=== PATIENT | male | born 1955 | race African-American/Black ===

== ENCOUNTER 2022-05-27 23:44 | Emergency (ER) | payer MEDICARE, SELFPAY ==
--- NOTE | ~2022-05-27 | XR_ITS ---
EXAMINATION: XR chest 1V portable DATE: 05/28/2022 06:50 INDICATION: Confusion. TECHNIQUE: A single frontal view of the chest was obtained. COMPARISON: None. FINDINGS: Calcified bilateral lung nodules and calcified hilar lymph nodes are consistent with old gr anulomatous disease. No pleural effusion or pneumothorax. The heart size is normal. There are changes of posterior fusion procedure in thoracic spine. IMPRESSION: 1. No acute cardiopulmonary disease. Reviewed, dictated and finalized at location A. [employer] EX[employer]SEK[employer]PER
--- NOTE | ~2022-05-27 | CT_ITS ---
EXAMINATION: CT brain wo con DATE: 05/28/2022 06:44 INDICATION: Confusion. TECHNIQUE: Computed tomography (CT) of the head was performed without intravenous contrast. The mA wa s adjusted according to patient size. Iterative reconstruction technique was employed. The dose-lengt h product was 605.33 mGy-cm. COMPARISON: None FINDINGS: There are old infarcts involving the left basal ganglia and niurka. There are scattered areas of low attenuation in the cerebral white matter. There is no intracranial hemorrhage, acute infarcti on, or abnormal intracranial mass lesion. The ventricles are normal in size. There are old blowout fr actures of medial wall and floor of left orbit. The mastoid air cells are normal. IMPRESSION: 1. 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 2. Extensive nonspecific cerebral white matter disease, which likely represents chronic small vessel ischemic disease. Reviewed, dictated and finalized at location A. ER DOCK
[2022-05-27 23:48] VITALS: BP 156/96; PULSE 75; RESP 16; TEMP 36.3; O2SAT 100
[2022-05-27 23:55] LABS: Glucose Point of Care 284 mg/dl (65-105)
--- NOTE | 2022-05-27 23:55 | ECG_ITS ---
Measurements Intervals [place] Rate: 73 P: 66 [place]: 153 QRS: 5 QRSD: 76 T: 50 QT: 395 QTc: 436 Interpretive Statements SINUS RHYTHM WITHIN NORMAL LIMITS] NO PREVIOUS ECG AVAILABLE FOR COMPARISON Electronically Signed On 05-28-2022 9:47:59 SENIOR COURTROOM CLERK by Amadou Lockhart M.D.
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
[2022-05-28] MEDS: INSULIN HUMAN REGULAR (*BKC) 100 UNITS/ML 10 UNITS SUB-Q (00:46)
[2022-05-28 03:27] LABS: Basophils Percent Auto 0.5 % (0.2-1.2); Eosinophils Absolute Auto 0.1 K/mm3 (0-0.3); Eosinophils Percent Auto 1.8 % (0-4.4); Immature Granulocyte Absolute 0.04 K/mm3 (0.00-0.031); Immature Granulocyte Percent A 0.7 % (0-0.5); Lymphocytes Absolute Auto 1.35 K/mm3 (0.9-3.2); Mean Corpuscular Hemoglobin 30.4 pg (26-34); Mean Corpuscular Volume 95.1 fl (80-100); Mean Platelet Volume 8.7 fl (7.4-10.4); Monocytes Absolute Auto 0.5 K/mm3 (0.1-0.6); Monocytes Percent Auto 8.7 % (2.6-8.5); Neutrophils Absolute Auto 3.6 K/mm3 (1.3-6.7); Neutrophils Percent Auto 64.3 % (45.5-73.1); Platelet Count Result 483 k/mm3 (150-375); Red Blood Count 2.63 M/mm3 (4.6-6.20); Red Cell Distribution Width 15.3 % (11.5-14.5); White Blood Count 5.6 K/mm3 (4.5-10.0)
[2022-05-28 03:36] LABS: Alanine Aminotransferase 44 U/L (6-50); Albumin Level 3.9 g/dL (3.5-5.1); Alkaline Phosphatase 83 U/L (38-126); Anion Gap 7 mmol/L (8-16); Aspartate Amino Transferase 32 U/L (17-59); Bilirubin,Total 0.2 mg/dL (0.2-1.3); Blood Urea Nitrogen 35 mg/dL (9-20); Calcium 8.8 mg/dL (8.4-10.2); Carbon Dioxide 28 mmol/L (22-30); Chloride 99 mmol/L (98-107); Estimated CRCL calculation 42 ml/min; Estimated Glomerular Filt Rate 53; Glucose 206 mg/dL (65-110); Sodium 134 mmol/L (137-145)
[2022-05-28 03:37] LABS: Ethanol < 10 mg/dL (<10)
[2022-05-28 03:47] LABS: SARS-CoV-2 RNA PCR Negative
[2022-05-28] MEDS: SODIUM CHLORIDE 0.9% IV 1,000 ML 999 ML IV CONT (06:18)
[2022-05-28 06:44] LABS: Add Urine Microscopic? YES; Appearance Urine Clear (Clear); Bilirubin Urine Negative (Negative); Blood Urine 1+ (Negative); Color Urine Yellow (Yellow); Glucose Urine UA 3+ mg/dL (Negative); Ketones Urine Negative (Negative); Leukocyte Esterase Ur Negative LEU/UL (Negative); Nitrate Urine Negative (Negative); Protein Urine 1+ mg/dL (Negative); Urobilinogen Urine 0.2 mg/dL (<2.0); pH Urine 5.5 (5.0-9.0)
[2022-05-28 06:51] LABS: Bacteria Urine Trace /hpf; Mucus Urine Rare /lpf; WBC Urine 0-3 /hpf
[2022-05-28 06:53] LABS: Amphetamine Screen Urine Negative (Negative); Barbiturate Screen Urine Negative (Negative); Benzodiazepines Screen Urine Negative (Negative); Cannabinoid Screen Urine Negative (Negative); Cocaine Screen Urine Negative (Negative); Methadone Screen Urine Negative (Negative); Opiate Screen Urine Negative (Negative); Phencyclidine Screen Urine Negative (Negative)
[2022-05-28 07:33] VITALS: BP 162/86; PULSE 66; RESP 12; O2SAT 100
[2022-05-28 07:34] VITALS: PULSE 67
--- NOTE | 2022-05-28 09:12 | PC.NURSE ---
attempted to call [phone], Danielle, - phone number given to us from [facility]. - Left message
--- NOTE | 2022-05-28 09:32 | PC.NURSE ---
Food tray ordered.
[2022-05-28 09:33] VITALS: BP 175/98; PULSE 70; RESP 18; O2SAT 100
== END 2022-05-28 10:49 | disposition home or self-care (01) ==
PROVIDERS: Emergency Provider General Practice
DX: E10.649 Type 1 diabetes mellitus with hypoglycemia without coma (principal); Z20.822 Contact with and (suspected) exposure to COVID-19; I10 Essential (primary) hypertension; R90.82 White matter disease, unspecified
CPT/HCPCS: 36415; 70450; 71045; 80053; 80307; 81001; 82948; 85025; 93005; 96360; 99284; J1815; J7030; U0003; U0005

== ENCOUNTER 2023-08-24 13:42 | Emergency (ER) | payer MEDICARE, SELFPAY ==
[2023-08-24] VITALS (7 sets, daily range): BP systolic 135–176; BP diastolic 63–102; PULSE 75–88; RESP 10–22; TEMP 36.2; O2SAT 100
--- NOTE | ~2023-08-24 | XR_ITS ---
EXAMINATION: XR chest 1V Exam Date/Time: 08/24/2023 16:10 CDT HISTORY: ams Comparison: 05/28/2022. RESULT: Lines, tubes, and devices: Lower thoracic fusion hardware. Lungs and pleura: Clear. Calcified granuloma. Cardiomediastinal silhouette: Stable. Calcified hilar lymph node. Other: No acute osseous or upper abdominal finding. Old right 11th rib fracture. IMPRESSION: No acute cardiopulmonary process. Reviewed, dictated and finalized at location K.
--- NOTE | ~2023-08-24 | CT_ITS ---
EXAMINATION: CT brain wo con DATE: 08/24/2023 16:10 INDICATION: Altered mental status. TECHNIQUE: Computed tomography (CT) of the head was performed without intravenous contrast. The mA wa s adjusted according to patient size. Iterative reconstruction technique was employed. The dose-lengt h product was 681.00 mGy-cm. COMPARISON: Head CT 05/28/2022 FINDINGS: There are old infarcts in the bilateral basal ganglia and niurka. There are scattered areas o f low attenuation in the cerebral white matter. There is no intracranial hemorrhage, acute infarction , or abnormal intracranial mass lesion. The ventricles are normal in size. There is mild mucosal thic kening in the ethmoid sinuses. The orbits are normal. The mastoid air cells are normal. IMPRESSION: 1. Old infarcts in the bilateral basal ganglia and niurka. 2. Stable extensive nonspecific cerebral white matter disease, which likely represents chronic small vessel ischemic disease. Reviewed, dictated and finalized at location A. IMPRESSION: 1. Old infarcts in the bilateral basal ganglia and niurka. 2. Stable extensive nonspecific cerebral white matter disease, which likely rep resents chronic small vessel ischemic disease.
[2023-08-24 13:53] LABS: Glucose Point of Care 328 mg/dl (65-105)
--- NOTE | 2023-08-24 15:56 | ECG_ITS ---
Measurements Intervals [place] Rate: 82 P: 77 [place]: 157 QRS: -8 QRSD: 82 T: 71 QT: 351 QTc: 412 Interpretive Statements SINUS RHYTHM INCOMPLETE RIGHT BUNDLE BRANCH BLOCK BASELINE ARTIFACT- I, II, III, AVR, AVL, AVF, V1-V6 BORDERLINE ECG COMPARED TO ECG 05/27/2022 23:56:43 NO SIGNIFICANT CHANGES Electronically Signed On 08-24-2023 16:39:01 CDT by Pilo Bernal D.O.
--- NOTE | 2023-08-24 16:30 | ED.AMS ---
HPI - Altered Mental Status General Chief Complaint: Recheck/Abnormal Lab/Rx Stated Complaint: ams Time Seen by Provider: 08/24/23 15:48 Source: EMS and other ( [facility] documentation reviewed) Mode of arrival: EMS Limitations: altered mental status and clinical condition History of Present Illness HPI narrative: Patient presents from [facility] with concern for altered mental status and elevated blood glucose. patient presents with custodial documentation which states that he had 14 units of lispro insulin at 11:30 a.m. and 10 units at 10am for total of 24 units. Patient is unable to provide any history. Prescriptions per nursing documentation as follows: Amlodipine, aspirin, atorvastatin, carvedilol, vitamin B12, multivitamin, dextrose gel, famotidine, ferrous sulfate, fluticasone, folic acid, Humalog, hydralazine, insulin glargine, ipratropium albuterol, Lucrecia Baldemar all, ProStat renal Care, quetiapine, Santyl, quetiapine Related Data Allergies Allergy/AdvReac Type Severity Reaction Status Date / Time No Known Allergies Allergy Verified 05/28/22 07:23 [facility] Past Medical History Medical History Anemia, unspecified Chronic kidney disease, unspecified Epilepsy, unspecified, not intractable, without status epilepticus 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 HEAD: Normocephalic, atraumatic. EYES: Non injected, non icteric ENT: Nares clear, no rhinorrhea or epistaxis. NECK: Supple. CHEST: Airway protected/patent. Non labored. No respiratory distress. HEART: Regular rate and rhythm. . ABDOMEN: Soft, nondistended. No tenderness to palpation. EXTREMITIES: No edema. SKIN: Warm, dry. Multiple areas of thickened skin, prior fowler. . NEURO: No focal deficits but not moving extremities. Bilateral upper extremities with contractures. . Course Vital Signs Vital signs: Vital Signs Temperature 97.1 F L 08/24/23 13:46 Pulse Rate 75 08/24/23 13:46 Respiratory Rate 14 08/24/23 13:46 Blood Pressure 135/77 08/24/23 13:46 Pulse Oximetry 100 08/24/23 13:46 Oxygen Delivery Room Air 08/24/23 13:46 Temperature 97.1 F L 08/24/23 13:46 Pulse Rate 86 08/24/23 21:24 Respiratory Rate 22 H 08/24/23 21:24 Blood Pressure 176/102 H 08/24/23 21:24 Pulse Oximetry 100 08/24/23 21:24 Oxygen Delivery Room Air 08/24/23 13:46 Procedures Other Procedure Procedure 1: Other Procedure: Procedure Note: Ultrasound-guided peripheral venous catheter insertion An ultrasound-guided peripheral venous catheter is required in order to obtain vascular access in this patient. Alcohol prep pad is used to sterilize the area and a 20 gauge catheter was successfully inserted into the left proximal arm under ultrasound visualization. The catheter flushes and draws back without difficulty or signs of extravasation. Catheter secured in plac
[2023-08-24 17:13] LABS: Appearance Urine Clear (Clear); Bacteria Urine None Seen /hpf; Bilirubin Urine Negative (Negative); Blood Urine Negative (Negative); Color Urine Yellow (Yellow); Glucose Urine UA 3+ mg/dL (Negative); Ketones Urine Negative (Negative); Leukocyte Esterase Ur Negative LEU/UL (Negative); Need Manual Microscopic Reviewed; Nitrate Urine Negative (Negative); Protein Urine 3+ mg/dL (Negative); Squamous Epithelial Cell Urine None Seen /hpf (Few); Urobilinogen Urine 0.2 mg/dL (<2.0); WBC Urine 0-5 /hpf (0-3); pH Urine 5.5 (5.0-9.0)
[2023-08-24 17:14] LABS: Add Urine Microscopic? YES
[2023-08-24 17:21] LABS: Amphetamine Screen Urine Negative (Negative); Barbiturate Screen Urine Negative (Negative); Benzodiazepines Screen Urine Negative (Negative); Cannabinoid Screen Urine Negative (Negative); Cocaine Screen Urine Negative (Negative); Methadone Screen Urine Negative (Negative); Opiate Screen Urine Negative (Negative); Phencyclidine Screen Urine Negative (Negative)
[2023-08-24 17:40] LABS: Basophils Percent Auto 0.3 % (0.2-1.2); Eosinophils Absolute Auto 0.1 K/mm3 (0-0.3); Eosinophils Percent Auto 2.3 % (0-4.4); Hematocrit 25.5 % (42.0-52.0); Hemoglobin 8.5 g/dL (14.0-18.0); Immature Granulocyte Absolute 0.16 K/mm3 (0.00-0.031); Immature Granulocyte Percent A 2.8 % (0-0.5); Lymphocytes Absolute Auto 1.46 K/mm3 (0.9-3.2); Lymphocytes Percent Auto 25.3 % (18.3-44.2); Mean Corpuscular HGB Conc 33.3 g/dl (32-36); Mean Corpuscular Hemoglobin 30.1 pg (26-34); Mean Corpuscular Volume 90.4 fl (80-100); Mean Platelet Volume 9.7 fl (7.4-10.4); Monocytes Absolute Auto 0.6 K/mm3 (0.1-0.6); Monocytes Percent Auto 10.1 % (2.6-8.5); Neutrophils Absolute Auto 3.4 K/mm3 (1.3-6.7); Neutrophils Percent Auto 59.2 % (45.5-73.1); Platelet Count Result 272 k/mm3 (150-375); Red Blood Count 2.82 M/mm3 (4.6-6.20); Red Cell Distribution Width 14.8 % (11.5-14.5); White Blood Count 5.8 K/mm3 (4.5-10.0)
[2023-08-24 17:53] LABS: Prothrombin Time 13.4 Seconds (11.1-14.7)
[2023-08-24 17:54] LABS: Partial Thromboplastin Time 29.6 Seconds (22.3-36.8)
[2023-08-24 17:57] LABS: Alanine Aminotransferase 56 U/L (6-50); Alkaline Phosphatase 88 U/L (38-126); Anion Gap 5 mmol/L (4-12); Aspartate Amino Transferase 32 U/L (17-59); Bilirubin,Total 0.4 mg/dL (0.2-1.3); Blood Urea Nitrogen 61 mg/dL (9-20); Carbon Dioxide 28 mmol/L (22-30); Chloride 108 mmol/L (98-107); Estimated CRCL calculation 31 ml/min; Estimated Glomerular Filt Rate 43; Glucose 232 mg/dL (65-110); Potassium 4.4 mmol/L (3.4-5.0); Sodium 141 mmol/L (137-145)
[2023-08-24 18:08] LABS: Troponin I < 0.012 ng/mL (0.000-0.034)
[2023-08-24 18:10] LABS: Creatine Kinase 83 U/L (55-170)
--- NOTE | 2023-08-24 18:56 | PC.NURSE ---
1600: RN attempted IV with ultrasound multiple times and had no luck. Pt has skin grafts up and down his arms. Wasn't able to get access at this time.
[2023-08-24] MEDS: SODIUM CHLORIDE 0.9% IV 1,000 ML 999 ML IV CONT (19:50)
[2023-08-24 20:43] LABS: Glucose Point of Care 293 mg/dl (65-105)
== END 2023-08-24 22:24 ==
PROVIDERS: Emergency Provider Student in an Organized Health Care Education/Training Program
DX: N17.9 Acute kidney failure, unspecified (principal); N18.9 Chronic kidney disease, unspecified; E10.22 Type 1 diabetes mellitus with diabetic chronic kidney disease; E10.65 Type 1 diabetes mellitus with hyperglycemia; D64.9 Anemia, unspecified; I25.2 Old myocardial infarction; Z79.82 Long term (current) use of aspirin; Z79.4 Long term (current) use of insulin; R90.82 White matter disease, unspecified; I45.10 Unspecified right bundle-branch block
CPT/HCPCS: 36415; 70450; 71045; 80053; 80307; 81001; 82550; 82948; 84443; 84484; 85025; 85610; 85730; 93005; 96360; 99284; J7030

== ENCOUNTER 2023-10-12 12:43 | Emergency (ER) | payer MEDICARE, SELFPAY ==
--- NOTE | ~2023-10-12 | XR_ITS ---
EXAMINATION: XR chest 1V portable DATE: 10/12/2023 12:56 INDICATION: Altered mental status TECHNIQUE: frontal view of the chest was obtained. COMPARISON: Chest radiograph dated 08/24/2023 FINDINGS: Unchanged mild elevation the left hemidiaphragm. Again seen are a few small calcified nodules in the bilateral lower lung zones consistent with old granulomatous disease. No other airspace opacities, pu lmonary edema, pleural effusion or pneumothorax. The cardiomediastinal silhouette is normal. T9-T12 i nstrumented posterior spinal fusion with bilateral vertical gris and pedicle screw fixation. [place] d posterior right 10th and 11th rib fractures. IMPRESSION: 1. Chronic mild elevation the left hemidiaphragm. No acute cardiopulmonary disease. Reviewed, dictated and finalized at location A. IMPRESSION: 1. Chronic mild elevation the left hemidiaphragm. No acute cardiopulmonary dise ase.
--- NOTE | ~2023-10-12 | CT_ITS ---
CT head without contrast Indication: Altered mental status COMPARISON: 08/24/2023 Technique: Serial scans were obtained through the brain without the administration of contrast. Dose reduction technique was used on this scan by utilizing automated exposure control and iterative recon struction technique. The dose-length product (DLP) was 681.00 mGy-cm. Findings: There is no evidence of intracranial hemorrhage, mass lesion, or acute infarct. The ventri cles and subarachnoid spaces are dilated, consistent with moderate to severe atrophy. Low attenuatio n regions are seen within the periventricular white matter bilaterally, likely representing changes f rom chronic microvascular ischemic disease. There is no evidence of edema, mass effect or midline sh ift. There is extensive opacification of the left maxillary sinus, left frontal sinus, and left ethmo id air cells. The remaining visualized paranasal sinuses and mastoid air cells are clear. Impression: No intracranial hemorrhage, mass, or acute infarct. Atrophy and chronic white matter changes, as above. Sinus disease, as above. Reviewed, dictated and finalized at location M. Impression: No intracranial hemorrhage, mass, or acute infarct. Atrophy and chronic white matter changes, as above. Sinus disease, as above.
[2023-10-12 12:44] VITALS: BP 164/82; PULSE 50; RESP 9; O2SAT 100
--- NOTE | 2023-10-12 12:47 | ECG_ITS ---
SEE SCANNED COPY FOR CONFIRMED REPORT
--- NOTE | 2023-10-12 12:57 | ED.AMS ---
HPI - Altered Mental Status General Chief Complaint: Altered Mental Status Stated Complaint: AMS Time Seen by Provider: 10/12/23 12:44 History of Present Illness HPI narrative: 67-year-old male presenting to the emergency department for evaluation for altered mental status. Patient does have prior history of CVA and resides in a local retirement. residential states that they were having difficulty waking up the patient. When EMS arrived they transfer the patient over to the urinary and patient was alert and oriented at his baseline. Upon arrival to the emergency department patient denies any pain or complaints. Patient states there is nothing wrong with some and does not want to be here at [facility]. Patient does have a prior history of CVA but does not appear postictal. 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 HEAD: normocephalic, atraumatic. EYES: PERRLA/EOMI, conjunctivae clear. NOSE: Normal no drainage EARS:TMS clear with good light reflex. THROAT: Pharynx clear, no exudate. NECK: Supple. No adenopathy, no masses. RESPIRATORY: Airway patent, respirations nonlabored. Clear to auscultation bilaterally, no rales, rhonchi, wheezing. CARDIOVASCULAR: Regular rate and rhythm without murmurs rubs or gallops. ABDOMINAL: Soft, nontender, nondistended, normal bowel sounds MUSCULOSKELETAL: Moves all extremities. Strength/ROM intact, No edema, No calf tenderness. NEURO: Alert. at patient's described neuro baseline. SKIN: Warm, dry. Normal Color Course Vital Signs Vital signs: Vital Signs Pulse Rate 50 L 10/12/23 12:44 Respiratory Rate 9 L 10/12/23 12:44 Blood Pressure 164/82 H 10/12/23 12:44 Pulse Oximetry 100 10/12/23 12:44 Temperature 97.4 F L 10/12/23 13:47 Pulse Rate 63 10/12/23 16:30 Respiratory Rate 14 10/12/23 16:30 Blood Pressure 153/72 H 10/12/23 16:30 Pulse Oximetry 98 10/12/23 16:30 Oxygen Delivery Room Air 10/12/23 12:59 MDM - Altered Mental Status MDM Narrative Medical decision making narrative: this 67-year-old male presents emergency department for evaluation for altered mental status. Patient was alert and not lethargic the entire time he was in the emergency department. Patient does not have an elevated white blood count and hemoglobin is stable. Urine does show evidence of urinary tract infection. Patient was negative for influenza RSV and for COVID. Head CT was negative for acute intracranial abnormality chest x-ray shows no acute cardiopulmonary disease. Patient was treated with IV Rocephin for a urinary tract infection. Patient was discharged back to his care facility with Keflex. Differential Diagnosis Differential diagnosis: Likely altered mental status, hyponatremia and sepsis Lab Data Attestation: I reviewed the patient's lab results. 10/12/23 15:23 10/12/23 15:23 Labs: Lab Results 10/12/23 10/12/23 10/12/23 Range/Units 13:13 13:43 15:23 WBC 4.3 L (4.5-10.0) K/mm3 RBC 3.16 L (4.6-6.20) M/mm3 Hgb 9.4 L (14.0-18.0) g/dL Hct 31.1 L (42.0-52.0) % MCV 98.4 (80-100) fl MCH 29.7 (26-34) pg MCHC 30.2 L (32-36) g/dl RDW 15.2 H (11.5-14.5) % Plt Count 232 (150-375) k/mm3 MPV 9.6 (7.4-10.4) fl Immature Gran % (Auto) 1.2 H (0-0.5) % Neut % (Auto) 47.6 (45.5-73.1) % Lymph % (Auto) 39.3 (18.3-44.2) % [place] % (Auto) 7.9 (2.6-8.5) % Eos % (Auto) 3.3 (0-4.4) % Baso % (Auto) 0.7 (0.2-1.2) % Lymph # (Auto) 1.69 (0.9-3.2) K/mm3 [place] # (Auto) 0.3 (0.1-0.6) K/mm3 Eos # (Auto) 0.1 (0-0.3) K/mm3 Baso # (Auto) 0.0 (0.0-0.1) K/mm3 Abs Immat Gran (auto) 0.05 H (0.00-0.031) K/mm3 Absolute Neuts (auto) 2.1 (1.3-6.7) K/mm3 Absolute Nucleated RBC 0.000 (0.0-0.012) K/mm3 Nucleated RBC % 0.0 (0.0-0.2) % Platelet Estimate Adequate (Adequate) % Immature Plt Fraction 1.6 (0.9-11.2) % Poikilocytosis 2+ Anisocytosis 1+ Ovalocytes 1+ Helmet Cells 1+ Crenated Cell 3+ Acanthocytes (Spur) 2+ Schistocytes 1+ Sodium Cancelled Potassium Cancelled Chloride Cancelled Carbon Dioxide Cancelled Anion Gap Cancelled BUN Cancelled Creatinine Cancelled Estim Creat Clear Calc Cancelled Estimated GFR Cancelled Glucose Cancelled Calcium Cancelled Total Bilirubin Cancelled AST Cancelled ALT Cancelled Alkaline Phosphatase Cancelled Total Protein Cancelled Albumin Cancelled Urine Color Yellow (Yellow) Urine Appearance Cloudy H (Clear) Urine pH 5.5 (5.0-9.0) Ur Specific [place] 1.017 (1.001-1.035) Urine Protein 3+ H (Negative) mg/dL Urine Glucose (UA) Negative (Negative) mg/dL Urine Ketones Negative (Negative) mg/dL Ur Blood (Man) 1+ H (Negative) Urine Nitrate Negative (Negative) Urine Bilirubin Negative (Negative) Urine Urobilinogen 0.2 (<2.0) mg/dL Leukocyte Esterase Rfl 3+ H (Negative) DANIS/UL Urine RBC 0-2 (0-2) /hpf Urine WBC >100 H (0-3) /hpf Ur Squamous Epith Cells None seen (Few) /hpf Urine Bacteria Rare /hpf Urine Casts 0-2 Influenza A (RT-PCR) Negative (Negative) Influenza B (RT-PCR) Negative (Negative) RSV (RT-PCR) Negative (Negative) SARS-CoV-2 RNA (RT-PCR) Negative (Negative) Imaging Data Radiologist's impression: Impressions Chest X-Ray 10/12/23 13:10 IMPRESSION: 1. Chronic mild elevation the left hemidiaphragm. No acute cardiopulmonary disease. Head CT 10/12/23 13:49 Impression: No intracranial hemorrhage, mass, or acute infarct. Atrophy and chronic white matter changes, as above. Sinus disease, as above. Discharge Plan Discharge Clinical Impression: Acute UTI Patient Disposition: NH Retirement/Asst Living Condition: Stable Instructions: Antibiotic Form, Urinary Tract Infection in Men (ED) Additional Instructions: Antibiotic as directed until completed. Have close follow-up with your primary care physician. Prescriptions: New cephalexin 500 mg capsule 500 mg PO Q8H 7 Days Qty: 21 0RF Follow-up/Referrals: UNKNOWN,DOCTOR [Primary Care Provider] -
--- NOTE | 2023-10-12 13:17 | PCRCNOTE ---
ABG CANCELLED FOR NOW PER DR. DENT. R.N. NOTIFIED.
[2023-10-12 13:47] VITALS: TEMP 36.3
[2023-10-12 13:52] LABS: Influenza A QL RT-PCR Negative (Negative); Influenza B QL RT-PCR Negative (Negative); RSV RNA, RT-PCR Negative (Negative); SARS-CoV-2 RNA PCR Negative (Negative)
[2023-10-12 13:52] LABS: Appearance Urine Cloudy (Clear); Bacteria Urine Rare /hpf; Bilirubin Urine Negative (Negative); Blood Urine 1+ (Negative); Color Urine Yellow (Yellow); Glucose Urine UA Negative (Negative); Ketones Urine Negative (Negative); Leukocyte Esterase Ur 3+ LEU/UL (Negative); Nitrate Urine Negative (Negative); Non Pathogenic Casts 0-2; Protein Urine 3+ mg/dL (Negative); RBC Urine 0-2 /hpf (0-2); Specific Grav Ur 1.017 (1.001-1.035); Squamous Epithelial Cell Urine None Seen /hpf (Few); Urobilinogen Urine 0.2 mg/dL (<2.0); WBC Urine >100 /hpf (0-3); pH Urine 5.5 (5.0-9.0)
[2023-10-12 14:02] LABS: Add Urine Microscopic? YES
--- NOTE | 2023-10-12 14:25 | PC.NURSE ---
Iv/lab attempt x3 with US, no success. Vascular access and phlebotomy consulted. Dr. Kevin Joaquin notified
[2023-10-12 14:30] VITALS: BP 160/79; PULSE 51; RESP 18; O2SAT 99
[2023-10-12 15:30] VITALS: BP 159/92; PULSE 58; RESP 21; O2SAT 98
[2023-10-12 15:35] LABS: Basophils Percent Auto 0.7 % (0.2-1.2); Eosinophils Absolute Auto 0.1 K/mm3 (0-0.3); Eosinophils Percent Auto 3.3 % (0-4.4); Hematocrit 31.1 % (42.0-52.0); Hemoglobin 9.4 g/dL (14.0-18.0); Immature Granulocyte Absolute 0.05 K/mm3 (0.00-0.031); Immature Granulocyte Percent A 1.2 % (0-0.5); Immature Platelet Fraction Pct 1.6 % (0.9-11.2); Lymphocytes Absolute Auto 1.69 K/mm3 (0.9-3.2); Lymphocytes Percent Auto 39.3 % (18.3-44.2); Mean Corpuscular HGB Conc 30.2 g/dl (32-36); Mean Corpuscular Hemoglobin 29.7 pg (26-34); Mean Corpuscular Volume 98.4 fl (80-100); Mean Platelet Volume 9.6 fl (7.4-10.4); Monocytes Absolute Auto 0.3 K/mm3 (0.1-0.6); Monocytes Percent Auto 7.9 % (2.6-8.5); Neutrophils Absolute Auto 2.1 K/mm3 (1.3-6.7); Neutrophils Percent Auto 47.6 % (45.5-73.1); Platelet Count Result 232 k/mm3 (150-375); Red Blood Count 3.16 M/mm3 (4.6-6.20); Red Cell Distribution Width 15.2 % (11.5-14.5); White Blood Count 4.3 K/mm3 (4.5-10.0)
[2023-10-12 16:02] LABS: Platelet Estimate Adequate (Adequate)
[2023-10-12 16:03] LABS: Anisocytosis 1+; Poikilocytosis 2+
[2023-10-12 16:04] LABS: Helmet Cells 1+; Ovalocytes 1+
[2023-10-12 16:06] LABS: Acanthocytes 2+; Crenated RBC 3+; Schistocytes 1+
[2023-10-12 16:30] VITALS: BP 153/72; PULSE 63; RESP 14; O2SAT 98
[2023-10-12] MEDS: CEPHALEXIN 500 MG CAPSULE PO (17:03)
== END 2023-10-12 17:14 ==
PROVIDERS: Emergency Provider Emergency Medicine
DX: N39.0 Urinary tract infection, site not specified (principal); E10.22 Type 1 diabetes mellitus with diabetic chronic kidney disease; G40.909 Epilepsy, unspecified, not intractable, without status epilepticus; I25.2 Old myocardial infarction; F06.71 Mild neurocognitive disorder due to known physiological condition with behavioral disturbance; Z86.2 Personal history of diseases of the blood and blood-forming organs and certain disorders involving the immune mechanism; R94.31 Abnormal electrocardiogram [ECG] [EKG]; R00.1 Bradycardia, unspecified; Z20.822 Contact with and (suspected) exposure to COVID-19
CPT/HCPCS: 36415; 70450; 71045; 81001; 85025; 85055; 87077; 87086; 87088; 87181; 87637; 93005; 99284; A9270

== ENCOUNTER 2023-10-15 11:07 | Emergency (ER) | payer MEDICARE, MEDICAID, SELFPAY ==
[2023-10-15] VITALS (9 sets, daily range): BP systolic 126–144; BP diastolic 65–84; PULSE 52–86; RESP 16–22; TEMP 36.6; O2SAT 84–100
[2023-10-15 11:24] LABS: Glucose Point of Care 178 mg/dl (65-105)
--- NOTE | 2023-10-15 13:11 | PC.NURSE ---
This RN called phlebotomy for pt labs
[2023-10-15 14:39] LABS: Basophils Percent Auto 0.5 % (0.2-1.2); Eosinophils Absolute Auto 0.1 K/mm3 (0-0.3); Hematocrit 26.4 % (42.0-52.0); Hemoglobin 8.5 g/dL (14.0-18.0); Immature Granulocyte Absolute 0.02 K/mm3 (0.00-0.031); Lymphocytes Absolute Auto 0.71 K/mm3 (0.9-3.2); Lymphocytes Percent Auto 35.1 % (18.3-44.2); Mean Corpuscular HGB Conc 32.2 g/dl (32-36); Mean Corpuscular Hemoglobin 29.4 pg (26-34); Mean Corpuscular Volume 91.3 fl (80-100); Mean Platelet Volume 9.5 fl (7.4-10.4); Monocytes Absolute Auto 0.1 K/mm3 (0.1-0.6); Neutrophils Absolute Auto 1.1 K/mm3 (1.3-6.7); Neutrophils Percent Auto 55.4 % (45.5-73.1); Platelet Count Result 183 k/mm3 (150-375); Red Blood Count 2.89 M/mm3 (4.6-6.20); Red Cell Distribution Width 14.9 % (11.5-14.5)
[2023-10-15 14:45] LABS: Alanine Aminotransferase 115 U/L (6-50); Alkaline Phosphatase 114 U/L (38-126); Anion Gap 8 mmol/L (4-12); Aspartate Amino Transferase 57 U/L (17-59); Bilirubin,Total 0.4 mg/dL (0.2-1.3); Blood Urea Nitrogen 50 mg/dL (9-20); Calcium 9.7 mg/dL (8.4-10.2); Carbon Dioxide 23 mmol/L (22-30); Chloride 114 mmol/L (98-107); Estimated CRCL calculation 44 ml/min; Estimated Glomerular Filt Rate 53; Glucose 105 mg/dL (65-110); Sodium 145 mmol/L (137-145)
[2023-10-15 14:58] LABS: Platelet Estimate Adequate (Adequate)
[2023-10-15 14:59] LABS: Ovalocytes 1+; Schistocytes None Seen
--- NOTE | 2023-10-15 15:48 | ED.GENADULT ---
HPI - General Adult General Chief complaint: Recheck/Abnormal Lab/Rx Stated complaint: low blood sugar Time Seen by Provider: 10/15/23 11:43 Source: EMS Mode of arrival: EMS Limitations: clinical condition History of Present Illness HPI narrative: 67-year-old with a history of type 1 diabetes, cognitive disorder [facility] with the complaints of low blood sugar. As per the EMS his sugars were extremely low and use usually A&O x1 and patient was not responding to normal still a sugar upon their arrival was 34 he was started on D10 drip and was later transferred to the ER. 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 HEAD: Normocephalic, atraumatic. EYES: PERRLA and EOMI. ENT: Nares clear, no rhinorrhea or epistaxis. Mucous membranes moist. NECK: Supple. CHEST: Clear to auscultation. No respiratory distress. HEART: Regular rate and rhythm. No murmur heard. Normal peripheral pulses. ABDOMEN: Soft, nontender, nondistended, normal active bowel sounds. EXTREMITIES: Normal range of motion. No edema. SKIN: Warm, dry, no rash. NEURO: No focal deficits. Alert and oriented x1 PSYCH: Normal mood and affect. Course Course Emergency Course: Patient became quite alert he is able to answer questions. He declined to eat. Advised to take his medication. Vital Signs Vital signs: Vital Signs Pulse Rate 86 10/15/23 11:08 Respiratory Rate 18 10/15/23 11:08 Blood Pressure 142/70 H 10/15/23 11:08 Pulse Oximetry 84 L 10/15/23 11:08 Oxygen Delivery Room Air 10/15/23 11:08 Temperature 36.6 C 10/15/23 16:24 Pulse Rate 61 10/15/23 16:24 Respiratory Rate 16 10/15/23 16:24 Blood Pressure 141/76 H 10/15/23 16:24 Pulse Oximetry 100 10/15/23 16:24 Oxygen Delivery Room Air 10/15/23 12:51 Oxygen Flow Rate 2 10/15/23 12:29 Medical Decision Making Medical Records Medical records reviewed: Yes I reviewed the external patient's medical records. Vital Signs Vital Signs: Vital Signs Pulse Rate 86 10/15/23 11:08 Respiratory Rate 18 10/15/23 11:08 Blood Pressure 142/70 H 10/15/23 11:08 Pulse Oximetry 84 L 10/15/23 11:08 Oxygen Delivery Room Air 10/15/23 11:08 Temperature 36.6 C 10/15/23 16:24 Pulse Rate 61 10/15/23 16:24 Respiratory Rate 16 10/15/23 16:24 Blood Pressure 141/76 H 10/15/23 16:24 Pulse Oximetry 100 10/15/23 16:24 Oxygen Delivery Room Air 10/15/23 12:51 Oxygen Flow Rate
== END 2023-10-15 18:00 ==
PROVIDERS: Emergency Provider Family Medicine; PCP Internal Medicine
DX: E10.649 Type 1 diabetes mellitus with hypoglycemia without coma (principal); D64.9 Anemia, unspecified; G40.909 Epilepsy, unspecified, not intractable, without status epilepticus
CPT/HCPCS: 36415; 80053; 82948; 85025; 99283

== ENCOUNTER 2024-04-13 21:26 | Emergency (ER) | payer MEDICARE, MEDICAID, SELFPAY ==
[2024-04-13 21:28] VITALS: BP 180/78; PULSE 63; RESP 14; TEMP 36.6; O2SAT 100
[2024-04-13 21:34] LABS: Glucose Point of Care 129 mg/dl (65-105)
--- NOTE | 2024-04-13 22:43 | ED.RECABL ---
HPI - Recheck/Abnormal Lab/Rx General Chief Complaint: Recheck/Abnormal Lab/Rx Stated Complaint: hypoglycemia Time Seen by Provider: 04/13/24 22:21 Source: patient Mode of arrival: EMS Limitations: altered mental status and dementia History of Present Illness HPI narrative: This is a 68-year-old male who presents to the ED via EMS from [facility] for chief complaint of low blood sugar. Staff called EMS reporting patient was unresponsive with a blood sugar of 28. Patient was then given glucagon x2 prior to EMS arrival. When EMS arrived the patient and blood sugar 108 and was arousable to voice/light pain. Staff for unsure when patient was given insulin but they knew that patient skipped dinner. Patient is alert oriented x1 at baseline on arrival to the ED. Other history from patient limited due to baseline mental status. Patient denies any complaints or any pain to myself. 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 Resting comfortably and asleep on my arrival. HEAD: Normocephalic, atraumatic. EYES: PERRLA and EOMI. ENT: Nares clear, no rhinorrhea or epistaxis. Mucous membranes moist. Oropharynx without tonsillar hypertrophy exudate or other lesions. NECK: Supple. No adenopathy or masses. CHEST: No respiratory distress. Clear to auscultation. No wheezes rales or rhonchi HEART: Regular rate and rhythm. No murmur heard. Normal peripheral pulses. ABDOMEN: Soft, nontender, nondistended, normal active bowel sounds. MSK: Normal range of motion. No edema. SKIN: Warm, dry, no rash. NEURO: Alert and oriented x1, baseline. No focal deficits. PSYCH: Normal mood and affect. Course Vital Signs Vital signs: Vital Signs Temperature 97.8 F 04/13/24 21:28 Pulse Rate 63 04/13/24 21:28 Respiratory Rate 14 04/13/24 21:28 Blood Pressure 180/78 H 04/13/24 21:28 Pulse Oximetry 100 04/13/24 21:28 Oxygen Delivery Room Air 04/13/24 21:28 Temperature 97.8 F 04/13/24 21:28 Pulse Rate 60 04/13/24 23:34 Respiratory Rate 14 04/13/24 23:34 Blood Pressure 171/76 H 04/13/24 23:34 Pulse Oximetry 96 04/13/24 23:34 Oxygen Delivery Room Air 04/13/24 21:28 MDM - Recheck/Abnormal Lab/Rx MDM Narrative Medical decision making narrative: This is a 68 yo male who presents to the ED for chief complaint of low blood sugar the retirement. Vitals show elevated blood pressure but otherwise normal. Exam shows patient is alert oriented x1 and had his baseline. He was given glucagon x2 prior to arrival. On arrival his blood sugar is 108. At 2 hours his blood sugar is 173. Lab work unremarkable overall. This shows chronic findings with CKD. Serial glucoses are normal. Suspect that patient was given normal fast acting insulin dose despite not having any dinner tonight. Patient will be discharged in stable condition back to retirement. Lab Data 04/14/24 00:20 04/14/24 00:20 Labs: Lab Results 04/13/24 04/13/24 04/13/24 Range/Units 21:32 22:45 23:32 WBC (4.5-10.0) K/mm3 RBC (4.6-6.20) M/mm3 Hgb (14.0-18.0) g/dL Hct (42.0-52.0) % MCV (80-100) fl MCH (26-34) pg MCHC (32-36) g/dl RDW (11.5-14.5) % Plt Count (150-375) k/mm3 MPV (7.4-10.4) fl Immature Gran % (Auto) (0-0.5) % Neut % (Auto) (45.5-73.1) % Lymph % (Auto) (18.3-44.2) % [place] % (Auto) (2.6-8.5) % Eos % (Auto) (0-4.4) % Baso % (Auto) (0.2-1.2) % Lymph # (Auto) (0.9-3.2) K/mm3 [place] # (Auto) (0.1-0.6) K/mm3 Eos # (Auto) (0-0.3) K/mm3 Baso # (Auto) (0.0-0.1) K/mm3 Abs Immat Gran (auto) (0.00-0.031) K/mm3 Absolute Neuts (auto) (1.3-6.7) K/mm3 Absolute Nucleated RBC (0.0-0.012) K/mm3 Nucleated RBC % (0.0-0.2) % Sodium (137-145) mmol/L Potassium (3.4-5.0) mmol/L Chloride (98-107) mmol/L Carbon Dioxide (22-30) mmol/L Anion Gap (4-12) mmol/L BUN (9-20) mg/dL Creatinine (0.7-1.3) mg/dL Estim Creat Clear Calc ml/min Estimated GFR (59 - ) Glucose (65-110) mg/dL POC Capillary Glucose 129 H 173 H (65-105) mg/dl Calcium (8.4-10.2) mg/dL Total Bilirubin (0.2-1.3) mg/dL AST (17-59) U/L ALT (6-50) U/L Alkaline Phosphatase (38-126) U/L Total Protein (6.3-8.2) g/dL Albumin (3.5-5.1) g/dL Urine Color Yellow (Yellow) Urine Appearance Clear (Clear) Urine pH 6.0 (5.0-9.0) Ur Specific [place] 1.015 (1.001-1.035) Urine Protein 3+ H (Negative) mg/dL Urine Glucose (UA) Negative (Negative) mg/dL Urine Ketones Negative (Negative) mg/dL Ur Blood (Man) Trace (Negative) Urine Nitrate Negative (Negative) Urine Bilirubin Negative (Negative) Urine Urobilinogen 0.2 (<2.0) mg/dL Add Ur Microanalysis Reviewed Leukocyte Esterase Rfl Negative (Negative) DANIS/UL Urine RBC 6-10 H (0-2) /hpf Urine WBC 0-5 (0-3) /hpf Ur Squamous Epith Cells None seen (Few) /hpf Urine Bacteria None seen /hpf Urine Casts 3-5 04/14/24 Range/Units 00:20 WBC 6.6 (4.5-10.0) K/mm3 RBC 2.63 L (4.6-6.20) M/mm3 Hgb 7.5 L (14.0-18.0) g/dL Hct 24.0 L (42.0-52.0) % MCV 91.3 (80-100) fl MCH 28.5 (26-34) pg MCHC 31.3 L (32-36) g/dl RDW 16.7 H (11.5-14.5) % Plt Count 227 (150-375) k/mm3 MPV 9.4 (7.4-10.4) fl Immature Gran % (Auto) 0.3 (0-0.5) % Neut % (Auto) 76.4 H (45.5-73.1) % Lymph % (Auto) 14.8 L (18.3-44.2) % [place] % (Auto) 6.4 (2.6-8.5) % Eos % (Auto) 1.8 (0-4.4) % Baso % (Auto) 0.3 (0.2-1.2) % Lymph # (Auto) 0.98 (0.9-3.2) K/mm3 [place] # (Auto) 0.4 (0.1-0.6) K/mm3 Eos # (Auto) 0.1 (0-0.3) K/mm3 Baso # (Auto) 0.0 (0.0-0.1) K/mm3 Abs Immat Gran (auto) 0.02 (0.00-0.031) K/mm3 Absolute Neuts (auto) 5.0 (1.3-6.7) K/mm3 Absolute Nucleated RBC 0.000 (0.0-0.012) K/mm3 Nucleated RBC % 0.0 (0.0-0.2) % Sodium 140 (137-145) mmol/L Potassium 3.9 (3.4-5.0) mmol/L Chloride 108 H (98-107) mmol/L Carbon Dioxide 26 (22-30) mmol/L Anion Gap 6 (4-12) mmol/L BUN 38 H D (9-20) mg/dL Creatinine 1.70 H (0.7-1.3) mg/dL Estim Creat Clear Calc 37 ml/min Estimated GFR 49 L (59 - ) Glucose 146 H (65-110) mg/dL POC Capillary Glucose (65-105) mg/dl Calcium 9.0 (8.4-10.2) mg/dL Total Bilirubin 0.2 (0.2-1.3) mg/dL AST 88 H (17-59) U/L ALT 137 H (6-50) U/L Alkaline Phosphatase 114 (38-126) U/L Total Protein 7.0 (6.3-8.2) g/dL Albumin 3.4 L (3.5-5.1) g/dL Urine Color (Yellow) Urine Appearance (Clear) Urine pH (5.0-9.0) Ur Specific [place] (1.001-1.035) Urine Protein (Negative) mg/dL Urine Glucose (UA) (Negative) mg/dL Urine Ketones (Negative) mg/dL Ur Blood (Man) (Negative) Urine Nitrate (Negative) Urine Bilirubin (Negative) Urine Urobilinogen (<2.0) mg/dL Add Ur Microanalysis Leukocyte Esterase Rfl (Negative) DANIS/UL Urine RBC (0-2) /hpf Urine WBC (0-3) /hpf Ur Squamous Epith Cells (Few) /hpf Urine Bacteria /hpf Urine Casts Discharge Plan Discharge Clinical Impression: Hypoglycemic episode in patient with diabetes mellitus Patient Disposition: NH [facility]pc/Asst Living Condition: Stable Instructions: Antibiotic Form, Hypoglycemia in a Person with Diabetes (DC) Prescriptions: No Action cephalexin 500 mg capsule 500 mg PO Q8H 7 Days Qty: 21 0RF Follow-up/Referrals: Duncan,MD Zane [Primary Care Provider] - Stand Alone Forms: [facility] Discharge Time of Disposition: 01:41
[2024-04-13 23:24] LABS: Add Urine Microscopic? YES; Appearance Urine Clear (Clear); Bacteria Urine None Seen /hpf; Bilirubin Urine Negative (Negative); Blood Urine Trace (Negative); Color Urine Yellow (Yellow); Glucose Urine UA Negative (Negative); Ketones Urine Negative (Negative); Leukocyte Esterase Ur Negative LEU/UL (Negative); Need Manual Microscopic Reviewed; Nitrate Urine Negative (Negative); Protein Urine 3+ mg/dL (Negative); Specific Grav Ur 1.015 (1.001-1.035); Squamous Epithelial Cell Urine None Seen /hpf (Few); Urobilinogen Urine 0.2 mg/dL (<2.0); WBC Urine 0-5 /hpf (0-3)
--- NOTE | 2024-04-13 23:25 | PC.NURSE ---
Phlebotomy contacted for pt blood draw.
[2024-04-13 23:34] VITALS: BP 171/76; PULSE 60; RESP 14; O2SAT 96
[2024-04-13 23:35] LABS: Glucose Point of Care 173 mg/dl (65-105)
[2024-04-14 00:24] LABS: Basophils Percent Auto 0.3 % (0.2-1.2); Eosinophils Absolute Auto 0.1 K/mm3 (0-0.3); Eosinophils Percent Auto 1.8 % (0-4.4); Hemoglobin 7.5 g/dL (14.0-18.0); Immature Granulocyte Absolute 0.02 K/mm3 (0.00-0.031); Immature Granulocyte Percent A 0.3 % (0-0.5); Lymphocytes Absolute Auto 0.98 K/mm3 (0.9-3.2); Lymphocytes Percent Auto 14.8 % (18.3-44.2); Mean Corpuscular HGB Conc 31.3 g/dl (32-36); Mean Corpuscular Hemoglobin 28.5 pg (26-34); Mean Corpuscular Volume 91.3 fl (80-100); Mean Platelet Volume 9.4 fl (7.4-10.4); Monocytes Absolute Auto 0.4 K/mm3 (0.1-0.6); Monocytes Percent Auto 6.4 % (2.6-8.5); Neutrophils Percent Auto 76.4 % (45.5-73.1); Platelet Count Result 227 k/mm3 (150-375); Red Blood Count 2.63 M/mm3 (4.6-6.20); Red Cell Distribution Width 16.7 % (11.5-14.5); White Blood Count 6.6 K/mm3 (4.5-10.0)
[2024-04-14 00:36] LABS: Alanine Aminotransferase 137 U/L (6-50); Albumin Level 3.4 g/dL (3.5-5.1); Alkaline Phosphatase 114 U/L (38-126); Anion Gap 6 mmol/L (4-12); Aspartate Amino Transferase 88 U/L (17-59); Bilirubin,Total 0.2 mg/dL (0.2-1.3); Blood Urea Nitrogen 38 mg/dL (9-20); Carbon Dioxide 26 mmol/L (22-30); Chloride 108 mmol/L (98-107); Estimated CRCL calculation 37 ml/min; Estimated Glomerular Filt Rate 49; Glucose 146 mg/dL (65-110); Potassium 3.9 mmol/L (3.4-5.0); Sodium 140 mmol/L (137-145)
[2024-04-14 01:47] LABS: Glucose Point of Care 143 mg/dl (65-105)
[2024-04-14 01:55] VITALS: BP 162/67; PULSE 64; RESP 14; O2SAT 96
[2024-04-14 04:37] VITALS: BP 126/67; PULSE 62; RESP 14; O2SAT 96
--- NOTE | 2024-04-14 05:02 | PC.NURSE ---
Attempted to call report with discharge instructions to [facility], no answer and no option to leave message. Pts sister called and given update. Transport scheduled for 6am.
[2024-04-14 06:26] LABS: Glucose Point of Care 124 mg/dl (65-105)
== END 2024-04-14 07:39 ==
PROVIDERS: Emergency Medicine; Emergency Provider Physician Assistant; PCP Internal Medicine
DX: E10.649 Type 1 diabetes mellitus with hypoglycemia without coma (principal); E10.22 Type 1 diabetes mellitus with diabetic chronic kidney disease; N18.9 Chronic kidney disease, unspecified; G40.909 Epilepsy, unspecified, not intractable, without status epilepticus; R41.9 Unspecified symptoms and signs involving cognitive functions and awareness
CPT/HCPCS: 36415; 80053; 81001; 82948; 85025; 99283

== ENCOUNTER 2024-04-24 22:11 | Inpatient (IN) | payer MEDICARE, MEDICAID, SELFPAY ==
--- NOTE | ~2024-04-24 | US_ITS ---
EXAMINATION: US thoracentesis DATE: 04/26/2024 11:41 INDICATION: pleural effusion TECHNIQUE: The procedure and its risks and benefits were discussed with the patient's guardian. Duke pittman risks discussed included bleeding, infection, and pneumothorax. The guardian understood the risk s and agreed to proceed. The skin was prepped and draped in sterile fashion. 1% lidocaine was used fo r local anesthesia. Under ultrasound guidance, a 5 Fr catheter with trochar was advanced into the lef t pleural effusion. Only a minimal amount of fluid was able to be aspirated. The catheter was removed , and a dressing was applied. There were no immediate complications. FINDINGS: Ultrasound images demonstrate a very small bilateral pleural effusions. Subsequent images demonstrate the catheter within the small amount of left pleural effusion IMPRESSION: 1. Successful ultrasound-guided thoracentesis yielding 3.5 mL of clear straw-colored fluid. 2. Very small bilateral pleural effusions which appear decreased in size since the prior CT from 03/30 Reviewed, dictated and finalized at location A. ENTER ASSISTANT IMPRESSION: 1. Successful ultrasound-guided thoracentesis yielding 3.5 mL of clear straw-c olored fluid. 2. Very small bilateral pleural effusions which appear decreased in size since the prior CT from 04/25/2024
--- NOTE | ~2024-04-24 | XR_ITS ---
XR barium swallow modified DATE: 04/27/2024 09:55 INDICATION: Dysphagia TECHNIQUE: Fluoroscopy was performed for modified swallow procedure performed by the speech pathologi . COMPARISON: None FINDINGS: Oral stage: Within functional limits Pharyngeal stage: Reduced laryngeal elevation and abduction, reduced tongue base retraction There is prominent initial pooling of the bolus within the valleculae, which spills over into the pir iform sinuses before finally being passed. There is laryngeal penetration with thin liquids and drinking with straw. No aspiration. Cervical/esophageal stage: Within functional limits IMPRESSION: Laryngeal penetration with thin liquids and drinking with straw Reviewed, dictated and finalized at Location [facility]. Reviewed, dictated and finalized at location A. ION SUPPORT SPECIALIST
--- NOTE | ~2024-04-24 | XR_ITS ---
EXAMINATION: XR chest 1V portable DATE: 05/01/2024 13:42 INDICATION: Preprocedure evaluation prior to bronchoscopy TECHNIQUE: frontal view of the chest was obtained. COMPARISON: Chest CT dated 04/25/2024 and radiographs dated 04/24/2024 and 10/12/2023 FINDINGS: Chronic mild elevation the left hemidiaphragm. Small calcified nodules in the right lower lung zone c onsistent with old granulomatous disease. Persistent left perihilar opacity. Interval improvement in retrocardiac opacity left lower lung zone. Likely residual small left and possible very small right p osterior layering pleural effusions. No pneumothorax. Heart size is normal. Cardiomegaly. T9-T12 inst rumented posterior spinal fusion. IMPRESSION: 1. Opacities in the left mid and bilateral lower lung zones consistent with small left and likely robbie y small right pleural effusions with associated atelectasis and/or pneumonia. Reviewed, dictated and finalized at location A. ALT SURFACE HEATER OPERATOR IMPRESSION: 1. Opacities in the left mid and bilateral lower lung zones consistent with sma ll left and likely very small right pleural effusions with associated atelectas is and/or pneumonia.
--- NOTE | ~2024-04-24 | XR_ITS ---
EXAMINATION: [id number] DATE: 04/26/2024 10:53 INDICATION: Status post thoracentesis TECHNIQUE: frontal and lateral views of the chest were obtained. COMPARISON: Chest radiograph dated 04/24/2024 FINDINGS: Unchanged mild opacities at the posterior right lung base. Decrease in the airspace opacities in the left mid to lower lung zone most prominent at the posterior and lateral left lower lung zone and at t he posterior medial mid lung zone consistent with residual consolidation in the lingula, posterior ba silar left lower lobe and superior segment of the left lower lobe. No pneumothorax. Blunting at the p osterior sulci suggesting likely small residual bilateral pleural effusions. Mild cardiomegaly. T9-T1 0 posterior spinal fusion with bilateral vertical gris and pedicle screw fixation. IMPRESSION: 1. No pneumothorax. 2. Unchanged mild opacities at the right lower lung zone and decrease opacity left mid and lower lung zone with residual focal region of consolidation in the lingula and left lower lobe, all suspicious for pneumonia. 3. Likely small residual bilateral pleural effusions. Reviewed, dictated and finalized at location A. R SHOP SUPERVISOR IMPRESSION: 1. No pneumothorax. 2. Unchanged mild opacities at the right lower lung zone and decrease opacity l eft mid and lower lung zone with residual focal region of consolidation in the lingula and left lower lobe, all suspicious for pneumonia. 3. Likely small residual bilateral pleural effusions.
--- NOTE | ~2024-04-24 | CT_ITS ---
EXAMINATION: CT diagnostic chest wo con DATE: 04/25/2024 01:40 INDICATION: pleural effusion TECHNIQUE: Computed tomography (CT) of the chest was performed without intravenous contrast. Addition al 3D reconstructions utilizing coronal maximum intensity projection (MIP) were performed. Automated exposure control and iterative reconstruction technique were employed. The dose-length product was 29 9.55 mGy-cm. COMPARISON: None FINDINGS: Moderate-sized left and small right pleural effusions with significant associated dependent compressi ve atelectasis in both lungs. The left pleural effusion appears partially loculated. Small amount of smooth septal line thickening in the right lower lobe consistent with minimal pulmonary edema. Couple small bilateral calcified pulmonary nodules along with calcified mediastinal and bilateral hilar lym ph nodes consistent with old granulomatous disease. Cardiomegaly with scattered atherosclerotic coron mike artery calcifications. Small to moderate-sized pericardial effusion. Thoracic aorta is normal in caliber. No pathologically enlarged thoracic lymphadenopathy. There are a few old bilateral rib fract ures. T9-T12 and instrumented posterior spinal fusion with bilateral vertical gris and pedicle screw f ixation. Chronic appearing mild anterior wedging at T7 and T8. IMPRESSION: 1. Small right and moderate-sized partially loculated left pleural effusions with associated compress zaida atelectasis in both lungs. 2. Minimal pulmonary edema the lung bases. 2. Cardiomegaly with small to moderate-sized pericardial effusion. Reviewed, dictated and finalized at location A. NIGHT CAREGIVER IMPRESSION: 1. Small right and moderate-sized partially loculated left pleural effusions wi th associated compressive atelectasis in both lungs. 2. Minimal pulmonary edema the lung bases. 2. Cardiomegaly with small to moderate-sized pericardial effusion.
--- NOTE | ~2024-04-24 | US_ITS ---
Limited ABDOMINAL ULTRASOUND (Doppler ultrasound interrogation techniques used as needed for this nellie m.) Ordering provider: Cordelia Meng NP History: . Elevated LFT's . Comparison: None. FINDINGS: PANCREAS: Normal echotexture and size. Echogenic vessel is seen in the pancreatic tail most likely du e to atherosclerotic changes. PORTAL VEIN: Hepatopedal flow demonstrated. LIVER: Normal size and echotexture. Measures 16.9 cm. No focal hepatic lesions or perihepatic fluid c ollections are identified. BILIARY DUCTS: No intra or extrahepatic biliary dilation. Common bile duct measures 2.1 mm in diamete r which is normal for patient's age. GALLBLADDER: Normal. No stones, sludge, gallbladder wall thickening or pericholecystic fluid. Wall th ickness is 1.4 mm. Negative sonographic Spears's sign. Right kidney: Echogenic. FREE FLUID: None visualized within the upper abdomen. IMPRESSION: Echogenic right kidney suggestive of medical renal disease. Further evaluation advised. Otherwise, no rmal Limited abdominal ultrasound. Reviewed, dictated and finalized at location A. OIDERY MACHINE OPERATOR IMPRESSION: Echogenic right kidney suggestive of medical renal disease. Further evaluation advised. Otherwise, normal Limited abdominal ultrasound.
--- NOTE | ~2024-04-24 | XR_ITS ---
EXAMINATION: XR chest 1V portable DATE: 04/24/2024 22:47 INDICATION: Abnormal chest radiograph TECHNIQUE: AP view of the chest was obtained. COMPARISON: Chest radiograph dated 10/12/2023 FINDINGS: Lung volumes are mildly decreased. Gradient of basilar predominant hazy airspace opacity at the left lung suggesting a small to moderate-sized posterior layering pleural effusion. Patchy airspace opacit ies at the left lower lung zone which could represent atelectasis or pneumonia. Mild opacities at the right lower lung zone which could be due to additional atelectasis, pneumonia or mild pulmonary devon a. No pneumothorax or right-sided pleural effusion. The cardiomediastinal silhouette is within normal limits for AP technique. Lower thoracic posterior spinal fusion with bilateral vertical gris and pedi jada screw fixation. IMPRESSION: 1. Opacities in the left mid and bilateral lower lung zones which could represent atelectasis, pneumo bradly, mild pulmonary edema or some combination thereof. 2. Likely small to moderate-sized posterior layering left pleural effusion. Reviewed, dictated and finalized at location A. EMS ENGINEER IMPRESSION: 1. Opacities in the left mid and bilateral lower lung zones which could represe nt atelectasis, pneumonia, mild pulmonary edema or some combination thereof. 2. Likely small to moderate-sized posterior layering left pleural effusion.
--- NOTE | ~2024-04-24 | US_ITS ---
EXAMINATION: US renal BI DATE: 04/30/2024 14:36 INDICATION: Acute on chronic kidney disease. TECHNIQUE: Multiple ultrasound grayscale images of the kidneys were obtained. COMPARISON: Chest CT 04/25/2024 FINDINGS: The right kidney measures 9.2 x 3.3 x 4.5 cm. The left kidney measures 10.8 x 5.4 x 3.7 cm. The kidne ys demonstrate increased parenchymal echogenicity. There is a 2.1 cm cyst in right kidney. There is n o hydronephrosis. The bladder is distended. IMPRESSION: 1. Increased renal parenchymal echogenicity, consistent with nonspecific nephropathy. Reviewed, dictated and finalized at location A. ISSARY SUPERINTENDENT IMPRESSION: 1. Increased renal parenchymal echogenicity, consistent with nonspecific nephr opathy.
[2024-04-24 22:11] VITALS: BP 164/83; PULSE 73; RESP 18; TEMP 36.5; O2SAT 94
--- NOTE | 2024-04-24 22:18 | ECG_ITS ---
Test Date: 2024-04-24 22:29:24 Measurements Intervals [place] Rate: 71 P: 96 MD: 187 QRS: -18 QRSD: 86 T: 71 QT: 382 QTc: 416 Interpretive Statements SINUS RHYTHM POSSIBLE RIGHT VENTRICULAR CONDUCTION DELAY BORDERLINE R WAVE PROGRESSION, ANTERIOR LEADS BORDERLINE ST-T WAVE ABNORMALITY- HIGH LATERAL LEADS BASELINE ARTIFACT- I, II, III, AVR, AVL, AVF, V1-V6 BORDERLINE ECG No previous ECG available for comparison Electronically Signed On 04-25-2024 07:24:16 ROASTER HELPER by Pilo Bernal D.O.
--- NOTE | 2024-04-24 23:06 | PC.NURSE ---
Attempted to call [facility] twice to figure out where patient recieves primary care. No one answered phone both times.
[2024-04-25 00:35] LABS: Basophils Percent Auto 0.3 % (0.2-1.2); Eosinophils Absolute Auto 0.1 K/mm3 (0-0.3); Eosinophils Percent Auto 3.3 % (0-4.4); Hematocrit 23.8 % (42.0-52.0); Hemoglobin 7.5 g/dL (14.0-18.0); Immature Granulocyte Absolute 0.05 K/mm3 (0.00-0.031); Immature Granulocyte Percent A 1.3 % (0-0.5); Lymphocytes Absolute Auto 1.24 K/mm3 (0.9-3.2); Lymphocytes Percent Auto 31.3 % (18.3-44.2); Mean Corpuscular HGB Conc 31.5 g/dl (32-36); Mean Corpuscular Hemoglobin 28.3 pg (26-34); Mean Corpuscular Volume 89.8 fl (80-100); Mean Platelet Volume 9.4 fl (7.4-10.4); Monocytes Absolute Auto 0.3 K/mm3 (0.1-0.6); Monocytes Percent Auto 8.1 % (2.6-8.5); Neutrophils Absolute Auto 2.2 K/mm3 (1.3-6.7); Neutrophils Percent Auto 55.7 % (45.5-73.1); Platelet Count Result 261 k/mm3 (150-375); Red Blood Count 2.65 M/mm3 (4.6-6.20); Red Cell Distribution Width 16.8 % (11.5-14.5)
[2024-04-25 00:47] LABS: Alanine Aminotransferase 134 U/L (6-50); Albumin Level 3.5 g/dL (3.5-5.1); Alkaline Phosphatase 149 U/L (38-126); Anion Gap 4 mmol/L (4-12); Aspartate Amino Transferase 96 U/L (17-59); Bilirubin,Total 0.3 mg/dL (0.2-1.3); Blood Urea Nitrogen 28 mg/dL (9-20); Calcium 8.7 mg/dL (8.4-10.2); Carbon Dioxide 29 mmol/L (22-30); Chloride 106 mmol/L (98-107); Estimated CRCL calculation 28 ml/min; Estimated Glomerular Filt Rate 36; Glucose 108 mg/dL (65-110); Magnesium 1.7 mg/dL (1.6-2.3); Potassium 4.2 mmol/L (3.4-5.0); Sodium 139 mmol/L (137-145)
[2024-04-25 00:59] LABS: NT Pro B Type Natriuretic Pept 1310 pg/mL (19.9-100); Troponin I < 0.012 ng/mL (0.000-0.034)
[2024-04-25 01:03] LABS: Procalcitonin 0.3 ng/mL
[2024-04-25 01:08] LABS: Lactic Acid Reflex 0.7 mmol/L (0.7-2.0)
[2024-04-25 01:10] LABS: Influenza A QL RT-PCR Negative (Negative); Influenza B QL RT-PCR Negative (Negative); RSV RNA, RT-PCR Negative (Negative); SARS-CoV-2 RNA PCR Negative (Negative)
--- NOTE | 2024-04-25 01:33 | ED_ITS ---
HPI - General Adult General Chief complaint: Recheck/Abnormal Lab/Rx Stated complaint: ABNORMAL CXR AT FACILITY Time Seen by Provider: 04/25/24 00:10 History of Present Illness HPI narrative: patient is 68-year-old gentleman who presents emergency department with chief complaint of abnormal chest x-ray. The patient apparently had had a cough at that facility where he is resident of the patient had no fever and the x-ray showed that he had a possible pleural effusion the patient currently has no complaints but is baseline alert oriented times 1-2 Related Data Home Medications Medication Instructions Recorded Confirmed acetaminophen 650 mg tablet 650 mg PO Q6H PRN Pain, Mild 04/25/24 04/25/24 amlodipine 10 mg tablet 10 mg PO DAILY 04/25/24 04/25/24 artificial tears solution eye drops 1 drp ophthalmic (eye) BID PRN Dry 04/25/24 04/25/24 Eyes aspirin 81 mg capsule 81 mg PO DAILY 04/25/24 04/25/24 atorvastatin 40 mg tablet 40 mg PO HS 04/25/24 04/25/24 carvedilol 25 mg tablet 25 mg PO BID 04/25/24 04/25/24 cetirizine 10 mg tablet (Zyrtec) 10 mg PO DAILY 04/25/24 04/25/24 cyanocobalamin (vitamin B-12) 100 100 mcg PO DAILY 04/25/24 04/25/24 mcg tablet famotidine 20 mg tablet 20 mg PO BID 04/25/24 04/25/24 ferrous sulfate 324 mg (65 mg 324 mg PO DAILY 04/25/24 04/25/24 iron) tablet,delayed release fluticasone propionate 50 1 spray intranasal DAILY 04/25/24 04/25/24 mcg/actuation nasal spray,suspension folic acid 1 mg tablet 1 mg PO DAILY 04/25/24 04/25/24 hydralazine 10 mg tablet 10 mg PO DAILY 04/25/24 04/25/24 insulin glargine 100 unit/mL 20 unit subcut HS 04/25/24 04/25/24 subcutaneous solution (Lantus U-100 Insulin) insulin lispro 100 unit/mL 1 sliding scale dose subcut 04/25/24 04/25/24 subcutaneous pen USEASDIRECTD ipratropium 0.5 mg-albuterol 3 mg 3 ml inhalation Q6H PRN SOB 04/25/24 04/25/24 (2.5 mg base)/3 mL nebulization soln mirtazapine 15 mg tablet 7.5 mg PO HS 04/25/24 04/25/24 multivitamin 1 tablet PO DAILY 04/25/24 04/25/24 quetiapine 25 mg tablet 25 mg PO HS 04/25/24 04/25/24 sennosides 8.6 mg tablet (senna) 8.6 mg PO BID 04/25/24 04/25/24 Allergies Allergy/AdvReac Type Severity Reaction Status Date / Time No Known Allergies Allergy Verified 10/15/23 11:22 Review of Systems Review of Systems: A 10 system review of systems was completed on the patient and is negative e xcept for what is stated in the HPI. Nursing and ancillary documentation was reviewed. 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 HEAD: Normocephalic, atraumatic. EYES: PERRLA and EOMI. ENT: Nares clear, no rhinorrhea or epistaxis. Mucous membranes moist. NECK: Supple. CHEST: Clear to auscultation. No respiratory distress. HEART: Regular rate and rhythm. No murmur heard. Normal peripheral pulses. ABDOMEN: Soft, nontender, nondistended, normal active bowel sounds. EXTREMITIES: Normal range of motion. No edema. SKIN: Warm, dry, no rash. NEURO: No focal deficits. Alert and oriented x1. PSYCH: Normal mood and affect. Course Vital Signs Vital signs: Vital Signs Temperature 36.5 C 04/24/24 22:11 Pulse Rate 73 04/24/24 22:11 Respiratory Rate 18 04/24/24 22:11 Blood Pressure 164/83 H 04/24/24 22:11 Pulse Oximetry 94 04/24/24 22:11 Oxygen Delivery Room Air 04/24/24 22:11 Temperature 36.6 C 04/25/24 22:18 Pulse Rate 83 04/25/24 22:18 Respiratory Rate 20 04/25/24 22:18 Blood Pressure 178/75 H 04/25/24 22:18 Pulse Oximetry 99 04/25/24 22:18 Oxygen Delivery Room Air 04/25/24 20:00 Medical Decision Making MDM Narrative Medical decision making narrative: Differential diagnosis includes pneumonia, pleural effusion, fluid overload, laboratory studies were obtained on the patient showed a creatinine of 2.2 BNP was 1310 procalcitonin 0.3 COVID flu RSV are negative chest x-ray showed 1. Opacities in the left mid and bilateral lower lung zones which could represen t atelectasis, pneumonia, mild pulmonary edema or some combination thereof. 2. Likely small to moderate-sized posterior layering left pleural effusion. a CT of the chest has been ordered Vital Signs Vital Signs: Vital Signs Temperature 36.5 C 04/24/24 22:11 Pulse Rate 73 04/24/24 22:11 Respiratory Rate 18 04/24/24 22:11 Blood Pressure 164/83 H 04/24/24 22:11 Pulse Oximetry 94 04/24/24 22:11 Oxygen Delivery Room Air 04/24/24 22:11 Temperature 36.6 C 04/25/24 22:18 Pulse Rate 83 04/25/24 22:18 Respiratory Rate 20 04/25/24 22:18 Blood Pressure 178/75 H 04/25/24 22:18 Pulse Oximetry 99 04/25/24 22:18 Oxygen Delivery Room Air 04/25/24 20:00 Lab Data 04/25/24 15:07 04/25/24 15:07 Labs: Lab Results 04/25/24 04/25/24 Range/Units 00:29 00:49 WBC 4.0 L (4.5-10.0) K/mm3 RBC 2.65 L (4.6-6.20) M/mm3 Hgb 7.5 L (14.0-18.0) g/dL Hct 23.8 L (42.0-52.0) % MCV 89.8 (80-100) fl MCH 28.3 (26-34) pg MCHC 31.5 L (32-36) g/dl RDW 16.8 H (11.5-14.5) % Plt Count 261 (150-375) k/mm3 MPV 9.4 (7.4-10.4) fl Immature Gran % (Auto) 1.3 H (0-0.5) % Neut % (Auto) 55.7 (45.5-73.1) % Lymph % (Auto) 31.3 (18.3-44.2) % [place] % (Auto) 8.1 (2.6-8.5) % Eos % (Auto) 3.3 (0-4.4) % Baso % (Auto) 0.3 (0.2-1.2) % Lymph # (Auto) 1.24 (0.9-3.2) K/mm3 [place] # (Auto) 0.3 (0.1-0.6) K/mm3 Eos # (Auto) 0.1 (0-0.3) K/mm3 Baso # (Auto) 0.0 (0.0-0.1) K/mm3 Abs Immat Gran (auto) 0.05 H (0.00-0.031) K/mm3 Absolute Neuts (auto) 2.2 (1.3-6.7) K/mm3 Absolute Nucleated RBC 0.000 (0.0-0.012) K/mm3 Nucleated RBC % 0.0 (0.0-0.2) % Sodium 139 (137-145) mmol/L Potassium 4.2 (3.4-5.0) mmol/L Chloride 106 (98-107) mmol/L Carbon Dioxide 29 (22-30) mmol/L Anion Gap 4 (4-12) mmol/L BUN 28 H D (9-20) mg/dL Creatinine 2.20 H (0.7-1.3) mg/dL Estim Creat Clear Calc 28 ml/min Estimated GFR 36 L (59 - ) Glucose 108 (65-110) mg/dL Lactic Acid 0.7 (0.7-2.0) mmol/L Calcium 8.7 (8.4-10.2) mg/dL Magnesium 1.7 (1.6-2.3) mg/dL Total Bilirubin 0.3 (0.2-1.3) mg/dL AST 96 H (17-59) U/L ALT 134 H (6-50) U/L Alkaline Phosphatase 149 H (38-126) U/L Troponin I < 0.012 (0.000-0.034) ng/mL NT-Pro-B Natriuret Pep 1310 H (19.9-100) pg/mL Total Protein 6.0 L (6.3-8.2) g/dL Albumin 3.5 (3.5-5.1) g/dL Procalcitonin 0.3 ng/mL Influenza A (RT-PCR) Negative (Negative) Influenza B (RT-PCR) Negative (Negative) RSV (RT-PCR) Negative (Negative) SARS-CoV-2 RNA (RT-PCR) Negative (Negative) Discharge Plan Discharge Clinical Impression: Pleural effusion, CHF (congestive heart failure) Patient Disposition: Still a Patient Condition: Stable
[2024-04-25 02:35] VITALS: BP 159/62; PULSE 75; RESP 14; RESP 16; O2SAT 96
--- NOTE | 2024-04-25 05:02 | PC.NURSE ---
Report to Radha on Med.
[2024-04-25 05:04] VITALS: BP 194/79; PULSE 62; RESP 12; O2SAT 94
[2024-04-25 06:30] VITALS: BMI 23.5
[2024-04-25 10:30] VITALS: O2SAT 95
[2024-04-25] MEDS: FUROSEMIDE INJ 40 MG/4 ML VIAL IV PUSH ×2 (10:45→21:00)
[2024-04-25 14:00] VITALS: BP 170/76; PULSE 78; RESP 14; TEMP 36.3; O2SAT 95
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
--- NOTE | 2024-04-25 14:40 | PM.IMHP ---
H&P: HPI History of Present Illness Date/Time: 04/25/24 14:40 Chief Complaint: Shortness of Breath Narrative: Patient was transferred to this facility after a CXR at the facility that he resides showed possible pleural effusion. Patient is confused and unable to provide any significant information regarding his admission, only oriented to self. Information was mainly obtained from medical records. 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 Additional gender identity comments: Never Spiritual care concerns: No Meds Home Medications and Allergies Home Medications Medication Instructions Recorded Confirmed Type acetaminophen 650 mg tablet 650 mg PO Q6H PRN Pain, Mild 04/25/24 04/25/24 History amlodipine 10 mg tablet 10 mg PO DAILY 04/25/24 04/25/24 History artificial tears solution eye drops 1 drp ophthalmic (eye) BID PRN Dry 04/25/24 04/25/24 History Eyes aspirin 81 mg capsule 81 mg PO DAILY 04/25/24 04/25/24 History atorvastatin 40 mg tablet 40 mg PO HS 04/25/24 04/25/24 History carvedilol 25 mg tablet 25 mg PO BID 04/25/24 04/25/24 History cetirizine 10 mg tablet (Zyrtec) 10 mg PO DAILY 04/25/24 04/25/24 History cyanocobalamin (vitamin B-12) 100 100 mcg PO DAILY 04/25/24 04/25/24 History mcg tablet famotidine 20 mg tablet 20 mg PO BID 04/25/24 04/25/24 History ferrous sulfate 324 mg (65 mg 324 mg PO DAILY 04/25/24 04/25/24 History iron) tablet,delayed release fluticasone propionate 50 1 spray intranasal DAILY 04/25/24 04/25/24 History mcg/actuation nasal spray,suspension folic acid 1 mg tablet 1 mg PO DAILY 04/25/24 04/25/24 History hydralazine 10 mg tablet 10 mg PO DAILY 04/25/24 04/25/24 History insulin glargine 100 unit/mL 20 unit subcut HS 04/25/24 04/25/24 History subcutaneous solution (Lantus U-100 Insulin) insulin lispro 100 unit/mL 1 sliding scale dose subcut 04/25/24 04/25/24 History subcutaneous pen USEASDIRECTD ipratropium 0.5 mg-albuterol 3 mg 3 ml inhalation Q6H PRN SOB 04/25/24 04/25/24 History (2.5 mg base)/3 mL nebulization soln mirtazapine 15 mg tablet 7.5 mg PO HS 04/25/24 04/25/24 History multivitamin 1 tablet PO DAILY 04/25/24 04/25/24 History quetiapine 25 mg tablet 25 mg PO HS 04/25/24 04/25/24 History sennosides 8.6 mg tablet (senna) 8.6 mg PO BID 04/25/24 04/25/24 History Allergies Allergy/AdvReac Type Severity Reaction Status Date / Time No Known Allergies Allergy Verified 10/15/23 11:22 Vital Signs Vital Signs - 24 hr 04/24/24 22:11 04/25/24 02:35 04/25/24 02:35 Temperature 97.7 F Pulse Rate 73 75 Respiratory Rate 18 14 16 Blood Pressure 164/83 H 159/62 H Pulse Oximetry 94 96 96 Oxygen Delivery Room Air 04/25/24 05:04 04/25/24 14:00 Temperature 97.3 F L Pulse Rate 62 78 Respiratory Rate 12 14 Blood Pressure 194/79 H 170/76 H Pulse Oximetry 94 95 Oxygen Delivery Exam Narrative: General: Chronically ill appearing and bed-ridden with diego. UE and LE contractures. HEENT: Atraumatic, PERRL, EOM, dry mucus membranes. NECK: Supple. Lungs: Clear bilaterally. Heart: RRR, no murmurs. Abdomen: Soft, non-tender, non-distended, +ve bowel sounds X4 quadrants. Extremities: Contractures diego. UE and LE, 2+ edema diego. feet. Skin: Warm and dry. Neuro: Pleasantly confused, alert to self only. Psych: Confused but co-operative. H&P: Results Labs Labs: Short CBC 04/25/24 Range/Units 00:29 WBC 4.0 L (4.5-10.0) K/mm3 Hgb 7.5 L (14.0-18.0) g/dL Hct 23.8 L (42.0-52.0) % Plt Count 261 (150-375) k/mm3 BMP 04/25/24 00:29 Sodium 139 Potassium 4.2 Chloride 106 Carbon Dioxide 29 BUN 28 H D Creatinine 2.20 H Glucose 108 Calcium 8.7 Cardiac Enzymes 04/25/24 Range/Units 00:29 Troponin I < 0.012 (0.000-0.034) ng/mL Liver Function 04/25/24 Range/Units 00:29 Total Bilirubin 0.3 (0.2-1.3) mg/dL AST 96 H (17-59) U/L ALT 134 H (6-50) U/L Alkaline Phosphatase 149 H (38-126) U/L Albumin 3.5 (3.5-5.1) g/dL Assessment and Plan Assessment and plan (1) Loculated pleural effusion: Code(s): J90 - Pleural effusion, not elsewhere classified Status: Acute Assessment and Plan: CT Chest; IMPRESSION: 1. Small right and moderate-sized partially loculated left pleural effusions with associated compressive atelectasis in both lungs. 2. Minimal pulmonary edema the lung bases. 2. Cardiomegaly with small to moderate-sized pericardial effusion. - Vending Route Driver consulted. - Urine strep pneumo and legionella Ag ordered. - Started on Cefepime and Azithromycin. - Started on duoneb and Mucomyst nebs treatments. - Currently good O2 sats > 90 % on RA. - Follow cultures. - ST consulted for swallow eval with possible aspiration PNA. (2) SOB (shortness of breath): Code(s): R06.02 - Shortness of breath Status: Acute Assessment and Plan: - Mgt as # 1. - Currently good O2 sats > 90 % on RA. - Supplemental O2 PRN to maintain sats > 90 %. (3) HTN (hypertension): Code(s): I10 - Essential (primary) hypertension Status: Acute Assessment and Plan: - Started on home meds; Amlodipine, Coreg and Hydralazine. - Adjust meds as needed for optimal control. (4) DM type 2 (diabetes mellitus, type 2): Code(s): E11.9 - Type 2 diabetes mellitus without complications Status: Acute Assessment and Plan: - Started on long-acting insulin. - Blood glucose check AC & HS. - Adjust insulin as needed. (5) Dyslipidemia: Code(s): E78.5 - Hyperlipidemia, unspecified Status: Acute Assessment and Plan: - Continue statin. 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 - Assist with care. (7) Anemia, unspecified: Code(s): D64.9 - Anemia, unspecified Status: Acute Assessment and Plan: - Monitor Hgb closely. - Transfuse PRN for Hgb < 7. Quality VTE Prophylaxis VTE prophylaxis: mechanical ordered and pharmacologic ordered Hospitalist MIPS Advance Care Plan I have confirmed that the patient's Advanced Care Plan is present, code status is documented, or surrogate decision maker is listed in patient medical record.: Yes Medication Reconciliation I have utilized all available resources to obtain, update and review the patients current medications (includes all prescriptions, OTC, herbals, cannabis, and nutritional supplements).: Yes
[2024-04-25 15:12] LABS: Basophils Percent Auto 0.2 % (0.2-1.2); Eosinophils Absolute Auto 0.2 K/mm3 (0-0.3); Eosinophils Percent Auto 3.7 % (0-4.4); Hematocrit 23.3 % (42.0-52.0); Hemoglobin 7.2 g/dL (14.0-18.0); Immature Granulocyte Absolute 0.03 K/mm3 (0.00-0.031); Immature Granulocyte Percent A 0.7 % (0-0.5); Lymphocytes Absolute Auto 1.28 K/mm3 (0.9-3.2); Lymphocytes Percent Auto 31.3 % (18.3-44.2); Mean Corpuscular HGB Conc 30.9 g/dl (32-36); Mean Corpuscular Hemoglobin 27.8 pg (26-34); Mean Platelet Volume 9.1 fl (7.4-10.4); Monocytes Absolute Auto 0.3 K/mm3 (0.1-0.6); Monocytes Percent Auto 6.6 % (2.6-8.5); Neutrophils Absolute Auto 2.4 K/mm3 (1.3-6.7); Neutrophils Percent Auto 57.5 % (45.5-73.1); Platelet Count Result 241 k/mm3 (150-375); Red Blood Count 2.59 M/mm3 (4.6-6.20); Red Cell Distribution Width 16.7 % (11.5-14.5); White Blood Count 4.1 K/mm3 (4.5-10.0)
[2024-04-25 15:22] LABS: Alanine Aminotransferase 98 U/L (6-50); Albumin Level 3.4 g/dL (3.5-5.1); Alkaline Phosphatase 146 U/L (38-126); Anion Gap 6 mmol/L (4-12); Aspartate Amino Transferase 58 U/L (17-59); Bilirubin,Total 0.4 mg/dL (0.2-1.3); Blood Urea Nitrogen 28 mg/dL (9-20); Calcium 8.8 mg/dL (8.4-10.2); Carbon Dioxide 27 mmol/L (22-30); Chloride 107 mmol/L (98-107); Estimated CRCL calculation 31 ml/min; Estimated Glomerular Filt Rate 41; Glucose 183 mg/dL (65-110); Potassium 3.9 mmol/L (3.4-5.0); Sodium 140 mmol/L (137-145)
[2024-04-25] MEDS: CEFEPIME 1 GM/NS 50 ML 1 GM/50 ML BAG IVPB (15:56)
--- NOTE | 2024-04-25 16:04 | PC.NURSE ---
Spoke with hospitalist on 04/25/24 at 1605. Hospitalist stated that there is no current need for patient to be on telemetry.
[2024-04-25] MEDS: AZITHROMYCIN 500 MG/NS 250 ML 500 MG/250 ML BAG 250 MG IVPB (17:00)
[2024-04-25] MEDS: SENNOSIDES 8.6 MG TABLET PO (17:01)
[2024-04-25] MEDS: FAMOTIDINE 20 MG TABLET PO (17:01)
[2024-04-25 17:12] LABS: Glucose Point of Care 179 mg/dl (65-105)
[2024-04-25] MEDS: carvediloL 25 MG TABLET PO (21:00)
[2024-04-25] MEDS: ATORVASTATIN 40 MG TABLET PO (21:00)
[2024-04-25] MEDS: INSULIN GLARGINE (*BKC) 100 UNITS/ML 15 UNITS SUB-Q (21:01)
[2024-04-25] MEDS: MIRTAZAPINE 7.5 MG TABLET PO (21:15)
[2024-04-25] MEDS: ACETYLCYSTEINE 20% INHAL SOLN 800 MG/4 ML VIAL 200 MG INHALATION (21:18)
[2024-04-25] MEDS: IPRATROPIUM 0.5 MG/ALBUTEROL SULFATE 2.5 MG AMPUL.NEB 3 ML INHALATION (21:18)
[2024-04-25 21:23] VITALS: PULSE 86; RESP 18
[2024-04-25 22:18] VITALS: BP 178/75; PULSE 83; RESP 20; TEMP 36.6; O2SAT 99
[2024-04-25 23:03] LABS: Prothrombin Time 13.6 Seconds (11.1-14.7)
[2024-04-25 23:11] LABS: Lactate Dehydrogenase 430 U/L (120-246)
[2024-04-26] VITALS (10 sets, daily range): BP systolic 142–182; BP diastolic 67–79; PULSE 57–89; RESP 18–20; TEMP 36.1–36.5; O2SAT 96–100
--- NOTE | 2024-04-26 02:17 | PCRCNOTE ---
Pt pretending to be sleep and moves his head when I try to put neb mask on.
[2024-04-26] MEDS: CEFEPIME 1 GM/NS 50 ML 1 GM/50 ML BAG IVPB ×2 (02:44→15:05)
--- NOTE | 2024-04-26 06:00 | ECHO_ITS ---
Patient Info Name: Logan Rey Ernesto Age: 68 years : 1955 Gender: Male Ht: 67 in Wt: 150 lbs BSA: 1.80 m2 HR: 83 bpm BP: 178 / 75 mmHg Heart Rhythm: Sinus Rhythm Technical Quality: Fair Exam Date: 04/26/2024 9:03 AM Exam Location: Echo Lab Patient Status: Inpatient Admit Date: 04/26/2024 Staff Ordering Physician: Jeremy Guillory MD Supply Chain Technician: Dominic Rainey RDCS Attending Provider: Eleanor Daley DO Referring Physician: Pastora CASIANO; Exam Type: CA echo doppler color flow Study Info Indications - pleural effusion Complete two-dimensional, color flow and Doppler transthoracic echocardiogram is performed. Summary 1. Complete two-dimensional, color flow and Doppler transthoracic echocardiogram is performed. 2. LVH with normal systolic function and grade 1 diastolic non compliance. 3. Mild MR. 4. Small pericardial effusion. Left Ventricle Left ventricular chamber dimension is normal. Left ventricular systolic function is normal, estimated at 55-60%. There is mild concentric increased left ventricular wall thickness. The left ventricular diastolic function is grade I diastolic dysfunction. Right Ventricle Right ventricular chamber dimension is normal. Left Atria Left atrial chamber dimension is mildly enlarged. Right Atria Right atrial chamber dimension is normal. Aortic Valve The aortic valve is normal. Pulmonic Valve The pulmonic valve is not well visualized. Mitral Valve The mitral valve has normal leaflets. There is mild mitral valve regurgitation. Tricuspid Valve The tricuspid valve leaflets are normal. Pericardium/Pleural There is small circumferential pericardial effusion. Aorta The aortic root size at the sinus of Valsalva is normal. Left Ventricular Outflow Tract Name Value Normal LVOT 2D LVOT Diameter 2.2 cm LVOT Doppler LVOT Peak Gradient 2 mmHg LVOT Mean Gradient 1 mmHg LVOT VTI 17 cm LVOT VTI/AV VTI Ratio 0.7 LVOT Stroke Volume 69 ml LVOT CO 3.3 l/min LVOT CI 1.8 l/min/m2 Pulmonic Valve Name Value Normal PV Doppler PV Peak Gradient 2 mmHg Mitral Valve Name Value Normal MV Doppler MV Decel [place] 312 cm/s2 MV PHT 46 ms MV Area (PHT) 4.8 cm2 4.0-5.0 MV Diastolic Function MV E Peak Velocity 49 cm/s MV A Peak Velocity 81 cm/s MV E/A 0.6 MV Decel Time 158 ms MV Annular TDI MV E/e' (Septal) 12.3 <=8.0 MV E/e' (Lateral) 6.5 <=8.0 MV E/e' (Average) 9.4 Tricuspid Valve Name Value Normal TV Regurgitation Doppler TR Peak Velocity 197 cm/s TR Peak Gradient 10 mmHg Estimated PAP/RSVP RA Pressure 10 mmHg <=5 PA Systolic Pressure 26 mmHg <36 RV Systolic Pressure 26 mmHg <36 Aortic Valve Name Value Normal AV Doppler AV Peak Velocity 101 cm/s AV Peak Gradient 4 mmHg AV Mean Gradient 2 mmHg AV VTI 24 cm AV Area (Cont Eq VTI) 2.9 cm2 >=3.0 AV Area (Cont Eq Aman) 2.4 cm2 AV Regurgitation 2D LVOT Area 3.9 cm2 Ventricles Name Value Normal LV Dimensions 2D/MM IVS Diastolic Thickness (2D) 1.3 cm 0.6-1.0 LVID Diastole (2D) 4.5 cm 4.2-5.8 LVIW Diastolic Thickness (2D) 1.3 cm 0.6-1.0 LVID Systole (2D) 3.2 cm 2.5-4.0 LVOT Diameter 2.2 cm LV Mass (2D Cubed) 237.03 g 88.00-224.00 LV Mass Index (2D Cubed) 132 g/m2 49-115 Relative Wall Thickness (2D) 0.59 LV Fractional Shortening/Ejection Fraction 2D/MM LV Fractional Shortening (2D) 29 % 25-43 LV EF (2D Teicholz) 56 % 52-72 LV Diastolic Volume (4C MOD) 72 ml LV EF (4C MOD) 52 % LV Diastolic Volume (2C MOD) 63 ml LV EF (2C MOD) 57 % LV Diastolic Volume (BP MOD) 68 ml 62-150 LV Diastolic Volume Index (BP MOD) 38 ml/m2 34-74 LV Systolic Volume (BP MOD) 31 ml 21-61 LV Systolic Volume Index (BP MOD) 17 ml/m2 11-31 LV EF (BP MOD) 55 % 52-72 LV Diastolic Length (4C) 7.3 cm LV Systolic Length (4C) 5.7 cm LV Stroke Volume (4C MOD) 37 ml Atria Name Value Normal LA Dimensions LA Volume (4C A-L) 45 ml LA Volume (BP A-L) 42 ml RA Dimensions RA Area (4C) 10.7 cm2 <=18.0 Report Signatures
[2024-04-26 06:27] LABS: Glucose Point of Care 318 mg/dl (65-105)
[2024-04-26] MEDS: IPRATROPIUM 0.5 MG/ALBUTEROL SULFATE 2.5 MG AMPUL.NEB 3 ML INHALATION ×3 (08:42→21:38)
[2024-04-26] MEDS: ACETYLCYSTEINE 20% INHAL SOLN 800 MG/4 ML VIAL 200 MG INHALATION ×3 (08:42→21:37)
[2024-04-26 08:55] LABS: Glucose Point of Care 209 mg/dl (65-105)
--- NOTE | 2024-04-26 10:07 | PC.NURSE ---
Pt to ultrasound per stretcher for thoracentesis. Family notified.
[2024-04-26 11:08] LABS: pH Pleural Fluid > 7.500 (7.210-7.500)
--- NOTE | 2024-04-26 11:31 | PM.IMPN ---
Progress Note: A&P Assessment and Plan (1) Loculated pleural effusion: Code(s): J90 - Pleural effusion, not elsewhere classified Status: Acute Assessment and Plan: CT Chest; IMPRESSION: 1. Small right and moderate-sized partially loculated left pleural effusions with associated compressive atelectasis in both lungs. 2. Minimal pulmonary edema the lung bases. 2. Cardiomegaly with small to moderate-sized pericardial effusion. - Metal Fabricating Supervisor consulted. - Urine strep pneumo and legionella Ag ordered. - Continue Cefepime and Azithromycin for now. - Continue duoneb and Mucomyst nebs treatments. - Currently good O2 sats > 90 % on RA. - Follow cultures. - ST consulted for swallow eval with possible aspiration PNA. (2) SOB (shortness of breath): Code(s): R06.02 - Shortness of breath Status: Acute Assessment and Plan: - Mgt as # 1. - Currently good O2 sats > 90 % on RA. - Supplemental O2 PRN to maintain sats > 90 %. (3) HTN (hypertension): Code(s): I10 - Essential (primary) hypertension Status: Acute Assessment and Plan: - Started on home meds; Amlodipine, Coreg and Hydralazine. - Adjust meds as needed for optimal control. (4) DM type 2 (diabetes mellitus, type 2): Code(s): E11.9 - Type 2 diabetes mellitus without complications Status: Acute Assessment and Plan: - Started on long-acting insulin. - Blood glucose check AC & HS. - Adjust insulin as needed. (5) Dyslipidemia: Code(s): E78.5 - Hyperlipidemia, unspecified Status: Acute Assessment and Plan: - Continue statin. 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 - Assist with care. (7) Anemia, unspecified: Code(s): D64.9 - Anemia, unspecified Status: Acute Assessment and Plan: - Monitor Hgb closely. - Transfuse PRN for Hgb < 7. Time Spent With Patient Time with patient: 15 - 25 minutes Subjective Date/time seen: 04/26/24 11:31 Patient denies pain. Confused and only responds with yes and no. Interval history: Patient pleasantly confused. Only oriented to self and answers yes and no questions briefly. Review of Systems Review of Systems: ROS unobtainable: Yes unobtainable due to mental status Exam Narrative: General: Chronically ill appearing and bed-ridden with [place]. UE and LE contractures. HEENT: Atraumatic, PERRL, EOM, dry mucus membranes. NECK: Supple. Lungs: Clear bilaterally. Heart: RRR, no murmurs. Abdomen: Soft, non-tender, non-distended, +ve bowel sounds X4 quadrants. Extremities: Contractures diego. UE and LE, 1+ edema diego. feet. Skin: Warm and dry. Neuro: Pleasantly confused, alert to self only. Psych: Confused but co-operative. Objective Data Vital Signs Vital Signs: Vital Signs - 24 hr 04/25/24 14:00 04/25/24 21:23 04/25/24 22:18 Temperature 97.3 F L 97.8 F Pulse Rate 78 86 83 Respiratory Rate 14 18 20 Blood Pressure 170/76 H 178/75 H Pulse Oximetry 95 99 Oxygen Delivery 04/25/24 20:00 04/26/24 06:00 04/26/24 08:43 Temperature 97.6 F Pulse Rate 74 88 Respiratory Rate 20 18 Blood Pressure 182/79 H Pulse Oximetry 100 Oxygen Delivery Room Air Intake/Output Intake/Output: Intake & Output 04/23/24 04/24/24 04/25/24 04/26/24 23:59 23:59 23:59 23:59 Intake Total 170 Output Total 510 800 Balance -340 -800 Meds/Results Medications: Active Medications Generic Name Dose Route Start Last Admin Trade Name Freq PRN Reason Stop Dose Admin Acetaminophen 650 mg 04/25/24 14:27 Acetaminophen 325 Mg Tablet PO Q6H PRN Pain Rated 1-3 Acetylcysteine 200 mg 04/25/24 20:00 04/26/24 08:42 Acetylcysteine 20% Inhal Soln 800 Mg/4 Ml Vial INHALATION 200 mg Q6HRT ELIDIA Administration Albuterol/Ipratropium 3 ml 04/25/24 14:27 Ipratropium 0.5 Mg/Albuterol Sulfate 2.5 Mg Ampul.Neb 3 Ml INHALATION Q6H PRN Shortness Of Breath Albuterol/Ipratropium 3 ml 04/25/24 20:00 04/26/24 08:42 Ipratropium 0.5 Mg/Albuterol Sulfate 2.5 Mg Ampul.Neb 3 Ml INHALATION 3 ml Q6HRT ELIDIA Administration Amlodipine Besylate 10 mg 04/26/24 09:00 Amlodipine Besylate 10 Mg Tablet PO DAILY ELIDIA Artificial Tears 1 drop 04/25/24 14:27 Artificial Tears Ophth Soln 15 Ml Bottle EACH EYE BID PRN Dry Eyes Aspirin 81 mg 04/26/24 09:00 Aspirin 81 Mg Enteric Tablet PO QAM ELIDIA Atorvastatin Calcium 40 mg 04/25/24 21:00 04/25/24 21:00 Atorvastatin 40 Mg Tablet PO 40 mg HS ELIDIA Administration Carvedilol 25 mg 04/25/24 21:00 04/25/24 21:00 Carvedilol 25 Mg Tablet PO 25 mg Q12HR ELIDIA Administration Dextrose 12.5 gm 04/25/24 14:28 Dextrose 50% 25 Gm/50 Ml Syringe IV PUSH PRN PRN Hypoglycemia Protocol Enoxaparin Sodium 30 mg 04/26/24 09:00 Enoxaparin 30 Mg/0.3 Ml Syringe SUB-Q DAILY COUNTS INCLUDE 234 BEDS AT THE [facility] Famotidine 20 mg 04/25/24 17:00 04/25/24 17:01 Famotidine 20 Mg Tablet PO 20 mg BID ELIDIA Administration Ferrous Sulfate 325 mg 04/26/24 09:00 Ferrous Sulfate [address] BY MOUTH DAILY COUNTS INCLUDE 234 BEDS AT THE [facility] Fluticasone Propionate 1 spray 04/26/24 09:00 Fluticasone Propionate 0.05% Na Spr 16 Gm Btl (*Bkc) NASAL DAILY COUNTS INCLUDE 234 BEDS AT THE [facility] Folic Acid 1 mg 04/26/24 09:00 Folic Acid 1 Mg Tablet PO DAILY COUNTS INCLUDE 234 BEDS AT THE [facility] Furosemide 40 mg 04/25/24 09:00 04/25/24 21:00 Furosemide Inj 40 Mg/4 Ml Vial IV PUSH 40 mg Q12HR ELIDIA Administration Glucagon 1 mg 04/25/24 14:28 Glucagon For Inj 1 Mg Vial IM PRN PRN Hypoglycemia Protocol Glucose 15 gm 04/25/24 14:28 Glucose Oral Gel 15 Gm Of Glucse In 37.5 Gm Tube PO PRN PRN Hypoglycemia Protocol Hydralazine HCl 10 mg 04/26/24 09:00 Hydralazine 10 Mg Tablet PO DAILY COUNTS INCLUDE 234 BEDS AT THE [facility] Dextrose 1,000 mls @ 100 mls/hr 04/25/24 14:28 Dextrose 5% 1,000 Ml IVPB PRN PRN Hypoglycemia Protocol Cefepime HCl 1 gm in 50 mls @ 100 mls/hr 04/25/24 15:00 04/26/24 02:44 Maxipime 1 Gm/Ns 50 Ml IVPB 100 mls/hr Q12H ELIDIA Administration Azithromycin 500 mg in 250 mls @ 250 mls/hr 04/25/24 16:00 04/25/24 17:00 Zithromax IVPB 250 mls/hr Q24H ELIDIA Administration Insulin Glargine 15 units 04/25/24 21:00 04/25/24 21:01 Insulin Glargine (*Bkc) 100 Units/Ml SUB-Q 15 units HS ELIDIA Administration Loratadine 10 mg 04/26/24 09:00 Loratadine 10 Mg Tablet PO QAM ELIDIA Mirtazapine 7.5 mg 04/25/24 21:00 04/25/24 21:15 Mirtazapine 7.5 Mg Tablet PO 7.5 mg HS ELIDIA Administration Miscellaneous Information 1 each 04/25/24 00:01 Cyanocobalamin 100 Mcg Nonformulary. We Carry 500 Mcg And 1000 Mcg. Do You Want To Change XX 05/25/24 00:00 CLARIFY ELIDIA Multivitamins Therapeutic 1 tablet 04/26/24 09:00 Multivitamins Therapeutic Tab (*Bkc) PO DAILY COUNTS INCLUDE 234 BEDS AT THE [facility] Non-Formulary Medication 100 mcg 04/26/24 09:00 Cyanocobalamin (Vitamin B-12) PO 05/26/24 08:59 DAILY COUNTS INCLUDE 234 BEDS AT THE [facility] Perflutren Lipid Microsphere 0 ml 04/25/24 03:36 Perflutren Lipid Microspheres 1.5 Ml Vial Diluted To 10 Ml Total Volume IV PUSH 04/28/24 03:38 ONCE PRN adequate visualization Protocol Senna 8.6 mg 04/25/24 17:00 04/25/24 17:01 Sennosides 8.6 Mg Tablet PO 8.6 mg BID ELIDIA Administration Radiology Results: ITS Impressions Chest CT 04/25/24 07:23 IMPRESSION: 1. Small right and moderate-sized partially loculated left pleural effusions with associated compressive atelectasis in both lungs. 2. Minimal pulmonary edema the lung bases. 2. Cardiomegaly with small to moderate-sized pericardial effusion. Chest X-Ray 04/26/24 10:57 IMPRESSION: 1. No pneumothorax. 2. Unchanged mild opacities at the right lower lung zone and decrease opacity left mid and lower lung zone with residual focal region of consolidation in the lingula and left lower lobe, all suspicious for pneumonia. 3. Likely small residual bilateral pleural effusions. Labs Labs: Laboratory Results - last 24 hr 04/25/24 04/25/24 04/25/24 15:07 17:03 20:49 WBC 4.1 L RBC 2.59 L Hgb 7.2 L Hct 23.3 L MCV 90.0 MCH 27.8 MCHC 30.9 L RDW 16.7 H Plt Count 241 MPV 9.1 Immature Gran % (Auto) 0.7 H Neut % (Auto) 57.5 Lymph % (Auto) 31.3 [place] % (Auto) 6.6 Eos % (Auto) 3.7 Baso % (Auto) 0.2 Lymph # (Auto) 1.28 [place] # (Auto) 0.3 Eos # (Auto) 0.2 Baso # (Auto) 0.0 Abs Immat Gran (auto) 0.03 Absolute Neuts (auto) 2.4 Absolute Nucleated RBC 0.000 Nucleated RBC % 0.0 PT INR Sodium 140 Potassium 3.9 Chloride 107 Carbon Dioxide 27 Anion Gap 6 BUN 28 H Creatinine 2.00 H Estim Creat Clear Calc 31 Estimated GFR 41 L Glucose 183 H POC Capillary Glucose 179 H 318 H Calcium 8.8 Total Bilirubin 0.4 AST 58 ALT 98 H Alkaline Phosphatase 146 H Lactate Dehydrogenase Total Protein 6.0 L Albumin 3.4 L Pleural Fluid Source Pleural Color Pleural Appearance Pleural pH Pleural RBC Pleural Nuc Cells Pleural Neutrophils Pleural Lymphocytes Pleural Monocytes Pleural Macrophages Pleural Mesothelial Pleural Other Cells Pleural Total Protein Pleural LDH Pleural Glucose Pleural Triglycerides 04/25/24 04/26/24 04/26/24 22:46 08:50 10:30 WBC RBC Hgb Hct MCV MCH MCHC RDW Plt Count MPV Immature Gran % (Auto) Neut % (Auto) Lymph % (Auto) [place] % (Auto) Eos % (Auto) Baso % (Auto) Lymph # (Auto) [place] # (Auto) Eos # (Auto) Baso # (Auto) Abs Immat Gran (auto) Absolute Neuts (auto) Absolute Nucleated RBC Nucleated RBC % PT 13.6 INR 1.0 Sodium Potassium Chloride Carbon Dioxide Anion Gap BUN Creatinine Estim Creat Clear Calc Estimated GFR Glucose POC Capillary Glucose 209 H Calcium Total Bilirubin AST ALT Alkaline Phosphatase Lactate Dehydrogenase 430 H Total Protein 6.0 L Albumin Pleural Fluid Source Cancelled Pleural Color Cancelled Pleural Appearance Cancelled Pleural pH Pleural RBC Cancelled Pleural Nuc Cells Cancelled Pleural Neutrophils Cancelled Pleural Lymphocytes Cancelled Pleural Monocytes Cancelled Pleural Macrophages Cancelled Pleural Mesothelial Cancelled Pleural Other Cells Cancelled Pleural Total Protein Pleural LDH Pleural Glucose Pleural Triglycerides 04/26/24 10:31 WBC RBC Hgb Hct MCV MCH MCHC RDW Plt Count MPV Immature Gran % (Auto) Neut % (Auto) Lymph % (Auto) [place] % (Auto) Eos % (Auto) Baso % (Auto) Lymph # (Auto) [place] # (Auto) Eos # (Auto) Baso # (Auto) Abs Immat Gran (auto) Absolute Neuts (auto) Absolute Nucleated RBC Nucleated RBC % PT INR Sodium Potassium Chloride Carbon Dioxide Anion Gap BUN Creatinine Estim Creat Clear Calc Estimated GFR Glucose POC Capillary Glucose Calcium Total Bilirubin AST ALT Alkaline Phosphatase Lactate Dehydrogenase Total Protein Albumin Pleural Fluid Source Pleural Color Pleural Appearance Pleural pH > 7.500 H Pleural RBC Pleural Nuc Cells Pleural Neutrophils Pleural Lymphocytes Pleural Monocytes Pleural Macrophages Pleural Mesothelial Pleural Other Cells Pleural Total Protein Cancelled Pleural LDH Cancelled Pleural Glucose Cancelled Pleural Triglycerides Cancelled Quality VTE Prophylaxis VTE prophylaxis: mechanical ordered and pharmacologic ordered Hospitalist MIPS Advance Care Plan I have confirmed that the patient's Advanced Care Plan is present, code status is documented, or surrogate decision maker is listed in patient medical record.: Yes Medication Reconciliation I have utilized all available resources to obtain, update and review the patients current medications (includes all prescriptions, OTC, herbals, cannabis, and nutritional supplements).: Yes
[2024-04-26] MEDS: FLUTICASONE PROPIONATE 0.05% NA SPR 16 GM BTL (*BKC) 1 SPRAY NASAL (11:39)
[2024-04-26] MEDS: FUROSEMIDE INJ 40 MG/4 ML VIAL IV PUSH ×2 (11:41→21:17)
[2024-04-26 12:30] LABS: Glucose Point of Care 202 mg/dl (65-105)
[2024-04-26] MEDS: carvediloL 25 MG TABLET PO ×2 (12:58→21:17)
[2024-04-26] MEDS: amLODIPine BESYLATE 10 MG TABLET PO (12:59)
[2024-04-26] MEDS: hydrALAZINE 10 MG TABLET PO (12:59)
[2024-04-26] MEDS: FAMOTIDINE 20 MG TABLET PO ×2 (13:03→17:04)
[2024-04-26] MEDS: LORATADINE 10 MG TABLET PO (13:03)
[2024-04-26] MEDS: ASPIRIN 81 MG ENTERIC TABLET PO (13:03)
[2024-04-26] MEDS: FERROUS SULFATE 325 MG TABLET DR BY MOUTH (13:03)
[2024-04-26] MEDS: MULTIVITAMINS THERAPEUTIC TAB (*BKC) 1 TABLET PO (13:03)
[2024-04-26] MEDS: FOLIC ACID 1 MG TABLET PO (13:03)
[2024-04-26] MEDS: SENNOSIDES 8.6 MG TABLET PO ×2 (13:03→17:04)
[2024-04-26 14:54] LABS: Basophils Percent Auto 0.5 % (0.2-1.2); Eosinophils Absolute Auto 0.1 K/mm3 (0-0.3); Eosinophils Percent Auto 3.6 % (0-4.4); Hematocrit 24.4 % (42.0-52.0); Hemoglobin 7.6 g/dL (14.0-18.0); Immature Granulocyte Absolute 0.02 K/mm3 (0.00-0.031); Immature Granulocyte Percent A 0.5 % (0-0.5); Lymphocytes Absolute Auto 1.18 K/mm3 (0.9-3.2); Lymphocytes Percent Auto 29.9 % (18.3-44.2); Mean Corpuscular HGB Conc 31.1 g/dl (32-36); Mean Corpuscular Hemoglobin 28.1 pg (26-34); Mean Corpuscular Volume 90.4 fl (80-100); Mean Platelet Volume 9.1 fl (7.4-10.4); Monocytes Absolute Auto 0.3 K/mm3 (0.1-0.6); Monocytes Percent Auto 7.4 % (2.6-8.5); Neutrophils Absolute Auto 2.3 K/mm3 (1.3-6.7); Neutrophils Percent Auto 58.1 % (45.5-73.1); Platelet Count Result 219 k/mm3 (150-375); Red Cell Distribution Width 16.7 % (11.5-14.5); White Blood Count 3.9 K/mm3 (4.5-10.0)
[2024-04-26 15:05] LABS: Alanine Aminotransferase 100 U/L (6-50); Albumin Level 3.5 g/dL (3.5-5.1); Alkaline Phosphatase 148 U/L (38-126); Anion Gap 7 mmol/L (4-12); Aspartate Amino Transferase 58 U/L (17-59); Bilirubin,Total 0.4 mg/dL (0.2-1.3); Blood Urea Nitrogen 30 mg/dL (9-20); Calcium 8.8 mg/dL (8.4-10.2); Carbon Dioxide 29 mmol/L (22-30); Chloride 100 mmol/L (98-107); Estimated CRCL calculation 31 ml/min; Estimated Glomerular Filt Rate 41; Glucose 198 mg/dL (65-110); Potassium 4.1 mmol/L (3.4-5.0); Sodium 136 mmol/L (137-145)
[2024-04-26] MEDS: AZITHROMYCIN 500 MG/NS 250 ML 500 MG/250 ML BAG 250 MG IVPB (15:39)
--- NOTE | 2024-04-26 15:48 | PCSTNOTE ---
Please refer to the Bedside Swallow Evaluation in the EMR. Please note, silent aspiration cannot be ruled out at bedside.
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
[2024-04-26 17:44] LABS: Glucose Point of Care 258 mg/dl (65-105)
[2024-04-26] MEDS: MIRTAZAPINE 7.5 MG TABLET PO (21:17)
[2024-04-26] MEDS: ATORVASTATIN 40 MG TABLET PO (21:17)
[2024-04-26] MEDS: INSULIN GLARGINE (*BKC) 100 UNITS/ML 15 UNITS SUB-Q (21:25)
[2024-04-26 21:28] LABS: Glucose Point of Care 174 mg/dl (65-105)
[2024-04-27] VITALS (11 sets, daily range): BP systolic 132–152; BP diastolic 65–78; PULSE 50–118; RESP 12–20; TEMP 36.1–36.8; O2SAT 97–100
[2024-04-27] MEDS: CEFEPIME 1 GM/NS 50 ML 1 GM/50 ML BAG IVPB ×2 (03:00→16:01)
--- NOTE | 2024-04-27 05:08 | PCRCNOTE ---
Window of time for administration has passed. See next scheduled administration.
[2024-04-27] MEDS: ACETYLCYSTEINE 20% INHAL SOLN 800 MG/4 ML VIAL 200 MG INHALATION ×3 (07:24→20:21)
[2024-04-27] MEDS: IPRATROPIUM 0.5 MG/ALBUTEROL SULFATE 2.5 MG AMPUL.NEB 3 ML INHALATION ×3 (07:24→20:21)
[2024-04-27 08:36] LABS: Glucose Point of Care 66 mg/dl (65-105)
[2024-04-27] MEDS: SENNOSIDES 8.6 MG TABLET PO ×2 (08:43→17:48)
[2024-04-27] MEDS: amLODIPine BESYLATE 10 MG TABLET PO (08:43)
[2024-04-27] MEDS: FAMOTIDINE 20 MG TABLET PO ×2 (08:43→17:48)
[2024-04-27] MEDS: ASPIRIN 81 MG ENTERIC TABLET PO (08:43)
[2024-04-27] MEDS: FERROUS SULFATE 325 MG TABLET DR BY MOUTH (08:43)
[2024-04-27] MEDS: FOLIC ACID 1 MG TABLET PO (08:43)
[2024-04-27] MEDS: hydrALAZINE 10 MG TABLET PO (08:44)
[2024-04-27] MEDS: LORATADINE 10 MG TABLET PO (08:44)
[2024-04-27] MEDS: carvediloL 25 MG TABLET PO ×2 (08:44→21:39)
[2024-04-27] MEDS: MULTIVITAMINS THERAPEUTIC TAB (*BKC) 1 TABLET PO (08:44)
[2024-04-27] MEDS: FLUTICASONE PROPIONATE 0.05% NA SPR 16 GM BTL (*BKC) 1 SPRAY NASAL (08:50)
[2024-04-27] MEDS: FUROSEMIDE INJ 40 MG/4 ML VIAL IV PUSH ×2 (08:59→21:39)
[2024-04-27 09:31] LABS: Glucose Point of Care 73 mg/dl (65-105)
--- NOTE | 2024-04-27 10:27 | PCSTNOTE ---
Please refer to the Modified Barium Swallow Evaluation in the EMR.
--- NOTE | 2024-04-27 10:40 | P.PNIM_ITS ---
Progress Note: A&P Assessment and Plan (1) Loculated pleural effusion: Code(s): J90 - Pleural effusion, not elsewhere classified Status: Acute Assessment and Plan: CT Chest; IMPRESSION: 1. Small right and moderate-sized partially loculated left pleural effusions with associated compressive atelectasis in both lungs. 2. Minimal pulmonary edema the lung bases. 2. Cardiomegaly with small to moderate-sized pericardial effusion. - [employer] rabia. - s/p Thoracentesis; US Guided Thoracentesis; IMPRESSION: 1. Successful ultrasound-guided thoracentesis yielding 3.5 mL of clear straw- colored fluid. 2. Very small bilateral pleural effusions which appear decreased in size since the prior CT from 04/25/2024 - Urine strep pneumo and legionella Ag pending. - Continue Cefepime and Azithromycin for now. - Continue duoneb and Mucomyst nebs treatments. - Currently good O2 sats > 90 % on RA. - Follow cultures. - ST consulted for swallow eval with possible aspiration PNA. - Small bite sizes and sips with cup, no straws, recommended per ST. - Elevate HOB for oral intake. (2) SOB (shortness of breath): Code(s): R06.02 - Shortness of breath Status: Acute Assessment and Plan: - Mgt as # 1. - Currently good O2 sats > 90 % on RA. - Supplemental O2 PRN to maintain sats > 90 %. (3) HTN (hypertension): Code(s): I10 - Essential (primary) hypertension Status: Acute Assessment and Plan: - Continue home meds; Amlodipine, Coreg and Hydralazine. - Adjust meds as needed for optimal control. (4) DM type 2 (diabetes mellitus, type 2): Code(s): E11.9 - Type 2 diabetes mellitus without complications Status: Acute Assessment and Plan: - Started on long-acting insulin. - Blood glucose check AC & HS. - Adjust insulin as needed. (5) Dyslipidemia: Code(s): E78.5 - Hyperlipidemia, unspecified Status: Acute Assessment and Plan: - Continue statin. 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 - Assist with care. (7) Anemia, unspecified: Code(s): D64.9 - Anemia, unspecified Status: Acute Assessment and Plan: - Monitor Hgb closely. - Transfuse PRN for Hgb < 7. Time Spent With Patient Time with patient: 15 - 25 minutes Subjective Date/time seen: 04/27/24 10:40 Patient states he feels alright and has no pain or other distressful symptoms. Interval history: Patient calm on bedrest and looks to be in no acute distress. Review of Systems Review of Systems: ROS unobtainable: Yes unobtainable due to mental status Exam Narrative: General: Chronically ill appearing and bed-ridden with [place]. UE and LE contractures. HEENT: Atraumatic, PERRL, EOM, dry mucus membranes. NECK: Supple. Lungs: Clear bilaterally. Heart: RRR, no murmurs. Abdomen: Soft, non-tender, non-distended, +ve bowel sounds X4 quadrants. Extremities: Contractures diego. UE and LE, 1+ edema diego. feet. Skin: Warm and dry. Neuro: Pleasantly confused, alert to self only. Psych: Confused but co-operative. Objective Data Vital Signs Vital Signs: Vital Signs - 24 hr 04/26/24 14:59 04/26/24 15:34 04/26/24 15:04 Temperature 97.7 F Pulse Rate 87 57 L 88 Respiratory Rate 18 18 18 Blood Pressure 153/67 H Pulse Oximetry 100 Oxygen Delivery Fraction of Inspired Oxygen 04/26/24 21:38 04/26/24 21:43 04/26/24 21:49 Temperature Pulse Rate 63 63 69 Respiratory Rate 18 18 Blood Pressure Pulse Oximetry 96 Oxygen Delivery Room Air Fraction of Inspired Oxygen 04/26/24 20:00 04/26/24 23:26 04/27/24 07:25 Temperature 97.0 F L Pulse Rate 61 55 L Respiratory Rate 20 Blood Pressure 142/71 H Pulse Oximetry 100 97 Oxygen Delivery Room Air Room Air Fraction of Inspired Oxygen 21 04/27/24 07:25 04/27/24 07:35 04/27/24 06:01 Temperature 98.0 F Pulse Rate 55 L 58 L 62 Respiratory Rate 16 20 20 Blood Pressure 132/67 Pulse Oximetry 98 Oxygen Delivery Fraction of Inspired Oxygen 04/27/24 08:44 Temperature Pulse Rate 56 L Respiratory Rate Blood Pressure Pulse Oximetry Oxygen Delivery Fraction of Inspired Oxygen Intake/Output Intake/Output: Intake & Output 04/24/24 04/25/24 04/26/24 04/27/24 23:59 23:59 23:59 23:59 Intake Total 420 1500 200 Output Total 510 1404 1600 Balance -90 96 -1400 Meds/Results Medications: Active Medications Generic Name Dose Route Start Last Admin Trade Name Freq PRN Reason Stop Dose Admin Acetaminophen 650 mg 04/25/24 14:27 Acetaminophen 325 Mg Tablet PO Q6H PRN Pain Rated 1-3 Acetylcysteine 200 mg 04/25/24 20:00 04/27/24 07:24 Acetylcysteine 20% Inhal Soln 800 Mg/4 Ml Vial INHALATION 200 mg Q6HRT ELIDIA Administration Albuterol/Ipratropium 3 ml 04/25/24 14:27 Ipratropium 0.5 Mg/Albuterol Sulfate 2.5 Mg Ampul.Neb 3 Ml INHALATION Q6H PRN Shortness Of Breath Albuterol/Ipratropium 3 ml 04/25/24 20:00 04/27/24 07:24 Ipratropium 0.5 Mg/Albuterol Sulfate 2.5 Mg Ampul.Neb 3 Ml INHALATION 3 ml Q6HRT ELIDIA Administration Amlodipine Besylate 10 mg 04/26/24 09:00 04/27/24 08:43 Amlodipine Besylate 10 Mg Tablet PO 10 mg DAILY ELIDIA Administration Artificial Tears 1 drop 04/25/24 14:27 Artificial Tears Ophth Soln 15 Ml Bottle EACH EYE BID PRN Dry Eyes Aspirin 81 mg 04/26/24 09:00 04/27/24 08:43 Aspirin 81 Mg Enteric Tablet PO 81 mg QAM ELIDIA Administration Atorvastatin Calcium 40 mg 04/25/24 21:00 04/26/24 21:17 Atorvastatin 40 Mg Tablet PO 40 mg HS ELIDIA Administration Carvedilol 25 mg 04/25/24 21:00 04/27/24 08:44 Carvedilol 25 Mg Tablet PO 25 mg Q12HR ELIDIA Administration Dextrose 12.5 gm 04/25/24 14:28 Dextrose 50% 25 Gm/50 Ml Syringe IV PUSH PRN PRN Hypoglycemia Protocol Enoxaparin Sodium 30 mg 04/26/24 09:00 04/26/24 11:45 Enoxaparin 30 Mg/0.3 Ml Syringe SUB-Q Not Given DAILY ELIDIA Famotidine 20 mg 04/25/24 17:00 04/27/24 08:43 Famotidine 20 Mg Tablet PO 20 mg BID ELIDIA Administration Ferrous Sulfate 325 mg 04/26/24 09:00 04/27/24 08:43 Ferrous Sulfate [address] BY MOUTH 325 mg DAILY ELIDIA Administration Fluticasone Propionate 1 spray 04/26/24 09:00 04/27/24 08:50 Fluticasone Propionate 0.05% Na Spr 16 Gm Btl (*Bkc) NASAL 1 spray DAILY ELIDIA Administration Folic Acid 1 mg 04/26/24 09:00 04/27/24 08:43 Folic Acid 1 Mg Tablet PO 1 mg DAILY ELIDIA Administration Furosemide 40 mg 04/25/24 09:00 04/27/24 08:59 Furosemide Inj 40 Mg/4 Ml Vial IV PUSH 40 mg Q12HR ELIDIA Administration Glucagon 1 mg 04/25/24 14:28 Glucagon For Inj 1 Mg Vial IM PRN PRN Hypoglycemia Protocol Glucose 15 gm 04/25/24 14:28 Glucose Oral Gel 15 Gm Of Glucse In 37.5 Gm Tube PO PRN PRN Hypoglycemia Protocol Hydralazine HCl 10 mg 04/26/24 09:00 04/27/24 08:44 Hydralazine 10 Mg Tablet PO 10 mg DAILY ELIDIA Administration Dextrose 1,000 mls @ 100 mls/hr 04/25/24 14:28 Dextrose 5% 1,000 Ml IVPB PRN PRN Hypoglycemia Protocol Cefepime HCl 1 gm in 50 mls @ 100 mls/hr 04/25/24 15:00 04/27/24 03:00 Maxipime 1 Gm/Ns 50 Ml IVPB 100 mls/hr Q12H ELIDIA Administration Azithromycin 500 mg in 250 mls @ 250 mls/hr 04/25/24 16:00 04/26/24 15:39 Zithromax IVPB 250 mls/hr Q24H ELIDIA Administration Insulin Glargine 15 units 04/25/24 21:00 04/26/24 21:25 Insulin Glargine (*Bkc) 100 Units/Ml SUB-Q 15 units HS ELIDIA Administration Loratadine 10 mg 04/26/24 09:00 04/27/24 08:44 Loratadine 10 Mg Tablet PO 10 mg QAM ELIDIA Administration Mirtazapine 7.5 mg 04/25/24 21:00 04/26/24 21:17 Mirtazapine 7.5 Mg Tablet PO 7.5 mg HS ELIDIA Administration Miscellaneous Information 1 each 04/25/24 00:01 Cyanocobalamin 100 Mcg Nonformulary. We Carry 500 Mcg And 1000 Mcg. Do You Want To Change XX 05/25/24 00:00 CLARIFY ELIDIA Multivitamins Therapeutic 1 tablet 04/26/24 09:00 04/27/24 08:44 Multivitamins Therapeutic Tab (*Bkc) PO 1 tablet DAILY ELIDIA Administration Non-Formulary Medication 100 mcg 04/26/24 09:00 Cyanocobalamin (Vitamin B-12) PO 05/26/24 08:59 DAILY ELIDIA Perflutren Lipid Microsphere 0 ml 04/25/24 03:36 Perflutren Lipid Microspheres 1.5 Ml Vial Diluted To 10 Ml Total Volume IV PUSH 04/28/24 03:38 ONCE PRN adequate visualization Protocol Senna 8.6 mg 04/25/24 17:00 04/27/24 08:43 Sennosides 8.6 Mg Tablet PO 8.6 mg BID ELIDIA Administration Radiology Results: ITS Impressions Chest CT 04/25/24 07:23 IMPRESSION: 1. Small right and moderate-sized partially loculated left pleural effusions with associated compressive atelectasis in both lungs. 2. Minimal pulmonary edema the lung bases. 2. Cardiomegaly with small to moderate-sized pericardial effusion. Chest X-Ray 04/26/24 10:57 IMPRESSION: 1. No pneumothorax. 2. Unchanged mild opacities at the right lower lung zone and decrease opacity left mid and lower lung zone with residual focal region of consolidation in the lingula and left lower lobe, all suspicious for pneumonia. 3. Likely small residual bilateral pleural effusions. Thoracentesis Ultrasound 04/26/24 11:43 IMPRESSION: 1. Successful ultrasound-guided thoracentesis yielding 3.5 mL of clear straw- colored fluid. 2. Very small bilateral pleural effusions which appear decreased in size since the prior CT from 04/25/2024 Labs Labs: Laboratory Results - last 24 hr 04/26/24 04/26/24 04/26/24 10:30 10:31 12:28 WBC RBC Hgb Hct MCV MCH MCHC RDW Plt Count MPV Immature Gran % (Auto) Neut % (Auto) Lymph % (Auto) [place] % (Auto) Eos % (Auto) Baso % (Auto) Lymph # (Auto) [place] # (Auto) Eos # (Auto) Baso # (Auto) Abs Immat Gran (auto) Absolute Neuts (auto) Absolute Nucleated RBC Nucleated RBC % Sodium Potassium Chloride Carbon Dioxide Anion Gap BUN Creatinine Estim Creat Clear Calc Estimated GFR Glucose POC Capillary Glucose 202 H Calcium Total Bilirubin AST ALT Alkaline Phosphatase Total Protein Albumin Pleural Fluid Source Cancelled Pleural Color Cancelled Pleural Appearance Cancelled Pleural pH > 7.500 H Pleural RBC Cancelled Pleural Nuc Cells Cancelled Pleural Neutrophils Cancelled Pleural Lymphocytes Cancelled Pleural Monocytes Cancelled Pleural Macrophages Cancelled Pleural Mesothelial Cancelled Pleural Other Cells Cancelled Pleural Total Protein Cancelled Pleural LDH Cancelled Pleural Glucose Cancelled Pleural Triglycerides Cancelled 04/26/24 04/26/24 04/26/24 14:46 17:05 21:24 WBC 3.9 L RBC 2.70 L Hgb 7.6 L Hct 24.4 L MCV 90.4 MCH 28.1 MCHC 31.1 L RDW 16.7 H Plt Count 219 MPV 9.1 Immature Gran % (Auto) 0.5 Neut % (Auto) 58.1 Lymph % (Auto) 29.9 [place] % (Auto) 7.4 Eos % (Auto) 3.6 Baso % (Auto) 0.5 Lymph # (Auto) 1.18 [place] # (Auto) 0.3 Eos # (Auto) 0.1 Baso # (Auto) 0.0 Abs Immat Gran (auto) 0.02 Absolute Neuts (auto) 2.3 Absolute Nucleated RBC 0.000 Nucleated RBC % 0.0 Sodium 136 L Potassium 4.1 Chloride 100 Carbon Dioxide 29 Anion Gap 7 BUN 30 H Creatinine 2.00 H Estim Creat Clear Calc 31 Estimated GFR 41 L Glucose 198 H POC Capillary Glucose 258 H 174 H Calcium 8.8 Total Bilirubin 0.4 AST 58 ALT 100 H Alkaline Phosphatase 148 H Total Protein 7.0 Albumin 3.5 Pleural Fluid Source Pleural Color Pleural Appearance Pleural pH Pleural RBC Pleural Nuc Cells Pleural Neutrophils Pleural Lymphocytes Pleural Monocytes Pleural Macrophages Pleural Mesothelial Pleural Other Cells Pleural Total Protein Pleural LDH Pleural Glucose Pleural Triglycerides 04/27/24 04/27/24 08:27 08:58 WBC RBC Hgb Hct MCV MCH MCHC RDW Plt Count MPV Immature Gran % (Auto) Neut % (Auto) Lymph % (Auto) [place] % (Auto) Eos % (Auto) Baso % (Auto) Lymph # (Auto) [place] # (Auto) Eos # (Auto) Baso # (Auto) Abs Immat Gran (auto) Absolute Neuts (auto) Absolute Nucleated RBC Nucleated RBC % Sodium Potassium Chloride Carbon Dioxide Anion Gap BUN Creatinine Estim Creat Clear Calc Estimated GFR Glucose POC Capillary Glucose 66 73 Calcium Total Bilirubin AST ALT Alkaline Phosphatase Total Protein Albumin Pleural Fluid Source Pleural Color Pleural Appearance Pleural pH Pleural RBC Pleural Nuc Cells Pleural Neutrophils Pleural Lymphocytes Pleural Monocytes Pleural Macrophages Pleural Mesothelial Pleural Other Cells Pleural Total Protein Pleural LDH Pleural Glucose Pleural Triglycerides Quality VTE Prophylaxis VTE prophylaxis: mechanical ordered and pharmacologic ordered Hospitalist MIPS Advance Care Plan I have confirmed that the patient's Advanced Care Plan is present, code status is documented, or surrogate decision maker is listed in patient medical record.: Yes Medication Reconciliation I have utilized all available resources to obtain, update and review the patien ts current medications (includes all prescriptions, OTC, herbals, cannabis, and nutritional supplements).: Yes
[2024-04-27 12:08] LABS: Glucose Point of Care 138 mg/dl (65-105)
[2024-04-27 15:18] LABS: Basophils Percent Auto 0.5 % (0.2-1.2); Eosinophils Absolute Auto 0.1 K/mm3 (0-0.3); Eosinophils Percent Auto 3.6 % (0-4.4); Hematocrit 22.7 % (42.0-52.0); Hemoglobin 7.2 g/dL (14.0-18.0); Immature Granulocyte Absolute 0.02 K/mm3 (0.00-0.031); Immature Granulocyte Percent A 0.5 % (0-0.5); Lymphocytes Absolute Auto 1.14 K/mm3 (0.9-3.2); Lymphocytes Percent Auto 29.1 % (18.3-44.2); Mean Corpuscular HGB Conc 31.7 g/dl (32-36); Mean Corpuscular Hemoglobin 27.9 pg (26-34); Mean Platelet Volume 9.4 fl (7.4-10.4); Monocytes Absolute Auto 0.3 K/mm3 (0.1-0.6); Monocytes Percent Auto 7.1 % (2.6-8.5); Neutrophils Absolute Auto 2.3 K/mm3 (1.3-6.7); Neutrophils Percent Auto 59.2 % (45.5-73.1); Platelet Count Result 212 k/mm3 (150-375); Red Blood Count 2.58 M/mm3 (4.6-6.20); Red Cell Distribution Width 16.1 % (11.5-14.5); White Blood Count 3.9 K/mm3 (4.5-10.0)
[2024-04-27 15:29] LABS: Alanine Aminotransferase 87 U/L (6-50); Albumin Level 3.3 g/dL (3.5-5.1); Alkaline Phosphatase 140 U/L (38-126); Anion Gap 5 mmol/L (4-12); Aspartate Amino Transferase 50 U/L (17-59); Bilirubin,Total 0.4 mg/dL (0.2-1.3); Blood Urea Nitrogen 30 mg/dL (9-20); Calcium 8.9 mg/dL (8.4-10.2); Carbon Dioxide 28 mmol/L (22-30); Chloride 102 mmol/L (98-107); Estimated CRCL calculation 31 ml/min; Estimated Glomerular Filt Rate 41; Glucose 130 mg/dL (65-110); Potassium 3.7 mmol/L (3.4-5.0); Sodium 135 mmol/L (137-145)
[2024-04-27] MEDS: AZITHROMYCIN 500 MG/NS 250 ML 500 MG/250 ML BAG 250 MG IVPB (16:10)
[2024-04-27] MEDS: ENOXAPARIN 30 MG/0.3 ML SYRINGE SUB-Q (16:19)
--- NOTE | 2024-04-27 17:14 | PC.NURSE ---
I have reviewed Mary ACE's charting and agree with all assessments and charting
[2024-04-27 18:30] LABS: Glucose Point of Care 122 mg/dl (65-105)
[2024-04-27 21:08] LABS: Glucose Point of Care 157 mg/dl (65-105)
[2024-04-27] MEDS: INSULIN GLARGINE (*BKC) 100 UNITS/ML 15 UNITS SUB-Q (21:38)
[2024-04-27] MEDS: MIRTAZAPINE 7.5 MG TABLET PO (21:39)
[2024-04-27] MEDS: ATORVASTATIN 40 MG TABLET PO (21:39)
[2024-04-27 21:54] LABS: Legionella pneumophila Ag Ur NOT DETECTED
[2024-04-28] VITALS (12 sets, daily range): BP systolic 148–168; BP diastolic 63–91; PULSE 54–72; RESP 14–20; TEMP 36.2–36.4; O2SAT 96–100
[2024-04-28] MEDS: ACETYLCYSTEINE 20% INHAL SOLN 800 MG/4 ML VIAL 200 MG INHALATION ×4 (02:55→19:44)
[2024-04-28] MEDS: IPRATROPIUM 0.5 MG/ALBUTEROL SULFATE 2.5 MG AMPUL.NEB 3 ML INHALATION ×4 (02:55→19:44)
[2024-04-28] MEDS: CEFEPIME 1 GM/NS 50 ML 1 GM/50 ML BAG IVPB ×2 (03:24→15:51)
[2024-04-28 08:52] LABS: Glucose Point of Care 48 mg/dl (65-105)
[2024-04-28] MEDS: FOLIC ACID 1 MG TABLET PO (09:05)
[2024-04-28] MEDS: MULTIVITAMINS THERAPEUTIC TAB (*BKC) 1 TABLET PO (09:05)
[2024-04-28] MEDS: hydrALAZINE 10 MG TABLET PO (09:05)
[2024-04-28] MEDS: FAMOTIDINE 20 MG TABLET PO ×2 (09:05→16:03)
[2024-04-28] MEDS: LORATADINE 10 MG TABLET PO (09:05)
[2024-04-28] MEDS: FERROUS SULFATE 325 MG TABLET DR BY MOUTH (09:05)
[2024-04-28] MEDS: ASPIRIN 81 MG ENTERIC TABLET PO (09:05)
[2024-04-28] MEDS: amLODIPine BESYLATE 10 MG TABLET PO (09:05)
[2024-04-28] MEDS: FUROSEMIDE INJ 40 MG/4 ML VIAL IV PUSH ×2 (09:05→20:40)
[2024-04-28] MEDS: SENNOSIDES 8.6 MG TABLET PO ×2 (09:05→16:02)
[2024-04-28] MEDS: FLUTICASONE PROPIONATE 0.05% NA SPR 16 GM BTL (*BKC) 1 SPRAY NASAL (09:06)
[2024-04-28] MEDS: carvediloL 25 MG TABLET PO ×2 (09:07→20:40)
[2024-04-28] MEDS: ENOXAPARIN 40 MG/0.4 ML SYRINGE SUB-Q (09:18)
[2024-04-28 09:31] LABS: Glucose Point of Care 92 mg/dl (65-105)
--- NOTE | 2024-04-28 11:14 | PM.IMPN ---
Progress Note: A&P Assessment and Plan (1) Loculated pleural effusion: Code(s): J90 - Pleural effusion, not elsewhere classified Status: Acute Assessment and Plan: CT Chest; IMPRESSION: 1. Small right and moderate-sized partially loculated left pleural effusions with associated compressive atelectasis in both lungs. 2. Minimal pulmonary edema the lung bases. 2. Cardiomegaly with small to moderate-sized pericardial effusion. 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 - s/p Thoracentesis; US Guided Thoracentesis; IMPRESSION: 1. Successful ultrasound-guided thoracentesis yielding 3.5 mL of clear straw-colored fluid. 2. Very small bilateral pleural effusions which appear decreased in size since the prior CT from 04/25/2024 - Urine Legionella pneumophilia Ag negative. - Continue Cefepime and Azithromycin for now. - Continue duoneb and Mucomyst nebs treatments. - Currently good O2 sats > 90 % on RA. - Continue to follow cultures. - Seen by PT for possible aspiration PNA and small bite sizes and sips with cup, no straws, recommended. - Elevate HOB for oral intake. (2) SOB (shortness of breath): Code(s): R06.02 - Shortness of breath Status: Acute Assessment and Plan: - Mgt as # 1. - Currently good O2 sats > 90 % on RA. - Supplemental O2 PRN to maintain sats > 90 %. (3) HTN (hypertension): Code(s): I10 - Essential (primary) hypertension Status: Acute Assessment and Plan: - Continue home meds; Amlodipine, Coreg and Hydralazine. - Adjust meds as needed for optimal control. (4) DM type 2 (diabetes mellitus, type 2): Code(s): E11.9 - Type 2 diabetes mellitus without complications Status: Acute Assessment and Plan: - Started on long-acting insulin. - Blood glucose check AC & HS. - Appears well controlled. - Continue to adjust insulin as needed. (5) Dyslipidemia: Code(s): E78.5 - Hyperlipidemia, unspecified Status: Acute Assessment and Plan: - Continue statin. 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 - Assist with care. (7) Anemia, unspecified: Code(s): D64.9 - Anemia, unspecified Status: Acute Assessment and Plan: - Monitor Hgb closely. - Transfuse PRN for Hgb < 7. Time Spent With Patient Time with patient: 15 - 25 minutes Subjective Date/time seen: 04/28/24 11:14 Patient seated on bed and reports feels ok, with no distressful symptoms. Interval history: Patient calm on bedrest, looks more alert and in no acute distress. Review of Systems Review of Systems: ROS unobtainable: Yes unobtainable due to mental status Exam Narrative: General: Chronically ill appearing on bedrest with [place]. UE and LE contractures. HEENT: Atraumatic, PERRL, EOM, dry mucus membranes. NECK: Supple. Lungs: Clear bilaterally. Heart: RRR, no murmurs. Abdomen: Soft, non-tender, non-distended, +ve bowel sounds X4 quadrants. Extremities: Contractures diego. UE and LE, 1+ edema diego. feet. Skin: Warm and dry. Neuro: Pleasantly confused, alert to self only. Psych: Confused but co-operative. Objective Data Vital Signs Vital Signs: Vital Signs - 24 hr 04/27/24 15:24 04/27/24 15:24 04/27/24 15:38 Temperature Pulse Rate 50 L 51 L Respiratory Rate 12 12 Blood Pressure Pulse Oximetry 100 Oxygen Delivery Room Air Fraction of Inspired Oxygen 21 04/27/24 14:00 04/27/24 20:21 04/27/24 20:30 Temperature 97.0 F L Pulse Rate 60 57 L 58 L Respiratory Rate 20 16 16 Blood Pressure 147/65 H Pulse Oximetry 100 Oxygen Delivery Fraction of Inspired Oxygen 04/27/24 20:51 04/27/24 21:39 04/27/24 20:00 Temperature 98.2 F Pulse Rate 118 H 108 H Respiratory Rate 20 Blood Pressure 152/78 H Pulse Oximetry 100 Oxygen Delivery Room Air Fraction of Inspired Oxygen 04/28/24 02:55 04/28/24 03:07 04/28/24 05:49 Temperature 97.6 F Pulse Rate 61 54 L 60 Respiratory Rate 14 16 16 Blood Pressure 168/79 H Pulse Oximetry 100 Oxygen Delivery Fraction of Inspired Oxygen 04/28/24 07:18 04/28/24 07:18 04/28/24 07:28 Temperature Pulse Rate 59 L 59 L 60 Respiratory Rate 16 16 16 Blood Pressure Pulse Oximetry 99 Oxygen Delivery Room Air Fraction of Inspired Oxygen 04/28/24 09:07 04/28/24 08:00 Temperature Pulse Rate 71 Respiratory Rate Blood Pressure Pulse Oximetry Oxygen Delivery Room Air Fraction of Inspired Oxygen Intake/Output Intake/Output: Intake & Output 04/25/24 04/26/24 04/27/24 04/28/24 23:59 23:59 23:59 23:59 Intake Total 420 1750 1880 530 Output Total 510 1404 3050 1150 Balance -90 063 -9570 -620 Meds/Results Medications: Active Medications Generic Name Dose Route Start Last Admin Trade Name Freq PRN Reason Stop Dose Admin Acetaminophen 650 mg 04/25/24 14:27 Acetaminophen 325 Mg Tablet PO Q6H PRN Pain Rated 1-3 Acetylcysteine 200 mg 04/25/24 20:00 04/28/24 07:18 Acetylcysteine 20% Inhal Soln 800 Mg/4 Ml Vial INHALATION 200 mg Q6HRT ELIDIA Administration Albuterol/Ipratropium 3 ml 04/25/24 14:27 Ipratropium 0.5 Mg/Albuterol Sulfate 2.5 Mg Ampul.Neb 3 Ml INHALATION Q6H PRN Shortness Of Breath Albuterol/Ipratropium 3 ml 04/25/24 20:00 04/28/24 07:18 Ipratropium 0.5 Mg/Albuterol Sulfate 2.5 Mg Ampul.Neb 3 Ml INHALATION 3 ml Q6HRT ELIDIA Administration Amlodipine Besylate 10 mg 04/26/24 09:00 04/28/24 09:05 Amlodipine Besylate 10 Mg Tablet PO 10 mg DAILY ELIDIA Administration Artificial Tears 1 drop 04/25/24 14:27 Artificial Tears Ophth Soln 15 Ml Bottle EACH EYE BID PRN Dry Eyes Aspirin 81 mg 04/26/24 09:00 04/28/24 09:05 Aspirin 81 Mg Enteric Tablet PO 81 mg QAM ELIDIA Administration Atorvastatin Calcium 40 mg 04/25/24 21:00 04/27/24 21:39 Atorvastatin 40 Mg Tablet PO 40 mg HS ELIDIA Administration Carvedilol 25 mg 04/25/24 21:00 04/28/24 09:07 Carvedilol 25 Mg Tablet PO 25 mg Q12HR ELIDIA Administration Dextrose 12.5 gm 04/25/24 14:28 Dextrose 50% 25 Gm/50 Ml Syringe IV PUSH PRN PRN Hypoglycemia Protocol Enoxaparin Sodium 40 mg 04/28/24 09:15 04/28/24 09:18 Enoxaparin 40 Mg/0.4 Ml Syringe SUB-Q 40 mg DAILY ELIDIA Administration Famotidine 20 mg 04/25/24 17:00 04/28/24 09:05 Famotidine 20 Mg Tablet PO 20 mg BID ELIDIA Administration Ferrous Sulfate 325 mg 04/26/24 09:00 04/28/24 09:05 Ferrous Sulfate [address] BY MOUTH 325 mg DAILY ELIDIA Administration Fluticasone Propionate 1 spray 04/26/24 09:00 04/28/24 09:06 Fluticasone Propionate 0.05% Na Spr 16 Gm Btl (*Bk) NASAL 1 spray DAILY ELIDIA Administration Folic Acid 1 mg 04/26/24 09:00 04/28/24 09:05 Folic Acid 1 Mg Tablet PO 1 mg DAILY ELIDIA Administration Furosemide 40 mg 04/25/24 09:00 04/28/24 09:05 Furosemide Inj 40 Mg/4 Ml Vial IV PUSH 40 mg Q12HR ELIDIA Administration Glucagon 1 mg 04/25/24 14:28 Glucagon For Inj 1 Mg Vial IM PRN PRN Hypoglycemia Protocol Glucose 15 gm 04/25/24 14:28 Glucose Oral Gel 15 Gm Of Glucse In 37.5 Gm Tube PO PRN PRN Hypoglycemia Protocol Hydralazine HCl 10 mg 04/26/24 09:00 04/28/24 09:05 Hydralazine 10 Mg Tablet PO 10 mg DAILY ELIDIA Administration Dextrose 1,000 mls @ 100 mls/hr 04/25/24 14:28 Dextrose 5% 1,000 Ml IVPB PRN PRN Hypoglycemia Protocol Cefepime HCl 1 gm in 50 mls @ 100 mls/hr 04/25/24 15:00 04/28/24 04:23 Maxipime 1 Gm/Ns 50 Ml IVPB Infused Q12H ELIDIA Infusion Azithromycin 500 mg in 250 mls @ 250 mls/hr 04/25/24 16:00 04/27/24 16:10 Zithromax IVPB 250 mls/hr Q24H ELIDIA Administration Insulin Glargine 15 units 04/25/24 21:00 04/27/24 21:38 Insulin Glargine (*Bkc) 100 Units/Ml SUB-Q 15 units HS ELIDIA Administration Loratadine 10 mg 04/26/24 09:00 04/28/24 09:05 Loratadine 10 Mg Tablet PO 10 mg QAM ELIDIA Administration Mirtazapine 7.5 mg 04/25/24 21:00 04/27/24 21:39 Mirtazapine 7.5 Mg Tablet PO 7.5 mg HS ELIDIA Administration Miscellaneous Information 1 each 04/25/24 00:01 Cyanocobalamin 100 Mcg Nonformulary. We Carry 500 Mcg And 1000 Mcg. Do You Want To Change XX 05/25/24 00:00 CLARIFY ELIDIA Multivitamins Therapeutic 1 tablet 04/26/24 09:00 04/28/24 09:05 Multivitamins Therapeutic Tab (*Bkc) PO 1 tablet DAILY ELIDIA Administration Non-Formulary Medication 100 mcg 04/26/24 09:00 Cyanocobalamin (Vitamin B-12) PO 05/26/24 08:59 DAILY ELIDIA Senna 8.6 mg 04/25/24 17:00 04/28/24 09:05 Sennosides 8.6 Mg Tablet PO 8.6 mg BID ELIDIA Administration Radiology Results: ITS Impressions Chest CT 04/25/24 07:23 IMPRESSION: 1. Small right and moderate-sized partially loculated left pleural effusions with associated compressive atelectasis in both lungs. 2. Minimal pulmonary edema the lung bases. 2. Cardiomegaly with small to moderate-sized pericardial effusion. Chest X-Ray 04/26/24 10:57 IMPRESSION: 1. No pneumothorax. 2. Unchanged mild opacities at the right lower lung zone and decrease opacity left mid and lower lung zone with residual focal region of consolidation in the lingula and left lower lobe, all suspicious for pneumonia. 3. Likely small residual bilateral pleural effusions. Thoracentesis Ultrasound 04/26/24 11:43 IMPRESSION: 1. Successful ultrasound-guided thoracentesis yielding 3.5 mL of clear straw-colored fluid. 2. Very small bilateral pleural effusions which appear decreased in size since the prior CT from 04/25/2024 Modified Barium Swallow 04/27/24 13:14 IMPRESSION: Laryngeal penetration with thin liquids and drinking with straw Labs Labs: Laboratory Results - last 24 hr 04/25/24 04/27/24 04/27/24 18:36 12:00 15:11 WBC 3.9 L RBC 2.58 L Hgb 7.2 L Hct 22.7 L MCV 88.0 MCH 27.9 MCHC 31.7 L RDW 16.1 H Plt Count 212 MPV 9.4 Immature Gran % (Auto) 0.5 Neut % (Auto) 59.2 Lymph % (Auto) 29.1 [place] % (Auto) 7.1 Eos % (Auto) 3.6 Baso % (Auto) 0.5 Lymph # (Auto) 1.14 [place] # (Auto) 0.3 Eos # (Auto) 0.1 Baso # (Auto) 0.0 Abs Immat Gran (auto) 0.02 Absolute Neuts (auto) 2.3 Absolute Nucleated RBC 0.000 Nucleated RBC % 0.0 Sodium 135 L Potassium 3.7 Chloride 102 Carbon Dioxide 28 Anion Gap 5 BUN 30 H Creatinine 2.00 H Estim Creat Clear Calc 31 Estimated GFR 41 L Glucose 130 H POC Capillary Glucose 138 H Calcium 8.9 Total Bilirubin 0.4 AST 50 ALT 87 H Alkaline Phosphatase 140 H Total Protein 6.0 L Albumin 3.3 L Ur L.pneumophila Ag Not detected 04/27/24 04/27/24 04/28/24 17:16 20:54 08:50 WBC RBC Hgb Hct MCV MCH MCHC RDW Plt Count MPV Immature Gran % (Auto) Neut % (Auto) Lymph % (Auto) [place] % (Auto) Eos % (Auto) Baso % (Auto) Lymph # (Auto) [place] # (Auto) Eos # (Auto) Baso # (Auto) Abs Immat Gran (auto) Absolute Neuts (auto) Absolute Nucleated RBC Nucleated RBC % Sodium Potassium Chloride Carbon Dioxide Anion Gap BUN Creatinine Estim Creat Clear Calc Estimated GFR Glucose POC Capillary Glucose 122 H 157 H 48 L* Calcium Total Bilirubin AST ALT Alkaline Phosphatase Total Protein Albumin Ur L.pneumophila Ag 04/28/24 09:28 WBC RBC Hgb Hct MCV MCH MCHC RDW Plt Count MPV Immature Gran % (Auto) Neut % (Auto) Lymph % (Auto) [place] % (Auto) Eos % (Auto) Baso % (Auto) Lymph # (Auto) [place] # (Auto) Eos # (Auto) Baso # (Auto) Abs Immat Gran (auto) Absolute Neuts (auto) Absolute Nucleated RBC Nucleated RBC % Sodium Potassium Chloride Carbon Dioxide Anion Gap BUN Creatinine Estim Creat Clear Calc Estimated GFR Glucose POC Capillary Glucose 92 Calcium Total Bilirubin AST ALT Alkaline Phosphatase Total Protein Albumin Ur L.pneumophila Ag Quality VTE Prophylaxis VTE prophylaxis: mechanical ordered and pharmacologic ordered Hospitalist MIPS Advance Care Plan I have confirmed that the patient's Advanced Care Plan is present, code status is documented, or surrogate decision maker is listed in patient medical record.: Yes Medication Reconciliation I have utilized all available resources to obtain, update and review the patients current medications (includes all prescriptions, OTC, herbals, cannabis, and nutritional supplements).: Yes
[2024-04-28 12:28] LABS: Glucose Point of Care 77 mg/dl (65-105)
[2024-04-28 12:29] LABS: Basophils Percent Auto 0.4 % (0.2-1.2); Eosinophils Absolute Auto 0.1 K/mm3 (0-0.3); Hemoglobin 7.1 g/dL (14.0-18.0); Immature Granulocyte Absolute 0.01 K/mm3 (0.00-0.031); Immature Granulocyte Percent A 0.2 % (0-0.5); Lymphocytes Absolute Auto 0.98 K/mm3 (0.9-3.2); Lymphocytes Percent Auto 20.8 % (18.3-44.2); Mean Corpuscular HGB Conc 32.3 g/dl (32-36); Mean Corpuscular Hemoglobin 28.3 pg (26-34); Mean Corpuscular Volume 87.6 fl (80-100); Mean Platelet Volume 9.4 fl (7.4-10.4); Monocytes Absolute Auto 0.3 K/mm3 (0.1-0.6); Monocytes Percent Auto 6.2 % (2.6-8.5); Neutrophils Absolute Auto 3.3 K/mm3 (1.3-6.7); Neutrophils Percent Auto 69.4 % (45.5-73.1); Platelet Count Result 212 k/mm3 (150-375); Red Blood Count 2.51 M/mm3 (4.6-6.20); Red Cell Distribution Width 16.2 % (11.5-14.5); White Blood Count 4.7 K/mm3 (4.5-10.0)
[2024-04-28 12:38] LABS: Alanine Aminotransferase 75 U/L (6-50); Albumin Level 3.5 g/dL (3.5-5.1); Alkaline Phosphatase 135 U/L (38-126); Anion Gap 5 mmol/L (4-12); Aspartate Amino Transferase 43 U/L (17-59); Bilirubin,Total 0.3 mg/dL (0.2-1.3); Blood Urea Nitrogen 30 mg/dL (9-20); Calcium 8.9 mg/dL (8.4-10.2); Carbon Dioxide 28 mmol/L (22-30); Chloride 104 mmol/L (98-107); Estimated CRCL calculation 26 ml/min; Estimated Glomerular Filt Rate 33; Glucose 78 mg/dL (65-110); Potassium 3.8 mmol/L (3.4-5.0); Sodium 137 mmol/L (137-145)
[2024-04-28] MEDS: AZITHROMYCIN 500 MG/NS 250 ML 500 MG/250 ML BAG 250 MG IVPB (15:51)
[2024-04-28 18:18] LABS: Glucose Point of Care 90 mg/dl (65-105)
[2024-04-28] MEDS: INSULIN GLARGINE (*BKC) 100 UNITS/ML 15 UNITS SUB-Q (20:40)
[2024-04-28] MEDS: MIRTAZAPINE 7.5 MG TABLET PO (20:40)
[2024-04-28] MEDS: ATORVASTATIN 40 MG TABLET PO (20:40)
[2024-04-29] VITALS (12 sets, daily range): BP systolic 133–163; BP diastolic 53–76; PULSE 48–86; RESP 16–20; TEMP 35.8–36.3; O2SAT 94–100
[2024-04-29] MEDS: IPRATROPIUM 0.5 MG/ALBUTEROL SULFATE 2.5 MG AMPUL.NEB 3 ML INHALATION ×4 (01:58→20:50)
[2024-04-29] MEDS: ACETYLCYSTEINE 20% INHAL SOLN 800 MG/4 ML VIAL 200 MG INHALATION ×4 (01:58→20:50)
[2024-04-29] MEDS: CEFEPIME 1 GM/NS 50 ML 1 GM/50 ML BAG IVPB (03:37)
[2024-04-29 06:14] LABS: Hematocrit 23.3 % (42.0-52.0); Hemoglobin 7.2 g/dL (14.0-18.0); Mean Corpuscular HGB Conc 30.9 g/dl (32-36); Mean Corpuscular Hemoglobin 27.6 pg (26-34); Mean Corpuscular Volume 89.3 fl (80-100); Mean Platelet Volume 9.4 fl (7.4-10.4); Platelet Count Result 206 k/mm3 (150-375); Red Blood Count 2.61 M/mm3 (4.6-6.20); Red Cell Distribution Width 16.2 % (11.5-14.5); White Blood Count 3.4 K/mm3 (4.5-10.0)
[2024-04-29 06:27] LABS: Anion Gap 6 mmol/L (4-12); Blood Urea Nitrogen 32 mg/dL (9-20); Calcium 8.7 mg/dL (8.4-10.2); Carbon Dioxide 31 mmol/L (22-30); Chloride 103 mmol/L (98-107); Estimated CRCL calculation 22 ml/min; Estimated Glomerular Filt Rate 27; Glucose 42 mg/dL (65-110); Potassium 3.3 mmol/L (3.4-5.0); Sodium 140 mmol/L (137-145)
[2024-04-29] MEDS: DEXTROSE 50% 25 GM/50 ML SYRINGE IV PUSH (06:33)
[2024-04-29 07:06] LABS: Glucose Point of Care 119 mg/dl (65-105)
[2024-04-29 08:43] LABS: Iron 41 ug/dL (49-181)
[2024-04-29 08:53] LABS: Percent Iron Saturation 18 % (20-50)
[2024-04-29] MEDS: FUROSEMIDE INJ 40 MG/4 ML VIAL IV PUSH ×2 (09:08→20:50)
[2024-04-29] MEDS: FAMOTIDINE 20 MG TABLET PO ×2 (09:08→18:02)
[2024-04-29] MEDS: FOLIC ACID 1 MG TABLET PO (09:08)
[2024-04-29] MEDS: MULTIVITAMINS THERAPEUTIC TAB (*BKC) 1 TABLET PO (09:08)
[2024-04-29] MEDS: ENOXAPARIN 30 MG/0.3 ML SYRINGE SUB-Q (09:08)
[2024-04-29] MEDS: hydrALAZINE 10 MG TABLET PO (09:08)
[2024-04-29] MEDS: ASPIRIN 81 MG ENTERIC TABLET PO (09:08)
[2024-04-29] MEDS: LORATADINE 10 MG TABLET PO (09:09)
[2024-04-29] MEDS: SENNOSIDES 8.6 MG TABLET PO ×2 (09:09→18:02)
[2024-04-29] MEDS: FERROUS SULFATE 325 MG TABLET DR BY MOUTH (09:09)
[2024-04-29] MEDS: FLUTICASONE PROPIONATE 0.05% NA SPR 16 GM BTL (*BKC) 1 SPRAY NASAL (09:09)
[2024-04-29] MEDS: amLODIPine BESYLATE 10 MG TABLET PO (09:09)
[2024-04-29] MEDS: carvediloL 25 MG TABLET PO ×2 (09:09→20:50)
--- NOTE | 2024-04-29 09:46 | PC.NURSE ---
RN gave update to sister Riana via telephone on patient's status.
[2024-04-29 11:40] LABS: Glucose Point of Care 119 mg/dl (65-105)
[2024-04-29 11:44] LABS: Glucose Point of Care 93 mg/dl (65-105)
--- NOTE | 2024-04-29 12:52 | P.PNIM_ITS ---
Progress Note: A&P Assessment and Plan (1) Loculated pleural effusion: Code(s): J90 - Pleural effusion, not elsewhere classified Status: Acute Assessment and Plan: CT Chest; IMPRESSION: 1. Small right and moderate-sized partially loculated left pleural effusions with associated compressive atelectasis in both lungs. 2. Minimal pulmonary edema the lung bases. 2. Cardiomegaly with small to moderate-sized pericardial effusion. 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 - s/p Thoracentesis; US Guided Thoracentesis; IMPRESSION: 1. Successful ultrasound-guided thoracentesis yielding 3.5 mL of clear straw- colored fluid. 2. Very small bilateral pleural effusions which appear decreased in size since the prior CT from 04/25/2024 - Urine Legionella pneumophilia Ag negative. - Cefepime discontinued and started on Augmentin. - Continue Azithromycin. - Continue duoneb and Mucomyst nebs treatments. - Currently good O2 sats > 90 % on RA. - Continue to follow cultures. - Seen by PT for possible aspiration PNA and small bite sizes and sips with cup, no straws, recommended. - Elevate HOB for oral intake. (2) SOB (shortness of breath): Code(s): R06.02 - Shortness of breath Status: Acute Assessment and Plan: - Mgt as # 1. - Currently good O2 sats > 90 % on RA. - Supplemental O2 PRN to maintain sats > 90 %. (3) HTN (hypertension): Code(s): I10 - Essential (primary) hypertension Status: Acute Assessment and Plan: - Continue home meds; Amlodipine, Coreg and Hydralazine. - Adjust meds as needed for optimal control. (4) DM type 2 (diabetes mellitus, type 2): Code(s): E11.9 - Type 2 diabetes mellitus without complications Status: Acute Assessment and Plan: - Continue current long-acting insulin dose. - Continue blood glucose check AC & HS. - Currently blood-glucose well controlled. - Continue to adjust insulin as needed. (5) Dyslipidemia: Code(s): E78.5 - Hyperlipidemia, unspecified Status: Acute Assessment and Plan: - Continue statin. 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 - Assist with care. (7) Anemia, unspecified: Code(s): D64.9 - Anemia, unspecified Status: Acute Assessment and Plan: - Monitor Hgb closely. - Transfuse PRN for Hgb < 7. Time Spent With Patient Time with patient: 15 - 25 minutes Subjective Date/time seen: 04/29/24 12:52 Patient states he's feeling alright and denies pain or other distressful symptoms. Interval history: Patient calm on bedrest, alert and in no acute distress. Review of Systems Review of Systems: ROS unobtainable: Yes unobtainable due to mental status Exam Narrative: General: Chronically ill appearing on bedrest with roger. UE and LE contractures. HEENT: Atraumatic, PERRL, EOM, dry mucus membranes. NECK: Supple. Lungs: Clear bilaterally. Heart: RRR, no murmurs. Abdomen: Soft, non-tender, non-distended, +ve bowel sounds X4 quadrants. Extremities: Contractures roger. UE and LE, 1+ edema roger. feet. Skin: Warm and dry. Neuro: Alert to self. Roger. UE and LE contractures. Psych: Confused but co-operative. Objective Data Vital Signs Vital Signs: Vital Signs - 24 hr 04/28/24 13:12 04/28/24 13:22 04/28/24 15:46 Temperature 97.5 F L Pulse Rate 61 62 55 L Respiratory Rate 16 16 16 Blood Pressure 148/63 H Pulse Oximetry 100 Oxygen Delivery Fraction of Inspired Oxygen 04/28/24 19:45 04/28/24 19:45 04/28/24 19:57 Temperature Pulse Rate 70 70 72 Respiratory Rate 18 18 Blood Pressure Pulse Oximetry 96 Oxygen Delivery Room Air Fraction of Inspired Oxygen 04/28/24 20:00 04/28/24 22:00 04/29/24 01:58 Temperature 97.1 F L Pulse Rate 71 54 L Respiratory Rate 20 16 Blood Pressure 156/91 H Pulse Oximetry 100 Oxygen Delivery Room Air Fraction of Inspired Oxygen 04/29/24 02:08 04/29/24 07:45 04/29/24 07:45 Temperature Pulse Rate 52 L 66 Respiratory Rate 16 18 Blood Pressure Pulse Oximetry 99 Oxygen Delivery Room Air Fraction of Inspired Oxygen 21 04/29/24 06:00 04/29/24 07:58 04/29/24 09:09 Temperature 96.5 F L Pulse Rate 73 62 62 Respiratory Rate 18 18 Blood Pressure 163/76 H Pulse Oximetry 96 Oxygen Delivery Fraction of Inspired Oxygen 04/29/24 09:08 Temperature Pulse Rate Respiratory Rate Blood Pressure Pulse Oximetry Oxygen Delivery Room Air Fraction of Inspired Oxygen Intake/Output Intake/Output: Intake & Output 04/26/24 04/27/24 04/28/24 04/29/24 23:59 23:59 23:59 23:59 Intake Total 1750 2130 1430 850 Output Total 1404 3050 1850 600 Balance 346 920 -420 250 Meds/Results Medications: Active Medications Generic Name Dose Route Start Last Admin Trade Name Freq PRN Reason Stop Dose Admin Acetaminophen 650 mg 04/25/24 14:27 Acetaminophen 325 Mg Tablet PO Q6H PRN Pain Rated 1-3 Acetylcysteine 200 mg 04/25/24 20:00 04/29/24 07:45 Acetylcysteine 20% Inhal Soln 800 Mg/4 Ml Vial INHALATION 200 mg Q6HRT ELIDIA Administration Albuterol/Ipratropium 3 ml 04/25/24 14:27 Ipratropium 0.5 Mg/Albuterol Sulfate 2.5 Mg Ampul.Neb 3 Ml INHALATION Q6H PRN Shortness Of Breath Albuterol/Ipratropium 3 ml 04/25/24 20:00 04/29/24 07:45 Ipratropium 0.5 Mg/Albuterol Sulfate 2.5 Mg Ampul.Neb 3 Ml INHALATION 3 ml Q6HRT ELIDIA Administration Amlodipine Besylate 10 mg 04/26/24 09:00 04/29/24 09:09 Amlodipine Besylate 10 Mg Tablet PO 10 mg DAILY ELIDIA Administration Amoxicillin/Clavulanate Potassium 1 tablet 04/29/24 13:00 Amoxicillin/Clavulanate K 500-125 Mg Tab PO 05/01/24 21:01 Q12HR [facility] Artificial Tears 1 drop 04/25/24 14:27 Artificial Tears Ophth Soln 15 Ml Bottle EACH EYE BID PRN Dry Eyes Aspirin 81 mg 04/26/24 09:00 04/29/24 09:08 Aspirin 81 Mg Enteric Tablet PO 81 mg QAM ELIDIA Administration Atorvastatin Calcium 40 mg 04/25/24 21:00 04/28/24 20:40 Atorvastatin 40 Mg Tablet PO 40 mg HS ELIDIA Administration Azithromycin 500 mg 04/29/24 14:00 Azithromycin 250 Mg Tablet PO 04/29/24 14:01 ONCE ONE Carvedilol 25 mg 04/25/24 21:00 04/29/24 09:09 Carvedilol 25 Mg Tablet PO 25 mg Q12HR ELIDIA Administration Dextrose 12.5 gm 04/25/24 14:28 04/29/24 06:33 Dextrose 50% 25 Gm/50 Ml Syringe IV PUSH 12.5 gm PRN PRN Administration Hypoglycemia Protocol Enoxaparin Sodium 30 mg 04/29/24 09:00 04/29/24 09:08 Enoxaparin 30 Mg/0.3 Ml Syringe SUB-Q 30 mg DAILY ELIDIA Administration Famotidine 20 mg 04/25/24 17:00 04/29/24 09:08 Famotidine 20 Mg Tablet PO 20 mg BID ELIDIA Administration Ferrous Sulfate 325 mg 04/26/24 09:00 04/29/24 09:09 Ferrous Sulfate [address] BY MOUTH 325 mg DAILY ELIDIA Administration Fluticasone Propionate 1 spray 04/26/24 09:00 04/29/24 09:09 Fluticasone Propionate 0.05% Na Spr 16 Gm Btl (*Bkc) NASAL 1 spray DAILY ELIDIA Administration Folic Acid 1 mg 04/26/24 09:00 04/29/24 09:08 Folic Acid 1 Mg Tablet PO 1 mg DAILY ELIDIA Administration Furosemide 40 mg 04/25/24 09:00 04/29/24 09:08 Furosemide Inj 40 Mg/4 Ml Vial IV PUSH 40 mg Q12HR ELIDIA Administration Glucagon 1 mg 04/25/24 14:28 Glucagon For Inj 1 Mg Vial IM PRN PRN Hypoglycemia Protocol Glucose 15 gm 04/25/24 14:28 Glucose Oral Gel 15 Gm Of Glucse In 37.5 Gm Tube PO PRN PRN Hypoglycemia Protocol Hydralazine HCl 10 mg 04/26/24 09:00 04/29/24 09:08 Hydralazine 10 Mg Tablet PO 10 mg DAILY ELDIIA Administration Dextrose 1,000 mls @ 100 mls/hr 04/25/24 14:28 Dextrose 5% 1,000 Ml IVPB PRN PRN Hypoglycemia Protocol Insulin Glargine 15 units 04/25/24 21:00 04/28/24 20:40 Insulin Glargine (*Bkc) 100 Units/Ml SUB-Q 15 units HS ELIDIA Administration Loratadine 10 mg 04/26/24 09:00 04/29/24 09:09 Loratadine 10 Mg Tablet PO 10 mg QAM ELIDIA Administration Mirtazapine 7.5 mg 04/25/24 21:00 04/28/24 20:40 Mirtazapine 7.5 Mg Tablet PO 7.5 mg HS ELIDIA Administration Multivitamins Therapeutic 1 tablet 04/26/24 09:00 04/29/24 09:08 Multivitamins Therapeutic Tab (*Bkc) PO 1 tablet DAILY ELIDIA Administration Senna 8.6 mg 04/25/24 17:00 04/29/24 09:09 Sennosides 8.6 Mg Tablet PO 8.6 mg BID ELIDIA Administration Radiology Results: ITS Impressions Chest CT 04/25/24 07:23 IMPRESSION: 1. Small right and moderate-sized partially loculated left pleural effusions with associated compressive atelectasis in both lungs. 2. Minimal pulmonary edema the lung bases. 2. Cardiomegaly with small to moderate-sized pericardial effusion. Chest X-Ray 04/26/24 10:57 IMPRESSION: 1. No pneumothorax. 2. Unchanged mild opacities at the right lower lung zone and decrease opacity left mid and lower lung zone with residual focal region of consolidation in the lingula and left lower lobe, all suspicious for pneumonia. 3. Likely small residual bilateral pleural effusions. Thoracentesis Ultrasound 04/26/24 11:43 IMPRESSION: 1. Successful ultrasound-guided thoracentesis yielding 3.5 mL of clear straw- colored fluid. 2. Very small bilateral pleural effusions which appear decreased in size since the prior CT from 04/25/2024 Modified Barium Swallow 04/27/24 13:14 IMPRESSION: Laryngeal penetration with thin liquids and drinking with straw Labs Labs: Laboratory Results - last 24 hr 04/28/24 04/28/24 04/29/24 18:15 20:13 05:42 WBC RBC Hgb Hct MCV MCH MCHC RDW Plt Count MPV Sodium Potassium Chloride Carbon Dioxide Anion Gap BUN Creatinine Estim Creat Clear Calc Estimated GFR Glucose POC Capillary Glucose 90 119 H Calcium Iron 41 L TIBC 234 L % Saturation 18 L 04/29/24 04/29/24 04/29/24 05:56 07:03 11:39 WBC 3.4 L RBC 2.61 L Hgb 7.2 L Hct 23.3 L MCV 89.3 MCH 27.6 MCHC 30.9 L RDW 16.2 H Plt Count 206 MPV 9.4 Sodium 140 Potassium 3.3 L Chloride 103 Carbon Dioxide 31 H Anion Gap 6 BUN 32 H Creatinine 2.90 H Estim Creat Clear Calc 22 Estimated GFR 27 L Glucose 42 L* POC Capillary Glucose 119 H 93 Calcium 8.7 Iron TIBC % Saturation Quality VTE Prophylaxis VTE prophylaxis: mechanical ordered and pharmacologic ordered Hospitalist MIPS Advance Care Plan I have confirmed that the patient's Advanced Care Plan is present, code status is documented, or surrogate decision maker is listed in patient medical record.: Yes Medication Reconciliation I have utilized all available resources to obtain, update and review the patients current medications (includes all prescriptions, OTC, herbals, cannabis, and nutritional supplements).: Yes
[2024-04-29] MEDS: AMOXICILLIN/CLAVULANATE K 500-125 MG TAB 1 TABLET PO ×2 (13:13→20:50)
[2024-04-29] MEDS: AZITHROMYCIN 250 MG TABLET 500 MG PO (13:13)
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
[2024-04-29 17:14] LABS: Glucose Point of Care 130 mg/dl (65-105)
[2024-04-29] MEDS: ATORVASTATIN 40 MG TABLET PO (20:50)
[2024-04-29] MEDS: MIRTAZAPINE 7.5 MG TABLET PO (20:50)
[2024-04-29] MEDS: INSULIN GLARGINE (*BKC) 100 UNITS/ML 15 UNITS SUB-Q (20:50)
[2024-04-29 23:25] LABS: Glucose Point of Care 177 mg/dl (65-105)
[2024-04-30] VITALS (10 sets, daily range): BP systolic 144–163; BP diastolic 82–87; PULSE 50–69; RESP 12–20; TEMP 35.4–36.9; O2SAT 100
[2024-04-30] MEDS: IPRATROPIUM 0.5 MG/ALBUTEROL SULFATE 2.5 MG AMPUL.NEB 3 ML INHALATION ×4 (02:44→21:02)
[2024-04-30] MEDS: ACETYLCYSTEINE 20% INHAL SOLN 800 MG/4 ML VIAL 200 MG INHALATION ×4 (02:45→21:03)
[2024-04-30 06:25] LABS: Hematocrit 22.1 % (42.0-52.0); Mean Corpuscular HGB Conc 31.7 g/dl (32-36); Mean Corpuscular Hemoglobin 27.8 pg (26-34); Mean Corpuscular Volume 87.7 fl (80-100); Mean Platelet Volume 9.7 fl (7.4-10.4); Platelet Count Result 193 k/mm3 (150-375); Red Blood Count 2.52 M/mm3 (4.6-6.20); Red Cell Distribution Width 15.9 % (11.5-14.5); White Blood Count 2.9 K/mm3 (4.5-10.0)
[2024-04-30 06:44] LABS: Anion Gap 5 mmol/L (4-12); Blood Urea Nitrogen 30 mg/dL (9-20); Calcium 8.7 mg/dL (8.4-10.2); Carbon Dioxide 31 mmol/L (22-30); Chloride 101 mmol/L (98-107); Estimated CRCL calculation 22 ml/min; Estimated Glomerular Filt Rate 27; Glucose 38 mg/dL (65-110); Potassium 3.3 mmol/L (3.4-5.0); Sodium 137 mmol/L (137-145)
[2024-04-30] MEDS: DEXTROSE 50% 25 GM/50 ML SYRINGE IV PUSH (06:47)
[2024-04-30 07:10] LABS: Glucose Point of Care 164 mg/dl (65-105)
[2024-04-30] MEDS: IRON SUCROSE COMPLEX 100 MG in SODIUM CHLORIDE 0.9% IV 50 ML 220 MG IVPB (11:15)
[2024-04-30] MEDS: POTASSIUM CHLORIDE 20 MEQ PACKET (FOR LIQUID) 40 MEQ PO (11:22)
[2024-04-30 11:36] LABS: Glucose Point of Care 69 mg/dl (65-105)
--- NOTE | 2024-04-30 12:25 | PC.NURSE ---
RN and [employer]ARLY YE[employer] TEACHER attempted to wake patient up. Patient has been sleeping all morning and continuing to sleep. Medications have not been given due to patient not following commands to swallow.
--- NOTE | 2024-04-30 12:33 | P.CONNP_ITS ---
Assessment and Plan Assessment and plan (1) JOSHUA (acute kidney injury): Code(s): N17.9 - Acute kidney failure, unspecified Status: Acute Assessment and Plan: * relatively close to baseline on admission (2.0 - 2.2mg/dl) * however, slow worsening/decline note since 04/28 (2.0 -> 2.4 -> 2.9 -> 3.0mg/dl) * etiology not entirely clear but several possibilities: * prerenal factors (diminished oral intake) * anemia * infection (?) * IV diuretic therapy * element of disease progression (?) * other (?) * renal ultrasound with renal parenchymal echogenicity but no obstruction * check urine studies and CPK * follow trend of repeat labs and UOP (2) Chronic kidney disease, stage 3: Code(s): N18.30 - Chronic kidney disease, stage 3 unspecified Status: Chronic Assessment and Plan: * baseline creatinine runs ~ 1.6 - 1.9mg/dl since 2021 * this causes him to fluctuate between CKD stage 3A and stage 3B * presumably secondary to diabetes, hypertension, and vascular disease (3) Loculated pleural effusion: Code(s): J90 - Pleural effusion, not elsewhere classified Status: Acute Assessment and Plan: * as noted by recent CT of chest * Pulmonary following * recent thoracentesis with only minimal pleural fluid removal * pleural fluid analysis and cultures noted * respiratory status relatively stable * on antibiotics (4) HTN (hypertension): Code(s): I10 - Essential (primary) hypertension Status: Chronic Assessment and Plan: * reasonable control at this time * continue current mediations * follow trend of hemodynamics (5) Anemia, unspecified: Code(s): D64.9 - Anemia, unspecified Status: Acute Assessment and Plan: * as noted on admission * evidence of iron deficiency by anemia studies * dose with IV iron x 1 * PRBC transfusion per protocol * may be partly related to JOSHUA and CKD * follow trend of H/H (6) 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 Thank you for allowing me to participate in the care of this patient. History of Present Illness Reason for Consult Consult date: 04/30/24 Reason for consult: acute renal failure (on chronic kidney disease) Chief Complaint Chief complaint: Pleural effusions History of Present Illness Narrative: Almost all the information I have obtained is from review of the electronic medical records as well as discussion with the physician / nurses involved in the patient's care as I and unable to get any history from the patient due to his baseline altered mental status/confusion. For The patient is a 68-year-old male with a past medical history as outlined below who was transferred to [facility] Emergency Room due to findings of an abnormal chest x-ray. The patient had been having a chronic cough at his nursing facility which apparently prompted a chest x-ray. The chest x-ray showed apparent possible pleural effusion. As far as I am aware and for me review of what records available to me, he did not appear to have any fever, respiratory distress, hypoxia, or any other significant findings prior to or after the chest x-ray. Due to the findings of the chest x-ray, he was sent to the emergency room for further assessment. Workup and evaluation emergency room demonstrated the patient to be hemodynamically stable and in no apparent distress. Routine blood test demonstrated a CBC with a unremarkable white blood cell count but with significant anemia with the hemoglobin in the 7.5 and normal platelet count. His chemistry demonstrated no critical electrolyte abnormalities although did demonstrate evidence of his known chronic renal insufficiency with a creatinine of 2.2 mg/dL. Given his history of an abnormal chest x-ray, a CT scan of the chest was done which demonstrated a small right and moderate sized partially loculated left pleural effusion with associated compressive atelectasis in both lungs, minimal pulmonary edema in the lung bases, and cardiomegaly with a small to moderate-sized pericardial effusion. There was also some concern that the patient might be aspirating so after appropriate cultures were obtained, he was initiated on antibiotics. He was subsequently admitted to the hospital for further evaluation and therapy. Since his admission to the hospital, he has been seen in consultation by Pulmonary regarding his CT findings and did undergo a diagnostic thoracentesis as well. Not much fluid was able to be removed with the thoracentesis presumably due to the evidence of loculations. However, since his admission, his renal function has deteriorated. Renal consultation was requested due to his acute kidney injury/acute renal failure on top of his baseline chronic kidney disease. The patient's baseline creatinine seems to run around 1.6-1.9 mg/dL since as far back as 2021. The presumed etiology of his chronic kidney disease is most likely his hypertension, diabetes, and vascular disease. On admission, his creatinine was 2.2 mg/dL which transiently improved to 2.0 mg/dL before deteriorating once again on 04/28 with a creatinine of 2.4 mg/dL, then subsequently 2.9 mg/dL, and then with his most recent labs this morning up to 3.0 mg/dL. there have been no associated critical electrolyte abnormalities despite his worsening renal function/creatinine and he appears to be making some urine output although was difficult to fully quantitate. Currently, the time my visit, he appears to be in no acute distress but is nonverbal/noncommunicative. Review of Systems 2 Review of Systems: As per HPI. 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 Additional gender identity comments: Never Spiritual care concerns: No Meds Home Medications and Allergies Home Medications ?Medication ?Instructions ?Recorded ?Confirmed ?Type acetaminophen 650 mg tablet 650 mg PO Q6H PRN Pain, Mild 04/25/24 04/25/24 History amlodipine 10 mg tablet 10 mg PO DAILY 04/25/24 04/25/24 History artificial tears solution eye drops 1 drp ophthalmic (eye) BID PRN Dry 04/25/24 04/25/24 History Eyes aspirin 81 mg capsule 81 mg PO DAILY 04/25/24 04/25/24 History atorvastatin 40 mg tablet 40 mg PO HS 04/25/24 04/25/24 History carvedilol 25 mg tablet 25 mg PO BID 04/25/24 04/25/24 History cetirizine 10 mg tablet (Zyrtec) 10 mg PO DAILY 04/25/24 04/25/24 History cyanocobalamin (vitamin B-12) 100 100 mcg PO DAILY 04/25/24 04/25/24 History mcg tablet famotidine 20 mg tablet 20 mg PO BID 04/25/24 04/25/24 History ferrous sulfate 324 mg (65 mg 324 mg PO DAILY 04/25/24 04/25/24 History iron) tablet,delayed release fluticasone propionate 50 1 spray intranasal DAILY 04/25/24 04/25/24 History mcg/actuation nasal spray,suspension folic acid 1 mg tablet 1 mg PO DAILY 04/25/24 04/25/24 History hydralazine 10 mg tablet 10 mg PO DAILY 04/25/24 04/25/24 History insulin glargine 100 unit/mL 20 unit subcut HS 04/25/24 04/25/24 History subcutaneous solution (Lantus U-100 Insulin) insulin lispro 100 unit/mL 1 sliding scale dose subcut 04/25/24 04/25/24 History subcutaneous pen USEASDIRECTD ipratropium 0.5 mg-albuterol 3 mg 3 ml inhalation Q6H PRN SOB 04/25/24 04/25/24 History (2.5 mg base)/3 mL nebulization soln mirtazapine 15 mg tablet 7.5 mg PO HS 04/25/24 04/25/24 History multivitamin 1 tablet PO DAILY 04/25/24 04/25/24 History quetiapine 25 mg tablet 25 mg PO HS 04/25/24 04/25/24 History sennosides 8.6 mg tablet (senna) 8.6 mg PO BID 04/25/24 04/25/24 History Allergies Allergy/AdvReac Type Severity Reaction Status Date / Time No Known Allergies Allergy Verified 10/15/23 11:22 Vital Signs Vital Signs Temp Pulse Resp BP Pulse Ox O2 Del Method 04/30/24 12:24 50 L 16 04/30/24 12:13 50 L 16 04/30/24 12:00 95.8 F L 53 L 16 100 04/30/24 09:08 Room Air 04/30/24 08:25 60 16 04/30/24 08:15 60 16 04/30/24 06:00 98.4 F 61 20 144/87 H 100 04/30/24 02:45 68 16 04/29/24 21:00 78 16 04/29/24 20:00 97.0 F L 79 20 133/53 L 99 04/29/24 20:54 86 16 04/29/24 20:54 98 Room Air Exam 2 Narrative: GENERAL APPEARANCE: ill appearing male in no acute distress HEENT: normocephalic, atraumatic, normal conjunctiva and sclera, nares patient NECK: no lymphadenopathy, thyromegaly, or JVD MOUTH: normal lips, teeth, and gums CARDIOVASCULAR: RRR, normal S1 and S2, no rub RESPIRATORY: clear anteriorly; decreased at bases ABDOMEN: soft, nontender, nondistended, positive bowel sounds present EXTREMITIES: no evidence of cyanosis, clubbing, 1+ edema; bilateral UE + LE contractures present NEUROLOGICAL: confused and non-verbal Results Lab Results 05/05/24 06:10 05/05/24 06:10 Lab results: Most recent lab results Calcium 8.7 mg/dL (8.4-10.2) 04/30/24 05:59 Magnesium 1.7 mg/dL (1.6-2.3) 04/25/24 00:29 Urine Creatinine 27.1 mg/dL 04/30/24 16:34 Urine Creatinine 28.2 mg/dL 04/30/24 16:34
[2024-04-30] MEDS: FUROSEMIDE INJ 40 MG/4 ML VIAL IV PUSH ×2 (13:51→20:25)
[2024-04-30] MEDS: ENOXAPARIN 30 MG/0.3 ML SYRINGE SUB-Q (13:52)
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
--- NOTE | 2024-04-30 16:55 | P.PNIM_ITS ---
Progress Note: A&P Assessment and Plan (1) Loculated pleural effusion: Code(s): J90 - Pleural effusion, not elsewhere classified Status: Acute Assessment and Plan: CT Chest; IMPRESSION: 1. Small right and moderate-sized partially loculated left pleural effusions with associated compressive atelectasis in both lungs. 2. Minimal pulmonary edema the lung bases. 2. Cardiomegaly with small to moderate-sized pericardial effusion. - Cash Room Clerk rabia. - s/p Thoracentesis; US Guided Thoracentesis; IMPRESSION: 1. Successful ultrasound-guided thoracentesis yielding 3.5 mL of clear straw- colored fluid. 2. Very small bilateral pleural effusions which appear decreased in size since the prior CT from 04/25/2024 - Urine Legionella pneumophilia Ag negative. - Cefepime discontinued and now on Augmentin. - Continue Azithromycin. - Continue duoneb and Mucomyst nebs treatments. - Currently good O2 sats > 90 % on RA. - Pleural fluid anaerobic culture growing gram negative bacilli. - Seen by PT for possible aspiration PNA and small bite sizes and sips with cup, no straws, recommended. - Patient likely with chronic aspirations and possible PEG-Tube placement r ecommended per Cash Room Clerk. _ Pulmonary to discuss case with family for possible PEG-Tube placement. - Continue to elevate HOB for oral intake. (2) SOB (shortness of breath): Code(s): R06.02 - Shortness of breath Status: Acute Assessment and Plan: - Mgt as # 1. - Currently good O2 sats > 90 % on RA. - Supplemental O2 PRN to maintain sats > 90 %. (3) HTN (hypertension): Code(s): I10 - Essential (primary) hypertension Status: Acute Assessment and Plan: - Continue home meds; Amlodipine, Coreg and Hydralazine. - Adjust meds as needed for optimal control. (4) Acute kidney injury superimposed on chronic kidney disease: Code(s): N17.9 - Acute kidney failure, unspecified; N18.9 - Chronic kidney disease, unspecified Status: Inactive Assessment and Plan: - Cr levels continue to worsen; 2.2>>2.9 on this admission. - Renal Ultrasound 04/30/24 14:57 IMPRESSION: 1. Increased renal parenchymal echogenicity, consistent with nonspecific nephropathy. - Nephro consulted. - Possibly worsened by renal hypoperfusion with anemia, in setting of DM2 and HTN. - Further mgt per nephro. - Avoid nephrotoxins. - Meds dosing per renal function. - Monitor closely. (5) Anemia, unspecified: Code(s): D64.9 - Anemia, unspecified Status: Acute Assessment and Plan: - Monitor Hgb closely, now 7.0. - Low iron sats noted on iron panel and IV iron given X1. - Transfuse PRN for Hgb < 7. - Check stool for FOB with BM. - No obvious signs of bleeding. - Appreciate nephro assistance. (6) DM type 2 (diabetes mellitus, type 2): Code(s): E11.9 - Type 2 diabetes mellitus without complications Status: Acute Assessment and Plan: - Continue current long-acting insulin dose. - Continue blood glucose check AC & HS. - Currently blood-glucose well controlled. - Continue to adjust insulin as needed. (7) Dyslipidemia: Code(s): E78.5 - Hyperlipidemia, unspecified Status: Acute Assessment and Plan: - Continue statin. 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 - Assist with care. Time Spent With Patient Time with patient: 15 - 25 minutes Subjective Date/time seen: 04/30/24 10:05 Patient calm on bedrest and looks to be in no acute distress. Interval history: Patient sleeping on bedrest and looks to be in no acute distress. Review of Systems Review of Systems: ROS unobtainable: Yes unobtainable due to mental status Exam Narrative: General: Chronically ill appearing, sleeping on bedrest in no acute distress, roger. UE and LE contractures. HEENT: Atraumatic, PERRL, EOM, dry mucus membranes. NECK: Supple. Lungs: Clear bilaterally. Heart: RRR, no murmurs. Abdomen: Soft, non-tender, non-distended, +ve bowel sounds X4 quadrants. Extremities: Contractures roger. UE and LE, 1+ edema roger. feet. Skin: Warm and dry. Neuro: Alert to self. Roger. UE and LE contractures. Psych: Confused but co-operative. Objective Data Vital Signs Vital Signs: Vital Signs - 24 hr 04/29/24 20:54 04/29/24 20:54 04/29/24 20:00 Temperature 97.0 F L Pulse Rate 86 79 Respiratory Rate 16 20 Blood Pressure 133/53 L Pulse Oximetry 98 99 Oxygen Delivery Room Air 04/29/24 21:00 04/30/24 02:45 04/30/24 06:00 Temperature 98.4 F Pulse Rate 78 68 61 Respiratory Rate 16 16 20 Blood Pressure 144/87 H Pulse Oximetry 100 Oxygen Delivery 04/30/24 08:15 04/30/24 08:25 04/30/24 09:08 Temperature Pulse Rate 60 60 Respiratory Rate 16 16 Blood Pressure Pulse Oximetry Oxygen Delivery Room Air 04/30/24 14:00 04/30/24 14:13 04/30/24 14:24 Temperature 95.8 F L Pulse Rate 53 L 50 L 50 L Respiratory Rate 16 16 16 Blood Pressure Pulse Oximetry 100 Oxygen Delivery Intake/Output Intake/Output: Intake & Output 04/27/24 04/28/24 04/29/24 04/30/24 23:59 23:59 23:59 23:59 Intake Total 2130 1430 2890 445 Output Total 3050 1850 2150 2700 Balance -920 -420 980 -5644 Meds/Results Medications: Active Medications Generic Name Dose Route Start Last Admin Trade Name Freq PRN Reason Stop Dose Admin Acetaminophen 650 mg 04/25/24 14:27 Acetaminophen 325 Mg Tablet PO Q6H PRN Pain Rated 1-3 Acetylcysteine 200 mg 04/25/24 20:00 04/30/24 14:13 Acetylcysteine 20% Inhal Soln 800 Mg/4 Ml Vial INHALATION 200 mg Q6HRT ELIDIA Administration Albuterol/Ipratropium 3 ml 04/25/24 14:27 Ipratropium 0.5 Mg/Albuterol Sulfate 2.5 Mg Ampul.Neb 3 Ml INHALATION Q6H PRN Shortness Of Breath Albuterol/Ipratropium 3 ml 04/25/24 20:00 04/30/24 14:13 Ipratropium 0.5 Mg/Albuterol Sulfate 2.5 Mg Ampul.Neb 3 Ml INHALATION 3 ml Q6HRT ELIDIA Administration Amlodipine Besylate 10 mg 04/26/24 09:00 04/30/24 09:00 Amlodipine Besylate 10 Mg Tablet PO Not Given DAILY [facility] Amoxicillin/Clavulanate Potassium 1 tablet 04/29/24 13:00 04/30/24 09:00 Amoxicillin/Clavulanate K 500-125 Mg Tab PO 05/01/24 21:01 Not Given Q12HR [facility]IA Artificial Tears 1 drop 04/25/24 14:27 Artificial Tears Ophth Soln 15 Ml Bottle EACH EYE BID PRN Dry Eyes Aspirin 81 mg 04/26/24 09:00 04/30/24 09:00 Aspirin 81 Mg Enteric Tablet PO Not Given QAM [facility]IA Atorvastatin Calcium 40 mg 04/25/24 21:00 04/29/24 20:50 Atorvastatin 40 Mg Tablet PO 40 mg HS [facility] Administration Carvedilol 25 mg 04/25/24 21:00 04/30/24 09:00 Carvedilol 25 Mg Tablet PO Not Given Q12HR [facility]IDIA Dextrose 12.5 gm 04/25/24 14:28 04/30/24 06:47 Dextrose 50% 25 Gm/50 Ml Syringe IV PUSH 12.5 gm PRN PRN Administration Hypoglycemia Protocol Enoxaparin Sodium 30 mg 04/29/24 09:00 04/30/24 13:52 Enoxaparin 30 Mg/0.3 Ml Syringe SUB-Q 30 mg DAILY [facility] Administration Famotidine 20 mg 04/25/24 17:00 04/30/24 09:00 Famotidine 20 Mg Tablet PO Not Given BID [facility] Ferrous Sulfate 325 mg 04/26/24 09:00 04/30/24 09:00 Ferrous Sulfate [address] BY MOUTH Not Given DAILY [facility] Fluticasone Propionate 1 spray 04/26/24 09:00 04/30/24 09:00 Fluticasone Propionate 0.05% Na Spr 16 Gm Btl (*Bkc) NASAL Not Given DAILY [facility] Folic Acid 1 mg 04/26/24 09:00 04/30/24 09:00 Folic Acid 1 Mg Tablet PO Not Given DAILY [facility] Furosemide 40 mg 04/25/24 09:00 04/30/24 13:51 Furosemide Inj 40 Mg/4 Ml Vial IV PUSH 40 mg Q12HR [facility]IA Administration Glucagon 1 mg 04/25/24 14:28 Glucagon For Inj 1 Mg Vial IM PRN PRN Hypoglycemia Protocol Glucose 15 gm 04/25/24 14:28 Glucose Oral Gel 15 Gm Of Glucse In 37.5 Gm Tube PO PRN PRN Hypoglycemia Protocol Hydralazine HCl 10 mg 04/26/24 09:00 04/30/24 09:00 Hydralazine 10 Mg Tablet PO Not Given DAILY [facility] Dextrose 1,000 mls @ 100 mls/hr 04/25/24 14:28 Dextrose 5% 1,000 Ml IVPB PRN PRN Hypoglycemia Protocol Insulin Glargine 15 units 04/25/24 21:00 04/29/24 20:50 Insulin Glargine (*Bkc) 100 Units/Ml SUB-Q 15 units HS [facility] Administration Loratadine 10 mg 04/26/24 09:00 04/30/24 09:00 Loratadine 10 Mg Tablet PO Not Given QAM [facility] Mirtazapine 7.5 mg 04/25/24 21:00 04/29/24 20:50 Mirtazapine 7.5 Mg Tablet PO 7.5 mg HS [facility] Administration Multivitamins Therapeutic 1 tablet 04/26/24 09:00 04/30/24 09:00 Multivitamins Therapeutic Tab (*Bkc) PO Not Given DAILY [facility] Senna 8.6 mg 04/25/24 17:00 04/30/24 09:00 Sennosides 8.6 Mg Tablet PO Not Given BID [facility] Radiology Results: ITS Impressions Chest CT 04/25/24 07:23 IMPRESSION: 1. Small right and moderate-sized partially loculated left pleural effusions with associated compressive atelectasis in both lungs. 2. Minimal pulmonary edema the lung bases. 2. Cardiomegaly with small to moderate-sized pericardial effusion. Chest X-Ray 04/26/24 10:57 IMPRESSION: 1. No pneumothorax. 2. Unchanged mild opacities at the right lower lung zone and decrease opacity left mid and lower lung zone with residual focal region of consolidation in the lingula and left lower lobe, all suspicious for pneumonia. 3. Likely small residual bilateral pleural effusions. Thoracentesis Ultrasound 04/26/24 11:43 IMPRESSION: 1. Successful ultrasound-guided thoracentesis yielding 3.5 mL of clear straw- colored fluid. 2. Very small bilateral pleural effusions which appear decreased in size since the prior CT from 04/25/2024 Modified Barium Swallow 04/27/24 13:14 IMPRESSION: Laryngeal penetration with thin liquids and drinking with straw Renal Ultrasound 04/30/24 14:57 IMPRESSION: 1. Increased renal parenchymal echogenicity, consistent with nonspecific nephropathy. Labs Labs: Laboratory Results - last 24 hr 04/29/24 04/29/24 04/30/24 17:10 20:49 05:59 WBC 2.9 L RBC 2.52 L Hgb 7.0 L Hct 22.1 L MCV 87.7 MCH 27.8 MCHC 31.7 L RDW 15.9 H Plt Count 193 MPV 9.7 Sodium 137 Potassium 3.3 L Chloride 101 Carbon Dioxide 31 H Anion Gap 5 BUN 30 H Creatinine 2.90 H Estim Creat Clear Calc 22 Estimated GFR 27 L Glucose 38 L* POC Capillary Glucose 130 H 177 H Calcium 8.7 04/30/24 04/30/24 07:06 11:32 WBC RBC Hgb Hct MCV MCH MCHC RDW Plt Count MPV Sodium Potassium Chloride Carbon Dioxide Anion Gap BUN Creatinine Estim Creat Clear Calc Estimated GFR Glucose POC Capillary Glucose 164 H 69 Calcium Quality VTE Prophylaxis VTE prophylaxis: mechanical ordered Hospitalist [facility] Advance Care Plan I have confirmed that the patient's Advanced Care Plan is present, code status is documented, or surrogate decision maker is listed in patient medical record.: Yes Medication Reconciliation I have utilized all available resources to obtain, update and review the patients current medications (includes all prescriptions, OTC, herbals, cannabis, and nutritional supplements).: Yes
[2024-04-30 16:56] LABS: Add Urine Microscopic? YES; Appearance Urine Clear (Clear); Bacteria Urine None Seen /hpf; Bilirubin Urine Negative (Negative); Blood Urine Negative (Negative); Color Urine Yellow (Yellow); Glucose Urine UA Negative (Negative); Ketones Urine Negative (Negative); Leukocyte Esterase Ur Negative LEU/UL (Negative); Nitrate Urine Negative (Negative); Non Pathogenic Casts 0-2; Protein Urine 2+ mg/dL (Negative); RBC Urine 0-2 /hpf (0-2); Specific Grav Ur 1.007 (1.001-1.035); Squamous Epithelial Cell Urine None Seen /hpf (Few); Urobilinogen Urine 0.2 mg/dL (<2.0); WBC Urine 0-5 /hpf (0-3); pH Urine 6.5 (5.0-9.0)
[2024-04-30 17:00] LABS: Creatinine Urine 27.1 mg/dL; Total Protein Urine Random 135 mg/dL; Urea Random Urine 83 MG/DL
[2024-04-30 17:11] LABS: Creatinine Urine 28.2 mg/dL; Total Protein Urine Random 129 mg/dL; Ur Ttl Prot Creatinine Ratio 4.57 mg/mg (0-0.20)
[2024-04-30 17:17] LABS: Eosinophil Urine None Seen % (None Seen); Urine Eos QC 2nd Tech Confirmed
[2024-04-30 17:45] LABS: Glucose Point of Care 160 mg/dl (65-105)
--- NOTE | 2024-04-30 18:43 | PC.NURSE ---
HEEL SLUGGER and RN attempted to feed patient. Patient spit food out. RN attempted to give patient pudding. Patient spit pudding out. RN is unable to give evening medications due to patient spitting.
[2024-04-30] MEDS: MIRTAZAPINE 7.5 MG TABLET PO (20:25)
[2024-04-30] MEDS: ATORVASTATIN 40 MG TABLET PO (20:25)
[2024-04-30] MEDS: carvediloL 25 MG TABLET PO (20:25)
[2024-04-30] MEDS: AMOXICILLIN/CLAVULANATE K 500-125 MG TAB 1 TABLET PO (20:26)
--- NOTE | 2024-04-30 20:31 | PC.NURSE ---
Tried giving pt medicine he kept spitting it out
[2024-04-30 23:34] LABS: Glucose Point of Care 91 mg/dl (65-105)
[2024-05-01] VITALS (11 sets, daily range): BP systolic 151–173; BP diastolic 75–79; PULSE 55–89; RESP 12–20; TEMP 36.1–36.8; O2SAT 97–100
[2024-05-01] MEDS: ACETYLCYSTEINE 20% INHAL SOLN 800 MG/4 ML VIAL 200 MG INHALATION ×4 (02:49→20:08)
[2024-05-01] MEDS: IPRATROPIUM 0.5 MG/ALBUTEROL SULFATE 2.5 MG AMPUL.NEB 3 ML INHALATION ×4 (02:49→20:09)
[2024-05-01 05:48] LABS: Hematocrit 23.8 % (42.0-52.0); Hemoglobin 7.5 g/dL (14.0-18.0); Mean Corpuscular HGB Conc 31.5 g/dl (32-36); Mean Corpuscular Hemoglobin 27.5 pg (26-34); Mean Corpuscular Volume 87.2 fl (80-100); Mean Platelet Volume 9.3 fl (7.4-10.4); Platelet Count Result 211 k/mm3 (150-375); Red Blood Count 2.73 M/mm3 (4.6-6.20); Red Cell Distribution Width 15.9 % (11.5-14.5); White Blood Count 3.8 K/mm3 (4.5-10.0)
[2024-05-01 06:01] LABS: Alanine Aminotransferase 84 U/L (6-50); Albumin Level 3.7 g/dL (3.5-5.1); Alkaline Phosphatase 143 U/L (38-126); Anion Gap 5 mmol/L (4-12); Aspartate Amino Transferase 67 U/L (17-59); Bilirubin,Total 0.5 mg/dL (0.2-1.3); Blood Urea Nitrogen 30 mg/dL (9-20); Calcium 9.1 mg/dL (8.4-10.2); Carbon Dioxide 32 mmol/L (22-30); Chloride 101 mmol/L (98-107); Creatine Kinase 100 U/L (55-170); Estimated CRCL calculation 21 ml/min; Estimated Glomerular Filt Rate 26; Glucose 113 mg/dL (65-110); Potassium 3.9 mmol/L (3.4-5.0); Sodium 138 mmol/L (137-145)
[2024-05-01 08:31] LABS: Lipase 25 U/L (23-300)
[2024-05-01 08:43] LABS: Glucose Point of Care 121 mg/dl (65-105)
[2024-05-01] MEDS: FUROSEMIDE INJ 40 MG/4 ML VIAL IV PUSH ×2 (09:48→19:58)
[2024-05-01] MEDS: FLUTICASONE PROPIONATE 0.05% NA SPR 16 GM BTL (*BKC) 1 SPRAY NASAL (09:48)
[2024-05-01] MEDS: ENOXAPARIN 30 MG/0.3 ML SYRINGE SUB-Q (09:48)
--- NOTE | 2024-05-01 09:51 | PM.IMPN ---
Progress Note: A&P Assessment and Plan (1) Loculated pleural effusion: Code(s): J90 - Pleural effusion, not elsewhere classified Status: Acute Assessment and Plan: CT Chest; IMPRESSION: 1. Small right and moderate-sized partially loculated left pleural effusions with associated compressive atelectasis in both lungs. 2. Minimal pulmonary edema the lung bases. 2. Cardiomegaly with small to moderate-sized pericardial effusion. - Marine Engineering Teacher rabia. - s/p Thoracentesis; US Guided Thoracentesis; IMPRESSION: 1. Successful ultrasound-guided thoracentesis yielding 3.5 mL of clear straw-colored fluid. 2. Very small bilateral pleural effusions which appear decreased in size since the prior CT from 04/25/2024 - Urine Legionella pneumophilia Ag negative. - Cefepime discontinued and now on Augmentin. - Continue Azithromycin X5 days treatment. - Continue duoneb and Mucomyst nebs treatments. - Currently good O2 sats > 90 % on RA. - Pleural fluid anaerobic culture growing gram negative bacilli. - Marine Engineering Teacher following and considering bronchoscopy. - Seen by ST for possible aspiration PNA; minced and moist diet with thickened liquids recommended. - Patient likely with chronic silent aspirations and considerations for PEG-Tube suggested per Marine Engineering Teacher. _ Pulmonary to discuss case with family for possible PEG-Tube placement. - Continue to elevate HOB with oral intake. (2) SOB (shortness of breath): Code(s): R06.02 - Shortness of breath Status: Acute Assessment and Plan: - Possibly related to above. - Mgt as # 1. - Currently good O2 sats > 90 % on RA. - Supplemental O2 PRN to maintain sats > 90 %. - Appreciate home health clinical liaison assistance. (3) HTN (hypertension): Code(s): I10 - Essential (primary) hypertension Status: Acute Assessment and Plan: - Continue home meds; Amlodipine, Coreg and Hydralazine. - Adjust meds as needed for optimal control. (4) Acute kidney injury superimposed on chronic kidney disease: Code(s): N17.9 - Acute kidney failure, unspecified; N18.9 - Chronic kidney disease, unspecified Status: Inactive Assessment and Plan: - Cr levels continue to worsen; 2.2>>2.9 on this admission. - Renal Ultrasound 04/30/24 14:57 IMPRESSION: 1. Increased renal parenchymal echogenicity, consistent with nonspecific nephropathy. - Nephro consulted. - Possibly hypertension and DM related, worsened by renal hypoperfusion secondary to anemia. - Further mgt per nephro. - Avoid nephrotoxins. - Meds dosing per renal function. - Monitor closely. (5) Anemia, unspecified: Code(s): D64.9 - Anemia, unspecified Status: Acute Assessment and Plan: - Monitor Hgb closely, now 7.0. - Low iron sats noted on iron panel and IV iron given X1. - Transfuse PRN for Hgb < 7. - Check stool for FOB with BM. - No obvious signs of bleeding. - Appreciate nephro assistance. (6) DM type 2 (diabetes mellitus, type 2): Code(s): E11.9 - Type 2 diabetes mellitus without complications Status: Acute Assessment and Plan: - Long-acting insulin discontinued with poor PO intake. - Continue blood glucose check AC & HS. - Currently blood-glucose well controlled. - Continue to adjust insulin as needed. (7) Dyslipidemia: Code(s): E78.5 - Hyperlipidemia, unspecified Status: Acute Assessment and Plan: - Continue statin. 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 - Assist with care. Time Spent With Patient Time with patient: 15 - 25 minutes Subjective Date/time seen: 05/01/24 09:51 Patient non-verbal on bedrest. Nods that he's doing alright otherwise just observing with no verbal response. Interval history: Patient calm on bedrest and looks to be in no acute distress. Patient admitted with Loculated pleural effusions. Minimal amounts, 3.5 ML removed per IR. Marine Engineering Teacher following and considering possibly bronchoscopy. Patient suspected to be silently aspirating and currently on thickened fluids with straws. Patient also with Mariely on CKD and renal following. He's also anemic with Hgb 7>>7.5. Family wants everything done medically. Review of Systems Review of Systems: ROS unobtainable: Yes unobtainable due to mental status Exam Narrative: General: Chronically ill appearing, on bedrest in no acute distress, diego. UE and LE contractures. HEENT: Atraumatic, PERRL, EOM, dry mucus membranes. NECK: Supple. Lungs: Clear bilaterally. Heart: RRR, no murmurs. Abdomen: Soft, non-tender, non-distended, +ve bowel sounds X4 quadrants. Extremities: Contractures diego. UE and LE, 1+ edema diego. feet. Skin: Warm and dry. Neuro: Alert to self but non-verbal today. [place]. UE and LE contractures. Psych: Confused but co-operative. Objective Data Vital Signs Vital Signs: Vital Signs - 24 hr 04/30/24 14:00 04/30/24 14:13 04/30/24 14:24 Temperature 95.8 F L Pulse Rate 53 L 50 L 50 L Respiratory Rate 16 16 16 Blood Pressure Pulse Oximetry 100 Oxygen Delivery 04/30/24 20:00 04/30/24 21:03 04/30/24 21:08 Temperature Pulse Rate 58 L 55 L Respiratory Rate 12 12 Blood Pressure Pulse Oximetry Oxygen Delivery Room Air 04/30/24 22:35 05/01/24 02:49 05/01/24 07:08 Temperature 96.5 F L Pulse Rate 69 63 55 L Respiratory Rate 18 12 16 Blood Pressure 163/82 H Pulse Oximetry 100 Oxygen Delivery 05/01/24 07:09 05/01/24 07:19 05/01/24 06:00 Temperature 97.0 F L Pulse Rate 65 70 Respiratory Rate 16 20 Blood Pressure 173/75 H Pulse Oximetry 97 100 Oxygen Delivery Room Air Intake/Output Intake/Output: Intake & Output 04/28/24 04/29/24 04/30/24 05/01/24 23:59 23:59 23:59 23:59 Intake Total 1430 2890 445 Output Total 1850 2150 3100 1600 Balance -420 995 -4020 -1740 Meds/Results Medications: Active Medications Generic Name Dose Route Start Last Admin Trade Name Freq PRN Reason Stop Dose Admin Acetaminophen 650 mg 04/25/24 14:27 Acetaminophen 325 Mg Tablet PO Q6H PRN Pain Rated 1-3 Acetylcysteine 200 mg 04/25/24 20:00 05/01/24 07:07 Acetylcysteine 20% Inhal Soln 800 Mg/4 Ml Vial INHALATION 200 mg Q6HRT ELIDIA Administration Albuterol/Ipratropium 3 ml 04/25/24 14:27 Ipratropium 0.5 Mg/Albuterol Sulfate 2.5 Mg Ampul.Neb 3 Ml INHALATION Q6H PRN Shortness Of Breath Albuterol/Ipratropium 3 ml 04/25/24 20:00 05/01/24 07:07 Ipratropium 0.5 Mg/Albuterol Sulfate 2.5 Mg Ampul.Neb 3 Ml INHALATION 3 ml Q6HRT ELIDIA Administration Amlodipine Besylate 10 mg 04/26/24 09:00 04/30/24 09:00 Amlodipine Besylate 10 Mg Tablet PO Not Given DAILY ELIDIA Amoxicillin/Clavulanate Potassium 1 tablet 04/29/24 13:00 04/30/24 20:26 Amoxicillin/Clavulanate K 500-125 Mg Tab PO 05/01/24 21:01 1 tablet Q12HR ELIDIA Administration Artificial Tears 1 drop 04/25/24 14:27 Artificial Tears Ophth Soln 15 Ml Bottle EACH EYE BID PRN Dry Eyes Aspirin 81 mg 04/26/24 09:00 04/30/24 09:00 Aspirin 81 Mg Enteric Tablet PO Not Given QAM ELIDIA Atorvastatin Calcium 40 mg 04/25/24 21:00 04/30/24 20:25 Atorvastatin 40 Mg Tablet PO 40 mg HS ELIDIA Administration Carvedilol 25 mg 04/25/24 21:00 04/30/24 20:25 Carvedilol 25 Mg Tablet PO 25 mg Q12HR ELIDIA Administration Dextrose 12.5 gm 04/25/24 14:28 04/30/24 06:47 Dextrose 50% 25 Gm/50 Ml Syringe IV PUSH 12.5 gm PRN PRN Administration Hypoglycemia Protocol Enoxaparin Sodium 30 mg 04/29/24 09:00 05/01/24 09:48 Enoxaparin 30 Mg/0.3 Ml Syringe SUB-Q 30 mg DAILY ELIDIA Administration Famotidine 20 mg 04/25/24 17:00 04/30/24 18:43 Famotidine 20 Mg Tablet PO Not Given BID ELIDIA Ferrous Sulfate 325 mg 04/26/24 09:00 04/30/24 09:00 Ferrous Sulfate [address] BY MOUTH Not Given DAILY ELIDIA Fluticasone Propionate 1 spray 04/26/24 09:00 04/30/24 09:00 Fluticasone Propionate 0.05% Na Spr 16 Gm Btl (*Bkc) NASAL Not Given DAILY ELIDIA Folic Acid 1 mg 04/26/24 09:00 04/30/24 09:00 Folic Acid 1 Mg Tablet PO Not Given DAILY ELIDIA Furosemide 40 mg 04/25/24 09:00 05/01/24 09:48 Furosemide Inj 40 Mg/4 Ml Vial IV PUSH 40 mg Q12HR ELIDIA Administration Glucagon 1 mg 04/25/24 14:28 Glucagon For Inj 1 Mg Vial IM PRN PRN Hypoglycemia Protocol Glucose 15 gm 04/25/24 14:28 Glucose Oral Gel 15 Gm Of Glucse In 37.5 Gm Tube PO PRN PRN Hypoglycemia Protocol Hydralazine HCl 10 mg 04/26/24 09:00 04/30/24 09:00 Hydralazine 10 Mg Tablet PO Not Given DAILY ELIDIA Dextrose 1,000 mls @ 100 mls/hr 04/25/24 14:28 Dextrose 5% 1,000 Ml IVPB PRN PRN Hypoglycemia Protocol Insulin Glargine 15 units 04/25/24 21:00 04/29/24 20:50 Insulin Glargine (*Bkc) 100 Units/Ml SUB-Q 15 units HS ELIDIA Administration Loratadine 10 mg 04/26/24 09:00 04/30/24 09:00 Loratadine 10 Mg Tablet PO Not Given QAM ELIDIA Mirtazapine 7.5 mg 04/25/24 21:00 04/30/24 20:25 Mirtazapine 7.5 Mg Tablet PO 7.5 mg HS ELIDIA Administration Multivitamins Therapeutic 1 tablet 04/26/24 09:00 04/30/24 09:00 Multivitamins Therapeutic Tab (*Bkc) PO Not Given DAILY ELIDIA Senna 8.6 mg 04/25/24 17:00 04/30/24 18:43 Sennosides 8.6 Mg Tablet PO Not Given BID [facility] Radiology Results: ITS Impressions Chest CT 04/25/24 07:23 IMPRESSION: 1. Small right and moderate-sized partially loculated left pleural effusions with associated compressive atelectasis in both lungs. 2. Minimal pulmonary edema the lung bases. 2. Cardiomegaly with small to moderate-sized pericardial effusion. Chest X-Ray 04/26/24 10:57 IMPRESSION: 1. No pneumothorax. 2. Unchanged mild opacities at the right lower lung zone and decrease opacity left mid and lower lung zone with residual focal region of consolidation in the lingula and left lower lobe, all suspicious for pneumonia. 3. Likely small residual bilateral pleural effusions. Thoracentesis Ultrasound 04/26/24 11:43 IMPRESSION: 1. Successful ultrasound-guided thoracentesis yielding 3.5 mL of clear straw-colored fluid. 2. Very small bilateral pleural effusions which appear decreased in size since the prior CT from 04/25/2024 Modified Barium Swallow 04/27/24 13:14 IMPRESSION: Laryngeal penetration with thin liquids and drinking with straw Renal Ultrasound 04/30/24 14:57 IMPRESSION: 1. Increased renal parenchymal echogenicity, consistent with nonspecific nephropathy. Labs Labs: Laboratory Results - last 24 hr 04/30/24 04/30/24 04/30/24 11:32 16:34 16:34 WBC RBC Hgb Hct MCV MCH MCHC RDW Plt Count MPV Sodium Potassium Chloride Carbon Dioxide Anion Gap BUN Creatinine Estim Creat Clear Calc Estimated GFR Glucose POC Capillary Glucose 69 Calcium Total Bilirubin AST ALT Alkaline Phosphatase Total Creatine Kinase Total Protein Albumin Lipase Urine Color Yellow Urine Appearance Clear Urine pH 6.5 Ur Specific [place] 1.007 Urine Protein 2+ H Urine Glucose (UA) Negative Urine Ketones Negative Ur Blood (Man) Negative Urine Nitrate Negative Urine Bilirubin Negative Urine Urobilinogen 0.2 Leukocyte Esterase Rfl Negative Urine RBC 0-2 Urine WBC 0-5 Ur Squamous Epith Cells None seen Urine Bacteria None seen Urine Casts 0-2 Urine Eosinophils None seen U Random Total Protein 135 129 Ur Random Urea 83 Urine Creatinine 27.1 Protein/Creat Ratio 2 04/30/24 04/30/24 04/30/24 16:34 17:39 21:36 WBC RBC Hgb Hct MCV MCH MCHC RDW Plt Count MPV Sodium Potassium Chloride Carbon Dioxide Anion Gap BUN Creatinine Estim Creat Clear Calc Estimated GFR Glucose POC Capillary Glucose 160 H 91 Calcium Total Bilirubin AST ALT Alkaline Phosphatase Total Creatine Kinase Total Protein Albumin Lipase Urine Color Urine Appearance Urine pH Ur Specific [place] Urine Protein Urine Glucose (UA) Urine Ketones Ur Blood (Man) Urine Nitrate Urine Bilirubin Urine Urobilinogen Leukocyte Esterase Rfl Urine RBC Urine WBC Ur Squamous Epith Cells Urine Bacteria Urine Casts Urine Eosinophils U Random Total Protein Ur Random Urea Urine Creatinine 28.2 Protein/Creat Ratio 2 4.57 H 05/01/24 05/01/24 05/01/24 05:25 05:28 08:38 WBC 3.8 L RBC 2.73 L Hgb 7.5 L Hct 23.8 L MCV 87.2 MCH 27.5 MCHC 31.5 L RDW 15.9 H Plt Count 211 MPV 9.3 Sodium 138 Potassium 3.9 Chloride 101 Carbon Dioxide 32 H Anion Gap 5 BUN 30 H Creatinine 3.00 H Estim Creat Clear Calc 21 Estimated GFR 26 L Glucose 113 H POC Capillary Glucose 121 H Calcium 9.1 Total Bilirubin 0.5 AST 67 H ALT 84 H Alkaline Phosphatase 143 H Total Creatine Kinase 100 Total Protein 7.0 Albumin 3.7 Lipase 25 Urine Color Urine Appearance Urine pH Ur Specific [place] Urine Protein Urine Glucose (UA) Urine Ketones Ur Blood (Man) Urine Nitrate Urine Bilirubin Urine Urobilinogen Leukocyte Esterase Rfl Urine RBC Urine WBC Ur Squamous Epith Cells Urine Bacteria Urine Casts Urine Eosinophils U Random Total Protein Ur Random Urea Urine Creatinine Protein/Creat Ratio 2 Quality VTE Prophylaxis VTE prophylaxis: mechanical ordered Hospitalist MIPS Advance Care Plan I have confirmed that the patient's Advanced Care Plan is present, code status is documented, or surrogate decision maker is listed in patient medical record.: Yes Medication Reconciliation I have utilized all available resources to obtain, update and review the patients current medications (includes all prescriptions, OTC, herbals, cannabis, and nutritional supplements).: Yes
--- NOTE | 2024-05-01 09:58 | PC.NURSE ---
Unable to give oral medications as patient is only on clear liquids. Patient requires medications to be given with pudding.
--- NOTE | 2024-05-01 12:00 | PC.NURSE ---
RN aware of blood sugar (see labs) that was taken at 1158. Patient is currently NPO at this time.
[2024-05-01 12:09] LABS: Glucose Point of Care 353 mg/dl (65-105)
--- NOTE | 2024-05-01 13:21 | PC.NURSE ---
Patient off of unit to GI lab
[2024-05-01 13:43] LABS: Glucose Point of Care 442 mg/dl (65-105)
--- NOTE | 2024-05-01 13:45 | PC.NURSE ---
Duran RN with GI lab took patient's blood sugar before procedure (see labs). MARLO Garzon reported this blood sugar to this RN. This RN called hospitalist Cordelia Meng and informed him of patient's blood sugar that was taken in GI lab. Hospitalist ordered novolog low dose sliding scale to be given TIDWM and 10 units lantus HS for patient.
--- NOTE | 2024-05-01 13:57 | SUR.PREOP ---
Pt's blood sugar was checked at bedside with a 442. Dr. Willoughby called to report finding. He said to cancel patient due too high blood sugar. Duran Henry RN called report to floor. Dr. Coronado notified of anesthesia decision to cancel. No new orders received.
--- NOTE | 2024-05-01 14:04 | SUR.PREOP ---
Blood glucose 442 on pre-op assessment. Spoke with Dr. Willoughby regarding blood glucose level. Per Dr. Willoughby, no new orders at this time, cancel procedure and take patient back to room 345. Gave report to Gil SELLERS and Inga SELLERS. RN notified BG 442 was not treated in pre-op and needs to be addressed by hospitalist. No questions at this time.
--- NOTE | 2024-05-01 14:11 | P.PNNP_ITS ---
Progress Note: A&P Assessment and Plan (1) JOSHUA (acute kidney injury): Code(s): N17.9 - Acute kidney failure, unspecified Status: Acute Assessment and Plan: * no significant improvement * relatively close to baseline on admission (2.0 - 2.2mg/dl) * however, slow worsening/decline note since 04/28 (2.0 -> 2.4 -> 2.9 -> 3.0mg/dl) * etiology not entirely clear but several possibilities: * prerenal factors (diminished oral intake) * anemia * infection (?) * IV diuretic therapy * element of disease progression (?) * other (?) * evaluation to date noted: * urine electrolyte (by FeUrea) prerenal * urine eosinophils negative * CPK normal * renal ultrasound with renal parenchymal echogenicity but no obstruction * nephrotic range proteinuria noted * follow trend of repeat labs and UOP (2) Chronic kidney disease, stage 3: Code(s): N18.30 - Chronic kidney disease, stage 3 unspecified Status: Chronic Assessment and Plan: * baseline creatinine runs ~ 1.6 - 1.9mg/dl since 2021 * this causes him to fluctuate between CKD stage 3A and stage 3B * presumably secondary to diabetes, hypertension, and vascular disease (3) Loculated pleural effusion: Code(s): J90 - Pleural effusion, not elsewhere classified Status: Acute Assessment and Plan: * as note by recent CT of chest * Pulmonary following * recent thoracentesis with only minimal pleural fluid removal * pleural fluid analysis and cultures noted * respiratory status relatively stable * on antibiotics (4) HTN (hypertension): Code(s): I10 - Essential (primary) hypertension Status: Chronic Assessment and Plan: * reasonable control at this time * continue current mediations * follow trend of hemodynamics (5) Anemia, unspecified: Code(s): D64.9 - Anemia, unspecified Status: Acute Assessment and Plan: * as noted on admission * evidence of iron deficiency by anemia studies * dose with IV iron x 1 * PRBC transfusion per protocol * may be partly related to JOSHUA and CKD * follow trend of H/H (6) 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 Subjective Date/time seen: 05/01/24 14:11 Interval history: Follow-up for acute kidney injury on chronic kidney disease. Breathing/respiratory status relatively stable at the time of my visit; issues with hyperglycemia noted so bronchoscopy cancelled; NPO due to concerns of aspiration so on PPN for nutritional support; renal function/creatinine with no significant improvement. Exam 2 Narrative: General: male who appears older than stated age in NAD Heart: normal S1 and S2; no rub Lungs: clear anteriorly; decreased at bases Abdomen: soft, nontender, nondistended, positive bowel sounds Extremities: no cyanosis or clubbing; trace edema; UE and LE contractures noted Skin: warm and dry Objective Data Vital Signs Vital Signs: Vital Signs Temp Pulse Resp BP Pulse Ox O2 Del Method 05/01/24 14:00 97.2 F L 70 16 162/75 H 97 05/01/24 12:58 70 16 05/01/24 12:50 72 16 05/01/24 10:00 Room Air 05/01/24 06:00 97.0 F L 70 20 173/75 H 100 05/01/24 07:19 65 16 05/01/24 07:09 97 Room Air 05/01/24 07:08 55 L 16 Intake/Output Intake/Output: Intake & Output 04/29/24 04/30/24 05/01/24 05/02/24 23:59 23:59 23:59 23:59 Intake Total 2890 445 960 Output Total 2150 3100 2100 Balance 902 -1318 -8707 Meds/Results Medications: Active Medications Generic Name Dose Route Start Last Admin Trade Name Freq PRN Reason Stop Dose Admin Acetaminophen 650 mg 04/25/24 14:27 Acetaminophen 325 Mg Tablet PO Q6H PRN Pain Rated 1-3 Acetylcysteine 200 mg 04/25/24 20:00 05/02/24 03:13 Acetylcysteine 20% Inhal Soln 800 Mg/4 Ml Vial INHALATION 200 mg Q6HRT ELIDIA Administration Albuterol/Ipratropium 3 ml 04/25/24 14:27 Ipratropium 0.5 Mg/Albuterol Sulfate 2.5 Mg Ampul.Neb 3 Ml INHALATION Q6H PRN Shortness Of Breath Albuterol/Ipratropium 3 ml 04/25/24 20:00 05/02/24 03:13 Ipratropium 0.5 Mg/Albuterol Sulfate 2.5 Mg Ampul.Neb 3 Ml INHALATION 3 ml Q6HRT ELIDIA Administration Amlodipine Besylate 10 mg 04/26/24 09:00 05/01/24 10:12 Amlodipine Besylate 10 Mg Tablet PO Not Given DAILY ELIDIA Artificial Tears 1 drop 04/25/24 14:27 Artificial Tears Ophth Soln 15 Ml Bottle EACH EYE BID PRN Dry Eyes Aspirin 81 mg 04/26/24 09:00 05/01/24 10:12 Aspirin 81 Mg Enteric Tablet PO Not Given QAM ELIDIA Atorvastatin Calcium 40 mg 04/25/24 21:00 05/01/24 19:59 Atorvastatin 40 Mg Tablet PO Not Given HS ELIDIA Carvedilol 25 mg 04/25/24 21:00 05/01/24 19:59 Carvedilol 25 Mg Tablet PO Not Given Q12HR ELIDIA Dextrose 12.5 gm 04/25/24 14:28 04/30/24 06:47 Dextrose 50% 25 Gm/50 Ml Syringe IV PUSH 12.5 gm PRN PRN Administration Hypoglycemia Protocol Enoxaparin Sodium 30 mg 04/29/24 09:00 05/01/24 09:48 Enoxaparin 30 Mg/0.3 Ml Syringe SUB-Q 30 mg DAILY ELIDIA Administration Famotidine 20 mg 04/25/24 17:00 05/01/24 18:35 Famotidine 20 Mg Tablet PO Not Given BID ELIDIA Ferrous Sulfate 325 mg 04/26/24 09:00 05/01/24 10:12 Ferrous Sulfate [address] BY MOUTH Not Given DAILY [facility] Fluticasone Propionate 1 spray 04/26/24 09:00 05/01/24 09:48 Fluticasone Propionate 0.05% Na Spr 16 Gm Btl (*Bkc) NASAL 1 spray DAILY ELIDIA Administration Folic Acid 1 mg 04/26/24 09:00 05/01/24 10:12 Folic Acid 1 Mg Tablet PO Not Given DAILY ELIDIA Furosemide 40 mg 04/25/24 09:00 05/01/24 19:58 Furosemide Inj 40 Mg/4 Ml Vial IV PUSH 40 mg Q12HR ELIDIA Administration Glucagon 1 mg 04/25/24 14:28 Glucagon For Inj 1 Mg Vial IM PRN PRN Hypoglycemia Protocol Glucose 15 gm 04/25/24 14:28 Glucose Oral Gel 15 Gm Of Glucse In 37.5 Gm Tube PO PRN PRN Hypoglycemia Protocol Hydralazine HCl 10 mg 04/26/24 09:00 05/01/24 10:12 Hydralazine 10 Mg Tablet PO Not Given DAILY ELIDIA Dextrose 1,000 mls @ 100 mls/hr 04/25/24 14:28 Dextrose 5% 1,000 Ml IVPB PRN PRN Hypoglycemia Protocol Ceftriaxone Sodium 1 gm in 50 mls @ 100 mls/hr 05/01/24 21:35 05/01/24 22:16 Rocephin 1 Gm/Ns 50 Ml IVPB 100 mls/hr HS ELIDIA Administration Azithromycin 500 mg in 250 mls @ 250 mls/hr 05/01/24 21:35 05/01/24 22:16 Zithromax IVPB 250 mls/hr HS ELIDIA Administration Insulin Aspart 3 - 6 units 05/02/24 08:00 Insulin Aspart (*Bkc) 100 Units/Ml SUB-Q TIDWM [facility] Protocol Insulin Glargine 10 units 05/01/24 21:00 05/01/24 21:11 Insulin Glargine (*Bkc) 100 Units/Ml SUB-Q 10 units HS ELIDIA Administration Loratadine 10 mg 04/26/24 09:00 05/01/24 10:13 Loratadine 10 Mg Tablet PO Not Given QAM ELIDIA Mirtazapine 7.5 mg 04/25/24 21:00 05/01/24 20:00 Mirtazapine 7.5 Mg Tablet PO Not Given HS ELDIIA Multivitamins Therapeutic 1 tablet 04/26/24 09:00 05/01/24 10:13 Multivitamins Therapeutic Tab (*Bkc) PO Not Given DAILY ELIDIA Senna 8.6 mg 04/25/24 17:00 05/01/24 18:36 Sennosides 8.6 Mg Tablet PO Not Given BID [facility] Radiology Results: ITS Impressions Chest CT 04/25/24 07:23 IMPRESSION: 1. Small right and moderate-sized partially loculated left pleural effusions with associated compressive atelectasis in both lungs. 2. Minimal pulmonary edema the lung bases. 2. Cardiomegaly with small to moderate-sized pericardial effusion. Thoracentesis Ultrasound 04/26/24 11:43 IMPRESSION: 1. Successful ultrasound-guided thoracentesis yielding 3.5 mL of clear straw- colored fluid. 2. Very small bilateral pleural effusions which appear decreased in size since the prior CT from 04/25/2024 Modified Barium Swallow 04/27/24 13:14 IMPRESSION: Laryngeal penetration with thin liquids and drinking with straw Renal Ultrasound 04/30/24 14:57 IMPRESSION: 1. Increased renal parenchymal echogenicity, consistent with nonspecific nephropathy. Chest X-Ray 05/01/24 13:57 IMPRESSION: 1. Opacities in the left mid and bilateral lower lung zones consistent with small left and likely very small right pleural effusions with associated atelectasis and/or pneumonia. Abdomen Ultrasound 05/01/24 16:31 IMPRESSION: Echogenic right kidney suggestive of medical renal disease. Further evaluation advised. Otherwise, normal Limited abdominal ultrasound. Labs Labs: Laboratory Tests 05/01/24 05:28 05/01/24 05:28 Calcium 9.1 Total Bilirubin 0.5 AST 67 H ALT 84 H Alkaline Phosphatase 143 H Total Creatine Kinase 100 Total Protein 7.0 Albumin 3.7 Lipase 25 Microbiology 04/26/24 10:31 Pleural Fluid Anaerobic Culture - Preliminary 04/26/24 10:31 Pleural Fluid Aerobic Culture - Final
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
[2024-05-01 16:47] LABS: Glucose Point of Care > 500 mg/dl (65-105)
[2024-05-01] MEDS: INSULIN ASPART (*BKC) 100 UNITS/ML 10 UNITS SUB-Q (17:05)
[2024-05-01] MEDS: INSULIN ASPART (*BKC) 100 UNITS/ML SUB-Q (17:06)
--- NOTE | 2024-05-01 18:36 | PC.NURSE ---
Patient taking liquids at this time. Patient will not take solids. Patient will not take medications.
[2024-05-01 19:07] LABS: Glucose Point of Care 500 mg/dl (65-105)
--- NOTE | 2024-05-01 20:14 | PC.NURSE ---
pt is still spitting things out and will not take his medication
--- NOTE | 2024-05-01 20:46 | P.PNCROSS_ITS ---
Event Note Event Note Event Note: Patient is unable/spitting out oral medications. Has not been eating/poor PO in take for the last 2 days. Will transition patient back to IVPB antibiotics. Lantus 15 units HS held after patient had hypoglycemia. Now hyperglycemic and Lantus restarted at 10u HS. Bedside RN contacted this provider with concerns about Lantus dose given patient is still not eating/taking things PO. Will restart Lantus at 6 units HS this evening, assess toleration/glucose levels.
[2024-05-01 21:11] LABS: Glucose Point of Care > 500 mg/dl (65-105)
[2024-05-01] MEDS: INSULIN GLARGINE (*BKC) 100 UNITS/ML 10 UNITS SUB-Q (21:11)
[2024-05-01] MEDS: INSULIN HUMAN REGULAR (*BKC) 100 UNITS/ML 8 UNITS SUB-Q (22:16)
[2024-05-01] MEDS: AZITHROMYCIN 500 MG/NS 250 ML 500 MG/250 ML BAG 250 MG IVPB (22:16)
[2024-05-01 23:23] LABS: Glucose Point of Care 452 mg/dl (65-105)
[2024-05-02] VITALS (17 sets, daily range): BP systolic 132–174; BP diastolic 50–76; PULSE 61–84; RESP 14–20; TEMP 35.8–36.8; O2SAT 97–100
[2024-05-02 00:34] LABS: MRSA (PCR) DETECTED (NOT DETECTE)
[2024-05-02 02:27] LABS: Glucose Point of Care 214 mg/dl (65-105)
[2024-05-02] MEDS: ACETYLCYSTEINE 20% INHAL SOLN 800 MG/4 ML VIAL 200 MG INHALATION ×3 (03:13→20:36)
[2024-05-02] MEDS: IPRATROPIUM 0.5 MG/ALBUTEROL SULFATE 2.5 MG AMPUL.NEB 3 ML INHALATION ×4 (03:13→20:36)
[2024-05-02 04:55] LABS: Glucose Point of Care 90 mg/dl (65-105)
[2024-05-02 08:06] LABS: Glucose Point of Care 35 mg/dl (65-105)
[2024-05-02] MEDS: DEXTROSE 50% 25 GM/50 ML SYRINGE IV PUSH (08:08)
--- NOTE | 2024-05-02 08:32 | P.PNIM_ITS ---
Progress Note: A&P Assessment and Plan (1) Loculated pleural effusion: Code(s): J90 - Pleural effusion, not elsewhere classified Status: Acute Assessment and Plan: CT Chest; IMPRESSION: 1. Small right and moderate-sized partially loculated left pleural effusions with associated compressive atelectasis in both lungs. 2. Minimal pulmonary edema the lung bases. 2. Cardiomegaly with small to moderate-sized pericardial effusion. - Gas Engineer rabia. - s/p Thoracentesis; US Guided Thoracentesis; IMPRESSION: 1. Successful ultrasound-guided thoracentesis yielding 3.5 mL of clear straw- colored fluid. 2. Very small bilateral pleural effusions which appear decreased in size since the prior CT from 04/25/2024 - Urine Legionella pneumophilia Ag negative. - Cefepime discontinued and now on Augmentin. - Continue Azithromycin X5 days treatment. - Continue duoneb and Mucomyst nebs treatments. - Currently good O2 sats > 90 % on RA. - Pleural fluid anaerobic culture growing gram negative bacilli. - Gas Engineer following and considering bronchoscopy. - Seen by ST for possible aspiration PNA; minced and moist diet with thickened liquids recommended. - Patient likely with chronic silent aspirations and considerations for PEG-Tube suggested per Gas Engineer. _ Pulmonary to discuss case with family for possible PEG-Tube placement. - Continue to elevate HOB with oral intake. 05/01/24; He was scheduled for a bronchoscopy at 14:00 however on arrival his glucose was over 400, procedure cancelled (2) SOB (shortness of breath): Code(s): R06.02 - Shortness of breath Status: Acute Assessment and Plan: - Possibly related to above. - Mgt as # 1. - Currently good O2 sats > 90 % on RA. - Supplemental O2 PRN to maintain sats > 90 %. - Appreciate automatic pinsetter mechanic assistance. (3) Anemia, unspecified: Code(s): D64.9 - Anemia, unspecified Status: Acute Assessment and Plan: - Monitor Hgb closely, now 7.0. - Low iron sats noted on iron panel and IV iron given X1. - Transfuse PRN for Hgb < 7. - Check stool for FOB with BM. - No obvious signs of bleeding. - Appreciate nephro assistance. 1 unit RBCs transfused on 05/02 (4) Acute kidney injury superimposed on chronic kidney disease: Code(s): N17.9 - Acute kidney failure, unspecified; N18.9 - Chronic kidney disease, unspecified Status: Inactive Assessment and Plan: - Cr levels continue to worsen; 2.2>>2.9 on this admission. - Renal Ultrasound 04/30/24 14:57 IMPRESSION: 1. Increased renal parenchymal echogenicity, consistent with nonspecific nephropathy. - Nephro consulted. - Possibly hypertension and DM related, worsened by renal hypoperfusion secondary to anemia. - Further mgt per nephro. - Avoid nephrotoxins. - Meds dosing per renal function. - Monitor closely. (5) DM type 2 (diabetes mellitus, type 2): Code(s): E11.9 - Type 2 diabetes mellitus without complications Status: Acute Assessment and Plan: - Long-acting insulin discontinued with poor PO intake. - Continue blood glucose check AC & HS. - Currently blood-glucose well controlled. - Continue to adjust insulin as needed. Extremely hard to control, BS 35-500 in last 34 hours Long-acting insulin placed on hold (6) Dyslipidemia: Code(s): E78.5 - Hyperlipidemia, unspecified Status: Acute Assessment and Plan: - Continue statin. 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 - Assist with care. Patient not really interacting with staff, per nursing patient talks to family while visiting today (8) HTN (hypertension): Code(s): I10 - Essential (primary) hypertension Status: Acute Assessment and Plan: - Continue home meds; Amlodipine, Coreg and Hydralazine. - Adjust meds as needed for optimal control. Time Spent With Patient Time with patient: Greater than 35 minutes Subjective Date/time seen: 05/02/24 08:32 Interval history: 68-year-old man admitted 04/24 with an abnormal CXR from his facility showing bilateral pleural effusions, L>R with loculations on the left side. 05/01/24; He was scheduled for a bronchoscopy at 14:00 however on arrival his glucose was over 400, procedure cancelled. Patient restarted on IV antibiotics last night due to unable or unwilling to swallow p.o. medications. Patient tolerating liquids during day shift Patient's blood sugar was hypoglycemic this morning at 35 however history is blood sugar was 500. Patient's hemoglobin was 6.9 today 1 unit ordered repeat H&H after. Patient appears to be chronically ill Review of Systems Review of Systems: ROS unobtainable: Yes unobtainable due to mental status Exam Narrative: General: Chronically ill appearing, on bedrest in no acute distress, roger. UE and LE contractures. HEENT: Atraumatic, PERRL, EOM, dry mucus membranes. NECK: Supple. Lungs: Clear bilaterally. Heart: RRR, no murmurs. Abdomen: Soft, non-tender, non-distended, +ve bowel sounds X4 quadrants. Extremities: Contractures roger. UE and LE, 1+ edema roger. feet. Skin: Warm and dry. Neuro: Alert to self but non-verbal today. Roger. UE and LE contractures. Psych: Confused but co-operative. Objective Data Vital Signs Vital Signs: Vital Signs - 24 hr 05/01/24 10:00 05/01/24 12:50 05/01/24 12:58 Temperature Pulse Rate 72 70 Respiratory Rate 16 16 Blood Pressure Pulse Oximetry Oxygen Delivery Room Air 05/01/24 14:00 05/01/24 20:00 05/01/24 20:13 Temperature 97.2 F L Pulse Rate 70 Respiratory Rate 16 Blood Pressure 162/75 H Pulse Oximetry 97 98 Oxygen Delivery Room Air Room Air 05/01/24 20:13 05/01/24 22:00 05/01/24 20:27 Temperature 98.2 F Pulse Rate 84 82 89 Respiratory Rate 18 18 18 Blood Pressure 151/79 H Pulse Oximetry 99 Oxygen Delivery 05/02/24 03:14 05/02/24 03:30 05/02/24 06:00 Temperature 98.2 F Pulse Rate 79 83 70 Respiratory Rate 18 18 14 Blood Pressure 139/63 Pulse Oximetry 99 Oxygen Delivery Intake/Output Intake/Output: Intake & Output 04/29/24 04/30/24 05/01/24 05/02/24 23:59 23:59 23:59 23:59 Intake Total 2890 445 1260 0 Output Total 2150 3100 2100 500 Balance 740 -4215 -840 -500 Meds/Results Medications: Active Medications Generic Name Dose Route Start Last Admin Trade Name Freq PRN Reason Stop Dose Admin Acetaminophen 650 mg 04/25/24 14:27 Acetaminophen 325 Mg Tablet PO Q6H PRN Pain Rated 1-3 Acetylcysteine 200 mg 04/25/24 20:00 05/02/24 03:13 Acetylcysteine 20% Inhal Soln 800 Mg/4 Ml Vial INHALATION 200 mg Q6HRT ELIDIA Administration Albuterol/Ipratropium 3 ml 04/25/24 14:27 Ipratropium 0.5 Mg/Albuterol Sulfate 2.5 Mg Ampul.Neb 3 Ml INHALATION Q6H PRN Shortness Of Breath Albuterol/Ipratropium 3 ml 04/25/24 20:00 05/02/24 03:13 Ipratropium 0.5 Mg/Albuterol Sulfate 2.5 Mg Ampul.Neb 3 Ml INHALATION 3 ml Q6HRT ELIDIA Administration Amlodipine Besylate 10 mg 04/26/24 09:00 05/01/24 10:12 Amlodipine Besylate 10 Mg Tablet PO Not Given DAILY [facility] Artificial Tears 1 drop 04/25/24 14:27 Artificial Tears Ophth Soln 15 Ml Bottle EACH EYE BID PRN Dry Eyes Aspirin 81 mg 04/26/24 09:00 05/01/24 10:12 Aspirin 81 Mg Enteric Tablet PO Not Given QAM [facility] Atorvastatin Calcium 40 mg 04/25/24 21:00 05/01/24 19:59 Atorvastatin 40 Mg Tablet PO Not Given HS ELIDIA Carvedilol 25 mg 04/25/24 21:00 05/01/24 19:59 Carvedilol 25 Mg Tablet PO Not Given Q12HR [facility] Dextrose 12.5 gm 04/25/24 14:28 05/02/24 08:08 Dextrose 50% 25 Gm/50 Ml Syringe IV PUSH 12.5 gm PRN PRN Administration Hypoglycemia Protocol Enoxaparin Sodium 30 mg 04/29/24 09:00 05/01/24 09:48 Enoxaparin 30 Mg/0.3 Ml Syringe SUB-Q 30 mg DAILY ELIDIA Administration Famotidine 20 mg 04/25/24 17:00 05/01/24 18:35 Famotidine 20 Mg Tablet PO Not Given BID [facility] Ferrous Sulfate 325 mg 04/26/24 09:00 05/01/24 10:12 Ferrous Sulfate [address] BY MOUTH Not Given DAILY [facility] Fluticasone Propionate 1 spray 04/26/24 09:00 05/01/24 09:48 Fluticasone Propionate 0.05% Na Spr 16 Gm Btl (*Bkc) NASAL 1 spray DAILY ELIDIA Administration Folic Acid 1 mg 04/26/24 09:00 05/01/24 10:12 Folic Acid 1 Mg Tablet PO Not Given DAILY [facility] Furosemide 40 mg 04/25/24 09:00 05/01/24 19:58 Furosemide Inj 40 Mg/4 Ml Vial IV PUSH 40 mg Q12HR ELIDIA Administration Glucagon 1 mg 04/25/24 14:28 Glucagon For Inj 1 Mg Vial IM PRN PRN Hypoglycemia Protocol Glucose 15 gm 04/25/24 14:28 Glucose Oral Gel 15 Gm Of Glucse In 37.5 Gm Tube PO PRN PRN Hypoglycemia Protocol Hydralazine HCl 10 mg 04/26/24 09:00 05/01/24 10:12 Hydralazine 10 Mg Tablet PO Not Given DAILY [facility]IA Dextrose 1,000 mls @ 100 mls/hr 04/25/24 14:28 Dextrose 5% 1,000 Ml IVPB PRN PRN Hypoglycemia Protocol Ceftriaxone Sodium 1 gm in 50 mls @ 100 mls/hr 05/01/24 21:35 05/01/24 22:46 Rocephin 1 Gm/Ns 50 Ml IVPB Infused HS [facility]IA Infusion Azithromycin 500 mg in 250 mls @ 250 mls/hr 05/01/24 21:35 05/01/24 23:16 Zithromax IVPB Infused HS ELDIIA Infusion Insulin Aspart 3 - 6 units 05/02/24 08:00 05/02/24 08:24 Insulin Aspart (*Bkc) 100 Units/Ml SUB-Q Not Given TIDWM [facility] Protocol Insulin Glargine 10 units 05/01/24 21:00 05/01/24 21:11 Insulin Glargine (*Bkc) 100 Units/Ml SUB-Q 10 units HS ELIDIA Administration Loratadine 10 mg 04/26/24 09:00 05/01/24 10:13 Loratadine 10 Mg Tablet PO Not Given QAM [facility] Mirtazapine 7.5 mg 04/25/24 21:00 05/01/24 20:00 Mirtazapine 7.5 Mg Tablet PO Not Given HS ELIDIA Multivitamins Therapeutic 1 tablet 04/26/24 09:00 05/01/24 10:13 Multivitamins Therapeutic Tab (*Bkc) PO Not Given DAILY [facility] Senna 8.6 mg 04/25/24 17:00 05/01/24 18:36 Sennosides 8.6 Mg Tablet PO Not Given BID [facility] Radiology Results: ITS Impressions Chest CT 04/25/24 07:23 IMPRESSION: 1. Small right and moderate-sized partially loculated left pleural effusions with associated compressive atelectasis in both lungs. 2. Minimal pulmonary edema the lung bases. 2. Cardiomegaly with small to moderate-sized pericardial effusion. Thoracentesis Ultrasound 04/26/24 11:43 IMPRESSION: 1. Successful ultrasound-guided thoracentesis yielding 3.5 mL of clear straw- colored fluid. 2. Very small bilateral pleural effusions which appear decreased in size since the prior CT from 04/25/2024 Modified Barium Swallow 04/27/24 13:14 IMPRESSION: Laryngeal penetration with thin liquids and drinking with straw Renal Ultrasound 04/30/24 14:57 IMPRESSION: 1. Increased renal parenchymal echogenicity, consistent with nonspecific nephropathy. Chest X-Ray 05/01/24 13:57 IMPRESSION: 1. Opacities in the left mid and bilateral lower lung zones consistent with small left and likely very small right pleural effusions with associated atelectasis and/or pneumonia. Abdomen Ultrasound 05/01/24 16:31 IMPRESSION: Echogenic right kidney suggestive of medical renal disease. Further evaluation advised. Otherwise, normal Limited abdominal ultrasound. Labs Labs: Laboratory Results - last 24 hr 05/01/24 05/01/24 05/01/24 08:38 11:58 13:40 POC Capillary Glucose 121 H 353 H 442 H Nasal MRSA (PCR) 05/01/24 05/01/24 05/01/24 16:40 19:05 21:09 POC Capillary Glucose > 500 H* 500 H > 500 H* Nasal MRSA (PCR) 05/01/24 05/01/24 05/02/24 22:25 23:20 02:22 POC Capillary Glucose 452 H 214 H Nasal MRSA (PCR) Detected A* 05/02/24 05/02/24 04:49 07:56 POC Capillary Glucose 90 35 L* Nasal MRSA (PCR) Quality VTE Prophylaxis VTE prophylaxis: mechanical ordered
[2024-05-02 08:33] LABS: Glucose Point of Care 126 mg/dl (65-105)
[2024-05-02 09:28] LABS: Hematocrit 22.1 % (42.0-52.0); Mean Corpuscular HGB Conc 31.2 g/dl (32-36); Mean Corpuscular Hemoglobin 27.4 pg (26-34); Mean Corpuscular Volume 87.7 fl (80-100); Mean Platelet Volume 9.5 fl (7.4-10.4); Platelet Count Result 204 k/mm3 (150-375); Red Blood Count 2.52 M/mm3 (4.6-6.20); White Blood Count 8.5 K/mm3 (4.5-10.0)
[2024-05-02 09:30] LABS: Hemoglobin 6.9 g/dL (14.0-18.0)
[2024-05-02 09:42] LABS: Alanine Aminotransferase 65 U/L (6-50); Albumin Level 3.5 g/dL (3.5-5.1); Alkaline Phosphatase 124 U/L (38-126); Anion Gap 4 mmol/L (4-12); Aspartate Amino Transferase 45 U/L (17-59); Bilirubin,Total 0.4 mg/dL (0.2-1.3); Blood Urea Nitrogen 36 mg/dL (9-20); Calcium 8.6 mg/dL (8.4-10.2); Carbon Dioxide 32 mmol/L (22-30); Chloride 98 mmol/L (98-107); Estimated CRCL calculation 20 ml/min; Estimated Glomerular Filt Rate 24; Glucose 126 mg/dL (65-110); Potassium 3.9 mmol/L (3.4-5.0); Sodium 134 mmol/L (137-145)
[2024-05-02 11:43] LABS: Glucose Point of Care 259 mg/dl (65-105)
[2024-05-02] MEDS: ASPIRIN 81 MG ENTERIC TABLET PO (12:56)
[2024-05-02] MEDS: FUROSEMIDE INJ 40 MG/4 ML VIAL IV PUSH ×2 (12:56→20:30)
[2024-05-02] MEDS: SENNOSIDES 8.6 MG TABLET PO ×2 (12:56→20:30)
[2024-05-02] MEDS: hydrALAZINE 10 MG TABLET PO (12:56)
[2024-05-02] MEDS: FERROUS SULFATE 325 MG TABLET DR BY MOUTH (12:57)
[2024-05-02] MEDS: LORATADINE 10 MG TABLET PO (12:57)
[2024-05-02] MEDS: FOLIC ACID 1 MG TABLET PO (12:57)
[2024-05-02] MEDS: FLUTICASONE PROPIONATE 0.05% NA SPR 16 GM BTL (*BKC) 1 SPRAY NASAL (12:57)
[2024-05-02] MEDS: FAMOTIDINE 20 MG TABLET PO ×2 (12:57→18:18)
[2024-05-02] MEDS: MULTIVITAMINS THERAPEUTIC TAB (*BKC) 1 TABLET PO (12:57)
[2024-05-02] MEDS: amLODIPine BESYLATE 10 MG TABLET PO (12:57)
[2024-05-02] MEDS: ENOXAPARIN 30 MG/0.3 ML SYRINGE SUB-Q (12:57)
[2024-05-02] MEDS: INSULIN ASPART (*BKC) 100 UNITS/ML SUB-Q ×2 (12:58→18:18)
--- NOTE | 2024-05-02 13:02 | P.PNNP_ITS ---
Progress Note: A&P Assessment and Plan (1) JOSHUA (acute kidney injury): Code(s): N17.9 - Acute kidney failure, unspecified Status: Acute Assessment and Plan: * no significant improvement * relatively close to baseline on admission (2.0 - 2.2mg/dl) * however, slow worsening/decline note since 04/28 (2.0 -> 2.4 -> 2.9 -> 3.0mg/dl) * etiology not entirely clear but several possibilities: * prerenal factors (diminished oral intake) * anemia * infection (?) * IV diuretic therapy * element of disease progression (?) * other (?) * evaluation to date noted: * urine electrolyte (by FeUrea) prerenal * urine eosinophils negative * CPK normal * renal ultrasound with renal parenchymal echogenicity but no obstruction * nephrotic range proteinuria noted * follow trend of repeat labs and UOP (2) Chronic kidney disease, stage 3: Code(s): N18.30 - Chronic kidney disease, stage 3 unspecified Status: Chronic Assessment and Plan: * baseline creatinine runs ~ 1.6 - 1.9mg/dl since 2021 * this causes him to fluctuate between CKD stage 3A and stage 3B * presumably secondary to diabetes, hypertension, and vascular disease (3) Loculated pleural effusion: Code(s): J90 - Pleural effusion, not elsewhere classified Status: Acute Assessment and Plan: * as note by recent CT of chest * Pulmonary following * recent thoracentesis with only minimal pleural fluid removal * pleural fluid analysis and cultures noted * respiratory status relatively stable * on antibiotics (4) HTN (hypertension): Code(s): I10 - Essential (primary) hypertension Status: Chronic Assessment and Plan: * reasonable control at this time * continue current mediations * follow trend of hemodynamics (5) Anemia, unspecified: Code(s): D64.9 - Anemia, unspecified Status: Acute Assessment and Plan: * as noted on admission * evidence of iron deficiency by anemia studies * dose with IV iron x 1 * PRBC transfusion per protocol * may be partly related to JOSHUA and CKD * follow trend of H/H (6) 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 Subjective Date/time seen: 05/02/24 13:05 Interval history: Follow-up for acute kidney injury on chronic kidney disease. No real significant change noted; mental status remains the same; no apparent distress noted at the time of my visit; blood sugars continue to fluctuate; renal function/creatinine unchanged; low H/H by AM labs cervantes PRBC transfusion today. Exam 2 Narrative: General: male who appears older than stated age in NAD Heart: normal S1 and S2; no rub Lungs: clear anteriorly; decreased at bases Abdomen: soft, nontender, nondistended, positive bowel sounds Extremities: no cyanosis or clubbing; trace edema; UE and LE contractures noted Skin: warm and intact Objective Data Vital Signs Vital Signs: Vital Signs Temp Pulse Resp BP Pulse Ox O2 Del Method 05/02/24 11:45 Room Air 05/02/24 08:40 82 18 05/02/24 06:00 98.2 F 70 14 139/63 99 05/02/24 03:30 83 18 05/02/24 03:14 79 18 05/01/24 20:27 89 18 05/01/24 22:00 98.2 F 82 18 151/79 H 99 05/01/24 20:13 84 18 05/01/24 20:13 98 Room Air 05/01/24 20:00 Room Air 05/01/24 14:00 97.2 F L 70 16 162/75 H 97 Intake/Output Intake/Output: Intake & Output 04/29/24 04/30/24 05/01/24 05/02/24 23:59 23:59 23:59 23:59 Intake Total 2890 445 1260 960 Output Total 2150 3100 2100 500 Balance 394 -3098 -888 460 Meds/Results Medications: Active Medications Generic Name Dose Route Start Last Admin Trade Name Freq PRN Reason Stop Dose Admin Acetaminophen 650 mg 04/25/24 14:27 Acetaminophen 325 Mg Tablet PO Q6H PRN Pain Rated 1-3 Acetylcysteine 200 mg 04/25/24 20:00 05/02/24 08:39 Acetylcysteine 20% Inhal Soln 800 Mg/4 Ml Vial INHALATION 200 mg Q6HRT ELIDIA Administration Albuterol/Ipratropium 3 ml 04/25/24 14:27 Ipratropium 0.5 Mg/Albuterol Sulfate 2.5 Mg Ampul.Neb 3 Ml INHALATION Q6H PRN Shortness Of Breath Albuterol/Ipratropium 3 ml 04/25/24 20:00 05/02/24 08:39 Ipratropium 0.5 Mg/Albuterol Sulfate 2.5 Mg Ampul.Neb 3 Ml INHALATION 3 ml Q6HRT ELIDIA Administration Amlodipine Besylate 10 mg 04/26/24 09:00 05/02/24 12:57 Amlodipine Besylate 10 Mg Tablet PO 10 mg DAILY [facility]IA Administration Artificial Tears 1 drop 04/25/24 14:27 Artificial Tears Ophth Soln 15 Ml Bottle EACH EYE BID PRN Dry Eyes Aspirin 81 mg 04/26/24 09:00 05/02/24 12:56 Aspirin 81 Mg Enteric Tablet PO 81 mg QAM [facility]IA Administration Atorvastatin Calcium 40 mg 04/25/24 21:00 05/01/24 19:59 Atorvastatin 40 Mg Tablet PO Not Given HS ELIDIA Carvedilol 25 mg 04/25/24 21:00 05/01/24 19:59 Carvedilol 25 Mg Tablet PO Not Given Q12HR [facility]IA Dextrose 12.5 gm 04/25/24 14:28 05/02/24 08:08 Dextrose 50% 25 Gm/50 Ml Syringe IV PUSH 12.5 gm PRN PRN Administration Hypoglycemia Protocol Enoxaparin Sodium 30 mg 04/29/24 09:00 05/02/24 12:57 Enoxaparin 30 Mg/0.3 Ml Syringe SUB-Q 30 mg DAILY ELIDIA Administration Famotidine 20 mg 04/25/24 17:00 05/02/24 12:57 Famotidine 20 Mg Tablet PO 20 mg BID ELIDIA Administration Ferrous Sulfate 325 mg 04/26/24 09:00 05/02/24 12:57 Ferrous Sulfate [address] BY MOUTH 325 mg DAILY ELIDIA Administration Fluticasone Propionate 1 spray 04/26/24 09:00 05/02/24 12:57 Fluticasone Propionate 0.05% Na Spr 16 Gm Btl (*Bkc) NASAL 1 spray DAILY ELIDIA Administration Folic Acid 1 mg 04/26/24 09:00 05/02/24 12:57 Folic Acid 1 Mg Tablet PO 1 mg DAILY ELIDIA Administration Furosemide 40 mg 04/25/24 09:00 05/02/24 12:56 Furosemide Inj 40 Mg/4 Ml Vial IV PUSH 40 mg Q12HR ELIDIA Administration Glucagon 1 mg 04/25/24 14:28 Glucagon For Inj 1 Mg Vial IM PRN PRN Hypoglycemia Protocol Glucose 15 gm 04/25/24 14:28 Glucose Oral Gel 15 Gm Of Glucse In 37.5 Gm Tube PO PRN PRN Hypoglycemia Protocol Hydralazine HCl 10 mg 04/26/24 09:00 05/02/24 12:56 Hydralazine 10 Mg Tablet PO 10 mg DAILY ELIDIA Administration Dextrose 1,000 mls @ 100 mls/hr 04/25/24 14:28 Dextrose 5% 1,000 Ml IVPB PRN PRN Hypoglycemia Protocol Ceftriaxone Sodium 1 gm in 50 mls @ 100 mls/hr 05/01/24 21:35 05/01/24 22:46 Rocephin 1 Gm/Ns 50 Ml IVPB Infused HS ELIDIA Infusion Azithromycin 500 mg in 250 mls @ 250 mls/hr 05/01/24 21:35 05/01/24 23:16 Zithromax IVPB Infused HS ELIDIA Infusion Sodium Chloride 250 mls @ 30 mls/hr 05/02/24 09:39 Normal Saline Iv IV CONT 05/02/24 17:58 .Q8H20M STA Insulin Aspart 3 - 6 units 05/02/24 08:00 05/02/24 12:58 Insulin Aspart (*Bkc) 100 Units/Ml SUB-Q 4 units TIDWM ELIDIA Administration Protocol Insulin Glargine 5 units 05/02/24 21:00 Insulin Glargine (*Bkc) 100 Units/Ml SUB-Q HS ELIDIA Loratadine 10 mg 04/26/24 09:00 05/02/24 12:57 Loratadine 10 Mg Tablet PO 10 mg QAM EL[facility]IA Administration Mirtazapine 7.5 mg 04/25/24 21:00 05/01/24 20:00 Mirtazapine 7.5 Mg Tablet PO Not Given HS [facility]IA Multivitamins Therapeutic 1 tablet 04/26/24 09:00 05/02/24 12:57 Multivitamins Therapeutic Tab (*Bkc) PO 1 tablet DAILY [facility]IA Administration Senna 8.6 mg 04/25/24 17:00 05/02/24 12:56 Sennosides 8.6 Mg Tablet PO 8.6 mg BID ELIDIA Administration Radiology Results: ITS Impressions Chest CT 04/25/24 07:23 IMPRESSION: 1. Small right and moderate-sized partially loculated left pleural effusions with associated compressive atelectasis in both lungs. 2. Minimal pulmonary edema the lung bases. 2. Cardiomegaly with small to moderate-sized pericardial effusion. Thoracentesis Ultrasound 04/26/24 11:43 IMPRESSION: 1. Successful ultrasound-guided thoracentesis yielding 3.5 mL of clear straw- colored fluid. 2. Very small bilateral pleural effusions which appear decreased in size since the prior CT from 04/25/2024 Modified Barium Swallow 04/27/24 13:14 IMPRESSION: Laryngeal penetration with thin liquids and drinking with straw Renal Ultrasound 04/30/24 14:57 IMPRESSION: 1. Increased renal parenchymal echogenicity, consistent with nonspecific nephropathy. Chest X-Ray 05/01/24 13:57 IMPRESSION: 1. Opacities in the left mid and bilateral lower lung zones consistent with small left and likely very small right pleural effusions with associated atelectasis and/or pneumonia. Abdomen Ultrasound 05/01/24 16:31 IMPRESSION: Echogenic right kidney suggestive of medical renal disease. Further evaluation advised. Otherwise, normal Limited abdominal ultrasound. Labs Labs: Laboratory Tests 05/02/24 09:20 05/02/24 09:20 05/02/24 Calcium 8.6 Total Bilirubin 0.4 AST 45 ALT 65 H Alkaline Phosphatase 124 Total Protein 7.0 Albumin 3.5 Microbiology 04/26/24 10:31 Pleural Fluid Anaerobic Culture - Preliminary 04/26/24 10:31 Pleural Fluid Aerobic Culture - Final
[2024-05-02] MEDS: carvediloL 25 MG TABLET PO ×2 (13:13→20:53)
[2024-05-02] MEDS: SODIUM CHLORIDE 0.9% IV 250 ML 30 ML IV CONT (15:15)
[2024-05-02 17:07] LABS: Glucose Point of Care 354 mg/dl (65-105)
[2024-05-02] MEDS: ATORVASTATIN 40 MG TABLET PO (20:30)
[2024-05-02] MEDS: MIRTAZAPINE 7.5 MG TABLET PO (20:30)
[2024-05-02 20:58] LABS: Glucose Point of Care 363 mg/dl (65-105)
[2024-05-02] MEDS: AZITHROMYCIN 500 MG/NS 250 ML 500 MG/250 ML BAG 250 MG IVPB (21:41)
[2024-05-02] MEDS: INSULIN ASPART (*BKC) 100 UNITS/ML 8 UNITS SUB-Q (21:42)
--- NOTE | 2024-05-02 22:56 | PC.NURSE ---
Mauro spoke with Lulu Austin while she was rounding on floor regarding patients HS BS of 363. A verbal order for Novolog 8 units was given with orders to recheck BS at 0000.
[2024-05-02 23:54] LABS: Glucose Point of Care 167 mg/dl (65-105)
[2024-05-03] VITALS (17 sets, daily range): BP systolic 160–176; BP diastolic 66–93; PULSE 45–84; RESP 15–20; TEMP 35.1–36.6; O2SAT 90–100; BMI 23.5
[2024-05-03] MEDS: ACETYLCYSTEINE 20% INHAL SOLN 800 MG/4 ML VIAL 200 MG INHALATION ×4 (02:20→21:56)
[2024-05-03] MEDS: IPRATROPIUM 0.5 MG/ALBUTEROL SULFATE 2.5 MG AMPUL.NEB 3 ML INHALATION ×4 (02:20→21:56)
--- NOTE | 2024-05-03 05:57 | PC.NURSE ---
Jessica harpwas unable to draw H&H at 0015. This am dental lab technician was able to draw all labs due
[2024-05-03 05:58] LABS: Hematocrit 27.7 % (42.0-52.0); Hemoglobin 8.9 g/dL (14.0-18.0); Mean Corpuscular HGB Conc 32.1 g/dl (32-36); Mean Corpuscular Hemoglobin 28.1 pg (26-34); Mean Corpuscular Volume 87.4 fl (80-100); Mean Platelet Volume 9.6 fl (7.4-10.4); Platelet Count Result 202 k/mm3 (150-375); Red Blood Count 3.17 M/mm3 (4.6-6.20); Red Cell Distribution Width 15.4 % (11.5-14.5); White Blood Count 4.7 K/mm3 (4.5-10.0)
[2024-05-03 06:18] LABS: Alanine Aminotransferase 70 U/L (6-50); Albumin Level 3.9 g/dL (3.5-5.1); Alkaline Phosphatase 130 U/L (38-126); Anion Gap 6 mmol/L (4-12); Aspartate Amino Transferase 41 U/L (17-59); Bilirubin,Total 0.4 mg/dL (0.2-1.3); Blood Urea Nitrogen 36 mg/dL (9-20); Calcium 8.9 mg/dL (8.4-10.2); Carbon Dioxide 30 mmol/L (22-30); Chloride 96 mmol/L (98-107); Estimated CRCL calculation 22 ml/min; Estimated Glomerular Filt Rate 28; Glucose 62 mg/dL (65-110); Potassium 3.7 mmol/L (3.4-5.0); Sodium 132 mmol/L (137-145)
[2024-05-03 06:35] LABS: Glucose Point of Care 114 mg/dl (65-105)
[2024-05-03 07:49] LABS: Glucose Point of Care 116 mg/dl (65-105)
--- NOTE | 2024-05-03 10:52 | P.PNNP_ITS ---
Progress Note: A&P Assessment and Plan (1) JOSHUA (acute kidney injury): Code(s): N17.9 - Acute kidney failure, unspecified Status: Acute Assessment and Plan: * mild improvement * relatively close to baseline on admission (2.0 - 2.2mg/dl) * however, slow worsening/decline note since 04/28 (2.0 -> 2.4 -> 2.9 -> 3.0mg/dl) * etiology not entirely clear but several possibilities: * prerenal factors (diminished oral intake) * anemia * infection (?) * IV diuretic therapy * element of disease progression (?) * other (?) * evaluation to date noted: * urine electrolyte (by FeUrea) prerenal * urine eosinophils negative * CPK normal * renal ultrasound with renal parenchymal echogenicity but no obstruction * nephrotic range proteinuria noted * follow trend of repeat labs and UOP (2) Chronic kidney disease, stage 3: Code(s): N18.30 - Chronic kidney disease, stage 3 unspecified Status: Chronic Assessment and Plan: * baseline creatinine runs ~ 1.6 - 1.9mg/dl since 2021 * this causes him to fluctuate between CKD stage 3A and stage 3B * presumably secondary to diabetes, hypertension, and vascular disease (3) Loculated pleural effusion: Code(s): J90 - Pleural effusion, not elsewhere classified Status: Acute Assessment and Plan: * as note by recent CT of chest * Pulmonary following * recent thoracentesis with only minimal pleural fluid removal * pleural fluid analysis and cultures noted * respiratory status relatively stable * on antibiotics (4) HTN (hypertension): Code(s): I10 - Essential (primary) hypertension Status: Chronic Assessment and Plan: * reasonable control at this time * continue current mediations * follow trend of hemodynamics (5) Anemia, unspecified: Code(s): D64.9 - Anemia, unspecified Status: Acute Assessment and Plan: * as noted on admission * evidence of iron deficiency by anemia studies * dose with IV iron x 1 * PRBC transfusion per protocol * may be partly related to JOSHUA and CKD * follow trend of H/H (6) 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 Subjective Date/time seen: 05/03/24 10:52 Interval history: Follow-up for acute kidney injury on chronic kidney disease. Fluctuating mental status noted by nursing staff and family; not eating and drinking at this time; renal function/creatinine seems about the same (no worse but not better); breathing/respiratory status appears stable. Exam 2 Narrative: General: male who appears older than stated age in NAD Heart: normal S1 and S2; no rub Lungs: clear anteriorly; decreased at bases Abdomen: soft, nontender, nondistended, positive bowel sounds Extremities: no cyanosis or clubbing; trace edema; UE and LE contractures noted Skin: no rash Objective Data Vital Signs Vital Signs: Vital Signs Temp Pulse Resp BP Pulse Ox O2 Del Method 05/03/24 08:24 57 L 20 05/03/24 08:13 45 L 18 05/03/24 08:13 98 Room Air 05/03/24 06:00 97.9 F 52 L 16 175/93 H 100 05/03/24 02:34 78 18 05/03/24 02:21 79 18 05/02/24 20:00 Room Air 05/02/24 21:48 98.1 F 69 16 156/76 H 100 05/02/24 20:46 72 18 05/02/24 20:36 73 18 05/02/24 20:36 100 Room Air 05/02/24 20:53 70 05/02/24 18:15 97.5 F L 65 16 174/71 H 100 05/02/24 17:30 97.4 F L 61 16 132/55 L 100 05/02/24 16:30 97.5 F L 63 16 151/58 H 100 05/02/24 15:39 97.5 F L 05/02/24 15:30 96.4 F L 61 16 150/50 H 100 05/02/24 15:15 97.1 F L 66 16 137/55 L 100 05/02/24 15:01 84 20 05/02/24 14:46 79 20 05/02/24 14:46 97 Room Air 05/02/24 13:13 73 Intake/Output Intake/Output: Intake & Output 04/30/24 05/01/24 05/02/24 05/03/24 23:59 23:59 23:59 23:59 Intake Total 445 1260 3380 240 Output Total 3100 2100 900 1000 Balance -3595 -770 2480 -760 Meds/Results Medications: Active Medications Generic Name Dose Route Start Last Admin Trade Name Freq PRN Reason Stop Dose Admin Acetaminophen 650 mg 04/25/24 14:27 Acetaminophen 325 Mg Tablet PO Q6H PRN Pain Rated 1-3 Acetylcysteine 200 mg 04/25/24 20:00 05/03/24 08:08 Acetylcysteine 20% Inhal Soln 800 Mg/4 Ml Vial INHALATION 200 mg Q6HRT ELIDIA Administration Albuterol/Ipratropium 3 ml 04/25/24 14:27 Ipratropium 0.5 Mg/Albuterol Sulfate 2.5 Mg Ampul.Neb 3 Ml INHALATION Q6H PRN Shortness Of Breath Albuterol/Ipratropium 3 ml 04/25/24 20:00 05/03/24 08:08 Ipratropium 0.5 Mg/Albuterol Sulfate 2.5 Mg Ampul.Neb 3 Ml INHALATION 3 ml Q6HRT ELIDIA Administration Amlodipine Besylate 10 mg 04/26/24 09:00 05/02/24 12:57 Amlodipine Besylate 10 Mg Tablet PO 10 mg DAILY ELIDIA Administration Artificial Tears 1 drop 04/25/24 14:27 Artificial Tears Ophth Soln 15 Ml Bottle EACH EYE BID PRN Dry Eyes Aspirin 81 mg 04/26/24 09:00 05/02/24 12:56 Aspirin 81 Mg Enteric Tablet PO 81 mg QAM ELIDIA Administration Atorvastatin Calcium 40 mg 04/25/24 21:00 05/02/24 20:30 Atorvastatin 40 Mg Tablet PO 40 mg HS ELIDIA Administration Carvedilol 25 mg 04/25/24 21:00 05/02/24 20:53 Carvedilol 25 Mg Tablet PO 25 mg Q12HR ELIDIA Administration Dextrose 12.5 gm 04/25/24 14:28 05/02/24 08:08 Dextrose 50% 25 Gm/50 Ml Syringe IV PUSH 12.5 gm PRN PRN Administration Hypoglycemia Protocol Enoxaparin Sodium 30 mg 04/29/24 09:00 05/02/24 12:57 Enoxaparin 30 Mg/0.3 Ml Syringe SUB-Q 30 mg DAILY ELIDIA Administration Famotidine 20 mg 04/25/24 17:00 05/02/24 18:18 Famotidine 20 Mg Tablet PO 20 mg BID ELIDIA Administration Ferrous Sulfate 325 mg 04/26/24 09:00 05/02/24 12:57 Ferrous Sulfate [address] BY MOUTH 325 mg DAILY ELIDIA Administration Fluticasone Propionate 1 spray 04/26/24 09:00 05/02/24 12:57 Fluticasone Propionate 0.05% Na Spr 16 Gm Btl (*Bkc) NASAL 1 spray DAILY ELIDIA Administration Folic Acid 1 mg 04/26/24 09:00 05/02/24 12:57 Folic Acid 1 Mg Tablet PO 1 mg DAILY ELIDIA Administration Furosemide 40 mg 04/25/24 09:00 05/02/24 20:30 Furosemide Inj 40 Mg/4 Ml Vial IV PUSH 40 mg Q12HR ELIDIA Administration Glucagon 1 mg 04/25/24 14:28 Glucagon For Inj 1 Mg Vial IM PRN PRN Hypoglycemia Protocol Glucose 15 gm 04/25/24 14:28 Glucose Oral Gel 15 Gm Of Glucse In 37.5 Gm Tube PO PRN PRN Hypoglycemia Protocol Hydralazine HCl 10 mg 04/26/24 09:00 05/02/24 12:56 Hydralazine 10 Mg Tablet PO 10 mg DAILY ELIDIA Administration Dextrose 1,000 mls @ 100 mls/hr 04/25/24 14:28 Dextrose 5% 1,000 Ml IVPB PRN PRN Hypoglycemia Protocol Ceftriaxone Sodium 1 gm in 50 mls @ 100 mls/hr 05/01/24 21:35 05/02/24 21:02 Rocephin 1 Gm/Ns 50 Ml IVPB Infused HS EL[facility]IA Infusion Azithromycin 500 mg in 250 mls @ 250 mls/hr 05/01/24 21:35 05/02/24 22:41 Zithromax IVPB Infused HS [facility]IA Infusion Dextrose 1,000 mls @ 50 mls/hr 05/03/24 12:27 Dextrose 10% IV CONT .Q20H PRN if PN is interrupted Amino Acids/Electrolytes/Dextrose 2,000 mls @ 80 mls/hr 05/03/24 12:30 Clinimix E 4.25%/5% Solution IV CONT .Q24H ELIDIA Protocol Fat Emulsion Intravenous 250 mls @ 20.833 mls/hr 05/03/24 12:30 Lipids 20% IVPB QAM [facility] Insulin Aspart 3 - 6 units 05/02/24 08:00 05/03/24 07:39 Insulin Aspart (*Bkc) 100 Units/Ml SUB-Q Not Given TIDWM [facility] Protocol Insulin Glargine 5 units 05/02/24 21:00 Insulin Glargine (*Bkc) 100 Units/Ml SUB-Q HS [facility] Loratadine 10 mg 04/26/24 09:00 05/02/24 12:57 Loratadine 10 Mg Tablet PO 10 mg QAM ELIDIA Administration Mirtazapine 7.5 mg 04/25/24 21:00 05/02/24 20:30 Mirtazapine 7.5 Mg Tablet PO 7.5 mg HS ELIDIA Administration Multivitamins Therapeutic 1 tablet 04/26/24 09:00 05/02/24 12:57 Multivitamins Therapeutic Tab (*Bkc) PO 1 tablet DAILY ELIDIA Administration Senna 8.6 mg 05/02/24 21:00 05/02/24 20:30 Sennosides 8.6 Mg Tablet PO 8.6 mg BEDTIME ELIDIA Administration Radiology Results: ITS Impressions Chest CT 04/25/24 07:23 IMPRESSION: 1. Small right and moderate-sized partially loculated left pleural effusions with associated compressive atelectasis in both lungs. 2. Minimal pulmonary edema the lung bases. 2. Cardiomegaly with small to moderate-sized pericardial effusion. Thoracentesis Ultrasound 04/26/24 11:43 IMPRESSION: 1. Successful ultrasound-guided thoracentesis yielding 3.5 mL of clear straw- colored fluid. 2. Very small bilateral pleural effusions which appear decreased in size since the prior CT from 04/25/2024 Modified Barium Swallow 04/27/24 13:14 IMPRESSION: Laryngeal penetration with thin liquids and drinking with straw Renal Ultrasound 04/30/24 14:57 IMPRESSION: 1. Increased renal parenchymal echogenicity, consistent with nonspecific nephropathy. Chest X-Ray 05/01/24 13:57 IMPRESSION: 1. Opacities in the left mid and bilateral lower lung zones consistent with small left and likely very small right pleural effusions with associated atelectasis and/or pneumonia. Abdomen Ultrasound 05/01/24 16:31 IMPRESSION: Echogenic right kidney suggestive of medical renal disease. Further evaluation advised. Otherwise, normal Limited abdominal ultrasound. Labs Labs: Laboratory Tests 05/03/24 05:23 05/03/24 05:23 Calcium 8.9 Total Bilirubin 0.4 AST 41 ALT 70 H Alkaline Phosphatase 130 H Total Protein 7.0 Albumin 3.9 Microbiology 04/26/24 10:31 Pleural Fluid Anaerobic Culture - Final 04/26/24 10:31 Pleural Fluid Aerobic Culture - Final
[2024-05-03 11:48] LABS: Glucose Point of Care 204 mg/dl (65-105)
--- NOTE | 2024-05-03 11:58 | VASCRN ---
Order received for: PICC Line After review of the chart and the patient assessment, patient is not a candidate for the following reason(s): patient's upper extremities are extremely contracted. I was barely able to extend his right arm enough to assess for veins with no viable vessels being observed. I was unable to extend the patients left arm to even get the ultrasound probe in place to assess his vessels. It is not possible to maintain sterility and safely place a PICC line on this patient. Provider notified: David Mojica
--- NOTE | 2024-05-03 12:26 | P.PNIM_ITS ---
Progress Note: A&P Assessment and Plan (1) Loculated pleural effusion: Code(s): J90 - Pleural effusion, not elsewhere classified Status: Acute Assessment and Plan: CT Chest; IMPRESSION: 1. Small right and moderate-sized partially loculated left pleural effusions with associated compressive atelectasis in both lungs. 2. Minimal pulmonary edema the lung bases. 2. Cardiomegaly with small to moderate-sized pericardial effusion. - Pick Up Worker rabia. - s/p Thoracentesis; US Guided Thoracentesis; IMPRESSION: 1. Successful ultrasound-guided thoracentesis yielding 3.5 mL of clear straw- colored fluid. 2. Very small bilateral pleural effusions which appear decreased in size since the prior CT from 04/25/2024 - Urine Legionella pneumophilia Ag negative. - Cefepime discontinued and now on Augmentin. - Continue Azithromycin X5 days treatment. - Continue duoneb and Mucomyst nebs treatments. - Currently good O2 sats > 90 % on RA. - Pleural fluid anaerobic culture growing gram negative bacilli. - Pick Up Worker following and considering bronchoscopy. - Seen by ST for possible aspiration PNA; minced and moist diet with thickened liquids recommended. - Patient likely with chronic silent aspirations and considerations for PEG-Tube suggested per Pick Up Worker. _ Pulmonary to discuss case with family for possible PEG-Tube placement. - Continue to elevate HOB with oral intake. 05/01/24; He was scheduled for a bronchoscopy at 14:00 however on arrival his glucose was over 400, procedure cancelled (2) SOB (shortness of breath): Code(s): R06.02 - Shortness of breath Status: Acute Assessment and Plan: - Possibly related to above. - Mgt as # 1. - Currently good O2 sats > 90 % on RA. - Supplemental O2 PRN to maintain sats > 90 %. - Appreciate install and repair technician assistance. (3) Anemia, unspecified: Code(s): D64.9 - Anemia, unspecified Status: Acute Assessment and Plan: - Monitor Hgb closely, now 7.0. - Low iron sats noted on iron panel and IV iron given X1. - Transfuse PRN for Hgb < 7. - Check stool for FOB with BM. - No obvious signs of bleeding. - Appreciate nephro assistance. 1 unit RBCs transfused on 05/02 (4) Acute kidney injury superimposed on chronic kidney disease: Code(s): N17.9 - Acute kidney failure, unspecified; N18.9 - Chronic kidney disease, unspecified Status: Inactive Assessment and Plan: - Cr levels continue to worsen; 2.2>>2.9 on this admission. - Renal Ultrasound 04/30/24 14:57 IMPRESSION: 1. Increased renal parenchymal echogenicity, consistent with nonspecific nephropathy. - Nephro consulted. - Possibly hypertension and DM related, worsened by renal hypoperfusion secondary to anemia. - Further mgt per nephro. - Avoid nephrotoxins. - Meds dosing per renal function. - Monitor closely. (5) DM type 2 (diabetes mellitus, type 2): Code(s): E11.9 - Type 2 diabetes mellitus without complications Status: Acute Assessment and Plan: - Long-acting insulin discontinued with poor PO intake. - Continue blood glucose check AC & HS. - Currently blood-glucose well controlled. - Continue to adjust insulin as needed. Extremely hard to control, BS 35-500 in last 34 hours Long-acting insulin placed on hold (6) Dyslipidemia: Code(s): E78.5 - Hyperlipidemia, unspecified Status: Acute Assessment and Plan: - Continue statin. 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 - Assist with care. Patient not really interacting with staff, per nursing patient talks to family while visiting today (8) HTN (hypertension): Code(s): I10 - Essential (primary) hypertension Status: Acute Assessment and Plan: - Continue home meds; Amlodipine, Coreg and Hydralazine. - Adjust meds as needed for optimal control. (9) Protein-calorie malnutrition, severe: Code(s): E43 - Unspecified severe protein-calorie malnutrition Status: Acute Assessment and Plan: Patient with significant weight loss per family, Not eating most meals for past several days. Started PPN and GI consult for possible PEG placement. Time Spent With Patient Time with patient: Greater than 35 minutes Subjective Date/time seen: 05/03/24 12:26 Interval history: Patient not waking up for full evaluation. Nursing staff states patient not awake today during the day at all. Not eating today. Family saw patient last night and said he was his normal self last night after he slept all day prior to family visit per Nursing. LONG discussion with family regarding consent for PICC line and GI consult for PEG tube placement. Family gave consent for PICC for TPN but wasn't sure about PEG yet. Bhanu with IV Therapy looked and was unable to locate vessel for PICC placement. Decision made to start PPN instead. Review of Systems Review of Systems: ROS unobtainable: Yes unobtainable due to mental status Exam Narrative: General: Chronically ill appearing, on bedrest in no acute distress, diego. UE and LE contractures. HEENT: Atraumatic, PERRL, EOM, dry mucus membranes. NECK: Supple. Lungs: Clear bilaterally. Heart: RRR, no murmurs. Abdomen: Soft, non-tender, non-distended, positive bowel sounds X4 quadrants. Extremities: Contractures diego. UE and LE, 1+ edema [place]go. feet. Skin: Warm and dry. Neuro: Not waking but holding eyes shut when I check pupils and pulling away when looking for PICC site. [place]. UE and LE contractures. Psych: Unable to assess Objective Data Vital Signs Vital Signs: Vital Signs - 24 hr 05/02/24 13:13 05/02/24 14:46 05/02/24 14:46 Temperature Pulse Rate 73 79 Respiratory Rate 20 Blood Pressure Pulse Oximetry 97 Oxygen Delivery Room Air 05/02/24 15:01 05/02/24 15:15 05/02/24 15:30 Temperature 36.2 C L 35.8 C L Pulse Rate 84 66 61 Respiratory Rate 20 16 16 Blood Pressure 137/55 L 150/50 H Pulse Oximetry 100 100 Oxygen Delivery 05/02/24 15:39 05/02/24 16:30 05/02/24 17:30 Temperature 36.4 C L 36.4 C L 36.3 C L Pulse Rate 63 61 Respiratory Rate 16 16 Blood Pressure 151/58 H 132/55 L Pulse Oximetry 100 100 Oxygen Delivery 05/02/24 18:15 05/02/24 20:53 05/02/24 20:36 Temperature 36.4 C L Pulse Rate 65 70 Respiratory Rate 16 Blood Pressure 174/71 H Pulse Oximetry 100 100 Oxygen Delivery Room Air 05/02/24 20:36 05/02/24 20:46 05/02/24 21:48 Temperature 36.7 C Pulse Rate 73 72 69 Respiratory Rate 18 18 16 Blood Pressure 156/76 H Pulse Oximetry 100 Oxygen Delivery 05/02/24 20:00 05/03/24 02:21 05/03/24 02:34 Temperature Pulse Rate 79 78 Respiratory Rate 18 18 Blood Pressure Pulse Oximetry Oxygen Delivery Room Air 05/03/24 06:00 05/03/24 08:13 05/03/24 08:13 Temperature 36.6 C Pulse Rate 52 L 45 L Respiratory Rate 16 18 Blood Pressure 175/93 H Pulse Oximetry 100 98 Oxygen Delivery Room Air 05/03/24 08:24 Temperature Pulse Rate 57 L Respiratory Rate 20 Blood Pressure Pulse Oximetry Oxygen Delivery Intake/Output Intake/Output: Intake & Output 04/30/24 05/01/24 05/02/24 05/03/24 23:59 23:59 23:59 23:59 Intake Total 445 1260 3380 240 Output Total 3100 2100 900 1000 Balance -2655 -840 2480 -760 Meds/Results Medications: Active Medications Generic Name Dose Route Start Last Admin Trade Name Freq PRN Reason Stop Dose Admin Acetaminophen 650 mg 04/25/24 14:27 Acetaminophen 325 Mg Tablet PO Q6H PRN Pain Rated 1-3 Acetylcysteine 200 mg 04/25/24 20:00 05/03/24 08:08 Acetylcysteine 20% Inhal Soln 800 Mg/4 Ml Vial INHALATION 200 mg Q6HRT ELIDIA Administration Albuterol/Ipratropium 3 ml 04/25/24 14:27 Ipratropium 0.5 Mg/Albuterol Sulfate 2.5 Mg Ampul.Neb 3 Ml INHALATION Q6H PRN Shortness Of Breath Albuterol/Ipratropium 3 ml 04/25/24 20:00 05/03/24 08:08 Ipratropium 0.5 Mg/Albuterol Sulfate 2.5 Mg Ampul.Neb 3 Ml INHALATION 3 ml Q6HRT ELIDIA Administration Amlodipine Besylate 10 mg 04/26/24 09:00 05/02/24 12:57 Amlodipine Besylate 10 Mg Tablet PO 10 mg DAILY ELIDIA Administration Artificial Tears 1 drop 04/25/24 14:27 Artificial Tears Ophth Soln 15 Ml Bottle EACH EYE BID PRN Dry Eyes Aspirin 81 mg 04/26/24 09:00 05/02/24 12:56 Aspirin 81 Mg Enteric Tablet PO 81 mg QAM ELIDIA Administration Atorvastatin Calcium 40 mg 04/25/24 21:00 05/02/24 20:30 Atorvastatin 40 Mg Tablet PO 40 mg HS ELIDIA Administration Carvedilol 25 mg 04/25/24 21:00 05/02/24 20:53 Carvedilol 25 Mg Tablet PO 25 mg Q12HR ELIDIA Administration Dextrose 12.5 gm 04/25/24 14:28 05/02/24 08:08 Dextrose 50% 25 Gm/50 Ml Syringe IV PUSH 12.5 gm PRN PRN Administration Hypoglycemia Protocol Enoxaparin Sodium 30 mg 04/29/24 09:00 05/02/24 12:57 Enoxaparin 30 Mg/0.3 Ml Syringe SUB-Q 30 mg DAILY ELIDIA Administration Famotidine 20 mg 04/25/24 17:00 05/02/24 18:18 Famotidine 20 Mg Tablet PO 20 mg BID ELIDIA Administration Ferrous Sulfate 325 mg 04/26/24 09:00 05/02/24 12:57 Ferrous Sulfate [address] BY MOUTH 325 mg DAILY ELIDIA Administration Fluticasone Propionate 1 spray 04/26/24 09:00 05/02/24 12:57 Fluticasone Propionate 0.05% Na Spr 16 Gm Btl (*Bkc) NASAL 1 spray DAILY ELIDIA Administration Folic Acid 1 mg 04/26/24 09:00 05/02/24 12:57 Folic Acid 1 Mg Tablet PO 1 mg DAILY ELIDIA Administration Furosemide 40 mg 04/25/24 09:00 05/02/24 20:30 Furosemide Inj 40 Mg/4 Ml Vial IV PUSH 40 mg Q12HR ELIDIA Administration Glucagon 1 mg 04/25/24 14:28 Glucagon For Inj 1 Mg Vial IM PRN PRN Hypoglycemia Protocol Glucose 15 gm 04/25/24 14:28 Glucose Oral Gel 15 Gm Of Glucse In 37.5 Gm Tube PO PRN PRN Hypoglycemia Protocol Hydralazine HCl 10 mg 04/26/24 09:00 05/02/24 12:56 Hydralazine 10 Mg Tablet PO 10 mg DAILY ELIDIA Administration Dextrose 1,000 mls @ 100 mls/hr 04/25/24 14:28 Dextrose 5% 1,000 Ml IVPB PRN PRN Hypoglycemia Protocol Ceftriaxone Sodium 1 gm in 50 mls @ 100 mls/hr 05/01/24 21:35 05/02/24 21:02 Rocephin 1 Gm/Ns 50 Ml IVPB Infused HS ELIDIA Infusion Azithromycin 500 mg in 250 mls @ 250 mls/hr 05/01/24 21:35 05/02/24 22:41 Zithromax IVPB Infused HS ELIDIA Infusion Insulin Aspart 3 - 6 units 05/02/24 08:00 05/03/24 07:39 Insulin Aspart (*Bkc) 100 Units/Ml SUB-Q Not Given [facility] Protocol Insulin Glargine 5 units 05/02/24 21:00 Insulin Glargine (*Bkc) 100 Units/Ml SUB-Q HS ELIDIA Loratadine 10 mg 04/26/24 09:00 05/02/24 12:57 Loratadine 10 Mg Tablet PO 10 mg QAM ELIDIA Administration Mirtazapine 7.5 mg 04/25/24 21:00 05/02/24 20:30 Mirtazapine 7.5 Mg Tablet PO 7.5 mg HS ELIDIA Administration Multivitamins Therapeutic 1 tablet 04/26/24 09:00 05/02/24 12:57 Multivitamins Therapeutic Tab (*Bkc) PO 1 tablet DAILY ELIDIA Administration Senna 8.6 mg 05/02/24 21:00 05/02/24 20:30 Sennosides 8.6 Mg Tablet PO 8.6 mg BEDTIME ELIDIA Administration Radiology Results: ITS Impressions Chest CT 04/25/24 07:23 IMPRESSION: 1. Small right and moderate-sized partially loculated left pleural effusions with associated compressive atelectasis in both lungs. 2. Minimal pulmonary edema the lung bases. 2. Cardiomegaly with small to moderate-sized pericardial effusion. Thoracentesis Ultrasound 04/26/24 11:43 IMPRESSION: 1. Successful ultrasound-guided thoracentesis yielding 3.5 mL of clear straw- colored fluid. 2. Very small bilateral pleural effusions which appear decreased in size since the prior CT from 04/25/2024 Modified Barium Swallow 04/27/24 13:14 IMPRESSION: Laryngeal penetration with thin liquids and drinking with straw Renal Ultrasound 04/30/24 14:57 IMPRESSION: 1. Increased renal parenchymal echogenicity, consistent with nonspecific nephropathy. Chest X-Ray 05/01/24 13:57 IMPRESSION: 1. Opacities in the left mid and bilateral lower lung zones consistent with small left and likely very small right pleural effusions with associated atelectasis and/or pneumonia. Abdomen Ultrasound 05/01/24 16:31 IMPRESSION: Echogenic right kidney suggestive of medical renal disease. Further evaluation advised. Otherwise, normal Limited abdominal ultrasound. Labs Labs: Laboratory Results - last 24 hr 05/02/24 05/02/24 05/02/24 10:24 17:04 19:35 WBC RBC Hgb Hct MCV MCH MCHC RDW Plt Count MPV Sodium Potassium Chloride Carbon Dioxide Anion Gap BUN Creatinine Estim Creat Clear Calc Estimated GFR Glucose POC Capillary Glucose 354 H 363 H Calcium Total Bilirubin AST ALT Alkaline Phosphatase Total Protein Albumin Blood Type O Positive Antibody Screen Negative Crossmatch See Detail 05/02/24 05/03/24 05/03/24 23:51 05:23 06:33 WBC 4.7 RBC 3.17 L Hgb 8.9 L Hct 27.7 L MCV 87.4 MCH 28.1 MCHC 32.1 RDW 15.4 H Plt Count 202 MPV 9.6 Sodium 132 L Potassium 3.7 Chloride 96 L Carbon Dioxide 30 Anion Gap 6 BUN 36 H Creatinine 2.80 H Estim Creat Clear Calc 22 Estimated GFR 28 L Glucose 62 L POC Capillary Glucose 167 H 114 H Calcium 8.9 Total Bilirubin 0.4 AST 41 ALT 70 H Alkaline Phosphatase 130 H Total Protein 7.0 Albumin 3.9 Blood Type Antibody Screen Crossmatch 05/03/24 05/03/24 07:39 11:43 WBC RBC Hgb Hct MCV MCH MCHC RDW Plt Count MPV Sodium Potassium Chloride Carbon Dioxide Anion Gap BUN Creatinine Estim Creat Clear Calc Estimated GFR Glucose POC Capillary Glucose 116 H 204 H Calcium Total Bilirubin AST ALT Alkaline Phosphatase Total Protein Albumin Blood Type Antibody Screen Crossmatch Pulse Oximetry SpO2 results: 97% on room air Attestation: I personally reviewed and interpreted this pulse oximetry as follows: Interpretation: No need for supplemental oxygenation at this time Quality VTE Prophylaxis VTE prophylaxis: mechanical ordered Offered comfort measures/hospice care as potential option en lieu of IV nutrition and PEG placement next week. Family did not want to move to [facility] at this time. Consent for PICC for TPN obtained but then due to contractures, no suitable vein found for PICC placement. Hospitalist [facility] Advance Care Plan I have confirmed that the patient's Advanced Care Plan is present, code status is documented, or surrogate decision maker is listed in patient medical record.: Yes Medication Reconciliation I have utilized all available resources to obtain, update and review the patients current medications (includes all prescriptions, OTC, herbals, cannabis, and nutritional supplements).: Yes
[2024-05-03 12:54] LABS: Magnesium 1.5 mg/dL (1.6-2.3)
[2024-05-03 12:59] LABS: Partial Thromboplastin Time 48.5 Seconds (22.3-36.8)
[2024-05-03 13:00] LABS: Transferrin 186 mg/dL (206-381)
--- NOTE | 2024-05-03 13:03 | PCDIET ---
Nutrition Recommendations: Clinimix E at 4.25/5 at 80 ml/hr with 20% Lipid Emulsion providing 1153 kcals/82 gm protein. PPN meeting 68% kcal needs and 100% protein needs. GI consult for possible PEG -if NGT starts recommend Glucerna 1.2 at 65 ml/hr with flush 30 ml q 4 hours 2/2 to Na 132.
[2024-05-03] MEDS: INSULIN ASPART (*BKC) 100 UNITS/ML SUB-Q ×2 (13:12→18:34)
[2024-05-03] MEDS: FUROSEMIDE INJ 40 MG/4 ML VIAL IV PUSH ×2 (13:12→20:13)
[2024-05-03] MEDS: ENOXAPARIN 30 MG/0.3 ML SYRINGE SUB-Q (13:12)
[2024-05-03] MEDS: FAT EMULSIONS IV 20% 250 ML 20.83 ML IVPB (13:28)
[2024-05-03] MEDS: AMINO ACIDS 4.25%/D5W/LYTES/CA 2,000 ML 80 ML IV CONT (13:28)
[2024-05-03] MEDS: MAGNESIUM SULF 2 GM/WATER 50ML 2 GM/50 ML BAG IVPB (13:46)
--- NOTE | 2024-05-03 16:25 | P.CONGI_ITS ---
Assessment and Plan Assessment and plan (1) Protein-calorie malnutrition, severe: Code(s): E43 - Unspecified severe protein-calorie malnutrition Status: Acute Assessment and Plan: staff report that has not been hardly eating and was started on TPN may need PEG placement for nutrition support (2) Anorexia: Code(s): R63.0 - Anorexia Status: Acute (3) Pleural effusion: Code(s): J90 - Pleural effusion, not elsewhere classified Status: Acute (4) Anemia, unspecified: Code(s): D64.9 - Anemia, unspecified Status: Acute Assessment and Plan: no overt gib we can assess egd when placing peg tube (5) Dementia: Code(s): F03.90 - Unspecified dementia, unspecified severity, without behavioral disturbance, psychotic disturbance, mood disturbance, and anxiety Status: Acute Assessment and Plan: requiring total care in hospital (6) Chronic kidney disease, unspecified: Code(s): N18.9 - Chronic kidney disease, unspecified Status: Acute GI Consult Note Consult date/time: 05/03/24 16:25 Reason for consult: malnutrition, anorexia, dementia HPI: Logan Orozco is a 68 year old male who was admitted several days ago with failure to thrive, pleural effusions, also diagnosed with acute on CKD, anemia with hgb 7-8 but no overt gib. He has dementia and unable to get history from patient. Primary team started him on TPN since he has not been eating and they discussed with family possibility of PEG placement for nutrition. 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 Additional gender identity comments: Never Spiritual care concerns: No Meds Home Medications and Allergies Home Medications Medication Instructions Recorded Confirmed Type acetaminophen 650 mg tablet 650 mg PO Q6H PRN Pain, Mild 04/25/24 04/25/24 History amlodipine 10 mg tablet 10 mg PO DAILY 04/25/24 04/25/24 History artificial tears solution eye drops 1 drp ophthalmic (eye) BID PRN Dry 04/25/24 04/25/24 History Eyes aspirin 81 mg capsule 81 mg PO DAILY 04/25/24 04/25/24 History atorvastatin 40 mg tablet 40 mg PO HS 04/25/24 04/25/24 History carvedilol 25 mg tablet 25 mg PO BID 04/25/24 04/25/24 History cetirizine 10 mg tablet (Zyrtec) 10 mg PO DAILY 04/25/24 04/25/24 History cyanocobalamin (vitamin B-12) 100 100 mcg PO DAILY 04/25/24 04/25/24 History mcg tablet famotidine 20 mg tablet 20 mg PO BID 04/25/24 04/25/24 History ferrous sulfate 324 mg (65 mg 324 mg PO DAILY 04/25/24 04/25/24 History iron) tablet,delayed release fluticasone propionate 50 1 spray intranasal DAILY 04/25/24 04/25/24 History mcg/actuation nasal spray,suspension folic acid 1 mg tablet 1 mg PO DAILY 04/25/24 04/25/24 History hydralazine 10 mg tablet 10 mg PO DAILY 04/25/24 04/25/24 History insulin glargine 100 unit/mL 20 unit subcut HS 04/25/24 04/25/24 History subcutaneous solution (Lantus U-100 Insulin) insulin lispro 100 unit/mL 1 sliding scale dose subcut 04/25/24 04/25/24 History subcutaneous pen USEASDIRECTD ipratropium 0.5 mg-albuterol 3 mg 3 ml inhalation Q6H PRN SOB 04/25/24 04/25/24 History (2.5 mg base)/3 mL nebulization soln mirtazapine 15 mg tablet 7.5 mg PO HS 04/25/24 04/25/24 History multivitamin 1 tablet PO DAILY 04/25/24 04/25/24 History quetiapine 25 mg tablet 25 mg PO HS 04/25/24 04/25/24 History sennosides 8.6 mg tablet (senna) 8.6 mg PO BID 04/25/24 04/25/24 History Allergies Allergy/AdvReac Type Severity Reaction Status Date / Time No Known Allergies Allergy Verified 10/15/23 11:22 Vital Signs Vital Signs - 24 hr 05/02/24 16:30 05/02/24 17:30 05/02/24 18:15 Temperature 97.5 F L 97.4 F L 97.5 F L Pulse Rate 63 61 65 Respiratory Rate 16 16 16 Blood Pressure 151/58 H 132/55 L 174/71 H Pulse Oximetry 100 100 100 Oxygen Delivery 05/02/24 20:53 05/02/24 20:36 05/02/24 20:36 Temperature Pulse Rate 70 73 Respiratory Rate 18 Blood Pressure Pulse Oximetry 100 Oxygen Delivery Room Air 05/02/24 20:46 05/02/24 21:48 05/02/24 20:00 Temperature 98.1 F Pulse Rate 72 69 Respiratory Rate 18 16 Blood Pressure 156/76 H Pulse Oximetry 100 Oxygen Delivery Room Air 05/03/24 02:21 05/03/24 02:34 05/03/24 06:00 Temperature 97.9 F Pulse Rate 79 78 52 L Respiratory Rate 18 18 16 Blood Pressure 175/93 H Pulse Oximetry 100 Oxygen Delivery 05/03/24 08:13 05/03/24 08:13 05/03/24 08:24 Temperature Pulse Rate 45 L 57 L Respiratory Rate 18 20 Blood Pressure Pulse Oximetry 98 Oxygen Delivery Room Air 05/03/24 14:23 05/03/24 14:23 05/03/24 14:39 Temperature Pulse Rate 60 62 Respiratory Rate 20 20 Blood Pressure Pulse Oximetry 97 Oxygen Delivery Room Air 05/03/24 14:00 Temperature 97.3 F L Pulse Rate 84 Respiratory Rate 15 Blood Pressure 176/66 H Pulse Oximetry 90 Oxygen Delivery Exam Narrative: General: Chronically ill appearing, on bedrest in no acute distress, diego. UE and LE contractures. HEENT: Atraumatic, PERRL, EOM, dry mucus membranes. NECK: Supple. Lungs: Clear bilaterally. Heart: RRR, no murmurs. Abdomen: Soft, non-tender, non-distended, positive bowel sounds X4 quadrants. Extremities: Contractures diego. UE and LE, 1+ edema [place]go. feet. Skin: Warm and dry. Neuro: he is not talking to me. [place]. UE and LE contractures. Psych: Unable to assess Results Labs 05/03/24 05:23 05/03/24 05:23 Labs: Short CBC 05/03/24 Range/Units 05:23 WBC 4.7 (4.5-10.0) K/mm3 Hgb 8.9 L (14.0-18.0) g/dL Hct 27.7 L (42.0-52.0) % Plt Count 202 (150-375) k/mm3 BMP 05/03/24 05:23 Sodium 132 L Potassium 3.7 Chloride 96 L Carbon Dioxide 30 BUN 36 H Creatinine 2.80 H Glucose 62 L Calcium 8.9 Liver Function 05/03/24 Range/Units 05:23 Total Bilirubin 0.4 (0.2-1.3) mg/dL AST 41 (17-59) U/L ALT 70 H (6-50) U/L Alkaline Phosphatase 130 H (38-126) U/L Albumin 3.9 (3.5-5.1) g/dL
[2024-05-03 18:20] LABS: Glucose Point of Care 283 mg/dl (65-105)
[2024-05-03] MEDS: ATORVASTATIN 40 MG TABLET PO (20:13)
[2024-05-03] MEDS: MIRTAZAPINE 7.5 MG TABLET PO (20:13)
[2024-05-03] MEDS: SENNOSIDES 8.6 MG TABLET PO (20:13)
[2024-05-03] MEDS: carvediloL 25 MG TABLET PO (20:13)
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
[2024-05-03] MEDS: AZITHROMYCIN 500 MG/NS 250 ML 500 MG/250 ML BAG 250 MG IVPB (21:16)
[2024-05-03 23:46] LABS: Glucose Point of Care 252 mg/dl (65-105)
[2024-05-04] VITALS (13 sets, daily range): BP systolic 136–153; BP diastolic 54–65; PULSE 79–95; RESP 18–20; TEMP 36.9–38.4; O2SAT 95–100
[2024-05-04] MEDS: INSULIN ASPART (*BKC) 100 UNITS/ML SUB-Q ×4 (00:05→19:16)
[2024-05-04 06:13] LABS: Hematocrit 28.7 % (42.0-52.0); Hemoglobin 9.3 g/dL (14.0-18.0); Mean Corpuscular HGB Conc 32.4 g/dl (32-36); Mean Corpuscular Hemoglobin 28.4 pg (26-34); Mean Corpuscular Volume 87.5 fl (80-100); Mean Platelet Volume 10.1 fl (7.4-10.4); Platelet Count Result 208 k/mm3 (150-375); Red Blood Count 3.28 M/mm3 (4.6-6.20); Red Cell Distribution Width 15.4 % (11.5-14.5); White Blood Count 6.5 K/mm3 (4.5-10.0)
[2024-05-04 06:30] LABS: Alanine Aminotransferase 71 U/L (6-50); Albumin Level 3.7 g/dL (3.5-5.1); Alkaline Phosphatase 124 U/L (38-126); Anion Gap 6 mmol/L (4-12); Aspartate Amino Transferase 65 U/L (17-59); Bilirubin,Total 0.4 mg/dL (0.2-1.3); Blood Urea Nitrogen 49 mg/dL (9-20); Calcium 8.9 mg/dL (8.4-10.2); Carbon Dioxide 29 mmol/L (22-30); Chloride 96 mmol/L (98-107); Estimated CRCL calculation 22 ml/min; Estimated Glomerular Filt Rate 28; Glucose 216 mg/dL (65-110); Phosphorus 5.5 mg/dL (2.5-4.5); Potassium 4.3 mmol/L (3.4-5.0); Sodium 131 mmol/L (137-145)
[2024-05-04 07:16] LABS: Glucose Point of Care 251 mg/dl (65-105)
[2024-05-04] MEDS: IPRATROPIUM 0.5 MG/ALBUTEROL SULFATE 2.5 MG AMPUL.NEB 3 ML INHALATION ×2 (07:46→13:57)
[2024-05-04] MEDS: ACETYLCYSTEINE 20% INHAL SOLN 800 MG/4 ML VIAL 200 MG INHALATION ×2 (07:46→13:57)
--- NOTE | 2024-05-04 10:00 | PC.NURSE ---
Spoke with Riana, pt's sister, on the phone this morning. Raina wanted an update on the pt's condition. Told her that he was the same as yesterday - not opening his eyes or responding much, just groaning, and refusing to eat anything. Told her that he was still receiving nutrition through his IV and that his blood sugars have been more stable since starting that yesterday afternoon. Riana stated she would be up today to see the pt, and we would talk further about the plan of care.
[2024-05-04] MEDS: FUROSEMIDE INJ 40 MG/4 ML VIAL IV PUSH (10:02)
[2024-05-04] MEDS: FAT EMULSIONS IV 20% 250 ML 20.8 ML IVPB (10:03)
--- NOTE | 2024-05-04 10:37 | PM.PNNEP ---
Progress Note: A&P Assessment and Plan (1) JOSHUA (acute kidney injury): Code(s): N17.9 - Acute kidney failure, unspecified Status: Acute Assessment and Plan: mild improvement relatively close to baseline on admission (2.0 - 2.2mg/dl) however, slow worsening/decline note since 04/28 (2.0 -> 2.4 -> 2.9 -> 3.0mg/dl) etiology not entirely clear but several possibilities: prerenal factors (diminished oral intake) anemia infection (?) IV diuretic therapy element of disease progression (?) other (?) evaluation to date noted: urine electrolyte (by FeUrea) prerenal urine eosinophils negative CPK normal renal ultrasound with renal parenchymal echogenicity but no obstruction nephrotic range proteinuria noted follow trend of repeat labs and UOP (2) Chronic kidney disease, stage 3: Code(s): N18.30 - Chronic kidney disease, stage 3 unspecified Status: Chronic Assessment and Plan: baseline creatinine runs ~ 1.6 - 1.9mg/dl since 2021 this causes him to fluctuate between CKD stage 3A and stage 3B presumably secondary to diabetes, hypertension, and vascular disease (3) Loculated pleural effusion: Code(s): J90 - Pleural effusion, not elsewhere classified Status: Acute Assessment and Plan: as note by recent CT of chest Pulmonary following recent thoracentesis with only minimal pleural fluid removal pleural fluid analysis and cultures noted respiratory status relatively stable on antibiotics (4) HTN (hypertension): Code(s): I10 - Essential (primary) hypertension Status: Chronic Assessment and Plan: reasonable control at this time continue current mediations follow trend of hemodynamics (5) Anemia, unspecified: Code(s): D64.9 - Anemia, unspecified Status: Acute Assessment and Plan: as noted on admission evidence of iron deficiency by anemia studies dose with IV iron x 1 PRBC transfusion per protocol may be partly related to JOSHUA and CKD follow trend of H/H (6) 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 Subjective Date/time seen: 05/04/24 10:37 Interval history: Follow-up for acute kidney injury on chronic kidney disease. Started on PPN for nutritional support as PICC line placement unable to be done given poor veins; Pulmonary recommended transfer to another facility that more oprions to explore for his pleural effusions (VATS, Cardiothoracic surgery...etc); renal function/creatinine a bit better with holding diuretics. Exam Narrative: General: male who appears older than stated age in NAD Heart: normal S1 and S2; no rub Lungs: clear anteriorly; decreased at bases Abdomen: soft, nontender, nondistended, positive bowel sounds Extremities: no cyanosis or clubbing; trace edema; UE and LE contractures noted Skin: no nodules Objective Data Vital Signs Vital Signs: Vital Signs Temp Pulse Resp BP Pulse Ox O2 Del Method FiO2 05/04/24 10:32 98.1 F 05/04/24 08:02 84 18 05/04/24 07:46 85 18 05/04/24 07:46 97 Room Air 21 05/04/24 08:19 98.8 F 05/04/24 05:45 98.5 F 86 18 136/54 L 95 05/03/24 23:00 97.9 F 05/03/24 22:20 97 F L 05/03/24 22:05 72 20 05/03/24 22:03 98 Room Air 05/03/24 21:56 72 20 05/03/24 20:00 100 05/03/24 21:00 95.2 F L 05/03/24 20:56 95.5 F L 72 18 160/77 H 100 05/03/24 20:13 72 Intake/Output Intake/Output: Intake & Output 05/01/24 05/02/24 05/03/24 05/04/24 23:59 23:59 23:59 23:59 Intake Total 1260 3380 540 325 Output Total 2100 900 3500 1250 Balance -840 7330 -4934 -733 Meds/Results Medications: Active Medications Generic Name Dose Route Start Last Admin Trade Name Freq PRN Reason Stop Dose Admin Acetaminophen 650 mg 04/25/24 14:27 Acetaminophen 325 Mg Tablet PO Q6H PRN Pain Rated 1-3 Acetaminophen 650 mg 05/04/24 12:47 05/04/24 13:48 Acetaminophen 650 Mg Suppository RECTAL 650 mg Q6H PRN Administration Mild Pain (1-3) or Fever Acetylcysteine 200 mg 04/25/24 20:00 05/04/24 13:57 Acetylcysteine 20% Inhal Soln 800 Mg/4 Ml Vial INHALATION 200 mg Q6HRT ELIDIA Administration Albuterol/Ipratropium 3 ml 04/25/24 14:27 Ipratropium 0.5 Mg/Albuterol Sulfate 2.5 Mg Ampul.Neb 3 Ml INHALATION Q6H PRN Shortness Of Breath Albuterol/Ipratropium 3 ml 04/25/24 20:00 05/04/24 13:57 Ipratropium 0.5 Mg/Albuterol Sulfate 2.5 Mg Ampul.Neb 3 Ml INHALATION 3 ml Q6HRT ELIDIA Administration Amlodipine Besylate 10 mg 04/26/24 09:00 05/04/24 09:59 Amlodipine Besylate 10 Mg Tablet PO Not Given DAILY [facility] Artificial Tears 1 drop 04/25/24 14:27 Artificial Tears Ophth Soln 15 Ml Bottle EACH EYE BID PRN Dry Eyes Aspirin 81 mg 04/26/24 09:00 05/04/24 09:59 Aspirin 81 Mg Enteric Tablet PO Not Given QAM [facility] Atorvastatin Calcium 40 mg 04/25/24 21:00 05/03/24 20:13 Atorvastatin 40 Mg Tablet PO 40 mg HS ELIDIA Administration Carvedilol 25 mg 04/25/24 21:00 05/04/24 09:59 Carvedilol 25 Mg Tablet PO Not Given Q12HR [facility] Dextrose 12.5 gm 04/25/24 14:28 05/02/24 08:08 Dextrose 50% 25 Gm/50 Ml Syringe IV PUSH 12.5 gm PRN PRN Administration Hypoglycemia Protocol Enoxaparin Sodium 30 mg 04/29/24 09:00 05/04/24 13:35 Enoxaparin 30 Mg/0.3 Ml Syringe SUB-Q Not Given DAILY [facility] Famotidine 20 mg 04/25/24 17:00 05/04/24 10:00 Famotidine 20 Mg Tablet PO Not Given BID [facility] Ferrous Sulfate 325 mg 04/26/24 09:00 05/04/24 10:00 Ferrous Sulfate [address] BY MOUTH Not Given DAILY [facility] Fluticasone Propionate 1 spray 04/26/24 09:00 05/04/24 10:00 Fluticasone Propionate 0.05% Na Spr 16 Gm Btl (*Bkc) NASAL Not Given DAILY ELIDIA Folic Acid 1 mg 04/26/24 09:00 05/04/24 10:00 Folic Acid 1 Mg Tablet PO Not Given DAILY [facility]IA Furosemide 40 mg 04/25/24 09:00 05/04/24 10:02 Furosemide Inj 40 Mg/4 Ml Vial IV PUSH 40 mg Q12HR ELIDIA Administration Glucagon 1 mg 04/25/24 14:28 Glucagon For Inj 1 Mg Vial IM PRN PRN Hypoglycemia Protocol Glucose 15 gm 04/25/24 14:28 Glucose Oral Gel 15 Gm Of Glucse In 37.5 Gm Tube PO PRN PRN Hypoglycemia Protocol Hydralazine HCl 10 mg 04/26/24 09:00 05/04/24 10:00 Hydralazine 10 Mg Tablet PO Not Given DAILY ELIDIA Hydralazine HCl 10 mg 05/03/24 13:36 Hydralazine Hcl 20 Mg/Ml Vial IV PUSH Q4H PRN Blood Pressure - High Dextrose 1,000 mls @ 100 mls/hr 04/25/24 14:28 Dextrose 5% 1,000 Ml IVPB PRN PRN Hypoglycemia Protocol Ceftriaxone Sodium 1 gm in 50 mls @ 100 mls/hr 05/01/24 21:35 05/03/24 21:45 Rocephin 1 Gm/Ns 50 Ml IVPB Infused HS ELIDIA Infusion Azithromycin 500 mg in 250 mls @ 250 mls/hr 05/01/24 21:35 05/03/24 22:16 Zithromax IVPB Infused HS ELIDIA Infusion Dextrose 1,000 mls @ 50 mls/hr 05/03/24 12:27 Dextrose 10% IV CONT .Q20H PRN if PN is interrupted Amino Acids/Electrolytes/Dextrose 2,000 mls @ 80 mls/hr 05/03/24 12:30 05/03/24 13:28 Clinimix E 4.25%/5% Solution IV CONT 80 mls/hr .Q24H ELIDIA Administration Protocol Fat Emulsion Intravenous 250 mls @ 20.833 mls/hr 05/03/24 12:30 05/04/24 10:03 Lipids 20% IVPB 20.8 mls/hr QAM ELIDIA Administration Metronidazole 500 mg in 100 mls @ 100 mls/hr 05/04/24 15:30 Flagyl 500 Mg/Iso Soln 100 Ml IVPB Q8HR ELIDIA Insulin Aspart 3 - 6 units 05/03/24 18:10 05/04/24 13:43 Insulin Aspart (*Bkc) 100 Units/Ml SUB-Q 3 units Q6HR ELIDIA Administration Protocol Insulin Glargine 15 units 05/04/24 21:00 Insulin Glargine (*Bkc) 100 Units/Ml SUB-Q HS ELIDIA Loratadine 10 mg 04/26/24 09:00 05/04/24 10:00 Loratadine 10 Mg Tablet PO Not Given QAM [facility]IA Mirtazapine 7.5 mg 04/25/24 21:00 05/03/24 20:13 Mirtazapine 7.5 Mg Tablet PO 7.5 mg HS ELIDIA Administration Multivitamins Therapeutic 1 tablet 04/26/24 09:00 05/04/24 10:00 Multivitamins Therapeutic Tab (*Bkc) PO Not Given DAILY ELIDIA Senna 8.6 mg 05/02/24 21:00 05/03/24 20:13 Sennosides 8.6 Mg Tablet PO 8.6 mg BEDTIME ELIDIA Administration Radiology Results: ITS Impressions Chest CT 04/25/24 07:23 IMPRESSION: 1. Small right and moderate-sized partially loculated left pleural effusions with associated compressive atelectasis in both lungs. 2. Minimal pulmonary edema the lung bases. 2. Cardiomegaly with small to moderate-sized pericardial effusion. Thoracentesis Ultrasound 04/26/24 11:43 IMPRESSION: 1. Successful ultrasound-guided thoracentesis yielding 3.5 mL of clear straw-colored fluid. 2. Very small bilateral pleural effusions which appear decreased in size since the prior CT from 04/25/2024 Modified Barium Swallow 04/27/24 13:14 IMPRESSION: Laryngeal penetration with thin liquids and drinking with straw Renal Ultrasound 04/30/24 14:57 IMPRESSION: 1. Increased renal parenchymal echogenicity, consistent with nonspecific nephropathy. Chest X-Ray 05/01/24 13:57 IMPRESSION: 1. Opacities in the left mid and bilateral lower lung zones consistent with small left and likely very small right pleural effusions with associated atelectasis and/or pneumonia. Abdomen Ultrasound 05/01/24 16:31 IMPRESSION: Echogenic right kidney suggestive of medical renal disease. Further evaluation advised. Otherwise, normal Limited abdominal ultrasound. Labs Labs: Laboratory Tests 05/04/24 05:47 05/04/24 05:47 Calcium 8.9 Phosphorus 5.5 H Total Bilirubin 0.4 AST 65 H ALT 71 H Alkaline Phosphatase 124 Total Protein 7.0 Albumin 3.7
[2024-05-04 11:27] LABS: Sodium Urine Random 85 meq/L
[2024-05-04 12:07] LABS: Triglycerides 244 mg/dL (<150)
[2024-05-04 12:45] LABS: Glucose Point of Care 215 mg/dl (65-105)
--- NOTE | 2024-05-04 13:25 | WPDGIPROGNO ---
Progress Note: A&P Assessment and Plan (1) Protein-calorie malnutrition, severe: Code(s): E43 - Unspecified severe protein-calorie malnutrition Status: Acute Assessment and Plan: anorexia and now requiring TPN as nutrition we need to make sure that family will be ok to consider PEG placement (2) Dementia: Code(s): F03.90 - Unspecified dementia, unspecified severity, without behavioral disturbance, psychotic disturbance, mood disturbance, and anxiety Status: Acute (3) Anorexia: Code(s): R63.0 - Anorexia Status: Acute (4) Pulmonary infiltrate: Code(s): R91.8 - Other nonspecific abnormal finding of lung field Status: Acute (5) CHF (congestive heart failure): Code(s): I50.9 - Heart failure, unspecified Status: Acute Subjective Date/time seen: 05/04/24 13:25 Interval history: noted fever yesterday still he is not interacting or eating, on TPN Review of Systems Review of Systems: All systems reviewed & are unremarkable except as noted in HPI and below Exam Narrative: General: Chronically ill appearing, on bedrest in no acute distress, roger. UE and LE contractures. HEENT: Atraumatic, PERRL, EOM, dry mucus membranes. NECK: Supple. Lungs: Clear bilaterally. Heart: RRR, no murmurs. Abdomen: Soft, non-tender, non-distended, positive bowel sounds X4 quadrants. Extremities: Contractures roger. UE and LE, 1+ edema roger. feet. Skin: Warm and dry. Neuro: he is not talking to me. Roger. UE and LE contractures. Psych: Unable to assess Objective Data Vital Signs Vital Signs: Vital Signs - 24 hr 05/03/24 14:23 05/03/24 14:23 05/03/24 14:39 Temperature Pulse Rate 60 62 Respiratory Rate 20 20 Blood Pressure Pulse Oximetry 97 Oxygen Delivery Room Air Fraction of Inspired Oxygen 05/03/24 14:00 05/03/24 20:13 05/03/24 20:56 Temperature 97.3 F L 95.5 F L Pulse Rate 84 72 72 Respiratory Rate 15 18 Blood Pressure 176/66 H 160/77 H Pulse Oximetry 90 100 Oxygen Delivery Fraction of Inspired Oxygen 05/03/24 21:00 05/03/24 20:00 05/03/24 21:56 Temperature 95.2 F L Pulse Rate 72 Respiratory Rate 20 Blood Pressure Pulse Oximetry 100 Oxygen Delivery Fraction of Inspired Oxygen 05/03/24 22:03 05/03/24 22:05 05/03/24 22:20 Temperature 97 F L Pulse Rate 72 Respiratory Rate 20 Blood Pressure Pulse Oximetry 98 Oxygen Delivery Room Air Fraction of Inspired Oxygen 05/03/24 23:00 05/04/24 05:45 05/04/24 08:19 Temperature 97.9 F 98.5 F 98.8 F Pulse Rate 86 Respiratory Rate 18 Blood Pressure 136/54 L Pulse Oximetry 95 Oxygen Delivery Fraction of Inspired Oxygen 05/04/24 07:46 05/04/24 07:46 05/04/24 08:02 Temperature Pulse Rate 85 84 Respiratory Rate 18 18 Blood Pressure Pulse Oximetry 97 Oxygen Delivery Room Air Fraction of Inspired Oxygen 21 05/04/24 12:42 Temperature 101.1 F H Pulse Rate Respiratory Rate Blood Pressure Pulse Oximetry Oxygen Delivery Fraction of Inspired Oxygen Intake/Output Intake/Output: Intake & Output 05/01/24 05/02/24 05/03/24 05/04/24 23:59 23:59 23:59 23:59 Intake Total 1260 3380 540 325 Output Total 2100 900 3500 1250 Balance -840 8044 -4344 -709 Meds/Results Medications: Active Medications Generic Name Dose Route Start Last Admin Trade Name Freq PRN Reason Stop Dose Admin Acetaminophen 650 mg 04/25/24 14:27 Acetaminophen 325 Mg Tablet PO Q6H PRN Pain Rated 1-3 Acetaminophen 650 mg 05/04/24 12:47 Acetaminophen 650 Mg Suppository RECTAL Q6H PRN Mild Pain (1-3) or Fever Acetylcysteine 200 mg 04/25/24 20:00 05/04/24 07:46 Acetylcysteine 20% Inhal Soln 800 Mg/4 Ml Vial INHALATION 200 mg Q6HRT ELIDIA Administration Albuterol/Ipratropium 3 ml 04/25/24 14:27 Ipratropium 0.5 Mg/Albuterol Sulfate 2.5 Mg Ampul.Neb 3 Ml INHALATION Q6H PRN Shortness Of Breath Albuterol/Ipratropium 3 ml 04/25/24 20:00 05/04/24 07:46 Ipratropium 0.5 Mg/Albuterol Sulfate 2.5 Mg Ampul.Neb 3 Ml INHALATION 3 ml Q6HRT ELIDIA Administration Amlodipine Besylate 10 mg 04/26/24 09:00 05/04/24 09:59 Amlodipine Besylate 10 Mg Tablet PO Not Given DAILY [facility] Artificial Tears 1 drop 04/25/24 14:27 Artificial Tears Ophth Soln 15 Ml Bottle EACH EYE BID PRN Dry Eyes Aspirin 81 mg 04/26/24 09:00 05/04/24 09:59 Aspirin 81 Mg Enteric Tablet PO Not Given QAM [facility] Atorvastatin Calcium 40 mg 04/25/24 21:00 05/03/24 20:13 Atorvastatin 40 Mg Tablet PO 40 mg HS ELIDIA Administration Carvedilol 25 mg 04/25/24 21:00 05/04/24 09:59 Carvedilol 25 Mg Tablet PO Not Given Q12HR [facility]IA Dextrose 12.5 gm 04/25/24 14:28 05/02/24 08:08 Dextrose 50% 25 Gm/50 Ml Syringe IV PUSH 12.5 gm PRN PRN Administration Hypoglycemia Protocol Enoxaparin Sodium 30 mg 04/29/24 09:00 05/03/24 13:12 Enoxaparin 30 Mg/0.3 Ml Syringe SUB-Q 30 mg DAILY [facility] Administration Famotidine 20 mg 04/25/24 17:00 05/04/24 10:00 Famotidine 20 Mg Tablet PO Not Given BID ELIDIA Ferrous Sulfate 325 mg 04/26/24 09:00 05/04/24 10:00 Ferrous Sulfate [address] BY MOUTH Not Given DAILY [facility] Fluticasone Propionate 1 spray 04/26/24 09:00 05/04/24 10:00 Fluticasone Propionate 0.05% Na Spr 16 Gm Btl (*Bkc) NASAL Not Given DAILY [facility] Folic Acid 1 mg 04/26/24 09:00 05/04/24 10:00 Folic Acid 1 Mg Tablet PO Not Given DAILY [facility] Furosemide 40 mg 04/25/24 09:00 05/04/24 10:02 Furosemide Inj 40 Mg/4 Ml Vial IV PUSH 40 mg Q12HR ELIDIA Administration Glucagon 1 mg 04/25/24 14:28 Glucagon For Inj 1 Mg Vial IM PRN PRN Hypoglycemia Protocol Glucose 15 gm 04/25/24 14:28 Glucose Oral Gel 15 Gm Of Glucse In 37.5 Gm Tube PO PRN PRN Hypoglycemia Protocol Hydralazine HCl 10 mg 04/26/24 09:00 05/04/24 10:00 Hydralazine 10 Mg Tablet PO Not Given DAILY EL[facility]IA Hydralazine HCl 10 mg 05/03/24 13:36 Hydralazine Hcl 20 Mg/Ml Vial IV PUSH Q4H PRN Blood Pressure - High Dextrose 1,000 mls @ 100 mls/hr 04/25/24 14:28 Dextrose 5% 1,000 Ml IVPB PRN PRN Hypoglycemia Protocol Ceftriaxone Sodium 1 gm in 50 mls @ 100 mls/hr 05/01/24 21:35 05/03/24 21:45 Rocephin 1 Gm/Ns 50 Ml IVPB Infused HS ELIDIA Infusion Azithromycin 500 mg in 250 mls @ 250 mls/hr 05/01/24 21:35 05/03/24 22:16 Zithromax IVPB Infused HS ELIDIA Infusion Dextrose 1,000 mls @ 50 mls/hr 05/03/24 12:27 Dextrose 10% IV CONT .Q20H PRN if PN is interrupted Amino Acids/Electrolytes/Dextrose 2,000 mls @ 80 mls/hr 05/03/24 12:30 05/03/24 13:28 Clinimix E 4.25%/5% Solution IV CONT 80 mls/hr .Q24H ELIDIA Administration Protocol Fat Emulsion Intravenous 250 mls @ 20.833 mls/hr 05/03/24 12:30 05/04/24 10:03 Lipids 20% IVPB 20.8 mls/hr QAM ELIDIA Administration Insulin Aspart 3 - 6 units 05/03/24 18:10 05/04/24 07:20 Insulin Aspart (*Bkc) 100 Units/Ml SUB-Q 4 units Q6HR ELIDIA Administration Protocol Insulin Glargine 5 units 05/02/24 21:00 Insulin Glargine (*Bkc) 100 Units/Ml SUB-Q HS [facility] Loratadine 10 mg 04/26/24 09:00 05/04/24 10:00 Loratadine 10 Mg Tablet PO Not Given QAM [facility] Mirtazapine 7.5 mg 04/25/24 21:00 05/03/24 20:13 Mirtazapine 7.5 Mg Tablet PO 7.5 mg HS ELIDIA Administration Multivitamins Therapeutic 1 tablet 04/26/24 09:00 05/04/24 10:00 Multivitamins Therapeutic Tab (*Bkc) PO Not Given DAILY [facility] Senna 8.6 mg 05/02/24 21:00 05/03/24 20:13 Sennosides 8.6 Mg Tablet PO 8.6 mg BEDTIME EL[facility]IA Administration Radiology Results: ITS Impressions Chest CT 04/25/24 07:23 IMPRESSION: 1. Small right and moderate-sized partially loculated left pleural effusions with associated compressive atelectasis in both lungs. 2. Minimal pulmonary edema the lung bases. 2. Cardiomegaly with small to moderate-sized pericardial effusion. Thoracentesis Ultrasound 04/26/24 11:43 IMPRESSION: 1. Successful ultrasound-guided thoracentesis yielding 3.5 mL of clear straw-colored fluid. 2. Very small bilateral pleural effusions which appear decreased in size since the prior CT from 04/25/2024 Modified Barium Swallow 04/27/24 13:14 IMPRESSION: Laryngeal penetration with thin liquids and drinking with straw Renal Ultrasound 04/30/24 14:57 IMPRESSION: 1. Increased renal parenchymal echogenicity, consistent with nonspecific nephropathy. Chest X-Ray 05/01/24 13:57 IMPRESSION: 1. Opacities in the left mid and bilateral lower lung zones consistent with small left and likely very small right pleural effusions with associated atelectasis and/or pneumonia. Abdomen Ultrasound 05/01/24 16:31 IMPRESSION: Echogenic right kidney suggestive of medical renal disease. Further evaluation advised. Otherwise, normal Limited abdominal ultrasound. Labs Labs: Laboratory Results - last 24 hr 04/30/24 05/03/24 05/03/24 16:34 18:14 23:42 WBC RBC Hgb Hct MCV MCH MCHC RDW Plt Count MPV Sodium Potassium Chloride Carbon Dioxide Anion Gap BUN Creatinine Estim Creat Clear Calc Estimated GFR Glucose POC Capillary Glucose 283 H 252 H Calcium Phosphorus Total Bilirubin AST ALT Alkaline Phosphatase Total Protein Albumin Triglycerides Ur Random Sodium 85 05/04/24 05/04/24 05/04/24 05:47 07:14 11:48 WBC 6.5 RBC 3.28 L Hgb 9.3 L Hct 28.7 L MCV 87.5 MCH 28.4 MCHC 32.4 RDW 15.4 H Plt Count 208 MPV 10.1 Sodium 131 L Potassium 4.3 Chloride 96 L Carbon Dioxide 29 Anion Gap 6 BUN 49 H D Creatinine 2.80 H Estim Creat Clear Calc 22 Estimated GFR 28 L Glucose 216 H POC Capillary Glucose 251 H Calcium 8.9 Phosphorus 5.5 H Total Bilirubin 0.4 AST 65 H ALT 71 H Alkaline Phosphatase 124 Total Protein 7.0 Albumin 3.7 Triglycerides 244 H Ur Random Sodium 05/04/24 12:39 WBC RBC Hgb Hct MCV MCH MCHC RDW Plt Count MPV Sodium Potassium Chloride Carbon Dioxide Anion Gap BUN Creatinine Estim Creat Clear Calc Estimated GFR Glucose POC Capillary Glucose 215 H Calcium Phosphorus Total Bilirubin AST ALT Alkaline Phosphatase Total Protein Albumin Triglycerides Ur Random Sodium
[2024-05-04] MEDS: ACETAMINOPHEN 650 MG SUPPOSITORY RECTAL (13:48)
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
[2024-05-04] MEDS: AMINO ACIDS 4.25%/D5W/LYTES/CA 2,000 ML 80 ML IV CONT (17:08)
[2024-05-04] MEDS: metroNIDAZOLE 500 MG/ISO 100ML 500 MG/100 ML BAG 100 MG IVPB ×2 (17:13→22:23)
[2024-05-04 18:12] LABS: Glucose Point of Care 222 mg/dl (65-105)
[2024-05-04] MEDS: INSULIN GLARGINE (*BKC) 100 UNITS/ML 15 UNITS SUB-Q (20:42)
--- NOTE | 2024-05-04 20:47 | PC.NURSE ---
Patient is NPO and not waking up for evening PO medications
[2024-05-04] MEDS: AZITHROMYCIN 500 MG/NS 250 ML 500 MG/250 ML BAG 250 MG IVPB (21:23)
[2024-05-04 21:38] LABS: Glucose Point of Care 267 mg/dl (65-105)
[2024-05-05] VITALS (9 sets, daily range): BP systolic 165–176; BP diastolic 74–80; PULSE 70–110; RESP 14–18; TEMP 36.1–36.5; O2SAT 97–98
[2024-05-05 00:52] LABS: Glucose Point of Care 195 mg/dl (65-105)
[2024-05-05] MEDS: IPRATROPIUM 0.5 MG/ALBUTEROL SULFATE 2.5 MG AMPUL.NEB 3 ML INHALATION ×3 (02:47→14:17)
[2024-05-05] MEDS: ACETYLCYSTEINE 20% INHAL SOLN 800 MG/4 ML VIAL 200 MG INHALATION ×3 (02:47→14:17)
[2024-05-05] MEDS: metroNIDAZOLE 500 MG/ISO 100ML 500 MG/100 ML BAG 100 MG IVPB ×2 (05:20→13:11)
[2024-05-05 06:28] LABS: Glucose Point of Care 151 mg/dl (65-105)
[2024-05-05 06:28] LABS: Glucose Point of Care 119 mg/dl (65-105)
[2024-05-05 06:36] LABS: Hematocrit 26.9 % (42.0-52.0); Hemoglobin 8.6 g/dL (14.0-18.0); Mean Corpuscular Hemoglobin 28.1 pg (26-34); Mean Corpuscular Volume 87.9 fl (80-100); Mean Platelet Volume 10.5 fl (7.4-10.4); Platelet Count Result 229 k/mm3 (150-375); Red Blood Count 3.06 M/mm3 (4.6-6.20); Red Cell Distribution Width 15.6 % (11.5-14.5); White Blood Count 5.8 K/mm3 (4.5-10.0)
[2024-05-05 06:48] LABS: Alanine Aminotransferase 56 U/L (6-50); Albumin Level 3.6 g/dL (3.5-5.1); Alkaline Phosphatase 115 U/L (38-126); Anion Gap 6 mmol/L (4-12); Aspartate Amino Transferase 42 U/L (17-59); Bilirubin,Total 0.4 mg/dL (0.2-1.3); Blood Urea Nitrogen 68 mg/dL (9-20); Calcium 9.3 mg/dL (8.4-10.2); Carbon Dioxide 31 mmol/L (22-30); Chloride 98 mmol/L (98-107); Estimated CRCL calculation 20 ml/min; Estimated Glomerular Filt Rate 25; Glucose 106 mg/dL (65-110); Phosphorus 5.5 mg/dL (2.5-4.5); Potassium 3.8 mmol/L (3.4-5.0); Sodium 135 mmol/L (137-145)
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
[2024-05-05] MEDS: FAT EMULSIONS IV 20% 250 ML 20.8 ML IVPB (10:20)
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
[2024-05-05 12:15] LABS: Glucose Point of Care 185 mg/dl (65-105)
--- NOTE | 2024-05-05 15:25 | WPDGIPROGNO ---
Progress Note: A&P Assessment and Plan (1) Protein-calorie malnutrition, severe: Code(s): E43 - Unspecified severe protein-calorie malnutrition Status: Acute Assessment and Plan: anorexia and now requiring TPN as nutrition he is transferred to another hospital today (2) Loculated pleural effusion: Code(s): J90 - Pleural effusion, not elsewhere classified Status: Acute Assessment and Plan: pulmonary recommended transfer to manage loculated pleural effusion will sign off (3) Dementia: Code(s): F03.90 - Unspecified dementia, unspecified severity, without behavioral disturbance, psychotic disturbance, mood disturbance, and anxiety Status: Acute (4) Anorexia: Code(s): R63.0 - Anorexia Status: Acute (5) Pulmonary infiltrate: Code(s): R91.8 - Other nonspecific abnormal finding of lung field Status: Acute (6) CHF (congestive heart failure): Code(s): I50.9 - Heart failure, unspecified Status: Acute (7) Aspiration pneumonia: Code(s): J69.0 - Pneumonitis due to inhalation of food and vomit Status: Acute Subjective Date/time seen: 05/05/24 15:25 Interval history: noted large loculated pleural effusion that will need further pulmonary intervention and will be transferred to tertiary hospital Review of Systems Review of Systems: All systems reviewed & are unremarkable except as noted in HPI and below Exam Narrative: General: Chronically ill appearing, on bedrest in no acute distress, roger. UE and LE contractures. HEENT: Atraumatic, PERRL, EOM, dry mucus membranes. NECK: Supple. Lungs: Clear bilaterally. Heart: RRR, no murmurs. Abdomen: Soft, non-tender, non-distended, positive bowel sounds X4 quadrants. Extremities: Contractures roger. UE and LE, 1+ edema roger. feet. Skin: Warm and dry. Neuro: he is not talking to me. Roger. UE and LE contractures. Psych: Unable to assess Objective Data Vital Signs Vital Signs: Vital Signs - 24 hr 05/04/24 16:00 05/04/24 21:47 05/04/24 20:00 Temperature 98.5 F Pulse Rate 95 83 79 Respiratory Rate 18 Blood Pressure 146/59 H Pulse Oximetry 98 Oxygen Delivery 05/05/24 02:48 05/05/24 00:00 05/05/24 04:00 Temperature Pulse Rate 80 110 H 84 Respiratory Rate 14 Blood Pressure Pulse Oximetry Oxygen Delivery 05/05/24 05:14 05/05/24 08:16 05/05/24 08:16 Temperature 97.7 F Pulse Rate 91 70 Respiratory Rate 18 14 Blood Pressure 176/80 H Pulse Oximetry 97 98 Oxygen Delivery Room Air 05/05/24 08:38 05/05/24 14:17 05/05/24 14:32 Temperature Pulse Rate 73 75 81 Respiratory Rate 14 16 16 Blood Pressure Pulse Oximetry Oxygen Delivery 05/05/24 14:00 Temperature 97.0 F L Pulse Rate 80 Respiratory Rate 17 Blood Pressure 165/74 H Pulse Oximetry 97 Oxygen Delivery Intake/Output Intake/Output: Intake & Output 05/02/24 05/03/24 05/04/24 05/05/24 23:59 23:59 23:59 23:59 Intake Total 3380 540 3075 100 Output Total 900 3500 1900 1700 Balance 2480 -2960 1175 -1600 Meds/Results Medications: Active Medications Generic Name Dose Route Start Last Admin Trade Name Freq PRN Reason Stop Dose Admin Acetaminophen 650 mg 04/25/24 14:27 Acetaminophen 325 Mg Tablet PO Q6H PRN Pain Rated 1-3 Acetaminophen 650 mg 05/04/24 12:47 05/04/24 13:48 Acetaminophen 650 Mg Suppository RECTAL 650 mg Q6H PRN Administration Mild Pain (1-3) or Fever Acetylcysteine 200 mg 04/25/24 20:00 05/05/24 14:17 Acetylcysteine 20% Inhal Soln 800 Mg/4 Ml Vial INHALATION 200 mg Q6HRT [facility] Administration Albuterol/Ipratropium 3 ml 04/25/24 14:27 Ipratropium 0.5 Mg/Albuterol Sulfate 2.5 Mg Ampul.Neb 3 Ml INHALATION Q6H PRN Shortness Of Breath Albuterol/Ipratropium 3 ml 04/25/24 20:00 05/05/24 14:17 Ipratropium 0.5 Mg/Albuterol Sulfate 2.5 Mg Ampul.Neb 3 Ml INHALATION 3 ml Q6HRT ELIDIA Administration Amlodipine Besylate 10 mg 04/26/24 09:00 05/05/24 12:02 Amlodipine Besylate 10 Mg Tablet PO Not Given DAILY [facility] Artificial Tears 1 drop 04/25/24 14:27 Artificial Tears Ophth Soln 15 Ml Bottle EACH EYE BID PRN Dry Eyes Aspirin 81 mg 04/26/24 09:00 05/05/24 12:02 Aspirin 81 Mg Enteric Tablet PO Not Given QAM [facility] Atorvastatin Calcium 40 mg 04/25/24 21:00 05/04/24 20:43 Atorvastatin 40 Mg Tablet PO Not Given HS [facility] Carvedilol 25 mg 04/25/24 21:00 05/05/24 12:02 Carvedilol 25 Mg Tablet PO Not Given Q12HR [facility] Dextrose 12.5 gm 04/25/24 14:28 05/02/24 08:08 Dextrose 50% 25 Gm/50 Ml Syringe IV PUSH 12.5 gm PRN PRN Administration Hypoglycemia Protocol Enoxaparin Sodium 30 mg 04/29/24 09:00 05/04/24 13:35 Enoxaparin 30 Mg/0.3 Ml Syringe SUB-Q Not Given DAILY [facility] Famotidine 20 mg 04/25/24 17:00 05/05/24 12:02 Famotidine 20 Mg Tablet PO Not Given BID [facility] Ferrous Sulfate 325 mg 04/26/24 09:00 05/05/24 12:02 Ferrous Sulfate [address] BY MOUTH Not Given DAILY [facility] Fluticasone Propionate 1 spray 04/26/24 09:00 05/05/24 12:03 Fluticasone Propionate 0.05% Na Spr 16 Gm Btl (*Bkc) NASAL Not Given DAILY [facility] Folic Acid 1 mg 04/26/24 09:00 05/05/24 12:03 Folic Acid 1 Mg Tablet PO Not Given DAILY [facility] Furosemide 40 mg 04/25/24 09:00 05/04/24 10:02 Furosemide Inj 40 Mg/4 Ml Vial IV PUSH 40 mg Q12HR [facility] Administration Glucagon 1 mg 04/25/24 14:28 Glucagon For Inj 1 Mg Vial IM PRN PRN Hypoglycemia Protocol Glucose 15 gm 04/25/24 14:28 Glucose Oral Gel 15 Gm Of Glucse In 37.5 Gm Tube PO PRN PRN Hypoglycemia Protocol Hydralazine HCl 10 mg 04/26/24 09:00 05/05/24 12:03 Hydralazine 10 Mg Tablet PO Not Given DAILY [facility] Hydralazine HCl 10 mg 05/03/24 13:36 Hydralazine Hcl 20 Mg/Ml Vial IV PUSH Q4H PRN Blood Pressure - High Dextrose 1,000 mls @ 100 mls/hr 04/25/24 14:28 Dextrose 5% 1,000 Ml IVPB PRN PRN Hypoglycemia Protocol Ceftriaxone Sodium 1 gm in 50 mls @ 100 mls/hr 05/01/24 21:35 05/04/24 21:12 Rocephin 1 Gm/Ns 50 Ml IVPB Infused HS [facility] Infusion Azithromycin 500 mg in 250 mls @ 250 mls/hr 05/01/24 21:35 05/04/24 22:23 Zithromax IVPB Infused HS [facility] Infusion Dextrose 1,000 mls @ 50 mls/hr 05/03/24 12:27 Dextrose 10% IV CONT .Q20H PRN if PN is interrupted Fat Emulsion Intravenous 250 mls @ 20.833 mls/hr 05/03/24 12:30 05/05/24 10:20 Lipids 20% IVPB 20.8 mls/hr QAM [facility] Administration Metronidazole 500 mg in 100 mls @ 100 mls/hr 05/04/24 15:30 05/05/24 13:11 Flagyl 500 Mg/Iso Soln 100 Ml IVPB 100 mls/hr Q8HR [facility] Administration Insulin Aspart 3 - 6 units 05/03/24 18:10 05/05/24 12:19 Insulin Aspart (*Bkc) 100 Units/Ml SUB-Q Not Given Q6HR [facility] Protocol Insulin Glargine 15 units 05/04/24 21:00 05/04/24 20:42 Insulin Glargine (*Bkc) 100 Units/Ml SUB-Q 15 units HS [facility] Administration Loratadine 10 mg 04/26/24 09:00 05/05/24 12:03 Loratadine 10 Mg Tablet PO Not Given QAM [facility] Mirtazapine 7.5 mg 04/25/24 21:00 05/04/24 20:43 Mirtazapine 7.5 Mg Tablet PO Not Given HS [facility] Multivitamins Therapeutic 1 tablet 04/26/24 09:00 05/05/24 12:03 Multivitamins Therapeutic Tab (*Bkc) PO Not Given DAILY [facility] Senna 8.6 mg 05/02/24 21:00 05/04/24 20:43 Sennosides 8.6 Mg Tablet PO Not Given BEDTIME [facility] Radiology Results: ITS Impressions Chest CT 04/25/24 07:23 IMPRESSION: 1. Small right and moderate-sized partially loculated left pleural effusions with associated compressive atelectasis in both lungs. 2. Minimal pulmonary edema the lung bases. 2. Cardiomegaly with small to moderate-sized pericardial effusion. Thoracentesis Ultrasound 04/26/24 11:43 IMPRESSION: 1. Successful ultrasound-guided thoracentesis yielding 3.5 mL of clear straw-colored fluid. 2. Very small bilateral pleural effusions which appear decreased in size since the prior CT from 04/25/2024 Modified Barium Swallow 04/27/24 13:14 IMPRESSION: Laryngeal penetration with thin liquids and drinking with straw Renal Ultrasound 04/30/24 14:57 IMPRESSION: 1. Increased renal parenchymal echogenicity, consistent with nonspecific nephropathy. Chest X-Ray 05/01/24 13:57 IMPRESSION: 1. Opacities in the left mid and bilateral lower lung zones consistent with small left and likely very small right pleural effusions with associated atelectasis and/or pneumonia. Abdomen Ultrasound 05/01/24 16:31 IMPRESSION: Echogenic right kidney suggestive of medical renal disease. Further evaluation advised. Otherwise, normal Limited abdominal ultrasound. Labs Labs: Laboratory Results - last 24 hr 05/04/24 05/04/24 05/05/24 18:00 20:35 00:50 WBC RBC Hgb Hct MCV MCH MCHC RDW Plt Count MPV Sodium Potassium Chloride Carbon Dioxide Anion Gap BUN Creatinine Estim Creat Clear Calc Estimated GFR Glucose POC Capillary Glucose 222 H 267 H 195 H Calcium Phosphorus Total Bilirubin AST ALT Alkaline Phosphatase Total Protein Albumin 05/05/24 05/05/24 05/05/24 03:56 06:10 06:25 WBC 5.8 RBC 3.06 L Hgb 8.6 L Hct 26.9 L MCV 87.9 MCH 28.1 MCHC 32.0 RDW 15.6 H Plt Count 229 MPV 10.5 H Sodium 135 L Potassium 3.8 Chloride 98 Carbon Dioxide 31 H Anion Gap 6 BUN 68 H D Creatinine 3.10 H Estim Creat Clear Calc 20 Estimated GFR 25 L Glucose 106 POC Capillary Glucose 151 H 119 H Calcium 9.3 Phosphorus 5.5 H Total Bilirubin 0.4 AST 42 ALT 56 H Alkaline Phosphatase 115 Total Protein 7.0 Albumin 3.6 05/05/24 12:02 WBC RBC Hgb Hct MCV MCH MCHC RDW Plt Count MPV Sodium Potassium Chloride Carbon Dioxide Anion Gap BUN Creatinine Estim Creat Clear Calc Estimated GFR Glucose POC Capillary Glucose 185 H Calcium Phosphorus Total Bilirubin AST ALT Alkaline Phosphatase Total Protein Albumin
== END 2024-05-05 15:45 | disposition short-term general hospital (02) | DRG 186 ==
LOC: ANHED 04-25 00:31 → ANH3MED 04-25 04:30
PROVIDERS: Internal Medicine Critical Care Medicine; Internal Medicine Nephrology; Nurse Practitioner; Nurse Practitioner Adult Health; Student in an Organized Health Care Education/Training Program; Admitting Provider Internal Medicine; Emergency Provider Emergency Medicine; PCP Internal Medicine; Visit Provider Nurse Practitioner Acute Care
PROC: 0BJ08ZZ Inspection of Tracheobronchial Tree, Via Natural or Artificial Opening Endoscopic (ICD-10-PCS; CPT 31622; principal; 2024-05-01 15:30)
DX: J90 Pleural effusion, not elsewhere classified (principal); E43 Unspecified severe protein-calorie malnutrition; J69.0 Pneumonitis due to inhalation of food and vomit; N17.9 Acute kidney failure, unspecified; I12.9 Hypertensive chronic kidney disease with stage 1 through stage 4 chronic kidney disease, or unspecified chronic kidney disease; N18.9 Chronic kidney disease, unspecified; T17.918A Gastric contents in respiratory tract, part unspecified causing other injury, initial encounter; E11.22 Type 2 diabetes mellitus with diabetic chronic kidney disease; E11.649 Type 2 diabetes mellitus with hypoglycemia without coma; E11.65 Type 2 diabetes mellitus with hyperglycemia; F03.90 Unspecified dementia, unspecified severity, without behavioral disturbance, psychotic disturbance, mood disturbance, and anxiety; E78.5 Hyperlipidemia, unspecified; D64.9 Anemia, unspecified; G40.909 Epilepsy, unspecified, not intractable, without status epilepticus; Z20.822 Contact with and (suspected) exposure to COVID-19; I25.2 Old myocardial infarction; Z79.4 Long term (current) use of insulin; Z79.82 Long term (current) use of aspirin; Z74.01 Bed confinement status; Z22.322 Carrier or suspected carrier of Methicillin resistant Staphylococcus aureus
CPT/HCPCS: 32555; 36415; 36430; 71045; 71250; 76705; 76775; 80048; 80053; 81001; 81050; 82550; 82570; 82948; 83036; 83540; 83550; 83605; 83615; 83690; 83735; 83880; 83986; 84100; 84145; 84155; 84156; 84300; 84466; 84478; 84484; 84540; 85025; 85027; 85610; 85730; 85999; 86850; 86900; 86901; 86923; 87015; 87040; 87070; 87075; 87102; 87116; 87205; 87206; 87449; 87637; 87641; 92610; 92611; 93005; 93306; 94640; 99213; 99285; A9270; G0378; G0463; J0456; J0692; J0696; J1650; J1756; J1815; J1836; J1940; J3475; J7050; P9016

== ENCOUNTER 2024-06-09 14:29 | Inpatient (IN) | payer MEDICARE, MEDICAID, SELFPAY ==
--- NOTE | ~2024-06-09 | XR_ITS ---
EXAMINATION: XR abdomen/kub 1V DATE: 06/18/2024 16:12 INDICATION: Fecal impaction. TECHNIQUE: A supine view of the abdomen on 2 radiographs was obtained. COMPARISON: CT 06/16/2024 FINDINGS: There are no dilated loops of bowel. There is a small volume of stool in the colon. There i s a gastrostomy tube in expected position. There are changes of posterior fusion procedure in thoraci c spine. There is plate and screw fixation of right radius and ulna. IMPRESSION: 1. Nonobstructive bowel gas pattern. Reviewed, dictated and finalized at location B. IOLOGY CONSULTANT
--- NOTE | ~2024-06-09 | XR_ITS ---
EXAMINATION: XR heel RT min 2V DATE: 06/15/2024 11:35 INDICATION: Right foot wound. TECHNIQUE: 2 views of right calcaneus on 3 radiographs were obtained. COMPARISON: None. FINDINGS: Alignment is normal. No fracture. Joint spaces are normal. There is an ulcer at the heel. T here is soft tissue swelling of the foot. IMPRESSION: 1. No evidence of osteomyelitis. Reviewed, dictated and finalized at location A. IGURATION MANAGER
--- NOTE | ~2024-06-09 | XR_ITS ---
EXAMINATION: XR foot LT 2V DATE: 06/15/2024 11:35 INDICATION: Left foot wound. TECHNIQUE: 2 views of left foot were obtained. COMPARISON: None. FINDINGS: There is moderate hallux valgus. No fracture. There is mild osteoarthritis of first metatar sophalangeal joint and many of the interphalangeal joints. There is soft tissue swelling of the foot. IMPRESSION: 1. Mild polyarticular osteoarthritis. 2. Moderate hallux valgus. Reviewed, dictated and finalized at location A. L CONTAINER MAKER
--- NOTE | ~2024-06-09 | XR_ITS ---
EXAMINATION: XR foot RT 2V DATE: 06/15/2024 11:35 INDICATION: Left foot wound. TECHNIQUE: 2 views of left foot were obtained. COMPARISON: None. FINDINGS: There is moderate hallux valgus. No fracture. There is mild osteoarthritis of first metatar sophalangeal joint and some of the interphalangeal joints. There is right foot soft tissue swelling. IMPRESSION: 1. Mild polyarticular osteoarthritis. 2. Moderate hallux valgus. Reviewed, dictated and finalized at location A. NISTRATIVE SERVICES DIRECTOR
--- NOTE | ~2024-06-09 | XR_ITS ---
CHEST RADIOGRAPH CLINICAL HISTORY: weakness . COMPARISON: 05/01/2024 TECHNIQUE: Single portable view of the chest. FINDINGS The cardiomediastinal silhouette is unremarkable. The lungs are clear. Fixation hardware within the lower thoracic spine. IMPRESSION: No focal infiltrate or effusion. Reviewed, dictated and finalized at location A. WARE PACKAGER
--- NOTE | ~2024-06-09 | CT_ITS ---
History: Altered mental status PROCEDURE: CT head without contrast. COMPARISON: 10/12/2023 TECHNIQUE: Axial imaging of the head performed from the skull base to the vertex without IV contrast. Sagittal a nd coronal reformations obtained. DLP: 681 mGy-cm FINDINGS: The ventricles are dilated. The dilatation of the ventricles is proportional to the degree of sulcal prominence, not uncommon in the senescent brain. Decreased attenuation is identified within the periventricular white matter, likely secondary to micr ovascular ischemic disease, although far advanced for a patient of this age. There is no mass, mass effect or midline shift. There is no abnormal extra-axial fluid collection or intracranial hemorrhage. Visualized paranasal sinuses are clear. The mastoid air cells are well aerated. No acute displaced fractures within the overlying cranium. Impression: Stable CT appearance of the brain, without acute intracranial hemorrhage or suspicious mass effect. Reviewed, dictated and finalized at location A. ESS MACHINE OPERATOR Impression: Stable CT appearance of the brain, without acute intracranial hemorrhage or john paul picious mass effect.
--- NOTE | ~2024-06-09 | US_ITS ---
EXAM: ABDOMEN ULTRASOUND HISTORY: elevated LFTs COMPARISON: 05/01/2024 FINDINGS: LIVER: The liver is increased in echogenicity and size measuring 19 cm in longitudinal dimension. Hemangioma within the right lobe of the liver measuring 26 x 18 x 22 mm. The portal vein is patent demonstrating hepatopedal flow. GALLBLADDER: No stones are identified within the gallbladder. No gallbladder wall thickening or pericholecystic fluid. BILE DUCTS: Common bile duct measures 3.1mm. PANCREAS: Limited evaluation of the pancreas secondary to overlying bowel gas VASCULATURE : The abdominal aorta is nonaneurysmal. The IVC is patent. IMPRESSION: Fatty infiltration of an enlarged liver. Hemangioma within segment 6 Reviewed, dictated and finalized at location A. NT BABYSITTER
--- NOTE | ~2024-06-09 | MR_ITS ---
EXAMINATION: MR brain/brain stem wo con DATE: 06/12/2024 13:07 INDICATION: Altered mental status. TECHNIQUE: Magnetic resonance imaging (MRI) of the brain and brainstem was performed without intraven ous contrast. COMPARISON: Head CT 06/11/2024 FINDINGS: There is diffuse brain volume loss. There are foci of old microhemorrhage in the cerebral h emispheres and right basal ganglia. There are scattered areas of nonspecific increased T2-weighted si gnal intensity in the cerebral white matter, deep sotelo nuclei, and niurka. There are old infarcts in th e bilateral basal ganglia. The ventricles are normal in size. There is mucosal thickening in the para nasal sinuses. There is an old blowout fracture of medial wall of left orbit. The mastoid air cells a re normal. IMPRESSION: 1. Old infarcts in the bilateral basal ganglia. 2. Extensive nonspecific cerebral white matter disease and disease of the deep sotelo nuclei and niurka, which likely represents chronic small vessel ischemic disease. Reviewed, dictated and finalized at location A. HET SETTER IMPRESSION: 1. Old infarcts in the bilateral basal ganglia. 2. Extensive nonspecific cerebral white matter disease and disease of the deep sotelo nuclei and niurka, which likely represents chronic small vessel ischemic dis ease.
--- NOTE | ~2024-06-09 | XR_ITS ---
EXAMINATION: XR heel LT min 2V DATE: 06/15/2024 11:35 INDICATION: Left foot wound. TECHNIQUE: 2 views of left calcaneus were obtained. COMPARISON: None. FINDINGS: Alignment is normal. No fracture. Joint spaces are normal. There is soft tissue swelling of the foot. IMPRESSION: 1. No evidence of osteomyelitis. Reviewed, dictated and finalized at location A. F SERVICES MANAGER
--- NOTE | ~2024-06-09 | XR_ITS ---
MODIFIED ESOPHAGRAM HISTORY: Dysphagia. TECHNIQUE: Modified barium esophagram was performed on 06/17/2024. I administered fluoroscopy and perf ormed the exam with speech pathologist. Patient was seated for lateral fluoroscopic imaging for matthew stion of thin liquids, pudding, solids and quantified amounts, followed by thin liquids in uncontroll ed amounts. This was recorded on tape. A single fluoroscopic spot image was also recorded. The DAP fo r this procedure was 2.734 Gycm2. The amount of fluoroscopy time used during this procedure was 3.1 m inutes. FINDINGS: Oral stage: Long femoral old with loss of bolus control and premature spillage on the mouth into the pharynx. There is oral residue. Pharyngeal stage: Delayed swallow with pooling in both the vallecula and piriform sinuses. There was laryngeal penetration with aspiration occurring before and during the swallow. Cervical/esophageal stage: Adequate function. IMPRESSION: Oropharyngeal dysphagia with laryngeal penetration and aspiration. Please correlate with speech pathologist findings and specific feeding recommendations. Reviewed, dictated and finalized at location A. S SORTER IMPRESSION: Oropharyngeal dysphagia with laryngeal penetration and aspiration. Please correlate with speech pathologist findings and specific feeding recomme ndations.
--- NOTE | ~2024-06-09 | XR_ITS ---
EXAMINATION: XR chest 1V portable DATE: 06/12/2024 08:46 INDICATION: Altered mental status TECHNIQUE: frontal view of the chest was obtained. COMPARISON: Chest radiograph dated 06/09/2024 FINDINGS: Small calcified nodules in the bilateral lower lung zones along with calcified bilateral hilar and me diastinal lymph nodes consistent with old granulomatous disease. No other airspace opacities, pulmona ry edema, pleural effusion or pneumothorax. Heart size is normal. T9-T12 posterior spinal fusion with bilateral vertical gris and pedicle screw fixation. IMPRESSION: 1. No acute cardiopulmonary disease. Reviewed, dictated and finalized at location B. AGE DETERMINER
--- NOTE | ~2024-06-09 | CT_ITS ---
EXAMINATION: CT chest abdomen pelvis wo con DATE: 06/16/2024 18:23 INDICATION: F/U loculated pleural effusions, abd distention . TECHNIQUE: Computed tomography (CT) of the chest, abdomen, and pelvis was performed with 100 mL Omnip aque-350 intravenous contrast. Automated exposure control and iterative reconstruction technique were employed. The dose-length product was 816.37 mGy-cm. COMPARISON: None FINDINGS: Exam limited by nonstandard and arm down positioning and extensive metallic artifact. CHEST: Thoracic aorta: No significant dilation. No dissection. Low-density blood pool as can be seen with an emia. Lung parenchyma and airways: Dependent bilateral atelectasis. Thoracic inlet, axillae and chest wall: No thyroid or soft tissue mass. No axillary lymphadenopathy. Mediastinum: No mass or lymphadenopathy. Heart and pericardium: Normal heart size. Small volume pericardial effusion. Coronary artery calcifications: Moderate. Pleura: Small bilateral pleural fluid collections. Thoracic bones: No acute osseous finding in the chest. Uncomplicated lower thoracic posterior fusion hardware. ABDOMEN/PELVIS: Liver: Normal. Biliary/Gallbladder: Gallbladder is contracted. No bile duct dilation. Pancreas: No mass or duct dilation. Spleen: Normal. Adrenals:No mass. Kidneys: No suspicious mass, obstructing stone, or hydronephrosis. GI tract: The rectum is dilated to 7.9 cm by formed stool, with mild surrounding wall thickening and inflammatory change. Appendix not confidently visualized. No small bowel dilation Mesentery/Peritoneum: No mass or free air. Mild mesenteric edema. Small volume deep pelvic and perihe patic fluid. Retroperitoneum: No mass . Atherosclerotic abdominal arterial calcifications. Pelvis: A Dodson catheter terminates in a partially distended urinary bladder. Gas in the bladder lume n. Moderate bladder wall thickening and inflammatory change. Soft Tissues: Moderate body wall edema. Abdominopelvic bones: No acute osseous finding in the abdomen/pelvis. IMPRESSION: Small bilateral pericardial effusions. Small bilateral pleural effusions. Fecal impaction with findings concerning for early/mild stercoral colitis. Cystitis. Moderate body wall edema. Reviewed, dictated and finalized at location K. EXPRESS CLERK
[2024-06-09 14:39] VITALS: BP 142/80; PULSE 92; RESP 18; TEMP 36.6; O2SAT 100
--- NOTE | 2024-06-09 14:54 | ED_ITS ---
HPI - Weakness General Chief complaint: Weakness Stated complaint: weakness Time Seen by Provider: 06/09/24 14:33 History of Present Illness HPI Narrative: Patient is a 68-year-old male who presents ER with from his long term with weakness. Patient has a feeding to heavy receives tube feeds with at night and then typically eats during the day. He has not been eating over last couple days. He appears very dry. He does respond to voice. 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 He will only make an attempt answer yes or no questions. At baseline he is demented. Related Data Home Medications ?Medication ?Instructions ?Recorded ?Confirmed ?Last Taken ?Type acetaminophen 650 mg tablet 650 mg PO Q6H PRN Pain, Mild 04/25/24 04/25/24 Unknown History amlodipine 10 mg tablet 10 mg PO DAILY 04/25/24 04/25/24 Unknown History artificial tears solution eye drops 1 drp ophthalmic (eye) BID PRN Dry 04/25/24 04/25/24 Unknown History Eyes aspirin 81 mg capsule 81 mg PO DAILY 04/25/24 04/25/24 Unknown History atorvastatin 40 mg tablet 40 mg PO HS 04/25/24 04/25/24 Unknown History carvedilol 25 mg tablet 25 mg PO BID 04/25/24 04/25/24 Unknown History cetirizine 10 mg tablet (Zyrtec) 10 mg PO DAILY 04/25/24 04/25/24 Unknown History cyanocobalamin (vitamin B-12) 100 100 mcg PO DAILY 04/25/24 04/25/24 Unknown History mcg tablet famotidine 20 mg tablet 20 mg PO BID 04/25/24 04/25/24 Unknown History ferrous sulfate 324 mg (65 mg 324 mg PO DAILY 04/25/24 04/25/24 Unknown History iron) tablet,delayed release fluticasone propionate 50 1 spray intranasal DAILY 04/25/24 04/25/24 Unknown History mcg/actuation nasal spray,suspension folic acid 1 mg tablet 1 mg PO DAILY 04/25/24 04/25/24 Unknown History hydralazine 10 mg tablet 10 mg PO DAILY 04/25/24 04/25/24 Unknown History insulin glargine 100 unit/mL 20 unit subcut HS 04/25/24 04/25/24 Unknown History subcutaneous solution (Lantus U-100 Insulin) insulin lispro 100 unit/mL 1 sliding scale dose subcut 04/25/24 04/25/24 Unknown History subcutaneous pen USEASDIRECTD ipratropium 0.5 mg-albuterol 3 mg 3 ml inhalation Q6H PRN SOB 04/25/24 04/25/24 Unknown History (2.5 mg base)/3 mL nebulization soln mirtazapine 15 mg tablet 7.5 mg PO HS 04/25/24 04/25/24 Unknown History multivitamin 1 tablet PO DAILY 04/25/24 04/25/24 Unknown History quetiapine 25 mg tablet 25 mg PO HS 04/25/24 04/25/24 Unknown History sennosides 8.6 mg tablet (senna) 8.6 mg PO BID 04/25/24 04/25/24 Unknown History Allergies Allergy/AdvReac Type Severity Reaction Status Date / Time No Known Allergies Allergy Verified 10/15/23 11:22 Review of Systems 2 Review of Systems: ROS unobtainable: Yes unobtainable due to mental status PMFSH Past Medical History Medical History (Updated 06/09/24 @ 18:16 by Dustin Sheets MD) Dementia Anorexia Multiple fractures of ribs, right side, initial encounter for closed fracture Chronic kidney disease, unspecified Subsequent ST elevation (STEMI) myocardial infarction of unspecified site history of Epilepsy, unspecified, not intractable, without status epilepticus Type 1 diabetes mellitus without complications Anemia, unspecified 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 HEAD: Normocephalic, atraumatic. ENT: Dry mucous membranes CHEST: Clear to auscultation. No respiratory distress. HEART: Regular rate and rhythm. Normal peripheral pulses. ABDOMEN: Soft, nontender, nondistended. G-tube site normal appearance. : Uncircumcised penis with pressure ulceration to the lateral aspect of the urethral meatus from Dodson catheter. Some thick mucus like drainage noted. EXTREMITIES: Upper extremity contractures/stiffness. No deformity. SKIN: Warm, dry, no rash. NEURO: Awake alert, not oriented. Course Course Emergency Course: Admit to hospitalist service. IV fluid bolus and will be started as a drip for hypernatremia/dehydration. UA consistent with infection ceftriaxone given. Vital Signs Vital signs: Vital Signs Temperature 97.9 F 06/09/24 14:39 Pulse Rate 92 06/09/24 14:39 Respiratory Rate 18 06/09/24 14:39 Blood Pressure 142/80 H 06/09/24 14:39 Pulse Oximetry 100 06/09/24 14:39 Oxygen Delivery Room Air 06/09/24 14:39 Temperature 97.9 F 06/09/24 14:39 Pulse Rate 90 06/09/24 16:25 Respiratory Rate 25 H 06/09/24 16:25 Blood Pressure 148/79 H 06/09/24 16:25 Pulse Oximetry 99 06/09/24 16:25 Oxygen Delivery Room Air 06/09/24 14:39 MDM - Weakness Lab Data 06/09/24 15:22 06/09/24 15:22 Labs: Lab Results 06/09/24 06/09/24 Range/Units 15:22 16:22 WBC 10.9 H (4.5-10.0) K/mm3 RBC 2.79 L (4.6-6.20) M/mm3 Hgb 7.9 L (14.0-18.0) g/dL Hct 26.9 L (42.0-52.0) % MCV 96.4 (80-100) fl MCH 28.3 (26-34) pg MCHC 29.4 L (32-36) g/dl RDW 15.8 H (11.5-14.5) % Plt Count 398 H D (150-375) k/mm3 MPV 10.1 (7.4-10.4) fl Immature Gran % (Auto) 0.7 H (0-0.5) % Neut % (Auto) 75.1 H (45.5-73.1) % Lymph % (Auto) 13.8 L (18.3-44.2) % [place] % (Auto) 9.3 H (2.6-8.5) % Eos % (Auto) 0.7 (0-4.4) % Baso % (Auto) 0.4 (0.2-1.2) % Lymph # (Auto) 1.50 (0.9-3.2) K/mm3 [place] # (Auto) 1.0 H (0.1-0.6) K/mm3 Eos # (Auto) 0.1 (0-0.3) K/mm3 Baso # (Auto) 0.0 (0.0-0.1) K/mm3 Abs Immat Gran (auto) 0.08 H (0.00-0.031) K/mm3 Absolute Neuts (auto) 8.2 H (1.3-6.7) K/mm3 Absolute Nucleated RBC 0.000 (0.0-0.012) K/mm3 Nucleated RBC % 0.0 (0.0-0.2) % Platelet Estimate Slightly increased (Adequate) Clumped Platelets Present Hypochromasia 1+ Anisocytosis 1+ Schistocytes None seen Sodium 156 H (137-145) mmol/L Potassium 3.8 (3.4-5.0) mmol/L Chloride 112 H (98-107) mmol/L Carbon Dioxide 34 H (22-30) mmol/L Anion Gap 10 (4-12) mmol/L BUN 93 H D (9-20) mg/dL Creatinine 3.43 H (0.7-1.3) mg/dL Estim Creat Clear Calc 19 ml/min Estimated GFR 22 L (59 - ) Glucose 88 (65-110) mg/dL Lactic Acid 1.4 (0.7-2.0) mmol/L Calcium 9.2 (8.4-10.2) mg/dL Total Bilirubin 0.4 (0.2-1.3) mg/dL AST 128 H (17-59) U/L ALT 121 H (6-50) U/L Alkaline Phosphatase 119 (38-126) U/L Total Protein 7.0 (6.3-8.2) g/dL Albumin 3.5 (3.5-5.1) g/dL Urine Color Yellow (Yellow) Urine Appearance Turbid H (Clear) Urine pH 5.5 (5.0-9.0) Ur Specific [place] 1.020 (1.001-1.035) Urine Protein 3+ H (Negative) mg/dL Urine Glucose (UA) Negative (Negative) mg/dL Urine Ketones Negative (Negative) mg/dL Ur Blood (Man) 2+ H (Negative) Urine Nitrate Negative (Negative) Urine Bilirubin Negative (Negative) Urine Urobilinogen 1.0 (<2.0) mg/dL Add Ur Microanalysis Reviewed Leukocyte Esterase Rfl 3+ H (Negative) DANIS/UL Urine RBC 51-100 H (0-2) /hpf Urine WBC >100 H (0-3) /hpf Ur Squamous Epith Cells Few (Few) /hpf Amorphous Sediment Few H (None) Urine Bacteria 3+ H /hpf Urine Casts >20 Discharge Plan Discharge Clinical Impression: Acute UTI, Dehydration, Acute hypernatremia Patient Disposition: Still a Patient Condition: Stable
[2024-06-09 15:30] LABS: Basophils Percent Auto 0.4 % (0.2-1.2); Eosinophils Absolute Auto 0.1 K/mm3 (0-0.3); Eosinophils Percent Auto 0.7 % (0-4.4); Hematocrit 26.9 % (42.0-52.0); Hemoglobin 7.9 g/dL (14.0-18.0); Immature Granulocyte Absolute 0.08 K/mm3 (0.00-0.031); Immature Granulocyte Percent A 0.7 % (0-0.5); Lymphocytes Percent Auto 13.8 % (18.3-44.2); Mean Corpuscular HGB Conc 29.4 g/dl (32-36); Mean Corpuscular Hemoglobin 28.3 pg (26-34); Mean Corpuscular Volume 96.4 fl (80-100); Mean Platelet Volume 10.1 fl (7.4-10.4); Monocytes Percent Auto 9.3 % (2.6-8.5); Neutrophils Absolute Auto 8.2 K/mm3 (1.3-6.7); Neutrophils Percent Auto 75.1 % (45.5-73.1); Platelet Count Result 398 k/mm3 (150-375); Red Blood Count 2.79 M/mm3 (4.6-6.20); Red Cell Distribution Width 15.8 % (11.5-14.5); White Blood Count 10.9 K/mm3 (4.5-10.0)
[2024-06-09 15:41] LABS: Alanine Aminotransferase 121 U/L (6-50); Albumin Level 3.5 g/dL (3.5-5.1); Alkaline Phosphatase 119 U/L (38-126); Anion Gap 10 mmol/L (4-12); Aspartate Amino Transferase 128 U/L (17-59); Bilirubin,Total 0.4 mg/dL (0.2-1.3); Blood Urea Nitrogen 93 mg/dL (9-20); Calcium 9.2 mg/dL (8.4-10.2); Carbon Dioxide 34 mmol/L (22-30); Chloride 112 mmol/L (98-107); Estimated CRCL calculation 19 ml/min; Estimated Glomerular Filt Rate 22; Glucose 88 mg/dL (65-110); Lactic Acid Reflex 1.4 mmol/L (0.7-2.0); Potassium 3.8 mmol/L (3.4-5.0); Sodium 156 mmol/L (137-145)
[2024-06-09 15:48] LABS: Platelet Estimate Slightly Increased (Adequate)
[2024-06-09 15:52] LABS: Platelet Clumps Present
[2024-06-09 15:55] LABS: Schistocytes None Seen
[2024-06-09 15:56] LABS: Anisocytosis 1+; Hypochromasia 1+
[2024-06-09 16:25] VITALS: BP 148/79; PULSE 90; RESP 25; O2SAT 99
--- NOTE | 2024-06-09 16:25 | PC.NURSE ---
Pt. arrived to ED with 16 comor[address] chronic [address] in place. When foreskin was pulled back, a sore found at the tip of the penis with purulent drainage. Penis cleaned with soap and water. Old meyer removed, 8mL in balloon. New 16 comoran meyer placed.
[2024-06-09] MEDS: SODIUM CHLORIDE 0.9% IV 1,000 ML 999 ML IV CONT (16:34)
[2024-06-09 16:45] LABS: Add Urine Microscopic? YES; Appearance Urine Turbid (Clear); Bacteria Urine 3+ /hpf; Bilirubin Urine Negative (Negative); Blood Urine 2+ (Negative); Color Urine Yellow (Yellow); Glucose Urine UA Negative (Negative); Ketones Urine Negative (Negative); Leukocyte Esterase Ur 3+ LEU/UL (Negative); Need Manual Microscopic Reviewed; Nitrate Urine Negative (Negative); Non Pathogenic Casts >20; Protein Urine 3+ mg/dL (Negative); RBC Urine 51-100 /hpf (0-2); Squamous Epithelial Cell Urine Few /hpf (Few); WBC Urine >100 /hpf (0-3); pH Urine 5.5 (5.0-9.0)
[2024-06-09 16:47] LABS: Amorphous Sediment Urine Few
--- NOTE | 2024-06-09 17:03 | PC.NURSE ---
Per johanna Greenwood to administer antibiotics with only 1 set of cultures obtained d/t pt. being a difficult stick.
--- NOTE | 2024-06-09 17:10 | P.HP_ITS ---
H&P: HPI History of Present Illness Date/Time: 06/09/24 17:10 Chief Complaint: Decreased oral intake. Narrative: This is a 68-year-old male with history of dementia, epilepsy, hypertension, hyperlipidemia, insulin-dependent diabetes, chronic kidney disease, and iron deficiency anemia who presented to the emergency department via EMS from [facility] for evaluation of decreased oral intake. The patient does not speak more than a few words and thus a majority of the following history is obtained via a review of his EMR. He has a feeding tube in which he receives supplements overnight however he is reportedly able to eat and drink on his own (he was admitted to the hospital last month with pneumonitis and was transferred to [facility] for loculated pleural effusion). It is my understanding that his p.o. intake has been poor the last several days and he was sent in with concerns for possible dehydration. At the time my evaluation the patient is awake and alert. He attempts to follow commands. He can say few words (okay, all right) and he indicates to me that he is not having any pain and he specifically denied chest pain and abdominal pain. There were no reports fever or recent cold or flu symptoms. In the ED: He was afebrile on arrival with stable vital signs. Labs were significant for a WBC count of 10.9, hemoglobin 7.9, sodium 156, chloride 112, carbon dioxide 34, BUN 93, creatinine 3.43, AST 128, ALT 121. Urinalysis was positive for 3+ protein, 2+ blood, 3+ leukocyte esterase, 51 to 100 RBC, greater than 100 WBC, 3+ bacteria, and greater than 20 casts per high-power field. Chest x-ray showed no focal infiltrate or effusion. He received ceftriaxone 1 g for suspected urinary tract infection and a 1 L normal saline bolus. He is being admitted in this setting for further treatment. Review of Systems Review of Systems: Unable to obtain accurately as he is essentially nonverbal. 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 Code status: Full code. 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 Spiritual care concerns: No Meds Home Medications and Allergies Home Medications ?Medication ?Instructions ?Recorded ?Confirmed ?Type acetaminophen 650 mg tablet 650 mg PO Q6H PRN Pain, Mild 04/25/24 06/09/24 History amlodipine 10 mg tablet 10 mg PO DAILY 04/25/24 06/09/24 History artificial tears solution eye drops 1 drp ophthalmic (eye) BID PRN Dry 04/25/24 06/09/24 History Eyes aspirin 81 mg capsule 81 mg PO DAILY 04/25/24 06/09/24 History atorvastatin 40 mg tablet 40 mg PO HS 04/25/24 06/09/24 History carvedilol 25 mg tablet 25 mg PO BID 04/25/24 06/09/24 History cetirizine 10 mg tablet (Zyrtec) 10 mg PO DAILY 04/25/24 06/09/24 History cyanocobalamin (vitamin B-12) 100 100 mcg PO DAILY 04/25/24 06/09/24 History mcg tablet famotidine 20 mg tablet 20 mg PO BID 04/25/24 06/09/24 History ferrous sulfate 324 mg (65 mg 324 mg PO DAILY 04/25/24 06/09/24 History iron) tablet,delayed release fluticasone propionate 50 1 spray intranasal DAILY 04/25/24 06/09/24 History mcg/actuation nasal spray,suspension folic acid 1 mg tablet 1 mg PO DAILY 04/25/24 06/09/24 History hydralazine 10 mg tablet 50 mg PO TID 04/25/24 06/09/24 History insulin glargine 100 unit/mL 25 unit subcut HS 04/25/24 06/09/24 History subcutaneous solution (Lantus U-100 Insulin) insulin lispro 100 unit/mL 15 unit subcut .with meals 04/25/24 06/09/24 History subcutaneous pen ipratropium 0.5 mg-albuterol 3 mg 3 ml inhalation Q6H PRN SOB 04/25/24 06/09/24 History (2.5 mg base)/3 mL nebulization soln mirtazapine 15 mg tablet 7.5 mg PO HS 04/25/24 06/09/24 History multivitamin 1 tablet PO DAILY 04/25/24 06/09/24 History sennosides 8.6 mg tablet (senna) 8.6 mg PO BID 04/25/24 06/09/24 History glucagon 1 mg solution for 1 mg IM PRN 06/09/24 06/09/24 History injection (Glucagon Emergency Kit) Allergies Allergy/AdvReac Type Severity Reaction Status Date / Time No Known Allergies Allergy Verified 10/15/23 11:22 Vital Signs Vital Signs - 24 hr 06/09/24 14:39 06/09/24 16:25 Temperature 97.9 F Pulse Rate 92 90 Respiratory Rate 18 25 H Blood Pressure 142/80 H 148/79 H Pulse Oximetry 100 99 Oxygen Delivery Room Air Exam Narrative: General: Chronically ill-appearing gentleman the semi-Angulo position in bed in no acute distress. Weight: 72.9 kg. BMI: 24.4. HEENT: Pupils are reactive. Sclera anicteric. Dry mucous membranes. Lips are chapped and cracked. Neck: Supple. Respiratory: Respirations are nonlabored and lungs are clear to auscultation. Cardiovascular: Regular rate and rhythm with S1-S2. Gastrointestinal: Abdomen is soft, nontender, and nondistended with positive bowel sounds. G-tube site is clean, dry, and intact. No guarding or rebound tenderness. Skin: Warm and dry. Evidence of prior skin grafts. Extremities: No cyanosis, clubbing, or edema. Radial and pedal pulses intact. Neurological: Alert. Unable to assess orientation as he is essentially nonverbal. Diffuse muscle atrophy. Psychiatric: Pleasant cooperative with appropriate mood. H&P: Results Labs Labs: Short CBC 06/09/24 Range/Units 15:22 WBC 10.9 H (4.5-10.0) K/mm3 Hgb 7.9 L (14.0-18.0) g/dL Hct 26.9 L (42.0-52.0) % Plt Count 398 H D (150-375) k/mm3 BMP 06/09/24 15:22 Sodium 156 H Potassium 3.8 Chloride 112 H Carbon Dioxide 34 H BUN 93 H D Creatinine 3.43 H Glucose 88 Calcium 9.2 Liver Function 06/09/24 Range/Units 15:22 Total Bilirubin 0.4 (0.2-1.3) mg/dL AST 128 H (17-59) U/L ALT 121 H (6-50) U/L Alkaline Phosphatase 119 (38-126) U/L Albumin 3.5 (3.5-5.1) g/dL Urine 06/09/24 Range/Units 16:22 Urine Color Yellow (Yellow) Urine Appearance Turbid H (Clear) Urine pH 5.5 (5.0-9.0) Ur Specific [place] 1.020 (1.001-1.035) Urine Protein 3+ H (Negative) mg/dL Urine Glucose (UA) Negative (Negative) mg/dL Impressions Chest X-Ray 06/09/24 17:13 IMPRESSION: No focal infiltrate or effusion. Abdomen Ultrasound 06/09/24 18:43 IMPRESSION: Fatty infiltration of an enlarged liver. Hemangioma within segment 6. Assessment and Plan Assessment and plan (1) Acute on chronic kidney failure: Code(s): N17.9 - Acute kidney failure, unspecified; N18.9 - Chronic kidney disease, unspecified Status: Acute (2) Dehydration: Code(s): E86.0 - Dehydration Status: Acute (3) Hypernatremia: Code(s): E87.0 - Hyperosmolality and hypernatremia Status: Acute (4) Elevated LFTs: Code(s): R79.89 - Other specified abnormal findings of blood chemistry Status: Acute (5) Bacteriuria with pyuria: Code(s): R82.71 - Bacteriuria; R82.81 - Pyuria Status: Acute (6) Insulin dependent diabetes mellitus: Status: Acute (7) Hypertension: Code(s): I10 - Essential (primary) hypertension Status: Acute (8) Chronic anemia: Code(s): D64.9 - Anemia, unspecified Status: Acute Plan The patient presented to the emergency department for evaluation of decreased oral intake for the past several days as detailed in HPI. Labs, imaging, EKG, and all reports were personally reviewed. He looks very dehydrated on exam and by labs with an acute on chronic kidney injury and hypernatremia. He has been started on D5 half-normal saline. Continue supplemental tube feedings at night and free water flushes (increased to 200 mL q.6 hours). He has an indwelling Dodson catheter and will likely always have an abnormal urinalysis however is impossible to say if he is symptomatic or not as he is essentially nonverbal thus will continue with ceftriaxone, pending urine culture. Hemoglobin is a bit lower than what he typically runs and will be trended. Check stool for occult blood. AST and ALT are both elevated and have been elevated in the past. Exam of the abdomen was benign however will order right upper quadrant ultrasound. Check CK given worsening renal function as well. Hold basal insulin for now as his random glucose was only 82 on arrival. Initiate sliding scale insulin, Accu- Cheks, and hypoglycemic protocol. The rest of his home medications will be reviewed and resumed as appropriate. The patient's medical management will be taken over by the hospitalist team in a.m. [place] Advance Care Plan I have confirmed that the patient's Advanced Care Plan is present, code status is documented, or surrogate decision maker is listed in patient medical record.: Yes Medication Reconciliation I have utilized all available resources to obtain, update and review the patients current medications (includes all prescriptions, OTC, herbals, cannabis, and nutritional supplements).: Yes
--- NOTE | 2024-06-09 17:58 | PC.NURSE ---
this rn spoke with Mallorie to give patient update
[2024-06-09 18:13] VITALS: BP 147/80; PULSE 88; RESP 20; O2SAT 100
--- NOTE | 2024-06-09 18:31 | ADMGEN ---
This patient, Logan Orozco, was admitted to Medical Room 246-01. Patient/family oriented to hospital policies and general routines including ID bracelet, bed and alarms, visiting hours, pain management, procedures, bathroom and other care routines, personal items, smoking policy, room service/diet, and visiting hours. Information on how to activate the Rapid Response Team has been discussed. Patient/Family are encouraged to report perceived risks to care and to ask questions if they do not understand what they are told or what they should do.
[2024-06-09 18:40] VITALS: BMI 24.4
[2024-06-09 18:48] VITALS: BP 157/72; PULSE 88; RESP 24; TEMP 36.6; O2SAT 100
[2024-06-09 20:40] LABS: Anion Gap 8 mmol/L (4-12); Blood Urea Nitrogen 89 mg/dL (9-20); Calcium 9.5 mg/dL (8.4-10.2); Carbon Dioxide 30 mmol/L (22-30); Chloride 117 mmol/L (98-107); Creatine Kinase 574 U/L (55-170); Estimated CRCL calculation 20 ml/min; Estimated Glomerular Filt Rate 24; Glucose 90 mg/dL (65-110); Potassium 3.8 mmol/L (3.4-5.0); Sodium 155 mmol/L (137-145)
[2024-06-09 20:44] VITALS: BP 153/75; PULSE 88; RESP 17; TEMP 36.7; O2SAT 100
[2024-06-09 21:14] LABS: Hepatitis B Surface Antigen Negative (Negative)
[2024-06-09 21:20] LABS: HAV RESULT Negative (Negative); Hepatitis B Core IgM Result Negative (Negative)
[2024-06-09 21:31] LABS: Hepatitis C Virus Antibody Negative (Negative)
[2024-06-09] MEDS: MIRTAZAPINE 7.5 MG TABLET PO (22:38)
[2024-06-09] MEDS: FAMOTIDINE 20 MG TABLET PO (22:38)
[2024-06-09] MEDS: HEPARIN SODIUM 5,000 UNITS/ML VIAL 5000 UNITS SUB-Q (22:38)
[2024-06-09] MEDS: DEXTROSE 5%/0.45% SOD CHL 1,000 ML 100 ML IV CONT (22:39)
[2024-06-09 22:43] VITALS: PULSE 88
[2024-06-09] MEDS: hydrALAZINE HCL 50 MG TABLET PO (22:43)
[2024-06-09] MEDS: carvediloL 25 MG TABLET PO (22:43)
[2024-06-09 23:05] LABS: Influenza A QL RT-PCR Negative (Negative); Influenza B QL RT-PCR Negative (Negative); SARS-CoV-2 RNA PCR Negative (Negative)
[2024-06-09 23:20] LABS: Glucose Point of Care 150 mg/dl (65-105)
[2024-06-10] VITALS (7 sets, daily range): BP systolic 148–154; BP diastolic 69–75; PULSE 94–98; RESP 16–20; TEMP 36.2–36.9; O2SAT 95–100; BMI 24.4
[2024-06-10 05:46] LABS: Glucose Point of Care 339 mg/dl (65-105)
[2024-06-10] MEDS: INSULIN ASPART (*BKC) 100 UNITS/ML SUB-Q ×4 (05:46→23:15)
[2024-06-10] MEDS: hydrALAZINE HCL 50 MG TABLET PO ×3 (05:46→20:11)
[2024-06-10 06:01] LABS: Hematocrit 25.1 % (42.0-52.0); Hemoglobin 7.1 g/dL (14.0-18.0); Mean Corpuscular HGB Conc 28.3 g/dl (32-36); Mean Corpuscular Hemoglobin 28.3 pg (26-34); Mean Platelet Volume 10.5 fl (7.4-10.4); Platelet Count Result 361 k/mm3 (150-375); Red Blood Count 2.51 M/mm3 (4.6-6.20); Red Cell Distribution Width 15.8 % (11.5-14.5); White Blood Count 10.7 K/mm3 (4.5-10.0)
[2024-06-10 06:09] LABS: Alanine Aminotransferase 117 U/L (6-50); Albumin Level 3.1 g/dL (3.5-5.1); Alkaline Phosphatase 118 U/L (38-126); Anion Gap 11 mmol/L (4-12); Aspartate Amino Transferase 158 U/L (17-59); Bilirubin,Total 0.5 mg/dL (0.2-1.3); Blood Urea Nitrogen 90 mg/dL (9-20); Calcium 8.6 mg/dL (8.4-10.2); Carbon Dioxide 26 mmol/L (22-30); Chloride 114 mmol/L (98-107); Estimated CRCL calculation 21 ml/min; Estimated Glomerular Filt Rate 24; Glucose 415 mg/dL (65-110); Potassium 4.3 mmol/L (3.4-5.0); Sodium 151 mmol/L (137-145)
[2024-06-10 06:20] LABS: Creatine Kinase 404 U/L (55-170)
[2024-06-10] MEDS: MULTIVITAMINS THERAPEUTIC TAB (*BKC) 1 TABLET PO (09:28)
[2024-06-10] MEDS: amLODIPine BESYLATE 10 MG TABLET PO (09:28)
[2024-06-10] MEDS: SENNOSIDES 8.6 MG TABLET PO ×2 (09:28→17:30)
[2024-06-10] MEDS: LORATADINE 10 MG TABLET PO (09:29)
[2024-06-10] MEDS: ASPIRIN 81 MG CHEWABLE TABLET PO (09:29)
[2024-06-10] MEDS: FLUTICASONE PROPIONATE 0.05% NA SPR 16 GM BTL (*BKC) 1 SPRAY NASAL (09:29)
[2024-06-10] MEDS: FOLIC ACID 1 MG TABLET PO (09:29)
[2024-06-10] MEDS: FAMOTIDINE 20 MG TABLET PO ×2 (09:29→17:30)
[2024-06-10] MEDS: carvediloL 25 MG TABLET PO ×2 (09:29→20:11)
[2024-06-10] MEDS: DEXTROSE 5%/0.45% SOD CHL 1,000 ML 100 ML IV CONT (09:30)
[2024-06-10] MEDS: HEPARIN SODIUM 5,000 UNITS/ML VIAL 5000 UNITS SUB-Q ×2 (09:30→20:11)
[2024-06-10 10:15] LABS: IFOB Positive Control Positive; Immunochemical Fecal Occult Bl Negative (N)
[2024-06-10] MEDS: FERROUS SULFATE LIQUID 325 MG/7.4 ML ELIXIR FEED TUBE (10:50)
[2024-06-10 12:14] LABS: Glucose Point of Care > 500 mg/dl (65-105)
[2024-06-10] MEDS: INSULIN ASPART (*BKC) 100 UNITS/ML 7 UNITS SUB-Q (12:24)
[2024-06-10] MEDS: SODIUM CHLORIDE 0.9% IV 1,000 ML 100 ML IV CONT ×2 (12:29→22:33)
[2024-06-10 12:53] LABS: Glucose Point of Care 446 mg/dl (65-105)
--- NOTE | 2024-06-10 13:39 | P.PNIM_ITS ---
Progress Note: A&P Assessment and Plan (1) Acute on chronic kidney failure: Code(s): N17.9 - Acute kidney failure, unspecified; N18.9 - Chronic kidney disease, unspecified Status: Acute Assessment and Plan: * Rehydration started with D5 1/2 NS and supplemental TF. * Creatinine is slowly trending down. 3.43-->3.12. * Pt's IVF switched to NS at 100 ml/hr due to Hyperglycemia noted today. * Continue to monitor and trend. (2) Dehydration: Code(s): E86.0 - Dehydration Status: Acute Assessment and Plan: * See #1 (3) Hypernatremia: Code(s): E87.0 - Hyperosmolality and hypernatremia Status: Acute Assessment and Plan: * See #1 * Check urine osmolality and serum osmolality, but actually suspect that hypernatremia is due to dehydration. (4) Elevated LFTs: Code(s): R79.89 - Other specified abnormal findings of blood chemistry Status: Acute Assessment and Plan: * Etiology is unknown. * US shows fatty infiltration of an enlarged liver. There is also a hemangioma within segment 6. * Transaminases have been historically elevated in the past. (5) Bacteriuria with pyuria: Code(s): R82.71 - Bacteriuria; R82.81 - Pyuria Status: Acute Assessment and Plan: * Continue Rocephin. * Await urine culture. (6) Insulin dependent diabetes mellitus: Status: Acute Assessment and Plan: * SSI, high dose as pt was hyperglycemic today into the 500s. * Lantus restarted at 25 units QHS as pt does receive TF's and it was held by the admitting provider for a normal glucose. * D5 1/2 NS was discontinued as the pt was hyperglycemic to >500 and restarted on NS at 100 ml/hr. * Continue to trend Glucose and adjust as needed. (7) Hypertension: Code(s): I10 - Essential (primary) hypertension Status: Acute Assessment and Plan: * BP stable 140s-150s/60s-70s. * Continue current regimen and monitor. (8) Chronic anemia: Code(s): D64.9 - Anemia, unspecified Status: Acute Assessment and Plan: * Chronic in nature however it appears to be worsening and trending down with Hgb today of 7.1. * Etiology CKD vs. GI Bleed vs. Dilutional * Stool for occult blood ordered. * Consider transfusion if 7.0 or less. * Monitor and trend Labs. Time Spent With Patient Time with patient: 25 - 35 minutes Subjective Date/time seen: 06/10/24 1015 Interval history: Pt is evaluated today at the bedside in interval assessment since being admitted for JOSHUA, UTI, Transaminitis and UTI. He is non-verbal and does not respond to stimuli, which is his baseline. He does not appear to be in any acute distress at this time. Review of Systems Review of Systems: All systems reviewed & are unremarkable except as noted in HPI and below Exam Narrative: General: Chronically ill-appearing gentleman the semi-Angulo position in bed in no acute distress. Weight: 72.9 kg. BMI: 24.4. HEENT: Pupils are reactive. Sclera anicteric. Dry mucous membranes. Lips are chapped and cracked. Neck: Supple. Respiratory: Respirations are nonlabored and lungs are clear to auscultation. Cardiovascular: Regular rate and rhythm with S1-S2. Gastrointestinal: Abdomen is soft, nontender, and nondistended with positive bowel sounds. G-tube site is clean, dry, and intact. No guarding or rebound tenderness. Skin: Warm and dry. Evidence of prior skin grafts. Extremities: No cyanosis, clubbing, or edema. Radial and pedal pulses intact. Neurological: Alert. Unable to assess orientation as he is essentially nonverbal. Diffuse muscle atrophy. Psychiatric: Pleasant cooperative with appropriate mood. Objective Data Vital Signs Vital Signs: Vital Signs - 24 hr 06/09/24 14:39 06/09/24 16:25 06/09/24 18:13 Temperature 97.9 F Pulse Rate 92 90 88 Respiratory Rate 18 25 H 20 Blood Pressure 142/80 H 148/79 H 147/80 H Pulse Oximetry 100 99 100 Oxygen Delivery Room Air 06/09/24 18:48 06/09/24 20:44 06/09/24 22:30 Temperature 97.9 F 98.0 F Pulse Rate 88 88 Respiratory Rate 24 H 17 Blood Pressure 157/72 H 153/75 H Pulse Oximetry 100 100 Oxygen Delivery Room Air 06/09/24 22:43 06/10/24 05:44 06/10/24 09:26 Temperature 98.4 F 97.2 F L Pulse Rate 88 97 98 Respiratory Rate 18 18 Blood Pressure 151/75 H 148/70 H Pulse Oximetry 95 100 Oxygen Delivery 06/10/24 09:28 06/10/24 09:29 Temperature Pulse Rate 98 Respiratory Rate Blood Pressure Pulse Oximetry 100 Oxygen Delivery Room Air Intake/Output Intake/Output: Intake & Output 06/07/24 06/08/24 06/09/24 06/10/24 23:59 23:59 23:59 23:59 Intake Total 50 1601 Output Total 200 Balance 50 1401 Meds/Results Medications: Active Medications Generic Name Dose Route Start Last Admin Trade Name Freq PRN Reason Stop Dose Admin Acetaminophen 650 mg 06/09/24 16:57 Acetaminophen 325 Mg Tablet FEED TUBE Q4H PRN Mild Pain (1-3) or Fever Albuterol/Ipratropium 3 ml 06/09/24 20:41 Ipratropium 0.5 Mg/Albuterol Sulfate 2.5 Mg Ampul.Neb 3 Ml INHALATION Q6H PRN Shortness Of Breath Amlodipine Besylate 10 mg 06/10/24 09:00 06/10/24 09:28 Amlodipine Besylate 10 Mg Tablet PO 10 mg DAILY EL[facility]IA Administration Artificial Tears 1 drop 06/09/24 20:46 Artificial Tears Ophth Soln 15 Ml Bottle EACH EYE BID PRN Dry Eyes Aspirin 81 mg 06/10/24 09:00 06/10/24 09:29 Aspirin 81 Mg Chewable Tablet PO 81 mg DAILY ELIDIA Administration Atorvastatin Calcium 40 mg 06/10/24 21:00 Atorvastatin 40 Mg Tablet PO HS ELIDIA Carvedilol 25 mg 06/09/24 21:00 06/10/24 09:29 Carvedilol 25 Mg Tablet PO 25 mg Q12HR ELIDIA Administration Dextrose 12.5 gm 06/09/24 20:38 Dextrose 50% 25 Gm/50 Ml Syringe IV PUSH PRN PRN Hypoglycemia Protocol Famotidine 20 mg 06/09/24 20:50 06/10/24 09:29 Famotidine 20 Mg Tablet PO 20 mg BID ELIDIA Administration Ferrous Sulfate 325 mg 06/10/24 09:00 06/10/24 10:50 Ferrous Sulfate Liquid 325 Mg/7.4 Ml Elixir FEED TUBE 325 mg DAILY ELIDIA Administration Fluticasone Propionate 1 spray 06/10/24 09:00 06/10/24 09:29 Fluticasone Propionate 0.05% Na Spr 16 Gm Btl (*Bkc) NASAL 1 spray DAILY ELIDIA Administration Folic Acid 1 mg 06/10/24 09:00 06/10/24 09:29 Folic Acid 1 Mg Tablet PO 1 mg DAILY ELIDIA Administration Glucagon 1 mg 06/09/24 20:38 Glucagon For Inj 1 Mg Vial IM PRN PRN Hypoglycemia Protocol Glucose 15 gm 06/09/24 20:38 Glucose Oral Gel 15 Gm Of Glucse In 37.5 Gm Tube PO PRN PRN Hypoglycemia Protocol Heparin Sodium (Porcine) 5,000 units 06/09/24 21:00 06/10/24 09:30 Heparin Sodium 5,000 Units/Ml Vial SUB-Q 5,000 units Q12HR ELIDIA Administration Hydralazine HCl 50 mg 06/09/24 22:00 06/10/24 05:46 Hydralazine Hcl 50 Mg Tablet PO 50 mg Q8HR ELIDIA Administration Ceftriaxone Sodium 1 gm in 50 mls @ 100 mls/hr 06/10/24 17:00 Rocephin 1 Gm/Ns 50 Ml IVPB Q24H ELIDIA Dextrose 1,000 mls @ 100 mls/hr 06/09/24 20:38 Dextrose 5% 1,000 Ml IVPB PRN PRN Hypoglycemia Protocol Sodium Chloride 1,000 mls @ 100 mls/hr 06/10/24 12:10 06/10/24 12:29 Normal Saline Iv IV CONT 100 mls/hr .Q10H EL[facility]IA Administration Insulin Aspart 4 - 8 units 06/10/24 18:00 Insulin Aspart (*Bkc) 100 Units/Ml SUB-Q Q6HR [facility] Protocol Loratadine 10 mg 06/10/24 09:00 06/10/24 09:29 Loratadine 10 Mg Tablet PO 10 mg DAILY EL[facility]IA Administration Mirtazapine 7.5 mg 06/09/24 21:00 06/09/24 22:38 Mirtazapine 7.5 Mg Tablet PO 7.5 mg HS ELIDIA Administration Miscellaneous Information 1 each 06/10/24 00:01 Vitamin B12 100 Mcg Is Nonform; Can Pt Use From Home Or Pharmacy Stocks 250 Mcg If Ok To C XX 07/10/24 00:00 CLARIFY ELIDIA Multivitamins Therapeutic 1 tablet 06/10/24 09:00 06/10/24 09:28 Multivitamins Therapeutic Tab (*Bkc) PO 1 tablet DAILY ELIDIA Administration Non-Formulary Medication 100 mcg 06/10/24 09:00 Cyanocobalamin (Vitamin B-12) PO 07/10/24 08:59 DAILY [facility]IA Ondansetron HCl 4 mg 06/09/24 16:57 Ondansetron Inj 4 Mg/2 Ml Vial IV PUSH Q4H PRN Nausea Senna 8.6 mg 06/10/24 09:00 06/10/24 09:28 Sennosides 8.6 Mg Tablet PO 8.6 mg BID ELIDIA Administration Radiology Results: ITS Impressions Chest X-Ray 06/09/24 17:13 IMPRESSION: No focal infiltrate or effusion. Abdomen Ultrasound 06/09/24 18:43 IMPRESSION: Fatty infiltration of an enlarged liver. Hemangioma within segment 6 Labs Labs: Laboratory Results - last 24 hr 06/09/24 06/09/24 06/09/24 15:22 16:22 20:26 WBC 10.9 H RBC 2.79 L Hgb 7.9 L Hct 26.9 L MCV 96.4 MCH 28.3 MCHC 29.4 L RDW 15.8 H Plt Count 398 H D MPV 10.1 Immature Gran % (Auto) 0.7 H Neut % (Auto) 75.1 H Lymph % (Auto) 13.8 L [place] % (Auto) 9.3 H Eos % (Auto) 0.7 Baso % (Auto) 0.4 Lymph # (Auto) 1.50 [place] # (Auto) 1.0 H Eos # (Auto) 0.1 Baso # (Auto) 0.0 Abs Immat Gran (auto) 0.08 H Absolute Neuts (auto) 8.2 H Absolute Nucleated RBC 0.000 Nucleated RBC % 0.0 Platelet Estimate Slightly increased Clumped Platelets Present Hypochromasia 1+ Anisocytosis 1+ Schistocytes None seen Sodium 156 H 155 H Potassium 3.8 3.8 Chloride 112 H 117 H Carbon Dioxide 34 H 30 Anion Gap 10 8 BUN 93 H D 89 H Creatinine 3.43 H 3.17 H Estim Creat Clear Calc 19 20 Estimated GFR 22 L 24 L Glucose 88 90 POC Capillary Glucose Lactic Acid 1.4 Calcium 9.2 9.5 Total Bilirubin 0.4 AST 128 H ALT 121 H Alkaline Phosphatase 119 Total Creatine Kinase 574 H Total Protein 7.0 Albumin 3.5 Urine Color Yellow Urine Appearance Turbid H Urine pH 5.5 Ur Specific [place] 1.020 Urine Protein 3+ H Urine Glucose (UA) Negative Urine Ketones Negative Ur Blood (Man) 2+ H Urine Nitrate Negative Urine Bilirubin Negative Urine Urobilinogen 1.0 Add Ur Microanalysis Reviewed Leukocyte Esterase Rfl 3+ H Urine RBC 51-100 H Urine WBC >100 H Ur Squamous Epith Cells Few Amorphous Sediment Few H Urine Bacteria 3+ H Urine Casts >20 Stl Occult Blood (IFOB) Hepatitis A IgM Ab Negative Hep Bs Antigen Negative Hep B Core IgM Ab Negative Hepatitis C Ab Screen Negative Influenza A (RT-PCR) Influenza B (RT-PCR) SARS-CoV-2 RNA (RT-PCR) 06/09/24 06/09/24 06/10/24 22:21 23:17 05:25 WBC 10.7 H RBC 2.51 L Hgb 7.1 L Hct 25.1 L MCV 100.0 MCH 28.3 MCHC 28.3 L RDW 15.8 H Plt Count 361 MPV 10.5 H Immature Gran % (Auto) Neut % (Auto) Lymph % (Auto) [place] % (Auto) Eos % (Auto) Baso % (Auto) Lymph # (Auto) [place] # (Auto) Eos # (Auto) Baso # (Auto) Abs Immat Gran (auto) Absolute Neuts (auto) Absolute Nucleated RBC Nucleated RBC % Platelet Estimate Clumped Platelets Hypochromasia Anisocytosis Schistocytes Sodium 151 H Potassium 4.3 Chloride 114 H Carbon Dioxide 26 Anion Gap 11 BUN 90 H Creatinine 3.12 H Estim Creat Clear Calc 21 Estimated GFR 24 L Glucose 415 H POC Capillary Glucose 150 H Lactic Acid Calcium 8.6 Total Bilirubin 0.5 AST 158 H ALT 117 H Alkaline Phosphatase 118 Total Creatine Kinase 404 H Total Protein 7.0 Albumin 3.1 L Urine Color Urine Appearance Urine pH Ur Specific [place] Urine Protein Urine Glucose (UA) Urine Ketones Ur Blood (Man) Urine Nitrate Urine Bilirubin Urine Urobilinogen Add Ur Microanalysis Leukocyte Esterase Rfl Urine RBC Urine WBC Ur Squamous Epith Cells Amorphous Sediment Urine Bacteria Urine Casts Stl Occult Blood (IFOB) Hepatitis A IgM Ab Hep Bs Antigen Hep B Core IgM Ab Hepatitis C Ab Screen Influenza A (RT-PCR) Negative Influenza B (RT-PCR) Negative SARS-CoV-2 RNA (RT-PCR) Negative 06/10/24 06/10/2406/10/25 05:44 09:23 11:58 WBC RBC Hgb Hct MCV MCH MCHC RDW Plt Count MPV Immature Gran % (Auto) Neut % (Auto) Lymph % (Auto) [place] % (Auto) Eos % (Auto) Baso % (Auto) Lymph # (Auto) [place] # (Auto) Eos # (Auto) Baso # (Auto) Abs Immat Gran (auto) Absolute Neuts (auto) Absolute Nucleated RBC Nucleated RBC % Platelet Estimate Clumped Platelets Hypochromasia Anisocytosis Schistocytes Sodium Potassium Chloride Carbon Dioxide Anion Gap BUN Creatinine Estim Creat Clear Calc Estimated GFR Glucose POC Capillary Glucose 339 H > 500 H* Lactic Acid Calcium Total Bilirubin AST ALT Alkaline Phosphatase Total Creatine Kinase Total Protein Albumin Urine Color Urine Appearance Urine pH Ur Specific [place] Urine Protein Urine Glucose (UA) Urine Ketones Ur Blood (Man) Urine Nitrate Urine Bilirubin Urine Urobilinogen Add Ur Microanalysis Leukocyte Esterase Rfl Urine RBC Urine WBC Ur Squamous Epith Cells Amorphous Sediment Urine Bacteria Urine Casts Stl Occult Blood (IFOB) Negative Hepatitis A IgM Ab Hep Bs Antigen Hep B Core IgM Ab Hepatitis C Ab Screen Influenza A (RT-PCR) Influenza B (RT-PCR) SARS-CoV-2 RNA (RT-PCR) 06/10/24 12:49 WBC RBC Hgb Hct MCV MCH MCHC RDW Plt Count MPV Immature Gran % (Auto) Neut % (Auto) Lymph % (Auto) [place] % (Auto) Eos % (Auto) Baso % (Auto) Lymph # (Auto) [place] # (Auto) Eos # (Auto) Baso # (Auto) Abs Immat Gran (auto) Absolute Neuts (auto) Absolute Nucleated RBC Nucleated RBC % Platelet Estimate Clumped Platelets Hypochromasia Anisocytosis Schistocytes Sodium Potassium Chloride Carbon Dioxide Anion Gap BUN Creatinine Estim Creat Clear Calc Estimated GFR Glucose POC Capillary Glucose 446 H Lactic Acid Calcium Total Bilirubin AST ALT Alkaline Phosphatase Total Creatine Kinase Total Protein Albumin Urine Color Urine Appearance Urine pH Ur Specific [place] Urine Protein Urine Glucose (UA) Urine Ketones Ur Blood (Man) Urine Nitrate Urine Bilirubin Urine Urobilinogen Add Ur Microanalysis Leukocyte Esterase Rfl Urine RBC Urine WBC Ur Squamous Epith Cells Amorphous Sediment Urine Bacteria Urine Casts Stl Occult Blood (IFOB) Hepatitis A IgM Ab Hep Bs Antigen Hep B Core IgM Ab Hepatitis C Ab Screen Influenza A (RT-PCR) Influenza B (RT-PCR) SARS-CoV-2 RNA (RT-PCR) Quality VTE Prophylaxis VTE prophylaxis: pharmacologic ordered
[2024-06-10 14:20] LABS: Glucose Point of Care 456 mg/dl (65-105)
[2024-06-10 17:19] LABS: Glucose Point of Care 390 mg/dl (65-105)
[2024-06-10 17:19] LABS: Glucose Point of Care 412 mg/dl (65-105)
[2024-06-10 18:15] LABS: Glucose Point of Care 374 mg/dl (65-105)
[2024-06-10] MEDS: MIRTAZAPINE 7.5 MG TABLET PO (20:11)
[2024-06-10] MEDS: ATORVASTATIN 40 MG TABLET PO (20:11)
[2024-06-10] MEDS: INSULIN GLARGINE (*BKC) 100 UNITS/ML 25 UNITS SUB-Q (20:13)
[2024-06-10 20:33] LABS: Glucose Point of Care 369 mg/dl (65-105)
[2024-06-10 23:36] LABS: Glucose Point of Care 306 mg/dl (65-105)
[2024-06-11] VITALS (7 sets, daily range): BP systolic 148–165; BP diastolic 63–73; PULSE 91–98; RESP 17–22; TEMP 36.6–36.8; O2SAT 95–100
[2024-06-11] MEDS: INSULIN ASPART (*BKC) 100 UNITS/ML SUB-Q ×3 (05:07→23:37)
[2024-06-11] MEDS: hydrALAZINE HCL 50 MG TABLET PO ×2 (05:08→13:45)
[2024-06-11 05:12] LABS: Glucose Point of Care 283 mg/dl (65-105)
[2024-06-11 06:27] LABS: Basophils Percent Auto 0.4 % (0.2-1.2); Eosinophils Absolute Auto 0.2 K/mm3 (0-0.3); Eosinophils Percent Auto 2.1 % (0-4.4); Hematocrit 26.1 % (42.0-52.0); Hemoglobin 7.1 g/dL (14.0-18.0); Immature Platelet Fraction Pct 1.4 % (0.9-11.2); Lymphocytes Absolute Auto 1.69 K/mm3 (0.9-3.2); Lymphocytes Percent Auto 16.3 % (18.3-44.2); Mean Corpuscular HGB Conc 27.2 g/dl (32-36); Mean Corpuscular Hemoglobin 28.5 pg (26-34); Mean Corpuscular Volume 104.8 fl (80-100); Monocytes Absolute Auto 0.7 K/mm3 (0.1-0.6); Monocytes Percent Auto 6.4 % (2.6-8.5); Neutrophils Absolute Auto 7.7 K/mm3 (1.3-6.7); Neutrophils Percent Auto 73.8 % (45.5-73.1); Nucleated Red Blood Cells Perc 0.2 % (0.0-0.2); Platelet Count Result 320 k/mm3 (150-375); Red Blood Count 2.49 M/mm3 (4.6-6.20); Red Cell Distribution Width 16.3 % (11.5-14.5); White Blood Count 10.4 K/mm3 (4.5-10.0)
[2024-06-11 07:06] LABS: Hypochromasia 1+; Macrocytosis 1+ (NORMAL); Platelet Estimate Adequate (Adequate)
[2024-06-11 07:07] LABS: Schistocytes None Seen
[2024-06-11 07:16] LABS: Alanine Aminotransferase 122 U/L (6-50); Albumin Level 2.9 g/dL (3.5-5.1); Alkaline Phosphatase 110 U/L (38-126); Anion Gap 9 mmol/L (4-12); Aspartate Amino Transferase 98 U/L (17-59); Bilirubin,Total 0.5 mg/dL (0.2-1.3); Blood Urea Nitrogen 96 mg/dL (9-20); Calcium 8.1 mg/dL (8.4-10.2); Carbon Dioxide 24 mmol/L (22-30); Chloride 119 mmol/L (98-107); Estimated CRCL calculation 21 ml/min; Estimated Glomerular Filt Rate 25; Glucose 312 mg/dL (65-110); Potassium 4.3 mmol/L (3.4-5.0); Sodium 152 mmol/L (137-145)
--- NOTE | 2024-06-11 07:49 | P.PNIM_ITS ---
Progress Note: A&P Assessment and Plan (1) Acute on chronic kidney failure: Code(s): N17.9 - Acute kidney failure, unspecified; N18.9 - Chronic kidney disease, unspecified Status: Acute Assessment and Plan: improving * Rehydration started with D5 1/2 NS and supplemental TF. * Creatinine is slowly trending down. * avoid nephrotoxic medications * IVF for hydration * Continue to monitor and trend. (2) Dehydration: Code(s): E86.0 - Dehydration Status: Acute Assessment and Plan: * See #1 (3) Hypernatremia: Code(s): E87.0 - Hyperosmolality and hypernatremia Status: Acute Assessment and Plan: slowly improving * See #1 * Check urine osmolality and serum osmolality, but actually suspect that hypernatremia is due to dehydration. * IVF decreased and free water flushes increased (4) Elevated LFTs: Code(s): R79.89 - Other specified abnormal findings of blood chemistry Status: Acute Assessment and Plan: * Etiology is unknown. * US shows fatty infiltration of an enlarged liver. There is also a hemangioma within segment 6. * Transaminases have been historically elevated in the past. (5) Bacteriuria with pyuria: Code(s): R82.71 - Bacteriuria; R82.81 - Pyuria Status: Acute Assessment and Plan: * Continue Rocephin. * urine culture shows Enterococcus (6) Insulin dependent diabetes mellitus: Status: Acute Assessment and Plan: * SSI q.6 * Lantus increased to 28 units QHS as pt does receive TF's * Continue to trend Glucose and adjust as needed. (7) Hypertension: Code(s): I10 - Essential (primary) hypertension Status: Acute Assessment and Plan: * BP stable 140s-150s/60s-70s. * Continue current regimen and monitor. (8) Chronic anemia: Code(s): D64.9 - Anemia, unspecified Status: Acute Assessment and Plan: stable * Chronic in nature however it appears to be worsening and trending down * Etiology CKD vs. GI Bleed vs. Dilutional * Stool for occult blood ordered. * Consider transfusion if 7.0 or less. * Monitor and trend Labs. Time Spent With Patient Time with patient: Greater than 35 minutes Subjective Date/time seen: 06/11/24 07:49 Interval history: Pt is evaluated today at the bedside in interval assessment since being admitted for JOSHUA, UTI, Transaminitis and UTI. He is non-verbal and withdrawals to painful stimuli, according to family patient has had a decline since Thanksgiving He does not appear to be in any acute distress at this time. hemoglobin 7.1 this morning, sodium 152, chloride 119, BUN 96, creatinine in 3.01, glucose 312, AST improving, ALT 122, long-acting insulin increased due to hyperglycemia Review of Systems Review of Systems: ROS unobtainable: Yes unobtainable due to medical condition Exam Narrative: General: Chronically ill-appearing gentleman the semi-Angulo position in bed in no acute distress. Weight: 72.9 kg. BMI: 24.4. HEENT: Pupils are reactive. Sclera anicteric. Dry mucous membranes. Lips are chapped and cracked. Neck: Supple. Respiratory: Respirations are nonlabored and lungs are clear to auscultation. at like episodes Cardiovascular: Regular rate and rhythm with S1-S2. Gastrointestinal: Abdomen is soft, nontender, and nondistended with positive bowel sounds. G-tube site is clean, dry, and intact. No guarding or rebound tenderness. Skin: Warm and dry. Evidence of prior skin grafts. Extremities: No cyanosis, clubbing, or edema. Radial and pedal pulses intact. Neurological: with just being,. Diffuse muscle atrophy. Psychiatric: unable to assess. Objective Data Vital Signs Vital Signs: Vital Signs - 24 hr 06/10/24 09:26 06/10/24 09:28 06/10/24 09:29 Temperature 97.2 F L Pulse Rate 98 98 Respiratory Rate 18 Blood Pressure 148/70 H Pulse Oximetry 100 100 Oxygen Delivery Room Air 06/10/24 13:41 06/10/24 20:07 06/10/24 20:11 Temperature 97.1 F L 98.0 F Pulse Rate 97 94 94 Respiratory Rate 20 16 Blood Pressure 148/69 H 154/70 H Pulse Oximetry 98 99 Oxygen Delivery 06/11/24 05:09 Temperature 97.9 F Pulse Rate 91 Respiratory Rate 18 Blood Pressure 159/69 H Pulse Oximetry 95 Oxygen Delivery Intake/Output Intake/Output: Intake & Output 06/08/24 06/09/24 06/10/24 06/11/24 23:59 23:59 23:59 23:59 Intake Total 50 3301 1305 Output Total 750 300 Balance 50 2551 1005 Meds/Results Medications: Active Medications Generic Name Dose Route Start Last Admin Trade Name Freq PRN Reason Stop Dose Admin Acetaminophen 650 mg 06/09/24 16:57 Acetaminophen 325 Mg Tablet FEED TUBE Q4H PRN Mild Pain (1-3) or Fever Albuterol/Ipratropium 3 ml 06/09/24 20:41 Ipratropium 0.5 Mg/Albuterol Sulfate 2.5 Mg Ampul.Neb 3 Ml INHALATION Q6H PRN Shortness Of Breath Amlodipine Besylate 10 mg 06/10/24 09:00 06/10/24 09:28 Amlodipine Besylate 10 Mg Tablet PO 10 mg DAILY [facility] Administration Artificial Tears 1 drop 06/09/24 20:46 Artificial Tears Ophth Soln 15 Ml Bottle EACH EYE BID PRN Dry Eyes Aspirin 81 mg 06/10/24 09:00 06/10/24 09:29 Aspirin 81 Mg Chewable Tablet PO 81 mg DAILY [facility] Administration Atorvastatin Calcium 40 mg 06/10/24 21:00 06/10/24 20:11 Atorvastatin 40 Mg Tablet PO 40 mg HS [facility]IA Administration Carvedilol 25 mg 06/09/24 21:00 06/10/24 20:11 Carvedilol 25 Mg Tablet PO 25 mg Q12HR [facility] Administration Dextrose 12.5 gm 06/09/24 20:38 Dextrose 50% 25 Gm/50 Ml Syringe IV PUSH PRN PRN Hypoglycemia Protocol Famotidine 20 mg 06/09/24 20:50 06/10/24 17:30 Famotidine 20 Mg Tablet PO 20 mg BID [facility] Administration Ferrous Sulfate 325 mg 06/10/24 09:00 06/10/24 10:50 Ferrous Sulfate Liquid 325 Mg/7.4 Ml Elixir FEED TUBE 325 mg DAILY [facility] Administration Fluticasone Propionate 1 spray 06/10/24 09:00 06/10/24 09:29 Fluticasone Propionate 0.05% Na Spr 16 Gm Btl (*Bkc) NASAL 1 spray DAILY [facility] Administration Folic Acid 1 mg 06/10/24 09:00 06/10/24 09:29 Folic Acid 1 Mg Tablet PO 1 mg DAILY [facility] Administration Glucagon 1 mg 06/09/24 20:38 Glucagon For Inj 1 Mg Vial IM PRN PRN Hypoglycemia Protocol Glucose 15 gm 06/09/24 20:38 Glucose Oral Gel 15 Gm Of Glucse In 37.5 Gm Tube PO PRN PRN Hypoglycemia Protocol Heparin Sodium (Porcine) 5,000 units 06/09/24 21:00 06/10/24 20:11 Heparin Sodium 5,000 Units/Ml Vial SUB-Q 5,000 units Q12HR [facility] Administration Hydralazine HCl 50 mg 06/09/24 22:00 06/11/24 05:08 Hydralazine Hcl 50 Mg Tablet PO 50 mg Q8HR [facility] Administration Ceftriaxone Sodium 1 gm in 50 mls @ 100 mls/hr 06/10/24 17:00 06/10/24 18:02 Rocephin 1 Gm/Ns 50 Ml IVPB Infused Q24H [facility] Infusion Dextrose 1,000 mls @ 100 mls/hr 06/09/24 20:38 Dextrose 5% 1,000 Ml IVPB PRN PRN Hypoglycemia Protocol Sodium Chloride 1,000 mls @ 100 mls/hr 06/10/24 12:10 06/10/24 22:33 Normal Saline Iv IV CONT 100 mls/hr .Q10H [facility] Administration Insulin Aspart 4 - 8 units 06/10/24 18:00 06/11/24 05:07 Insulin Aspart (*Bkc) 100 Units/Ml SUB-Q 5 units Q6HR [facility] Administration Protocol Insulin Glargine 25 units 06/10/24 21:00 06/10/24 20:13 Insulin Glargine (*Bkc) 100 Units/Ml SUB-Q 25 units HS [facility] Administration Loratadine 10 mg 06/10/24 09:00 06/10/24 09:29 Loratadine 10 Mg Tablet PO 10 mg DAILY [facility] Administration Mirtazapine 7.5 mg 06/09/24 21:00 06/10/24 20:11 Mirtazapine 7.5 Mg Tablet PO 7.5 mg HS [facility] Administration Miscellaneous Information 1 each 06/10/24 00:01 Vitamin B12 100 Mcg Is Nonform; Can Pt Use From Home Or Pharmacy Stocks 250 Mcg If Ok To C XX 07/10/24 00:00 CLARIFY [facility] Multivitamins Therapeutic 1 tablet 06/10/24 09:00 06/10/24 09:28 Multivitamins Therapeutic Tab (*Bkc) PO 1 tablet DAILY [facility] Administration Non-Formulary Medication 100 mcg 06/10/24 09:00 Cyanocobalamin (Vitamin B-12) PO 07/10/24 08:59 DAILY [facility] Ondansetron HCl 4 mg 06/09/24 16:57 Ondansetron Inj 4 Mg/2 Ml Vial IV PUSH Q4H PRN Nausea Senna 8.6 mg 06/10/24 09:00 06/10/24 17:30 Sennosides 8.6 Mg Tablet PO 8.6 mg BID [facility] Administration Radiology Results: ITS Impressions Chest X-Ray 06/09/24 17:13 IMPRESSION: No focal infiltrate or effusion. Abdomen Ultrasound 06/09/24 18:43 IMPRESSION: Fatty infiltration of an enlarged liver. Hemangioma within segment 6 Labs Labs: Laboratory Results - last 24 hr 06/10/24 06/10/24 06/10/24 09:23 11:58 12:49 WBC RBC Hgb Hct MCV MCH MCHC RDW Plt Count MPV Immature Gran % (Auto) Neut % (Auto) Lymph % (Auto) [place] % (Auto) Eos % (Auto) Baso % (Auto) Lymph # (Auto) [place] # (Auto) Eos # (Auto) Baso # (Auto) Abs Immat Gran (auto) Absolute Neuts (auto) Absolute Nucleated RBC Nucleated RBC % Platelet Estimate % Immature Plt Fraction Hypochromasia Macrocytosis Schistocytes Sodium Potassium Chloride Carbon Dioxide Anion Gap BUN Creatinine Estim Creat Clear Calc Estimated GFR Glucose POC Capillary Glucose > 500 H* 446 H Calcium Total Bilirubin AST ALT Alkaline Phosphatase Total Protein Albumin Stl Occult Blood (IFOB) Negative 06/10/24 06/10/24 06/10/24 14:16 17:15 17:17 WBC RBC Hgb Hct MCV MCH MCHC RDW Plt Count MPV Immature Gran % (Auto) Neut % (Auto) Lymph % (Auto) [place] % (Auto) Eos % (Auto) Baso % (Auto) Lymph # (Auto) [place] # (Auto) Eos # (Auto) Baso # (Auto) Abs Immat Gran (auto) Absolute Neuts (auto) Absolute Nucleated RBC Nucleated RBC % Platelet Estimate % Immature Plt Fraction Hypochromasia Macrocytosis Schistocytes Sodium Potassium Chloride Carbon Dioxide Anion Gap BUN Creatinine Estim Creat Clear Calc Estimated GFR Glucose POC Capillary Glucose 456 H 390 H 412 H Calcium Total Bilirubin AST ALT Alkaline Phosphatase Total Protein Albumin Stl Occult Blood (IFOB) 06/10/24 06/10/24 06/10/24 18:13 20:07 23:13 WBC RBC Hgb Hct MCV MCH MCHC RDW Plt Count MPV Immature Gran % (Auto) Neut % (Auto) Lymph % (Auto) [place] % (Auto) Eos % (Auto) Baso % (Auto) Lymph # (Auto) [place] # (Auto) Eos # (Auto) Baso # (Auto) Abs Immat Gran (auto) Absolute Neuts (auto) Absolute Nucleated RBC Nucleated RBC % Platelet Estimate % Immature Plt Fraction Hypochromasia Macrocytosis Schistocytes Sodium Potassium Chloride Carbon Dioxide Anion Gap BUN Creatinine Estim Creat Clear Calc Estimated GFR Glucose POC Capillary Glucose 374 H 369 H 306 H Calcium Total Bilirubin AST ALT Alkaline Phosphatase Total Protein Albumin Stl Occult Blood (IFOB) 06/11/24 06/11/24 05:06 05:20 WBC 10.4 H RBC 2.49 L Hgb 7.1 L Hct 26.1 L MCV 104.8 H MCH 28.5 MCHC 27.2 L RDW 16.3 H Plt Count 320 MPV 11.0 H Immature Gran % (Auto) 1.0 H Neut % (Auto) 73.8 H Lymph % (Auto) 16.3 L [place] % (Auto) 6.4 Eos % (Auto) 2.1 Baso % (Auto) 0.4 Lymph # (Auto) 1.69 [place] # (Auto) 0.7 H Eos # (Auto) 0.2 Baso # (Auto) 0.0 Abs Immat Gran (auto) 0.10 H Absolute Neuts (auto) 7.7 H Absolute Nucleated RBC 0.020 H Nucleated RBC % 0.2 Platelet Estimate Adequate % Immature Plt Fraction 1.4 Hypochromasia 1+ Macrocytosis 1+ Schistocytes None seen Sodium 152 H Potassium 4.3 Chloride 119 H Carbon Dioxide 24 Anion Gap 9 BUN 96 H Creatinine 3.01 H Estim Creat Clear Calc 21 Estimated GFR 25 L Glucose 312 H POC Capillary Glucose 283 H Calcium 8.1 L Total Bilirubin 0.5 AST 98 H ALT 122 H Alkaline Phosphatase 110 Total Protein 6.0 L Albumin 2.9 L Stl Occult Blood (IFOB) Quality VTE Prophylaxis VTE prophylaxis: pharmacologic ordered
[2024-06-11] MEDS: ASPIRIN 81 MG CHEWABLE TABLET PO (08:54)
[2024-06-11] MEDS: amLODIPine BESYLATE 10 MG TABLET PO (08:54)
[2024-06-11] MEDS: FAMOTIDINE 20 MG TABLET PO (08:54)
[2024-06-11] MEDS: FOLIC ACID 1 MG TABLET PO (08:54)
[2024-06-11] MEDS: SENNOSIDES 8.6 MG TABLET PO (08:54)
[2024-06-11] MEDS: MULTIVITAMINS THERAPEUTIC TAB (*BKC) 1 TABLET PO (08:54)
[2024-06-11] MEDS: carvediloL 25 MG TABLET PO (08:54)
[2024-06-11] MEDS: FLUTICASONE PROPIONATE 0.05% NA SPR 16 GM BTL (*BKC) 1 SPRAY NASAL (08:54)
[2024-06-11] MEDS: LORATADINE 10 MG TABLET PO (08:54)
[2024-06-11] MEDS: SODIUM CHLORIDE 0.9% IV 1,000 ML 100 ML IV CONT (08:55)
[2024-06-11] MEDS: FERROUS SULFATE LIQUID 325 MG/7.4 ML ELIXIR FEED TUBE (08:55)
[2024-06-11] MEDS: HEPARIN SODIUM 5,000 UNITS/ML VIAL 5000 UNITS SUB-Q ×2 (08:55→20:05)
--- NOTE | 2024-06-11 10:47 | PCNFU ---
Nutrition Follow-Up Complete: Inability to meet nutrition needs PO related to loss of appetite as evidenced by need for full tube feedings Goal: Meet estimated protein energy needs We will continue current goal. Pt current nutrition is Glucerna 1.2 at 75 ml/hr. Last recorded weight is 72.9 kg, no new weight to report. Bowel Motility: +BM reported 06/11 Labs Reviewed:Glu 312, BUN 96, Cr 3.0, Na 152, ,Alb 2.9 Meds Noted:Senokot, Remeron, MVI, NovoLog, Folic Acid, NS Skin:WNL Additional Notes: Patient remains on G tube feedings of Glucerna 1.2 at 75 ml/hr for 20 hours. Tube feedings are being tolerated per nursing. Total Nutrition: 1800 kcal/90 gm protein/ 1207 ml water. Meeting 99% kcal needs at 25 kcal/kg and 100% protein needs at 1.0-1.2 gm protein. Free water flush increased to 200 ml q 6 hours 2/2 to elevated Na level. Agree with diet orders. Monitoring tube feeding tolerance, labs, weights, output, wounds, plan of care Follow up Tuesdays and Fridays
--- NOTE | 2024-06-11 11:33 | PCSTNOTE ---
Attempted bedside swallow evaluation this am ST was not able to wake pt; pt did not respond to verbal or tactile stim. Noted pt did spontaneously dry swallowed; audible gurgle in throat noted; could not assess pt at this time and would not recommend a bedside swallow evaluation but a modifed barium swallow when he's consistently awake.
[2024-06-11 12:17] LABS: Glucose Point of Care 246 mg/dl (65-105)
[2024-06-11 12:40] LABS: Glucose Point of Care 252 mg/dl (65-105)
[2024-06-11] MEDS: AMOXICILLIN 400 MG/5 ML SUSPENSION 100 ML BOTTLE 500 MG PO (13:40)
[2024-06-11] MEDS: FAMOTIDINE 20 MG TABLET FEED TUBE (17:09)
[2024-06-11] MEDS: SENNOSIDES 8.6 MG TABLET FEED TUBE (17:09)
[2024-06-11 17:20] LABS: Ammonia < 9 umol/L (9-30)
--- NOTE | 2024-06-11 17:46 | PCRCNOTE ---
Two therapist attempted ABG'S 5 times. could not obtain sample.
[2024-06-11 18:25] LABS: Glucose Point of Care 183 mg/dl (65-105)
[2024-06-11] MEDS: ATORVASTATIN 40 MG TABLET FEED TUBE (20:01)
[2024-06-11] MEDS: hydrALAZINE HCL 50 MG TABLET FEED TUBE (20:01)
[2024-06-11] MEDS: carvediloL 25 MG TABLET FEED TUBE (20:01)
[2024-06-11] MEDS: MIRTAZAPINE 7.5 MG TABLET PO (20:01)
[2024-06-11] MEDS: AMOXICILLIN 400 MG/5 ML SUSPENSION 100 ML BOTTLE 500 MG FEED TUBE (20:01)
[2024-06-11] MEDS: INSULIN GLARGINE (*BKC) 100 UNITS/ML 28 UNITS SUB-Q (20:02)
[2024-06-11 20:45] LABS: Glucose Point of Care 183 mg/dl (65-105)
[2024-06-11 23:36] LABS: Glucose Point of Care 250 mg/dl (65-105)
[2024-06-12 04:24] VITALS: O2SAT 99
[2024-06-12 05:12] VITALS: BP 172/75; PULSE 90; RESP 16; TEMP 36.7; O2SAT 100
[2024-06-12] MEDS: INSULIN ASPART (*BKC) 100 UNITS/ML SUB-Q (05:15)
[2024-06-12] MEDS: hydrALAZINE HCL 50 MG TABLET FEED TUBE ×3 (05:16→20:01)
[2024-06-12 05:29] LABS: Glucose Point of Care 208 mg/dl (65-105)
--- NOTE | 2024-06-12 07:11 | P.PNIM_ITS ---
Progress Note: A&P Assessment and Plan (1) Altered mental status: Code(s): R41.82 - Altered mental status, unspecified Status: Acute Assessment and Plan: patient has been declining since when he had a PEG tube placed after long hospitalization however last week he was still taking in oral intake with supplemental tube feeds head CT no acute process ApneaLink shows no severe apnea patient does have UTI chest x-ray with no acute process MRI pending neurology consult pending recommendations (2) Bacteriuria with pyuria: Code(s): R82.71 - Bacteriuria; R82.81 - Pyuria Status: Acute Assessment and Plan: could because of altered mental status however patient has not shown any improvement since admission * Continue Rocephin. * urine culture shows Enterococcus (3) Acute on chronic kidney failure: Code(s): N17.9 - Acute kidney failure, unspecified; N18.9 - Chronic kidney disease, unspecified Status: Acute Assessment and Plan: improving * Rehydration started with D5 1/2 NS and supplemental TF. * Creatinine is slowly trending down. * avoid nephrotoxic medications * IVF for hydration * Continue to monitor and trend. (4) Dehydration: Code(s): E86.0 - Dehydration Status: Acute Assessment and Plan: * See #1 (5) Hypernatremia: Code(s): E87.0 - Hyperosmolality and hypernatremia Status: Acute Assessment and Plan: slowly improving * See #1 * Check urine osmolality and serum osmolality, but actually suspect that hypernatremia is due to dehydration. * IVF decreased and free water flushes increased (6) Elevated LFTs: Code(s): R79.89 - Other specified abnormal findings of blood chemistry Status: Acute Assessment and Plan: * Etiology is unknown. * US shows fatty infiltration of an enlarged liver. There is also a hemangioma within segment 6. * Transaminases have been historically elevated in the past. (7) Insulin dependent diabetes mellitus: Status: Acute Assessment and Plan: * SSI q.6 * Lantus increased to 28 units QHS as pt does receive TF's * Continue to trend Glucose and adjust as needed. (8) Hypertension: Code(s): I10 - Essential (primary) hypertension Status: Acute Assessment and Plan: * BP stable 140s-150s/60s-70s. * Continue current regimen and monitor. (9) Chronic anemia: Code(s): D64.9 - Anemia, unspecified Status: Acute Assessment and Plan: stable * Chronic in nature however it appears to be worsening and trending down * Etiology CKD vs. GI Bleed vs. Dilutional * Stool for occult blood ordered. * Consider transfusion if 7.0 or less. * Monitor and trend Labs. Time Spent With Patient Time with patient: Greater than 35 minutes Subjective Date/time seen: 06/12/24 07:11 Interval history: Pt is evaluated today at the bedside in interval assessment since being admitted for JOSHUA, UTI, Transaminitis and UTI. He is non-verbal and withdrawals to painful stimuli, according to family patient has had a decline since Thanksgiving according to sister patient does not have diagnosis that explains his altered mental status and recent decline, altered mental status workup started yesterday, head CT no acute findings, plan for MRI and Neurology today coughing and gag intact, withdrawals to painful stimuli does not open eyes, able to protect airway blood sugars still over 200, Lantus increased by 2 units again Review of Systems Review of Systems: ROS unobtainable: Yes unobtainable due to medical condition Exam Narrative: General: Chronically ill-appearing gentleman the semi-Angulo position in bed in no acute distress. Weight: 72.9 kg. BMI: 24.4. HEENT: Pupils are reactive. Sclera anicteric. Dry mucous membranes. Lips are chapped and cracked. Neck: Supple. Respiratory: Respirations are nonlabored and lungs are clear to auscultation. at like episodes Cardiovascular: Regular rate and rhythm with S1-S2. Gastrointestinal: Abdomen is soft, nontender, and nondistended with positive bowel sounds. G-tube site is clean, dry, and intact. No guarding or rebound tenderness. Skin: Warm and dry. Evidence of prior skin grafts. Extremities: No cyanosis, clubbing, or edema. Radial and pedal pulses intact. Neurological: cough, gag, withdrawal to painful stimuli, able to protect airway, does not open eyes Psychiatric: unable to assess. Objective Data Vital Signs Vital Signs: Vital Signs - 24 hr 06/11/24 08:53 06/11/24 08:54 06/11/24 08:54 Temperature 98.2 F Pulse Rate 96 96 Respiratory Rate 22 H Blood Pressure 165/73 H Pulse Oximetry 99 99 Oxygen Delivery Room Air Fraction of Inspired Oxygen 06/11/24 13:44 06/11/24 14:00 06/11/24 19:51 Temperature 98.1 F 97.9 F 98.3 F Pulse Rate 98 98 93 Respiratory Rate 18 18 17 Blood Pressure 156/69 H 148/63 H 153/72 H Pulse Oximetry 100 98 100 Oxygen Delivery Fraction of Inspired Oxygen 06/11/24 20:00 06/11/24 20:01 06/12/24 04:24 Temperature Pulse Rate 93 Respiratory Rate Blood Pressure Pulse Oximetry 99 Oxygen Delivery Room Air Room Air Fraction of Inspired Oxygen 21 06/12/24 05:12 Temperature 98.0 F Pulse Rate 90 Respiratory Rate 16 Blood Pressure 172/75 H Pulse Oximetry 100 Oxygen Delivery Fraction of Inspired Oxygen Intake/Output Intake/Output: Intake & Output 06/09/24 06/10/24 06/11/24 06/12/24 23:59 23:59 23:59 23:59 Intake Total 50 3301 2811.7 1439 Output Total 750 950 850 Balance 50 2551 1861.7 589 Meds/Results Medications: Active Medications Generic Name Dose Route Start Last Admin Trade Name Freq PRN Reason Stop Dose Admin Acetaminophen 650 mg 06/09/24 16:57 Acetaminophen 325 Mg Tablet FEED TUBE Q4H PRN Mild Pain (1-3) or Fever Albuterol/Ipratropium 3 ml 06/09/24 20:41 Ipratropium 0.5 Mg/Albuterol Sulfate 2.5 Mg Ampul.Neb 3 Ml INHALATION Q6H PRN Shortness Of Breath Amlodipine Besylate 10 mg 06/12/24 09:00 Amlodipine Besylate 10 Mg Tablet FEED TUBE DAILY [facility] Amoxicillin 500 mg 06/11/24 21:00 06/11/24 20:01 Amoxicillin 400 Mg/5 Ml Suspension 100 Ml Bottle FEED TUBE 06/17/24 21:01 500 mg Q12HR [facility]IA Administration Artificial Tears 1 drop 06/09/24 20:46 Artificial Tears Ophth Soln 15 Ml Bottle EACH EYE BID PRN Dry Eyes Aspirin 81 mg 06/10/24 09:00 06/11/24 08:54 Aspirin 81 Mg Chewable Tablet PO 81 mg DAILY [facility] Administration Atorvastatin Calcium 40 mg 06/11/24 21:00 06/11/24 20:01 Atorvastatin 40 Mg Tablet FEED TUBE 40 mg HS EL[facility]IA Administration Carvedilol 25 mg 06/11/24 21:00 06/11/24 20:01 Carvedilol 25 Mg Tablet FEED TUBE 25 mg Q12HR [facility] Administration Dextrose 12.5 gm 06/09/24 20:38 Dextrose 50% 25 Gm/50 Ml Syringe IV PUSH PRN PRN Hypoglycemia Protocol Famotidine 20 mg 06/11/24 17:00 06/11/24 17:09 Famotidine 20 Mg Tablet FEED TUBE 20 mg BID EL[facility]IA Administration Ferrous Sulfate 325 mg 06/10/24 09:00 06/11/24 08:55 Ferrous Sulfate Liquid 325 Mg/7.4 Ml Elixir FEED TUBE 325 mg DAILY EL[facility]IA Administration Fluticasone Propionate 1 spray 06/10/24 09:00 06/11/24 08:54 Fluticasone Propionate 0.05% Na Spr 16 Gm Btl (*Bkc) NASAL 1 spray DAILY [facility]IA Administration Folic Acid 1 mg 06/12/24 09:00 Folic Acid 1 Mg Tablet FEED TUBE DAILY [facility] Glucagon 1 mg 06/09/24 20:38 Glucagon For Inj 1 Mg Vial IM PRN PRN Hypoglycemia Protocol Glucose 15 gm 06/09/24 20:38 Glucose Oral Gel 15 Gm Of Glucse In 37.5 Gm Tube PO PRN PRN Hypoglycemia Protocol Heparin Sodium (Porcine) 5,000 units 06/09/24 21:00 06/11/24 20:05 Heparin Sodium 5,000 Units/Ml Vial SUB-Q 5,000 units Q12HR [facility] Administration Hydralazine HCl 50 mg 06/11/24 22:00 06/12/24 05:16 Hydralazine Hcl 50 Mg Tablet FEED TUBE 50 mg Q8HR [facility] Administration Dextrose 1,000 mls @ 100 mls/hr 06/09/24 20:38 Dextrose 5% 1,000 Ml IVPB PRN PRN Hypoglycemia Protocol Insulin Aspart 4 - 8 units 06/10/24 18:00 06/12/24 05:15 Insulin Aspart (*Bkc) 100 Units/Ml SUB-Q 4 units Q6HR [facility] Administration Protocol Insulin Glargine 28 units 06/11/24 21:00 06/11/24 20:02 Insulin Glargine (*Bkc) 100 Units/Ml SUB-Q 28 units HS EL[facility]IA Administration Loratadine 10 mg 06/12/24 09:00 Loratadine 10 Mg Tablet FEED TUBE DAILY [facility] Mirtazapine 7.5 mg 06/09/24 21:00 06/11/24 20:01 Mirtazapine 7.5 Mg Tablet PO 7.5 mg HS EL[facility]IA Administration Multivitamins Therapeutic 1 tablet 06/12/24 09:00 Multivitamins Therapeutic Tab (*Bkc) FEED TUBE DAILY [facility] Ondansetron HCl 4 mg 06/09/24 16:57 Ondansetron Inj 4 Mg/2 Ml Vial IV PUSH Q4H PRN Nausea Senna 8.6 mg 06/11/24 17:00 06/11/24 17:09 Sennosides 8.6 Mg Tablet FEED TUBE 8.6 mg BID ELIDIA Administration Radiology Results: ITS Impressions Chest X-Ray 06/09/24 17:13 IMPRESSION: No focal infiltrate or effusion. Abdomen Ultrasound 06/09/24 18:43 IMPRESSION: Fatty infiltration of an enlarged liver. Hemangioma within segment [address] 06/11/24 18:55 Impression: Stable CT appearance of the brain, without acute intracranial hemorrhage or suspicious mass effect. Labs Labs: Laboratory Results - last 24 hr 06/11/24 06/11/24 06/11/24 05:20 12:14 12:38 Sodium 152 H Potassium 4.3 Chloride 119 H Carbon Dioxide 24 Anion Gap 9 BUN 96 H Creatinine 3.01 H Estim Creat Clear Calc 21 Estimated GFR 25 L Glucose 312 H POC Capillary Glucose 246 H 252 H Calcium 8.1 L Total Bilirubin 0.5 AST 98 H ALT 122 H Alkaline Phosphatase 110 Ammonia Total Protein 6.0 L Albumin 2.9 L 06/11/24 06/11/24 06/11/24 17:03 18:17 19:46 Sodium Potassium Chloride Carbon Dioxide Anion Gap BUN Creatinine Estim Creat Clear Calc Estimated GFR Glucose POC Capillary Glucose 183 H 183 H Calcium Total Bilirubin AST ALT Alkaline Phosphatase Ammonia < 9 L Total Protein Albumin 06/11/24 06/12/24 23:33 05:13 Sodium Potassium Chloride Carbon Dioxide Anion Gap BUN Creatinine Estim Creat Clear Calc Estimated GFR Glucose POC Capillary Glucose 250 H 208 H Calcium Total Bilirubin AST ALT Alkaline Phosphatase Ammonia Total Protein Albumin Quality VTE Prophylaxis VTE prophylaxis: pharmacologic ordered
[2024-06-12] MEDS: ASPIRIN 81 MG CHEWABLE TABLET PO (08:19)
[2024-06-12 08:20] VITALS: PULSE 90
[2024-06-12] MEDS: MULTIVITAMINS THERAPEUTIC TAB (*BKC) 1 TABLET FEED TUBE (08:20)
[2024-06-12] MEDS: carvediloL 25 MG TABLET FEED TUBE ×2 (08:20→20:01)
[2024-06-12] MEDS: SENNOSIDES 8.6 MG TABLET FEED TUBE ×2 (08:20→17:18)
[2024-06-12] MEDS: FAMOTIDINE 20 MG TABLET FEED TUBE ×2 (08:20→17:19)
[2024-06-12] MEDS: amLODIPine BESYLATE 10 MG TABLET FEED TUBE (08:21)
[2024-06-12] MEDS: FERROUS SULFATE LIQUID 325 MG/7.4 ML ELIXIR FEED TUBE (08:21)
[2024-06-12] MEDS: FOLIC ACID 1 MG TABLET FEED TUBE (08:21)
[2024-06-12] MEDS: LORATADINE 10 MG TABLET FEED TUBE (08:21)
[2024-06-12] MEDS: FLUTICASONE PROPIONATE 0.05% NA SPR 16 GM BTL (*BKC) 1 SPRAY NASAL (08:21)
[2024-06-12] MEDS: AMOXICILLIN 400 MG/5 ML SUSPENSION 100 ML BOTTLE 500 MG FEED TUBE ×2 (08:22→20:02)
[2024-06-12] MEDS: HEPARIN SODIUM 5,000 UNITS/ML VIAL 5000 UNITS SUB-Q ×2 (08:22→20:02)
[2024-06-12 08:58] LABS: Hematocrit 24.9 % (42.0-52.0); Mean Corpuscular HGB Conc 28.1 g/dl (32-36); Mean Corpuscular Volume 99.6 fl (80-100); Mean Platelet Volume 10.3 fl (7.4-10.4); Platelet Count Result 363 k/mm3 (150-375); Red Cell Distribution Width 15.6 % (11.5-14.5); White Blood Count 9.6 K/mm3 (4.5-10.0)
[2024-06-12 09:23] LABS: Alanine Aminotransferase 77 U/L (6-50); Alkaline Phosphatase 109 U/L (38-126); Anion Gap 8 mmol/L (4-12); Aspartate Amino Transferase 41 U/L (17-59); Bilirubin,Total 0.4 mg/dL (0.2-1.3); Blood Urea Nitrogen 78 mg/dL (9-20); Carbon Dioxide 29 mmol/L (22-30); Chloride 118 mmol/L (98-107); Estimated CRCL calculation 22 ml/min; Estimated Glomerular Filt Rate 26; Glucose 205 mg/dL (65-110); Potassium 3.8 mmol/L (3.4-5.0); Sodium 155 mmol/L (137-145)
--- NOTE | 2024-06-12 10:31 | PCSTNOTE ---
Attempted bedside swallow evaluation (for third day in a row) but unable to wake patient. Spoke with nurse and hospitalist who agreed to remove from evaluation list in consideration of his current state.
[2024-06-12 12:16] LABS: Glucose Point of Care 163 mg/dl (65-105)
[2024-06-12 14:00] VITALS: BP 145/72; PULSE 81; RESP 18; TEMP 35.9; O2SAT 100
[2024-06-12] MEDS: cefTRIAXone 2 GM/NS 100 ML 2 GM/100 ML BAG IVPB (14:54)
[2024-06-12] MEDS: SODIUM CHLORIDE 0.9% IV 1,000 ML 999 ML IV CONT (14:54)
[2024-06-12] MEDS: guaiFENesin/DEXTROMETHORPHAN 10 ML UDC FEED TUBE ×3 (14:58→20:02)
[2024-06-12 15:54] LABS: Osmolality, Urine 455 mOsm/kg (50-1200)
[2024-06-12 20:01] VITALS: PULSE 83
[2024-06-12] MEDS: INSULIN GLARGINE (*BKC) 100 UNITS/ML 30 UNITS SUB-Q (20:01)
[2024-06-12] MEDS: ATORVASTATIN 40 MG TABLET FEED TUBE (20:02)
[2024-06-12 20:23] LABS: Glucose Point of Care 190 mg/dl (65-105)
[2024-06-12 21:04] VITALS: BP 160/63; PULSE 75; RESP 20; TEMP 36.3; O2SAT 100
[2024-06-12 23:45] LABS: Glucose Point of Care 186 mg/dl (65-105)
[2024-06-13] VITALS (8 sets, daily range): BP systolic 137–180; BP diastolic 63–88; PULSE 83–88; RESP 18–100; TEMP 36.5–37.1; O2SAT 18–100
[2024-06-13] MEDS: guaiFENesin/DEXTROMETHORPHAN 10 ML UDC FEED TUBE ×6 (00:43→20:27)
[2024-06-13] MEDS: hydrALAZINE HCL 50 MG TABLET FEED TUBE ×3 (05:08→20:32)
[2024-06-13 06:00] LABS: Hematocrit 23.1 % (42.0-52.0); Mean Corpuscular HGB Conc 28.1 g/dl (32-36); Mean Corpuscular Hemoglobin 27.8 pg (26-34); Mean Corpuscular Volume 98.7 fl (80-100); Mean Platelet Volume 10.8 fl (7.4-10.4); Platelet Count Result 349 k/mm3 (150-375); Red Blood Count 2.34 M/mm3 (4.6-6.20); Red Cell Distribution Width 15.3 % (11.5-14.5); White Blood Count 7.9 K/mm3 (4.5-10.0)
[2024-06-13 06:05] LABS: Alanine Aminotransferase 68 U/L (6-50); Albumin Level 2.8 g/dL (3.5-5.1); Alkaline Phosphatase 101 U/L (38-126); Anion Gap 8 mmol/L (4-12); Aspartate Amino Transferase 50 U/L (17-59); Bilirubin,Total 0.4 mg/dL (0.2-1.3); Blood Urea Nitrogen 76 mg/dL (9-20); Calcium 8.4 mg/dL (8.4-10.2); Carbon Dioxide 29 mmol/L (22-30); Chloride 116 mmol/L (98-107); Estimated CRCL calculation 24 ml/min; Estimated Glomerular Filt Rate 29; Glucose 175 mg/dL (65-110); Potassium 3.7 mmol/L (3.4-5.0); Sodium 153 mmol/L (137-145)
[2024-06-13 06:06] LABS: Glucose Point of Care 158 mg/dl (65-105)
[2024-06-13 06:08] LABS: Hemoglobin 6.5 g/dL (14.0-18.0)
[2024-06-13] MEDS: SENNOSIDES 8.6 MG TABLET FEED TUBE ×2 (08:48→17:13)
[2024-06-13] MEDS: carvediloL 25 MG TABLET FEED TUBE ×2 (08:48→20:26)
[2024-06-13] MEDS: LORATADINE 10 MG TABLET FEED TUBE (08:48)
[2024-06-13] MEDS: ASPIRIN 81 MG CHEWABLE TABLET PO (08:49)
[2024-06-13] MEDS: FAMOTIDINE 20 MG TABLET FEED TUBE ×2 (08:49→17:13)
[2024-06-13] MEDS: MULTIVITAMINS THERAPEUTIC TAB (*BKC) 1 TABLET FEED TUBE (08:49)
[2024-06-13] MEDS: FOLIC ACID 1 MG TABLET FEED TUBE (08:50)
[2024-06-13] MEDS: amLODIPine BESYLATE 10 MG TABLET FEED TUBE (08:50)
[2024-06-13] MEDS: FERROUS SULFATE LIQUID 325 MG/7.4 ML ELIXIR FEED TUBE (08:51)
[2024-06-13] MEDS: AMOXICILLIN 400 MG/5 ML SUSPENSION 100 ML BOTTLE 500 MG FEED TUBE ×2 (08:51→20:28)
[2024-06-13] MEDS: HEPARIN SODIUM 5,000 UNITS/ML VIAL 5000 UNITS SUB-Q ×2 (08:51→20:27)
[2024-06-13] MEDS: FLUTICASONE PROPIONATE 0.05% NA SPR 16 GM BTL (*BKC) 1 SPRAY NASAL (08:52)
[2024-06-13] MEDS: LACTATED RINGERS 1,000 ML 75 ML IV CONT (09:20)
--- NOTE | 2024-06-13 11:49 | WPDNEURCNPN ---
Assessment and Plan Assessment and plan (1) Vascular dementia: Code(s): F01.50 - Vascular dementia, unspecified severity, without behavioral disturbance, psychotic disturbance, mood disturbance, and anxiety Status: Acute Assessment and Plan: The contractures and particularly the weakness on the left side of his arm her do raise possibility of him having had strokes in the past MRI of the brain shows significant superficial and central atrophy and significantly enlarged ventricles probably due to the atrophy. Hence he may have vascular dementia as a cause for his a decline leading to other issues that we are facing. (2) Encephalopathy chronic: Code(s): G93.49 - Other encephalopathy Status: Acute Assessment and Plan: there is an significant element of metabolic encephalopathy superimposed upon the underlying vascular dementia due to multiple medical problems (3) Insulin dependent diabetes mellitus: Status: Acute (4) Protein-calorie malnutrition, severe: Code(s): E43 - Unspecified severe protein-calorie malnutrition Status: Acute (5) Elevated LFTs: Code(s): R79.89 - Other specified abnormal findings of blood chemistry Status: Acute (6) Chronic kidney disease, unspecified: Code(s): N18.9 - Chronic kidney disease, unspecified Status: Acute (7) Anemia, unspecified: Code(s): D64.9 - Anemia, unspecified Status: Acute (8) Loculated pleural effusion: Code(s): J90 - Pleural effusion, not elsewhere classified Status: Acute Plan Supportive care for his multiple medical problems should continue. I am afraid I do not have much else offer. He is on statins and aspirin which should continue. One of the notes reflect history of seizure disorder but he is not on any anticonvulsants however if he has any seizure-like spells we can certainly address it. Consult date: 06/13/24 HPI: Logan Orozco is a 68 year old male With history of multiple medical problems including insulin-dependent diabetes mellitus, chronic kidney disease, and a failure to thrive, abnormal liver enzymes, severe anemia with hemoglobin of 6.5 g, MRSA positive, feeding tube in place, pleural effusion, dementia, seizure disorder. Patient nonverbal and history is obtained from the review of the records and with assistance from nursing staff. He was admitted from care home on 06/09/2024 with the weakness. I noted that he was admitted hospital later March and early April and has seen various specialists including Nephrology, Gastroenterology, pulmonary and he was also eventually transferred to [facility] for management of a loculated pulmonary effusion. He has been a resident at [facility], formerly [facility]. He has been reported to have decreased oral intake. I noted that upon arrival had urine was significantly abnormal and AST was 128 ALT was 121 creatinine was 3.43 and BUN was 93. WBC count was 10.9. 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 Code status: Full code. 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 Spiritual care concerns: No Meds Home Medications and Allergies Home Medications ?Medication ?Instructions ?Recorded ?Confirmed ?Type acetaminophen 650 mg tablet 650 mg PO Q6H PRN Pain, Mild 04/25/24 06/09/24 History amlodipine 10 mg tablet 10 mg PO DAILY 04/25/24 06/09/24 History artificial tears solution eye drops 1 drp ophthalmic (eye) BID PRN Dry 04/25/24 06/09/24 History Eyes aspirin 81 mg capsule 81 mg PO DAILY 04/25/24 06/09/24 History atorvastatin 40 mg tablet 40 mg PO HS 04/25/24 06/09/24 History carvedilol 25 mg tablet 25 mg PO BID 04/25/24 06/09/24 History cetirizine 10 mg tablet (Zyrtec) 10 mg PO DAILY 04/25/24 06/09/24 History cyanocobalamin (vitamin B-12) 100 100 mcg PO DAILY 04/25/24 06/09/24 History mcg tablet famotidine 20 mg tablet 20 mg PO BID 04/25/24 06/09/24 History ferrous sulfate 324 mg (65 mg 324 mg PO DAILY 04/25/24 06/09/24 History iron) tablet,delayed release fluticasone propionate 50 1 spray intranasal DAILY 04/25/24 06/09/24 History mcg/actuation nasal spray,suspension folic acid 1 mg tablet 1 mg PO DAILY 04/25/24 06/09/24 History hydralazine 10 mg tablet 50 mg PO TID 04/25/24 06/09/24 History insulin glargine 100 unit/mL 25 unit subcut HS 04/25/24 06/09/24 History subcutaneous solution (Lantus U-100 Insulin) insulin lispro 100 unit/mL 15 unit subcut .with meals 04/25/24 06/09/24 History subcutaneous pen ipratropium 0.5 mg-albuterol 3 mg 3 ml inhalation Q6H PRN SOB 04/25/24 06/09/24 History (2.5 mg base)/3 mL nebulization soln mirtazapine 15 mg tablet 7.5 mg PO HS 04/25/24 06/09/24 History multivitamin 1 tablet PO DAILY 04/25/24 06/09/24 History sennosides 8.6 mg tablet (senna) 8.6 mg PO BID 04/25/24 06/09/24 History glucagon 1 mg solution for 1 mg IM PRN 06/09/24 06/09/24 History injection (Glucagon Emergency Kit) Allergies Allergy/AdvReac Type Severity Reaction Status Date / Time No Known Allergies Allergy Verified 10/15/23 11:22 Vital Signs Vital Signs - 24 hr 06/12/24 14:00 06/12/24 20:00 06/12/24 20:01 Temperature 96.6 F L Pulse Rate 81 83 Respiratory Rate 18 Blood Pressure 145/72 H Pulse Oximetry 100 Oxygen Delivery Room Air 06/12/24 21:04 06/13/24 06:00 06/13/24 08:48 Temperature 97.4 F L 98 F Pulse Rate 75 88 88 Respiratory Rate 20 20 Blood Pressure 160/63 H 180/88 H Pulse Oximetry 100 100 Oxygen Delivery 06/13/24 08:50 Temperature Pulse Rate Respiratory Rate Blood Pressure Pulse Oximetry Oxygen Delivery Room Air Exam Narrative: Patient is nonverbal. Once in a while he will open his eyes to stimulation and raises his right arm to touch the right side of his face. He holds his left arm in flexion and appears to have contracture at the wrist and possibly also at elbow. He would not move his lower limbs the held in question she decubitus. Although unable to elicit any deep tendon reflexes. Sensory examination is also not possible. No cogwheeling or any other involuntary movements were seen. Results Labs 06/13/24 04:59 06/13/24 04:59 Labs: Short CBC 06/13/24 Range/Units 04:59 WBC 7.9 (4.5-10.0) K/mm3 Hgb 6.5 L* (14.0-18.0) g/dL Hct 23.1 L (42.0-52.0) % Plt Count 349 (150-375) k/mm3 BMP 06/13/24 04:59 Sodium 153 H Potassium 3.7 Chloride 116 H Carbon Dioxide 29 BUN 76 H Creatinine 2.69 H Glucose 175 H Calcium 8.4 Liver Function 06/13/24 Range/Units 04:59 Total Bilirubin 0.4 (0.2-1.3) mg/dL AST 50 (17-59) U/L ALT 68 H (6-50) U/L Alkaline Phosphatase 101 (38-126) U/L Albumin 2.8 L (3.5-5.1) g/dL
[2024-06-13 11:56] LABS: Glucose Point of Care 154 mg/dl (65-105)
--- NOTE | 2024-06-13 12:29 | P.PNIM_ITS ---
Progress Note: A&P Assessment and Plan (1) Altered mental status: Code(s): R41.82 - Altered mental status, unspecified Status: Acute Assessment and Plan: patient has been declining since when he had a PEG tube placed after long hospitalization however last week he was still taking in oral intake with supplemental tube feeds head CT no acute process ApneaLink shows no severe apnea patient does have UTI chest x-ray with no acute process MRI pending neurology consult pending recommendations 06/13/24: * MRI with only chronic changes and infarcts only. * Awaiting MRI results * Overall it appears that pt is improving. (2) Bacteriuria with pyuria: Code(s): R82.71 - Bacteriuria; R82.81 - Pyuria Status: Acute Assessment and Plan: could because of altered mental status however patient has not shown any improvement since admission * Continue Rocephin. * urine culture shows Enterococcus 06/13/24: * Continue Rocephin for treatment. (3) Acute on chronic kidney failure: Code(s): N17.9 - Acute kidney failure, unspecified; N18.9 - Chronic kidney disease, unspecified Status: Acute Assessment and Plan: improving * Rehydration started with D5 1/2 NS and supplemental TF. * Creatinine is slowly trending down. * avoid nephrotoxic medications * IVF for hydration * Continue to monitor and trend. 06/13/24: * There has been slow improvement to the point today with Cr of 2.69. Will restart a low dose/rate fluids of LR at 75 ml/hr. His baseline renal function is 2.5-3.2. * Dr. Carmona has been consulted for Nephrology management. (4) Dehydration: Code(s): E86.0 - Dehydration Status: Acute Assessment and Plan: * See #1 06/13/24: * Pt is currently hydrating well with his LR at 75 ml/hr. (5) Hypernatremia: Code(s): E87.0 - Hyperosmolality and hypernatremia Status: Acute Assessment and Plan: slowly improving * See #1 * Check urine osmolality and serum osmolality, but actually suspect that hypernatremia is due to dehydration. * IVF decreased and free water flushes increased. 06/13/24: * Support given by increasing the IVF for hydration. (6) Elevated LFTs: Code(s): R79.89 - Other specified abnormal findings of blood chemistry Status: Acute Assessment and Plan: * Etiology is unknown. * US shows fatty infiltration of an enlarged liver. There is also a hemangioma within segment 6. * Transaminases have been historically elevated in the past. 06/13/24: * Follow up with PCP. (7) Insulin dependent diabetes mellitus: Status: Acute Assessment and Plan: * SSI q.6 * Lantus increased to 28 units QHS as pt does receive TF's * Continue to trend Glucose and adjust as needed. 06/13/24: * Continue home regimen upon discharge. (8) Hypertension: Code(s): I10 - Essential (primary) hypertension Status: Acute Assessment and Plan: * BP stable 140s-150s/60s-70s. * Continue current regimen and monitor. 06/13/24; * Continue with current home regimen and monitor. (9) Chronic anemia: Code(s): D64.9 - Anemia, unspecified Status: Acute Assessment and Plan: stable * Chronic in nature however it appears to be worsening and trending down * Etiology CKD vs. GI Bleed vs. Dilutional * Stool for occult blood ordered. * Consider transfusion if 7.0 or less. * Monitor and trend Labs. 06/13/24: * Further decline in Hgb today. This has prompted us to consult Neuro, but pt appears to be stable and improving. Awaiting that consult at this time. * Pt is awaiting dialysis to finish so that she may be discharged. Time Spent With Patient Time with patient: 25 - 35 minutes Subjective Date/time seen: 06/13/24 0900 Interval history: This pt was examined at the bedside today in interval assessment. Upon my entry to the room he is alert, looking around and answers some questions for me that he is doing OK and he denies any pain anywhere. I am told by the nurse that he had the same response last evening an is becoming more responsive. Yesterday he had MRI that shows old infarcts in the bilateral basal ganglia and repeat CXR was negative. Neuro was consulted, but have not yet seen him. His Hgb today was low at 6.5 and he is receiving a unit of blood. No other new s/s, complaints or s/s of distress. Review of Systems Review of Systems: All systems reviewed & are unremarkable except as noted in HPI and below Exam Narrative: General: Chronically ill-appearing gentleman the semi-Angulo position in bed in no acute distress. Weight: 72.9 kg. BMI: 24.4. HEENT: Pupils are reactive. Sclera anicteric. Dry mucous membranes. Lips are chapped and cracked. Neck: Supple. Respiratory: Respirations are nonlabored and lungs are clear to auscultation. Cardiovascular: Regular rate and rhythm with S1-S2. Gastrointestinal: Abdomen is soft, nontender, and nondistended with positive bowel sounds. G-tube site is clean, dry, and intact. No guarding or rebound tenderness. Skin: Warm and dry. Evidence of prior skin grafts. Extremities: No cyanosis, clubbing, or edema. Radial and pedal pulses intact. Neurological: Pt is alert and looking around this AM, reporting no pain or distress. Psychiatric: unable to assess. Objective Data Vital Signs Vital Signs: Vital Signs - 24 hr 06/12/24 14:00 06/12/24 20:00 06/12/24 20:01 Temperature 96.6 F L Pulse Rate 81 83 Respiratory Rate 18 Blood Pressure 145/72 H Pulse Oximetry 100 Oxygen Delivery Room Air 06/12/24 21:04 06/13/24 06:00 06/13/24 08:48 Temperature 97.4 F L 98 F Pulse Rate 75 88 88 Respiratory Rate 20 20 Blood Pressure 160/63 H 180/88 H Pulse Oximetry 100 100 Oxygen Delivery 06/13/24 08:50 Temperature Pulse Rate Respiratory Rate Blood Pressure Pulse Oximetry Oxygen Delivery Room Air Intake/Output Intake/Output: Intake & Output 06/10/24 06/11/24 06/12/24 06/13/24 23:59 23:59 23:59 23:59 Intake Total 3301 2811.7 1439 2213 Output Total 151 009 9332 700 Balance 2551 1861.7 39 1513 Meds/Results Medications: Active Medications Generic Name Dose Route Start Last Admin Trade Name Freq PRN Reason Stop Dose Admin Acetaminophen 650 mg 06/09/24 16:57 Acetaminophen 325 Mg Tablet FEED TUBE Q4H PRN Mild Pain (1-3) or Fever Albuterol/Ipratropium 3 ml 06/09/24 20:41 Ipratropium 0.5 Mg/Albuterol Sulfate 2.5 Mg Ampul.Neb 3 Ml INHALATION Q6H PRN Shortness Of Breath Amlodipine Besylate 10 mg 06/12/24 09:00 06/13/24 08:50 Amlodipine Besylate 10 Mg Tablet FEED TUBE 10 mg DAILY ELIDIA Administration Amoxicillin 500 mg 06/11/24 21:00 06/13/24 08:51 Amoxicillin 400 Mg/5 Ml Suspension 100 Ml Bottle FEED TUBE 06/17/24 21:01 500 mg Q12HR ELIDIA Administration Artificial Tears 1 drop 06/09/24 20:46 Artificial Tears Ophth Soln 15 Ml Bottle EACH EYE BID PRN Dry Eyes Aspirin 81 mg 06/10/24 09:00 06/13/24 08:49 Aspirin 81 Mg Chewable Tablet PO 81 mg DAILY ELIDIA Administration Atorvastatin Calcium 40 mg 06/11/24 21:00 06/12/24 20:02 Atorvastatin 40 Mg Tablet FEED TUBE 40 mg HS ELIDIA Administration Carvedilol 25 mg 06/11/24 21:00 06/13/24 08:48 Carvedilol 25 Mg Tablet FEED TUBE 25 mg Q12HR ELIDIA Administration Dextrose 12.5 gm 06/09/24 20:38 Dextrose 50% 25 Gm/50 Ml Syringe IV PUSH PRN PRN Hypoglycemia Protocol Famotidine 20 mg 06/11/24 17:00 06/13/24 08:49 Famotidine 20 Mg Tablet FEED TUBE 20 mg BID ELIDIA Administration Ferrous Sulfate 325 mg 06/10/24 09:00 06/13/24 08:51 Ferrous Sulfate Liquid 325 Mg/7.4 Ml Elixir FEED TUBE 325 mg DAILY ELIDIA Administration Fluticasone Propionate 1 spray 06/10/24 09:00 06/13/24 08:52 Fluticasone Propionate 0.05% Na Spr 16 Gm Btl (*Bkc) NASAL 1 spray DAILY ELIDIA Administration Folic Acid 1 mg 06/12/24 09:00 06/13/24 08:50 Folic Acid 1 Mg Tablet FEED TUBE 1 mg DAILY ELIDIA Administration Glucagon 1 mg 06/09/24 20:38 Glucagon For Inj 1 Mg Vial IM PRN PRN Hypoglycemia Protocol Glucose 15 gm 06/09/24 20:38 Glucose Oral Gel 15 Gm Of Glucse In 37.5 Gm Tube PO PRN PRN Hypoglycemia Protocol Guaifenesin/Dextromethorphan 10 ml 06/12/24 13:00 06/13/24 08:51 Guaifenesin/Dextromethorphan 10 Ml Udc FEED TUBE 10 ml Q4H ELIDIA Administration Heparin Sodium (Porcine) 5,000 units 06/09/24 21:00 06/13/24 08:51 Heparin Sodium 5,000 Units/Ml Vial SUB-Q 5,000 units Q12HR ELIDIA Administration Hydralazine HCl 50 mg 06/11/24 22:00 06/13/24 05:08 Hydralazine Hcl 50 Mg Tablet FEED TUBE 50 mg Q8HR ELIDIA Administration Dextrose 1,000 mls @ 100 mls/hr 06/09/24 20:38 Dextrose 5% 1,000 Ml IVPB PRN PRN Hypoglycemia Protocol Ceftriaxone Sodium 2 gm in 100 mls @ 200 mls/hr 06/12/24 14:00 06/12/24 14:54 Rocephin 2 Gm/Ns 100 Ml IVPB 200 mls/hr Q24H ELIDIA Administration Sodium Chloride 250 mls @ 30 mls/hr 06/13/24 06:38 Normal Saline Iv IV CONT 06/13/24 14:57 .[id number] STA Lactated Ringer's 1,000 mls @ 75 mls/hr 06/13/24 09:05 06/13/24 09:20 Lr - Lactated Ringers Iv IV CONT 75 mls/hr .[id number] ELIDIA Administration Insulin Aspart 4 - 8 units 06/10/24 18:00 06/13/24 05:13 Insulin Aspart (*Bkc) 100 Units/Ml SUB-Q Not Given Q6HR ELIDIA Protocol Insulin Glargine 30 units 06/12/24 21:00 06/12/24 20:01 Insulin Glargine (*Bkc) 100 Units/Ml SUB-Q 30 units HS ELIDIA Administration Loratadine 10 mg 06/12/24 09:00 06/13/24 08:48 Loratadine 10 Mg Tablet FEED TUBE 10 mg DAILY ELIDIA Administration Mirtazapine 7.5 mg 06/09/24 21:00 06/11/24 20:01 Mirtazapine 7.5 Mg Tablet PO 7.5 mg HS ELIDIA Administration Multivitamins Therapeutic 1 tablet 06/12/24 09:00 06/13/24 08:49 Multivitamins Therapeutic Tab (*Bkc) FEED TUBE 1 tablet DAILY ELIDIA Administration Ondansetron HCl 4 mg 06/09/24 16:57 Ondansetron Inj 4 Mg/2 Ml Vial IV PUSH Q4H PRN Nausea Senna 8.6 mg 06/11/24 17:00 06/13/24 08:48 Sennosides 8.6 Mg Tablet FEED TUBE 8.6 mg BID ELIDIA Administration Radiology Results: ITS Impressions Abdomen Ultrasound 06/09/24 18:43 IMPRESSION: Fatty infiltration of an enlarged liver. Hemangioma within segment [address] 06/11/24 18:55 Impression: Stable CT appearance of the brain, without acute intracranial hemorrhage or suspicious mass effect. Chest X-Ray 06/12/24 08:49 IMPRESSION: 1. No acute cardiopulmonary disease. Brain MRI 06/12/24 13:33 IMPRESSION: 1. Old infarcts in the bilateral basal ganglia. 2. Extensive nonspecific cerebral white matter disease and disease of the deep sotelo nuclei and niurka, which likely represents chronic small vessel ischemic disease. Labs Labs: Laboratory Results - last 24 hr 06/10/24 06/10/24 06/12/24 05:25 14:11 19:53 WBC RBC Hgb Hct MCV MCH MCHC RDW Plt Count MPV Sodium Potassium Chloride Carbon Dioxide Anion Gap BUN Creatinine Estim Creat Clear Calc Estimated GFR Glucose POC Capillary Glucose 190 H Serum Osmolality 377 H Calcium Total Bilirubin AST ALT Alkaline Phosphatase Total Protein Albumin Urine Osmolality 455 Blood Type Antibody Screen Crossmatch 06/12/24 06/13/24 06/13/24 23:42 04:59 05:11 WBC 7.9 RBC 2.34 L Hgb 6.5 L* Hct 23.1 L MCV 98.7 MCH 27.8 MCHC 28.1 L RDW 15.3 H Plt Count 349 MPV 10.8 H Sodium 153 H Potassium 3.7 Chloride 116 H Carbon Dioxide 29 Anion Gap 8 BUN 76 H Creatinine 2.69 H Estim Creat Clear Calc 24 Estimated GFR 29 L Glucose 175 H POC Capillary Glucose 186 H 158 H Serum Osmolality Calcium 8.4 Total Bilirubin 0.4 AST 50 ALT 68 H Alkaline Phosphatase 101 Total Protein 6.0 L Albumin 2.8 L Urine Osmolality Blood Type Antibody Screen Crossmatch 06/13/24 06/13/24 06:56 11:53 WBC RBC Hgb Hct MCV MCH MCHC RDW Plt Count MPV Sodium Potassium Chloride Carbon Dioxide Anion Gap BUN Creatinine Estim Creat Clear Calc Estimated GFR Glucose POC Capillary Glucose 154 H Serum Osmolality Calcium Total Bilirubin AST ALT Alkaline Phosphatase Total Protein Albumin Urine Osmolality Blood Type O Positive Antibody Screen Negative Crossmatch See Detail Quality VTE Prophylaxis VTE prophylaxis: mechanical ordered
[2024-06-13] MEDS: cefTRIAXone 2 GM/NS 100 ML 2 GM/100 ML BAG IVPB (15:29)
[2024-06-13] MEDS: ATORVASTATIN 40 MG TABLET FEED TUBE (20:27)
[2024-06-13] MEDS: INSULIN GLARGINE (*BKC) 100 UNITS/ML 30 UNITS SUB-Q (20:29)
[2024-06-13 21:14] LABS: Glucose Point of Care 165 mg/dl (65-105)
[2024-06-14] VITALS (7 sets, daily range): BP systolic 150–168; BP diastolic 70–83; PULSE 74–98; RESP 16–18; TEMP 36.4–36.9; O2SAT 90–100
[2024-06-14] MEDS: LACTATED RINGERS 1,000 ML 75 ML IV CONT ×2 (00:12→13:20)
[2024-06-14] MEDS: guaiFENesin/DEXTROMETHORPHAN 10 ML UDC FEED TUBE ×7 (00:13→23:59)
[2024-06-14] MEDS: INSULIN ASPART (*BKC) 100 UNITS/ML SUB-Q ×2 (00:15→23:55)
[2024-06-14 00:27] LABS: Glucose Point of Care 215 mg/dl (65-105)
[2024-06-14] MEDS: hydrALAZINE HCL 50 MG TABLET FEED TUBE ×3 (05:46→21:11)
[2024-06-14 05:54] LABS: Hematocrit 25.6 % (42.0-52.0); Hemoglobin 7.4 g/dL (14.0-18.0); Mean Corpuscular HGB Conc 28.9 g/dl (32-36); Mean Corpuscular Hemoglobin 28.2 pg (26-34); Mean Corpuscular Volume 97.7 fl (80-100); Mean Platelet Volume 10.2 fl (7.4-10.4); Platelet Count Result 354 k/mm3 (150-375); Red Blood Count 2.62 M/mm3 (4.6-6.20); Red Cell Distribution Width 15.4 % (11.5-14.5); White Blood Count 7.7 K/mm3 (4.5-10.0)
[2024-06-14 06:05] LABS: Glucose Point of Care 155 mg/dl (65-105)
[2024-06-14 06:05] LABS: Potassium 3.8 mmol/L (3.4-5.0)
[2024-06-14 06:07] LABS: Alanine Aminotransferase 49 U/L (6-50); Albumin Level 2.7 g/dL (3.5-5.1); Alkaline Phosphatase 96 U/L (38-126); Anion Gap 4 mmol/L (4-12); Aspartate Amino Transferase 34 U/L (17-59); Bilirubin,Total 0.4 mg/dL (0.2-1.3); Blood Urea Nitrogen 67 mg/dL (9-20); Calcium 8.5 mg/dL (8.4-10.2); Carbon Dioxide 30 mmol/L (22-30); Chloride 115 mmol/L (98-107); Estimated CRCL calculation 25 ml/min; Estimated Glomerular Filt Rate 30; Glucose 170 mg/dL (65-110); Sodium 149 mmol/L (137-145)
[2024-06-14] MEDS: FLUTICASONE PROPIONATE 0.05% NA SPR 16 GM BTL (*BKC) 1 SPRAY NASAL (09:26)
[2024-06-14] MEDS: SENNOSIDES 8.6 MG TABLET FEED TUBE ×2 (09:26→17:37)
[2024-06-14] MEDS: MULTIVITAMINS THERAPEUTIC TAB (*BKC) 1 TABLET FEED TUBE (09:26)
[2024-06-14] MEDS: amLODIPine BESYLATE 10 MG TABLET FEED TUBE (09:26)
[2024-06-14] MEDS: HEPARIN SODIUM 5,000 UNITS/ML VIAL 5000 UNITS SUB-Q ×2 (09:26→21:01)
[2024-06-14] MEDS: FOLIC ACID 1 MG TABLET FEED TUBE (09:26)
[2024-06-14] MEDS: FAMOTIDINE 20 MG TABLET FEED TUBE ×2 (09:26→17:37)
[2024-06-14] MEDS: ASPIRIN 81 MG CHEWABLE TABLET PO (09:26)
[2024-06-14] MEDS: carvediloL 25 MG TABLET FEED TUBE ×2 (09:26→21:10)
[2024-06-14] MEDS: FERROUS SULFATE LIQUID 325 MG/7.4 ML ELIXIR FEED TUBE (09:26)
[2024-06-14] MEDS: LORATADINE 10 MG TABLET FEED TUBE (09:26)
[2024-06-14] MEDS: AMOXICILLIN 400 MG/5 ML SUSPENSION 100 ML BOTTLE 500 MG FEED TUBE (09:32)
--- NOTE | 2024-06-14 09:32 | P.PNIM_ITS ---
Progress Note: A&P Assessment and Plan (1) Altered mental status: Code(s): R41.82 - Altered mental status, unspecified Status: Acute Assessment and Plan: patient has been declining since when he had a PEG tube placed after long hospitalization however last week he was still taking in oral intake with supplemental tube feeds head CT no acute process ApneaLink shows no severe apnea patient does have UTI chest x-ray with no acute process MRI pending neurology consult pending recommendations 06/13/24: * MRI with only chronic changes and infarcts only. * Awaiting MRI results * Overall it appears that pt is improving. 06/14/24: * MRI without any new or acute changes or findings. * Neuro consulted and stated that they believe there is a degree of metabolic encephalopathy present upon the current degree of Dementia. * Pt arouses today to verbal and tactile stimulation, but does not remain awake or attempt to verbalize. (2) Bacteriuria with pyuria: Code(s): R82.71 - Bacteriuria; R82.81 - Pyuria Status: Acute Assessment and Plan: could because of altered mental status however patient has not shown any improvement since admission * Continue Rocephin. * urine culture shows Enterococcus 06/13/24: * Continue Rocephin for treatment. 06/14/24: * This is day #3 of Rocephin for UTI of Enterococcus. * Discussed with ID Hospitalist who suggests discontinuing the rocephin given that pt is showing some improvement and changing to Augmentin therapy to run until 06/20/24 at 2100 as that is good coverage for the Enterococcus. (3) Acute on chronic kidney failure: Code(s): N17.9 - Acute kidney failure, unspecified; N18.9 - Chronic kidney disease, unspecified Status: Acute Assessment and Plan: improving * Rehydration started with D5 1/2 NS and supplemental TF. * Creatinine is slowly trending down. * avoid nephrotoxic medications * IVF for hydration * Continue to monitor and trend. 06/13/24: * There has been slow improvement to the point today with Cr of 2.69. Will restart a low dose/rate fluids of LR at 75 ml/hr. His baseline renal function is 2.5-3.2. 06/14/24: * Pt's renal function has returned to baseline with Cr of 2.58. BUN still remains increased at 67. Will continue TF's and LR at 75 ml/hr as pt appears Euvolemic * Continue to trend labs and VS. (4) Dehydration: Code(s): E86.0 - Dehydration Status: Acute Assessment and Plan: * See #1 06/13/24: * Pt is currently hydrating well with his LR at 75 ml/hr. 06/14/24: * Elevated BUN at 67, improving Cr at baseline now. * Continue IVF at 75 ml/hr. (5) Hypernatremia: Code(s): E87.0 - Hyperosmolality and hypernatremia Status: Acute Assessment and Plan: slowly improving * See #1 * Check urine osmolality and serum osmolality, but actually suspect that hypernatremia is due to dehydration. * IVF decreased and free water flushes increased. 06/13/24: * Support given by increasing the IVF for hydration. 06/14/24: * Sodium decreasing without incident. * 155-->153-->149 today * Continue Free water flushes per tube and also continue LR at 75 ml/hr. (6) Elevated LFTs: Code(s): R79.89 - Other specified abnormal findings of blood chemistry Status: Acute Assessment and Plan: * Etiology is unknown. * US shows fatty infiltration of an enlarged liver. There is also a hemangioma within segment 6. * Transaminases have been historically elevated in the past. 06/13/24: * Follow up with PCP. (7) Insulin dependent diabetes mellitus: Status: Acute Assessment and Plan: * SSI q.6 * Lantus increased to 28 units QHS as pt does receive TF's * Continue to trend Glucose and adjust as needed. 06/13/24: * Continue home regimen upon discharge. 06/14/24: * Glucose this AM is 170. * Increase Lantus to 32 units HS. * Continue to trend. (8) Hypertension: Code(s): I10 - Essential (primary) hypertension Status: Acute Assessment and Plan: * BP stable 140s-150s/60s-70s. * Continue current regimen and monitor. 06/13/24; * Continue with current home regimen and monitor. 06/14/24: * Stable at this time. Continue current regimen. * Trend (9) Chronic anemia: Code(s): D64.9 - Anemia, unspecified Status: Acute Assessment and Plan: stable * Chronic in nature however it appears to be worsening and trending down * Etiology CKD vs. GI Bleed vs. Dilutional * Stool for occult blood ordered. * Consider transfusion if 7.0 or less. * Monitor and trend Labs. 06/13/24: * Further decline in Hgb today. This has prompted us to consult Neuro, but pt appears to be stable and improving. Awaiting that consult at this time. 06/14/24: * Received a unit of PRBC's yesterday for Hgb 6.5, and today's Hgb is 7.4. * Continue to trend and transfuse for Hgb less than or equal to 7. Plan Pt has made some progress to this point, but small. Neuro is of the opinion that metabolic encephalopathy is causing an even further decrease in mental status. Time Spent With Patient Time with patient: 15 - 25 minutes Subjective Date/time seen: 06/14/24 0845 Interval history: Pt resting quietly today without any s/s of acute distress. Yesterday he was awake and verbalized that he was feeling OK and had no complaints. He arouses to alert today, but continues to remain sleepy and drifts back off to sleep. He was evaluated by Neurology who believes that there is a degree of metabolic encephalopathy on top of his current state of Dementia. To this point we have been unable to have him attempt to swallow/eat orally and he is dependent solely upon his TF/IVF. His sodium is slowly coming down with the switch to LR from NS. He received a unit of PRBC's yesterday for his Hgb of 6.5. No attempt to talk to me today, but does follow commands to open eyes. Pt currently is on two different abx, Rocephin and Amoxicillin. Based on improvement and cultures, after talking with ID pharmacist, pt's medications are changed to Augmentin for monotherapy andwill continue to 06/20/24 at 2100. Review of Systems Review of Systems: ROS unobtainable: Yes unobtainable due to medical condition and unobtainable due to mental status Exam Narrative: General: Chronically ill-appearing gentleman lying supine in bed at this time without distress. HEENT: Pupils are reactive. Sclera anicteric. Dry mucous membranes. Lips are chapped and cracked. Neck: Supple. Respiratory: Respirations are nonlabored and lungs are clear to auscultation. Cardiovascular: Regular rate and rhythm with S1-S2. Gastrointestinal: Abdomen is soft, nontender, and nondistended with positive bowel sounds. G-tube site is clean, dry, and intact. No guarding or rebound tenderness. Skin: Warm and dry. Evidence of prior skin grafts. There are stage 1 wounds to the Bilateral heels. Waffle boots are in place. Extremities: No cyanosis, clubbing, or edema. Radial and pedal pulses intact. Neurological: Pt arouses to verbal and tactile stim today, but goes back to sleep. He makes no attempt to speak. Psychiatric: unable to assess. Objective Data Vital Signs Vital Signs: Vital Signs - 24 hr 06/13/24 12:40 06/13/24 13:00 06/13/24 14:00 Temperature 98.6 F 98.7 F 98.4 F Pulse Rate 84 84 85 Respiratory Rate 20 20 100 H Blood Pressure 146/71 H 148/67 H 137/63 Pulse Oximetry 99 100 18 L Oxygen Delivery 06/13/24 14:00 06/13/24 15:25 06/13/24 19:30 Temperature 98.4 F 98.1 F 97.7 F Pulse Rate 85 83 88 Respiratory Rate 20 20 18 Blood Pressure 137/63 142/67 H 157/75 H Pulse Oximetry 100 100 100 Oxygen Delivery 06/13/24 20:00 06/13/24 20:26 06/14/24 05:45 Temperature 98.1 F Pulse Rate 88 88 Respiratory Rate 16 Blood Pressure 150/74 H Pulse Oximetry 100 Oxygen Delivery Room Air 06/14/24 09:26 Temperature Pulse Rate 74 Respiratory Rate Blood Pressure Pulse Oximetry Oxygen Delivery Intake/Output Intake/Output: Intake & Output 06/11/24 06/12/24 06/13/24 06/14/24 23:59 23:59 23:59 23:59 Intake Total 2811.7 1539 3563 0 Output Total 950 1400 1300 450 Balance 1861.7 139 2263 -450 Meds/Results Medications: Active Medications Generic Name Dose Route Start Last Admin Trade Name Freq PRN Reason Stop Dose Admin Acetaminophen 650 mg 06/09/24 16:57 Acetaminophen 325 Mg Tablet FEED TUBE Q4H PRN Mild Pain (1-3) or Fever Albuterol/Ipratropium 3 ml 06/09/24 20:41 Ipratropium 0.5 Mg/Albuterol Sulfate 2.5 Mg Ampul.Neb 3 Ml INHALATION Q6H PRN Shortness Of Breath Amlodipine Besylate 10 mg 06/12/24 09:00 06/14/24 09:26 Amlodipine Besylate 10 Mg Tablet FEED TUBE 10 mg DAILY ELIDIA Administration Amoxicillin 500 mg 06/11/24 21:00 06/14/24 09:32 Amoxicillin 400 Mg/5 Ml Suspension 100 Ml Bottle FEED TUBE 06/17/24 21:01 500 mg Q12HR ELIDIA Administration Artificial Tears 1 drop 06/09/24 20:46 Artificial Tears Ophth Soln 15 Ml Bottle EACH EYE BID PRN Dry Eyes Aspirin 81 mg 06/10/24 09:00 06/14/24 09:26 Aspirin 81 Mg Chewable Tablet PO 81 mg DAILY ELIDIA Administration Atorvastatin Calcium 40 mg 06/11/24 21:00 06/13/24 20:27 Atorvastatin 40 Mg Tablet FEED TUBE 40 mg HS ELIDIA Administration Carvedilol 25 mg 06/11/24 21:00 06/14/24 09:26 Carvedilol 25 Mg Tablet FEED TUBE 25 mg Q12HR ELIDIA Administration Dextrose 12.5 gm 06/09/24 20:38 Dextrose 50% 25 Gm/50 Ml Syringe IV PUSH PRN PRN Hypoglycemia Protocol Famotidine 20 mg 06/11/24 17:00 06/14/24 09:26 Famotidine 20 Mg Tablet FEED TUBE 20 mg BID ELIDIA Administration Ferrous Sulfate 325 mg 06/10/24 09:00 06/14/24 09:26 Ferrous Sulfate Liquid 325 Mg/7.4 Ml Elixir FEED TUBE 325 mg DAILY ELIDIA Administration Fluticasone Propionate 1 spray 06/10/24 09:00 06/14/24 09:26 Fluticasone Propionate 0.05% Na Spr 16 Gm Btl (*Bkc) NASAL 1 spray DAILY ELIDIA Administration Folic Acid 1 mg 06/12/24 09:00 06/14/24 09:26 Folic Acid 1 Mg Tablet FEED TUBE 1 mg DAILY ELIDIA Administration Glucagon 1 mg 06/09/24 20:38 Glucagon For Inj 1 Mg Vial IM PRN PRN Hypoglycemia Protocol Glucose 15 gm 06/09/24 20:38 Glucose Oral Gel 15 Gm Of Glucse In 37.5 Gm Tube PO PRN PRN Hypoglycemia Protocol Guaifenesin/Dextromethorphan 10 ml 06/12/24 13:00 06/14/24 09:26 Guaifenesin/Dextromethorphan 10 Ml Udc FEED TUBE 10 ml Q4H ELIDIA Administration Heparin Sodium (Porcine) 5,000 units 06/09/24 21:00 06/14/24 09:26 Heparin Sodium 5,000 Units/Ml Vial SUB-Q 5,000 units Q12HR ELIDIA Administration Hydralazine HCl 50 mg 06/11/24 22:00 06/14/24 05:46 Hydralazine Hcl 50 Mg Tablet FEED TUBE 50 mg Q8HR ELIDIA Administration Dextrose 1,000 mls @ 100 mls/hr 06/09/24 20:38 Dextrose 5% 1,000 Ml IVPB PRN PRN Hypoglycemia Protocol Ceftriaxone Sodium 2 gm in 100 mls @ 200 mls/hr 06/12/24 14:00 06/13/24 15:29 Rocephin 2 Gm/Ns 100 Ml IVPB 200 mls/hr Q24H ELIDIA Administration Lactated Ringer's 1,000 mls @ 75 mls/hr 06/13/24 09:05 06/14/24 00:12 Lr - Lactated Ringers Iv IV CONT 75 mls/hr .[id number] ELIDIA Administration Insulin Aspart 4 - 8 units 06/10/24 18:00 06/14/24 05:42 Insulin Aspart (*Bkc) 100 Units/Ml SUB-Q Not Given Q6HR ELIDIA Protocol Insulin Glargine 30 units 06/12/24 21:00 06/13/24 20:29 Insulin Glargine (*Bkc) 100 Units/Ml SUB-Q 30 units HS ELIDIA Administration Loratadine 10 mg 06/12/24 09:00 06/14/24 09:26 Loratadine 10 Mg Tablet FEED TUBE 10 mg DAILY ELIDIA Administration Mirtazapine 7.5 mg 06/09/24 21:00 06/11/24 20:01 Mirtazapine 7.5 Mg Tablet PO 7.5 mg HS ELIDIA Administration Multivitamins Therapeutic 1 tablet 06/12/24 09:00 06/14/24 09:26 Multivitamins Therapeutic Tab (*Bkc) FEED TUBE 1 tablet DAILY ELIDIA Administration Ondansetron HCl 4 mg 06/09/24 16:57 Ondansetron Inj 4 Mg/2 Ml Vial IV PUSH Q4H PRN Nausea Senna 8.6 mg 06/11/24 17:00 06/14/24 09:26 Sennosides 8.6 Mg Tablet FEED TUBE 8.6 mg BID ELIDIA Administration Radiology Results: ITS Impressions Abdomen Ultrasound 06/09/24 18:43 IMPRESSION: Fatty infiltration of an enlarged liver. Hemangioma within segment [address] 06/11/24 18:55 Impression: Stable CT appearance of the brain, without acute intracranial hemorrhage or suspicious mass effect. Chest X-Ray 06/12/24 08:49 IMPRESSION: 1. No acute cardiopulmonary disease. Brain MRI 06/12/24 13:33 IMPRESSION: 1. Old infarcts in the bilateral basal ganglia. 2. Extensive nonspecific cerebral white matter disease and disease of the deep sotelo nuclei and niurka, which likely represents chronic small vessel ischemic disease. Labs Labs: Laboratory Results - last 24 hr 06/13/24 06/13/24 06/13/24 06:56 11:53 20:24 WBC RBC Hgb Hct MCV MCH MCHC RDW Plt Count MPV Sodium Potassium Chloride Carbon Dioxide Anion Gap BUN Creatinine Estim Creat Clear Calc Estimated GFR Glucose POC Capillary Glucose 154 H 165 H Calcium Total Bilirubin AST ALT Alkaline Phosphatase Total Protein Albumin Blood Type O Positive Antibody Screen Negative Crossmatch See Detail 06/13/24 06/13/24 06/14/24 20:24 23:46 05:37 WBC 7.7 RBC 2.62 L Hgb 7.4 L Hct 25.6 L MCV 97.7 MCH 28.2 MCHC 28.9 L RDW 15.4 H Plt Count 354 MPV 10.2 Sodium 149 H Potassium 3.8 Chloride 115 H Carbon Dioxide 30 Anion Gap 4 BUN 67 H Creatinine 2.58 H Estim Creat Clear Calc 25 Estimated GFR 30 L Glucose 170 H POC Capillary Glucose 165 H 215 H Calcium 8.5 Total Bilirubin 0.4 AST 34 ALT 49 Alkaline Phosphatase 96 Total Protein 6.0 L Albumin 2.7 L Blood Type Antibody Screen Crossmatch 06/14/24 05:42 WBC RBC Hgb Hct MCV MCH MCHC RDW Plt Count MPV Sodium Potassium Chloride Carbon Dioxide Anion Gap BUN Creatinine Estim Creat Clear Calc Estimated GFR Glucose POC Capillary Glucose 155 H Calcium Total Bilirubin AST ALT Alkaline Phosphatase Total Protein Albumin Blood Type Antibody Screen Crossmatch Quality VTE Prophylaxis VTE prophylaxis: pharmacologic ordered
--- NOTE | 2024-06-14 11:47 | PCNFU ---
Nutrition Follow-Up Complete: Inability to meet nutrition needs PO related to loss of appetite as evidenced by need for full tube feedings goal: Meet estimated protein energy needs Patient is meeting current goal. Pt current nutrition is Glucerna 1.2 at 75 ml/hr. Last recorded weight is 72 kg, stable Bowel Motility: +BM reported 06/14 Labs Reviewed:Glu 170, GFR 30, BUN 67, Cr 2.58, Alb 2.7 Meds Noted:Folic Acid, MVI, Remeron, NovoLog, NS, Senokot,Lantus Skin: Deep Tissue-ischium Additional Notes: Patient current with PEG. Tube feedings of Glucerna 1.2 at 75 ml/hr for 20 hours are being tolerated. Flush continues at 250 ml q 6 hours, Na is trending down. Agree with diet orders. Monitoring tube feeding tolerance, labs, weights, output, wounds, plan of care Follow up Tuesdays and Fridays
[2024-06-14 12:34] LABS: Glucose Point of Care 190 mg/dl (65-105)
--- NOTE | 2024-06-14 16:51 | PCSTNOTE ---
Please refer to the Bedside Swallow Evaluation in the EMR. Please note, silent aspiration cannot be ruled out at bedside.
[2024-06-14 18:35] LABS: Glucose Point of Care 160 mg/dl (65-105)
[2024-06-14] MEDS: ATORVASTATIN 40 MG TABLET FEED TUBE (21:00)
[2024-06-14] MEDS: AMOXICILLIN/CLAVULANATE K SUSP 400-57 MG/5 ML 5 ML UD 500 MG PO (21:00)
[2024-06-14] MEDS: INSULIN GLARGINE (*BKC) 100 UNITS/ML 32 UNITS SUB-Q (21:01)
[2024-06-14 21:28] LABS: Glucose Point of Care 167 mg/dl (65-105)
[2024-06-14 23:53] LABS: Glucose Point of Care 206 mg/dl (65-105)
[2024-06-15] MEDS: LACTATED RINGERS 1,000 ML 75 ML IV CONT ×2 (02:57→18:23)
[2024-06-15] MEDS: hydrALAZINE HCL 50 MG TABLET FEED TUBE ×3 (05:39→21:39)
[2024-06-15] MEDS: guaiFENesin/DEXTROMETHORPHAN 10 ML UDC FEED TUBE ×5 (05:39→20:57)
[2024-06-15 06:00] VITALS: BP 172/69; PULSE 87; RESP 18; TEMP 36.8; O2SAT 99
[2024-06-15 06:16] LABS: Basophils Percent Auto 0.2 % (0.2-1.2); Eosinophils Absolute Auto 0.3 K/mm3 (0-0.3); Eosinophils Percent Auto 3.6 % (0-4.4); Hematocrit 24.9 % (42.0-52.0); Hemoglobin 7.3 g/dL (14.0-18.0); Immature Granulocyte Absolute 0.09 K/mm3 (0.00-0.031); Lymphocytes Absolute Auto 1.27 K/mm3 (0.9-3.2); Lymphocytes Percent Auto 14.4 % (18.3-44.2); Mean Corpuscular HGB Conc 29.3 g/dl (32-36); Mean Corpuscular Hemoglobin 28.7 pg (26-34); Mean Platelet Volume 10.3 fl (7.4-10.4); Monocytes Absolute Auto 0.6 K/mm3 (0.1-0.6); Monocytes Percent Auto 6.6 % (2.6-8.5); Neutrophils Absolute Auto 6.6 K/mm3 (1.3-6.7); Neutrophils Percent Auto 74.2 % (45.5-73.1); Platelet Count Result 354 k/mm3 (150-375); Red Blood Count 2.54 M/mm3 (4.6-6.20); Red Cell Distribution Width 15.2 % (11.5-14.5); White Blood Count 8.9 K/mm3 (4.5-10.0)
[2024-06-15 06:28] LABS: Alanine Aminotransferase 49 U/L (6-50); Albumin Level 2.7 g/dL (3.5-5.1); Alkaline Phosphatase 97 U/L (38-126); Anion Gap 7 mmol/L (4-12); Aspartate Amino Transferase 42 U/L (17-59); Bilirubin,Total 0.5 mg/dL (0.2-1.3); Blood Urea Nitrogen 64 mg/dL (9-20); Calcium 8.6 mg/dL (8.4-10.2); Carbon Dioxide 28 mmol/L (22-30); Chloride 112 mmol/L (98-107); Estimated CRCL calculation 26 ml/min; Estimated Glomerular Filt Rate 32; Glucose 164 mg/dL (65-110); Potassium 3.8 mmol/L (3.4-5.0); Sodium 147 mmol/L (137-145)
[2024-06-15 06:49] LABS: Glucose Point of Care 159 mg/dl (65-105)
--- NOTE | 2024-06-15 07:38 | P.PNIM_ITS ---
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 neurology consulted, ella metabolic encephalopathy On exam: Pt arouses to verbal and tactile stimulation, but does not remain awake or attempt to verbalize. No concern for seizure activity during admission PLAN * Delirium precautions * Treatment of UTI, hypernatremia, JOSHUA as noted * MBS ordered to assess swallowing (2) Acute on chronic kidney failure: Code(s): N17.9 - Acute kidney failure, unspecified; N18.9 - Chronic kidney disease, unspecified Status: Acute Assessment and Plan: Baseline creatinine 2.5-3.2. Initially started D5 1/2 NS and supplemental TF, switched to LR. Creatinine improved * Continue LR through today * avoid nephrotoxic medications * BMP in AM * Continue water flushes (3) Dehydration: Code(s): E86.0 - Dehydration Status: Acute Assessment and Plan: See JOSHUA (4) Hypernatremia: Code(s): E87.0 - Hyperosmolality and hypernatremia Status: Acute Assessment and Plan: slowly improving * Check urine osmolality and serum osmolality, but actually suspect that hypernatremia is due to dehydration. * IVF decreased and free water flushes increased. Continue fluids * 155-->153-->149>147 * Continue Free water flushes per tube and also continue LR at 75 ml/hr. (5) Elevated LFTs: Code(s): R79.89 - Other specified abnormal findings of blood chemistry Status: Acute Assessment and Plan: * Etiology is unknown. * US shows fatty infiltration of an enlarged liver. There is also a hemangioma within segment 6. * Transaminases have been historically elevated in the past. (6) Insulin dependent diabetes mellitus: Status: Acute Assessment and Plan: Home meds: Lantus 25 hs, Lispro 15 TID with meals * SSI q.6 * Lantus increased to 28<32units QHS. Reduce to 25unit and add lispro tomorrow * Continue to trend Glucose and adjust as needed. (7) Hypertension: Code(s): I10 - Essential (primary) hypertension Status: Acute Assessment and Plan: BP ranging 130'ss-180's/60s-80's during admission * Continue current regimen and monitor. (8) Chronic anemia: Code(s): D64.9 - Anemia, unspecified Status: Acute Assessment and Plan: stable. Chronic in nature however it appears to be worsening and trending down. Etiology CKD vs. GI Bleed vs. Dilutional. S/P 1 unit of PRBC's 06/13 for Hgb 6.5, improved to 7.4 after transfusion * Stool for occult blood ordered. * Transfuse for Hgb < 7.0 * Monitor and trend Labs. (9) UTI (urinary tract infection): Code(s): N39.0 - Urinary tract infection, site not specified Status: Acute Assessment and Plan: Initially on empiric Rocephin pending urine cultures. Culture grew pa nsensitive enterococcus * Continue Augmentin through 06/20/24 21:00 (10) Wounds, multiple: Code(s): T07.XXXA - Unspecified multiple injuries, initial encounter Status: Acute Assessment and Plan: Multiple wounds in the setting of poor mobility. Bilateral heels, feet, left hip. Right foot blister --X-ray bilateral heels and feet --Check CRP, ESR Plan Time Spent With Patient Time: 57 minutes Subjective Date/time seen: 06/15/24 07:38 Interval history: Nods sometimes, RN reports his is intermittently verbal. Sodium improving. MBS ordered for speech. Hospital Course: 68-year-old male with history of dementia, epilepsy, HTN, HLD, DMII, CKD, and iron deficiency anemia who presented to the emergency department via EMS from [facility] for evaluation of decreased oral intake. Mild JOSHUA and UTI on admission. Creatinine 3.43 up from 2.8. Na 146 and improving with fluids. Treating an enterococcus UTI with Augmentin through 06/20. Communicates minimally at baseline, has a trach and PEG tube, contracted. Increased flushes. Neurology consulted for AMS, and likely metabolic encephalopahty. Received a unit of PRBC's 06/13 for Hgb of 6.5. Stable overnight Review of Systems Review of Systems: Unable to obtain accurately as he is essentially nonverbal. All systems reviewed & are unremarkable except as noted in HPI and below ROS unobtainable: Yes unobtainable due to medical condition and unobtainable due to mental status Exam Narrative: General: Chronically ill-appearing gentleman lying in bed at this time without distress. HEENT: Pupils are reactive. Sclera anicteric. Dry mucous membranes. Lips are chapped and cracked. Neck: Supple. Respiratory: Respirations are nonlabored and lungs are coarse upper airway Cardiovascular: Regular rate and rhythm with S1-S2. Gastrointestinal: Abdomen is soft, nontender, and nondistended with positive bowel sounds. G-tube site is clean, dry, and intact. No guarding or rebound tenderness. Skin: Warm and dry. Evidence of prior skin grafts. There are stage 1 wounds to the Bilateral heels. Waffle boots are in place. Blister to right foot black and dark discoloration laterally to left foot. Left hip wound open, not infected appearing, shallow with some granulation tissue Extremities: No cyanosis, clubbing, or edema. Radial and pedal pulses intact. Neurological: Pt arouses to verbal and tactile stim today, but goes back to sleep. He makes no attempt to speak. Psychiatric: unable to assess. Objective Data Vital Signs Vital Signs: Vital Signs - 24 hr 06/14/24 09:26 06/14/24 09:30 06/14/24 13:17 Temperature 97.6 F Pulse Rate 74 85 Respiratory Rate 17 Blood Pressure 156/83 H Pulse Oximetry 100 Oxygen Delivery Room Air 06/14/24 20:00 06/14/24 21:10 06/14/24 21:30 Temperature 98.4 F Pulse Rate 98 88 Respiratory Rate 18 Blood Pressure 168/70 H Pulse Oximetry 90 98 Oxygen Delivery Room Air 06/14/24 21:38 06/15/24 06:00 Temperature 98.3 F Pulse Rate 87 Respiratory Rate 18 Blood Pressure 172/69 H Pulse Oximetry 90 99 Oxygen Delivery Intake/Output Intake/Output: Intake & Output 06/12/24 06/13/24 06/14/24 06/15/24 23:59 23:59 23:59 23:59 Intake Total 1539 3563 2085 1000 Output Total 1400 1300 1100 575 Balance 139 2263 985 425 Meds/Results Medications: Active Medications Generic Name Dose Route Start Last Admin Trade Name Freq PRN Reason Stop Dose Admin Acetaminophen 650 mg 06/09/24 16:57 Acetaminophen 325 Mg Tablet FEED TUBE Q4H PRN Mild Pain (1-3) or Fever Albuterol/Ipratropium 3 ml 06/09/24 20:41 Ipratropium 0.5 Mg/Albuterol Sulfate 2.5 Mg Ampul.Neb 3 Ml INHALATION Q6H PRN Shortness Of Breath Amlodipine Besylate 10 mg 06/12/24 09:00 06/14/24 09:26 Amlodipine Besylate 10 Mg Tablet FEED TUBE 10 mg DAILY ELIDIA Administration Amoxicillin/Clavulanate Potassium 500 mg 06/14/24 21:00 06/14/24 21:00 Amoxicillin/Clavulanate K Susp 400-57 Mg/5 Ml 5 Ml Ud PO 06/20/24 21:01 500 mg Q12HR ELIDIA Administration Artificial Tears 1 drop 06/09/24 20:46 Artificial Tears Ophth Soln 15 Ml Bottle EACH EYE BID PRN Dry Eyes Aspirin 81 mg 06/10/24 09:00 06/14/24 09:26 Aspirin 81 Mg Chewable Tablet PO 81 mg DAILY ELIDIA Administration Atorvastatin Calcium 40 mg 06/11/24 21:00 06/14/24 21:00 Atorvastatin 40 Mg Tablet FEED TUBE 40 mg HS ELIDIA Administration Carvedilol 25 mg 06/11/24 21:00 06/14/24 21:10 Carvedilol 25 Mg Tablet FEED TUBE 25 mg Q12HR ELIDIA Administration Dextrose 12.5 gm 06/09/24 20:38 Dextrose 50% 25 Gm/50 Ml Syringe IV PUSH PRN PRN Hypoglycemia Protocol Famotidine 20 mg 06/11/24 17:00 06/14/24 17:37 Famotidine 20 Mg Tablet FEED TUBE 20 mg BID ELIDIA Administration Ferrous Sulfate 325 mg 06/10/24 09:00 06/14/24 09:26 Ferrous Sulfate Liquid 325 Mg/7.4 Ml Elixir FEED TUBE 325 mg DAILY ELIDIA Administration Fluticasone Propionate 1 spray 06/10/24 09:00 06/14/24 09:26 Fluticasone Propionate 0.05% Na Spr 16 Gm Btl (*Bkc) NASAL 1 spray DAILY ELIDIA Administration Folic Acid 1 mg 06/12/24 09:00 06/14/24 09:26 Folic Acid 1 Mg Tablet FEED TUBE 1 mg DAILY ELIDIA Administration Glucagon 1 mg 06/09/24 20:38 Glucagon For Inj 1 Mg Vial IM PRN PRN Hypoglycemia Protocol Glucose 15 gm 06/09/24 20:38 Glucose Oral Gel 15 Gm Of Glucse In 37.5 Gm Tube PO PRN PRN Hypoglycemia Protocol Guaifenesin/Dextromethorphan 10 ml 06/12/24 13:00 06/15/24 05:39 Guaifenesin/Dextromethorphan 10 Ml Udc FEED TUBE 10 ml Q4H ELIDIA Administration Heparin Sodium (Porcine) 5,000 units 06/09/24 21:00 06/14/24 21:01 Heparin Sodium 5,000 Units/Ml Vial SUB-Q 5,000 units Q12HR ELIDIA Administration Hydralazine HCl 50 mg 06/11/24 22:00 06/15/24 05:39 Hydralazine Hcl 50 Mg Tablet FEED TUBE 50 mg Q8HR ELIDIA Administration Dextrose 1,000 mls @ 100 mls/hr 06/09/24 20:38 Dextrose 5% 1,000 Ml IVPB PRN PRN Hypoglycemia Protocol Lactated Ringer's 1,000 mls @ 75 mls/hr 06/13/24 09:05 06/15/24 02:57 Lr - Lactated Ringers Iv IV CONT 75 mls/hr .[id number] ELIDIA Administration Insulin Aspart 4 - 8 units 06/10/24 18:00 06/15/24 05:39 Insulin Aspart (*Bkc) 100 Units/Ml SUB-Q Not Given Q6HR ELIDIA Protocol Insulin Glargine 32 units 06/14/24 21:00 06/14/24 21:01 Insulin Glargine (*Bkc) 100 Units/Ml SUB-Q 32 units HS ELIDIA Administration Loratadine 10 mg 06/12/24 09:00 06/14/24 09:26 Loratadine 10 Mg Tablet FEED TUBE 10 mg DAILY ELIDIA Administration Mirtazapine 7.5 mg 06/09/24 21:00 06/11/24 20:01 Mirtazapine 7.5 Mg Tablet PO 7.5 mg HS ELIDIA Administration Multivitamins Therapeutic 1 tablet 06/12/24 09:00 06/14/24 09:26 Multivitamins Therapeutic Tab (*Bkc) FEED TUBE 1 tablet DAILY ELIDIA Administration Ondansetron HCl 4 mg 06/09/24 16:57 Ondansetron Inj 4 Mg/2 Ml Vial IV PUSH Q4H PRN Nausea Senna 8.6 mg 06/11/24 17:00 06/14/24 17:37 Sennosides 8.6 Mg Tablet FEED TUBE 8.6 mg BID ELIDIA Administration Radiology Results: ITS Impressions Abdomen Ultrasound 06/09/24 18:43 IMPRESSION: Fatty infiltration of an enlarged liver. Hemangioma within segment [address] 06/11/24 18:55 Impression: Stable CT appearance of the brain, without acute intracranial hemorrhage or suspicious mass effect. Chest X-Ray 06/12/24 08:49 IMPRESSION: 1. No acute cardiopulmonary disease. Brain MRI 06/12/24 13:33 IMPRESSION: 1. Old infarcts in the bilateral basal ganglia. 2. Extensive nonspecific cerebral white matter disease and disease of the deep sotelo nuclei and niurka, which likely represents chronic small vessel ischemic disease. Labs Labs: Laboratory Results - last 24 hr 06/14/24 06/14/24 06/14/24 12:32 18:26 20:56 Sodium Potassium Chloride Carbon Dioxide Anion Gap BUN Creatinine Estim Creat Clear Calc Estimated GFR Glucose POC Capillary Glucose 190 H 160 H 167 H Calcium Magnesium Total Bilirubin AST ALT Alkaline Phosphatase Total Protein Albumin 06/14/24 06/15/24 06/15/24 23:49 05:23 06:07 Sodium 147 H Potassium 3.8 Chloride 112 H Carbon Dioxide 28 Anion Gap 7 BUN 64 H Creatinine 2.49 H Estim Creat Clear Calc 26 Estimated GFR 32 L Glucose 164 H POC Capillary Glucose 206 H 159 H Calcium 8.6 Magnesium 2.0 Total Bilirubin 0.5 AST 42 ALT 49 Alkaline Phosphatase 97 Total Protein 6.0 L Albumin 2.7 L Quality VTE Prophylaxis VTE prophylaxis: pharmacologic ordered Hospitalist [facility] Advance Care Plan I have confirmed that the patient's Advanced Care Plan is present, code status is documented, or surrogate decision maker is listed in patient medical record.: Yes Medication Reconciliation I have utilized all available resources to obtain, update and review the patients current medications (includes all prescriptions, OTC, herbals, cannabis, and nutritional supplements).: Yes
[2024-06-15 10:05] VITALS: PULSE 74
[2024-06-15] MEDS: amLODIPine BESYLATE 10 MG TABLET FEED TUBE (10:05)
[2024-06-15] MEDS: FLUTICASONE PROPIONATE 0.05% NA SPR 16 GM BTL (*BKC) 1 SPRAY NASAL (10:05)
[2024-06-15] MEDS: LORATADINE 10 MG TABLET FEED TUBE (10:05)
[2024-06-15] MEDS: MULTIVITAMINS THERAPEUTIC TAB (*BKC) 1 TABLET FEED TUBE (10:05)
[2024-06-15] MEDS: ASPIRIN 81 MG CHEWABLE TABLET PO (10:05)
[2024-06-15] MEDS: SENNOSIDES 8.6 MG TABLET FEED TUBE ×2 (10:05→18:18)
[2024-06-15] MEDS: carvediloL 25 MG TABLET FEED TUBE ×2 (10:05→20:55)
[2024-06-15] MEDS: FOLIC ACID 1 MG TABLET FEED TUBE (10:05)
[2024-06-15] MEDS: FAMOTIDINE 20 MG TABLET FEED TUBE ×2 (10:05→18:18)
[2024-06-15] MEDS: FERROUS SULFATE LIQUID 325 MG/7.4 ML ELIXIR FEED TUBE (10:09)
[2024-06-15] MEDS: HEPARIN SODIUM 5,000 UNITS/ML VIAL 5000 UNITS SUB-Q ×2 (10:09→20:56)
[2024-06-15] MEDS: AMOXICILLIN/CLAVULANATE K SUSP 400-57 MG/5 ML 5 ML UD 500 MG PO ×2 (10:10→21:00)
[2024-06-15 11:58] LABS: Glucose Point of Care 138 mg/dl (65-105)
--- NOTE | 2024-06-15 12:01 | PCSTNOTE ---
MBS Attempted ST assessed pt's alertness before transport for MBS; Pt would not open eyes despite all of STs attempts. Part of care team came in the room to get the pts blood sugar and pt still did not awaken. MBS to be completed at a later date when pt is more alert/oriented and oral intake is safe.
[2024-06-15 14:00] VITALS: BP 146/73; PULSE 84; RESP 18; TEMP 36.9; O2SAT 100
[2024-06-15 18:01] LABS: Glucose Point of Care 89 mg/dl (65-105)
[2024-06-15 20:43] VITALS: BP 143/60; PULSE 80; RESP 18; TEMP 36.8; O2SAT 100
[2024-06-15 20:55] VITALS: PULSE 80
[2024-06-15] MEDS: ATORVASTATIN 40 MG TABLET FEED TUBE (20:55)
[2024-06-15 20:57] LABS: Glucose Point of Care 117 mg/dl (65-105)
[2024-06-15] MEDS: INSULIN GLARGINE (*BKC) 100 UNITS/ML 25 UNITS SUB-Q (20:58)
[2024-06-15 22:21] VITALS: BP 126/60; PULSE 60; RESP 18; TEMP 36.8; O2SAT 98
[2024-06-15 23:56] LABS: Glucose Point of Care 141 mg/dl (65-105)
[2024-06-16] MEDS: guaiFENesin/DEXTROMETHORPHAN 10 ML UDC FEED TUBE ×6 (01:02→20:39)
[2024-06-16 04:33] VITALS: BP 159/66; PULSE 87; RESP 16; TEMP 36.8; O2SAT 99
[2024-06-16] MEDS: hydrALAZINE HCL 50 MG TABLET FEED TUBE ×3 (05:29→21:54)
[2024-06-16 05:56] LABS: Glucose Point of Care 166 mg/dl (65-105)
[2024-06-16 07:07] LABS: Basophils Percent Auto 0.2 % (0.2-1.2); Eosinophils Absolute Auto 0.4 K/mm3 (0-0.3); Eosinophils Percent Auto 3.8 % (0-4.4); Hematocrit 26.8 % (42.0-52.0); Hemoglobin 8.1 g/dL (14.0-18.0); Immature Granulocyte Percent A 1.1 % (0-0.5); Lymphocytes Absolute Auto 1.09 K/mm3 (0.9-3.2); Lymphocytes Percent Auto 11.7 % (18.3-44.2); Mean Corpuscular HGB Conc 30.2 g/dl (32-36); Mean Corpuscular Hemoglobin 29.5 pg (26-34); Mean Corpuscular Volume 97.5 fl (80-100); Mean Platelet Volume 10.7 fl (7.4-10.4); Monocytes Absolute Auto 0.5 K/mm3 (0.1-0.6); Monocytes Percent Auto 5.7 % (2.6-8.5); Neutrophils Absolute Auto 7.2 K/mm3 (1.3-6.7); Neutrophils Percent Auto 77.5 % (45.5-73.1); Platelet Count Result 406 k/mm3 (150-375); Red Blood Count 2.75 M/mm3 (4.6-6.20); Red Cell Distribution Width 15.1 % (11.5-14.5); White Blood Count 9.3 K/mm3 (4.5-10.0)
--- NOTE | 2024-06-16 07:36 | P.PNIM_ITS ---
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 neurology consulted, likely metabolic encephalopathy On exam: Pt arouses to verbal and tactile stimulation, but does not remain awake or attempt to verbalize. No concern for seizure activity during admission PLAN * Delirium precautions * Treatment of UTI, hypernatremia, JOSHUA as noted * MBS ordered to assess swallowing (2) Acute on chronic kidney failure: Code(s): N17.9 - Acute kidney failure, unspecified; N18.9 - Chronic kidney disease, unspecified Status: Acute Assessment and Plan: Baseline creatinine 2.5-3.2. Initially started D5 1/2 NS and supplemental TF, switched to LR. Creatinine improved * Continue LR through today * avoid nephrotoxic medications * BMP in AM * Continue water flushes (3) Dehydration: Code(s): E86.0 - Dehydration Status: Acute Assessment and Plan: See JOSHUA (4) Hypernatremia: Code(s): E87.0 - Hyperosmolality and hypernatremia Status: Acute Assessment and Plan: slowly improving * Check urine osmolality and serum osmolality, but actually suspect that hypernatremia is due to dehydration. * IVF decreased and free water flushes increased. Continue fluids * 155-->153-->149>147 * Continue Free water flushes per tube. Stop LR (5) Elevated LFTs: Code(s): R79.89 - Other specified abnormal findings of blood chemistry Status: Acute Assessment and Plan: * Etiology is unknown. * US shows fatty infiltration of an enlarged liver. There is also a hemangioma within segment 6. * Transaminases have been historically elevated in the past. (6) Insulin dependent diabetes mellitus: Status: Acute Assessment and Plan: Home meds: Lantus 25 hs, Lispro 15 TID with meals. Not eating well during admission Tube feeds scheduled from 3pm to 11am (off between 11am and 3pm during the day) * SSI q.6 * Lantus increased to 28<32units QHS. Reduced to 25unit * Add lispro 3 units BID with breakfast and dinner * Continue to trend Glucose and adjust as needed. (7) Hypertension: Code(s): I10 - Essential (primary) hypertension Status: Acute Assessment and Plan: BP ranging 130'ss-180's/60s-80's during admission * Continue current regimen and monitor. (8) Chronic anemia: Code(s): D64.9 - Anemia, unspecified Status: Acute Assessment and Plan: stable. Chronic in nature however it appears to be worsening and trending down. Etiology CKD vs. GI Bleed vs. Dilutional. S/P 1 unit of PRBC's 06/13 for Hgb 6.5, improved to 7.4 after transfusion * Stool for occult blood ordered. * Transfuse for Hgb < 7.0 * Monitor and trend Labs. (9) UTI (urinary tract infection): Code(s): N39.0 - Urinary tract infection, site not specified Status: Acute Assessment and Plan: Initially on empiric Rocephin pending urine cultures. Culture grew pansensitive enterococcus * Continue Augmentin through 06/20/24 21:00 (10) Wounds, multiple: Code(s): T07.XXXA - Unspecified multiple injuries, initial encounter Status: Acute Assessment and Plan: Multiple wounds in the setting of poor mobility. Bilateral heels, feet, left hip. CRP normal, ESR >140 --X-ray bilateral heels and feet no evidence of osteomyelitis --Continue local wound care (11) Tachypnea: Code(s): R06.82 - Tachypnea, not elsewhere classified Status: Acute Assessment and Plan: Increased work of breathing. Previously had loculated effusions --CT Chest/Abd/Pelvis without contrast (12) Abdominal distension: Code(s): R14.0 - Abdominal distension (gaseous) Status: Acute Assessment and Plan: Moderate abdominal distention, nontender. Having normal BM's per nursing --Check CT abd/pelvis with Chest CT Plan Time Spent With Patient Time: 52 minutes Subjective Date/time seen: 06/16/24 12:10 Interval history: Mildly tachypneic, moderate abdominal distention H&H stable. Blood pressure above goal Nods sometimes, able to say his name. Sodium improving. MBS ordered for speech. Hospital Course: 68-year-old male with history of dementia, epilepsy, HTN, HLD, DMII, CKD, and iron deficiency anemia who presented to the emergency department via EMS from [facility] for evaluation of decreased oral intake. Mild JOSHUA and UTI on admission. Creatinine 3.43 up from 2.8. Na 146 and improving with fluids. Treating an enterococcus UTI with Augmentin through 06/20. Communicates minimally at baseline, has a trach and PEG tube, contracted. Increased flushes. Neurology consulted for AMS, and likely metabolic encephalopathy. Received a unit of PRBC's 06/13 for Hgb of 6.5. Increased work of breathing and mild abdominal distention, CT CAP done w/o contrast Review of Systems Review of Systems: Unable to obtain accurately as he is essentially nonverbal. All systems reviewed & are unremarkable except as noted in HPI and below ROS unobtainable: Yes unobtainable due to medical condition and unobtainable due to mental status Exam Narrative: General: Chronically ill-appearing gentleman lying in bed at this time without distress. HEENT: Pupils are reactive. Sclera anicteric. Dry mucous membranes. Lips are chapped and cracked. Neck: Supple. Respiratory: Respirations mildly labored, lungs are coarse upper airway Cardiovascular: Regular rate and rhythm with S1-S2. Gastrointestinal: Abdomen is soft, nontender, mildly distended with positive bowel sounds. G-tube site is clean, dry, and intact. No guarding or rebound tenderness. Skin: Warm and dry. Evidence of prior skin grafts. There are stage 1 wounds to the Bilateral heels. Waffle boots are in place. Blister to right foot black and dark discoloration laterally to left foot. Left hip wound open, not infected appearing, shallow with some granulation tissue Extremities: No cyanosis, clubbing, or edema. Radial and pedal pulses intact. Contracted Neurological: Pt arouses to verbal and tactile stim today, but goes back to sleep. Was able to say his name Psychiatric: unable to assess. Objective Data Vital Signs Vital Signs: Vital Signs - 24 hr 06/15/24 10:05 06/15/24 10:15 06/15/24 14:00 Temperature 98.5 F Pulse Rate 74 84 Respiratory Rate 18 Blood Pressure 146/73 H Pulse Oximetry 100 Oxygen Delivery Room Air 06/15/24 20:43 06/15/24 20:55 06/15/24 20:59 Temperature 98.2 F Pulse Rate 80 80 Respiratory Rate 18 Blood Pressure 143/60 H Pulse Oximetry 100 Oxygen Delivery Room Air 06/15/24 22:21 06/16/24 04:33 Temperature 98.3 F 98.3 F Pulse Rate 60 87 Respiratory Rate 18 16 Blood Pressure 126/60 159/66 H Pulse Oximetry 98 99 Oxygen Delivery Intake/Output Intake/Output: Intake & Output 06/13/24 06/14/24 06/15/24 06/16/24 23:59 23:59 23:59 23:59 Intake Total 3563 2085 2900 Output Total 1300 1100 1550 525 Balance 2263 985 1350 -525 Meds/Results Medications: Active Medications Generic Name Dose Route Start Last Admin Trade Name Freq PRN Reason Stop Dose Admin Acetaminophen 650 mg 06/09/24 16:57 Acetaminophen 325 Mg Tablet FEED TUBE Q4H PRN Mild Pain (1-3) or Fever Albuterol/Ipratropium 3 ml 06/09/24 20:41 Ipratropium 0.5 Mg/Albuterol Sulfate 2.5 Mg Ampul.Neb 3 Ml INHALATION Q6H PRN Shortness Of Breath Amlodipine Besylate 10 mg 06/12/24 09:00 06/15/24 10:05 Amlodipine Besylate 10 Mg Tablet FEED TUBE 10 mg DAILY ELIDIA Administration Amoxicillin/Clavulanate Potassium 500 mg 06/14/24 21:00 06/15/24 21:00 Amoxicillin/Clavulanate K Susp 400-57 Mg/5 Ml 5 Ml Ud PO 06/20/24 21:01 500 mg Q12HR ELIDIA Administration Artificial Tears 1 drop 06/09/24 20:46 Artificial Tears Ophth Soln 15 Ml Bottle EACH EYE BID PRN Dry Eyes Aspirin 81 mg 06/10/24 09:00 06/15/24 10:05 Aspirin 81 Mg Chewable Tablet PO 81 mg DAILY ELIDIA Administration Atorvastatin Calcium 40 mg 06/11/24 21:00 06/15/24 20:55 Atorvastatin 40 Mg Tablet FEED TUBE 40 mg HS ELIDIA Administration Carvedilol 25 mg 06/11/24 21:00 06/15/24 20:55 Carvedilol 25 Mg Tablet FEED TUBE 25 mg Q12HR ELIDIA Administration Dextrose 12.5 gm 06/09/24 20:38 Dextrose 50% 25 Gm/50 Ml Syringe IV PUSH PRN PRN Hypoglycemia Protocol Famotidine 20 mg 06/11/24 17:00 06/15/24 18:18 Famotidine 20 Mg Tablet FEED TUBE 20 mg BID ELIDIA Administration Ferrous Sulfate 325 mg 06/10/24 09:00 06/15/24 10:09 Ferrous Sulfate Liquid 325 Mg/7.4 Ml Elixir FEED TUBE 325 mg DAILY ELIDIA Administration Fluticasone Propionate 1 spray 06/10/24 09:00 06/15/24 10:05 Fluticasone Propionate 0.05% Na Spr 16 Gm Btl (*Bkc) NASAL 1 spray DAILY ELIDIA Administration Folic Acid 1 mg 06/12/24 09:00 06/15/24 10:05 Folic Acid 1 Mg Tablet FEED TUBE 1 mg DAILY ELIDIA Administration Glucagon 1 mg 06/09/24 20:38 Glucagon For Inj 1 Mg Vial IM PRN PRN Hypoglycemia Protocol Glucose 15 gm 06/09/24 20:38 Glucose Oral Gel 15 Gm Of Glucse In 37.5 Gm Tube PO PRN PRN Hypoglycemia Protocol Guaifenesin/Dextromethorphan 10 ml 06/12/24 13:00 06/16/24 05:29 Guaifenesin/Dextromethorphan 10 Ml Udc FEED TUBE 10 ml Q4H ELIDIA Administration Heparin Sodium (Porcine) 5,000 units 06/09/24 21:00 06/15/24 20:56 Heparin Sodium 5,000 Units/Ml Vial SUB-Q 5,000 units Q12HR ELIDIA Administration Hydralazine HCl 50 mg 06/11/24 22:00 06/16/24 05:29 Hydralazine Hcl 50 Mg Tablet FEED TUBE 50 mg Q8HR ELIDIA Administration Dextrose 1,000 mls @ 100 mls/hr 06/09/24 20:38 Dextrose 5% 1,000 Ml IVPB PRN PRN Hypoglycemia Protocol Insulin Aspart 4 - 8 units 06/10/24 18:00 06/16/24 06:39 Insulin Aspart (*Bkc) 100 Units/Ml SUB-Q Not Given Q6HR ELIDIA Protocol Insulin Glargine 25 units 06/15/24 21:00 06/15/24 20:58 Insulin Glargine (*Bkc) 100 Units/Ml SUB-Q 25 units HS ELIDIA Administration Loratadine 10 mg 06/12/24 09:00 06/15/24 10:05 Loratadine 10 Mg Tablet FEED TUBE 10 mg DAILY ELIDIA Administration Mirtazapine 7.5 mg 06/09/24 21:00 06/11/24 20:01 Mirtazapine 7.5 Mg Tablet PO 7.5 mg HS ELIDIA Administration Multivitamins Therapeutic 1 tablet 06/12/24 09:00 06/15/24 10:05 Multivitamins Therapeutic Tab (*Bkc) FEED TUBE 1 tablet DAILY ELIDIA Administration Ondansetron HCl 4 mg 06/09/24 16:57 Ondansetron Inj 4 Mg/2 Ml Vial IV PUSH Q4H PRN Nausea Senna 8.6 mg 06/11/24 17:00 06/15/24 18:18 Sennosides 8.6 Mg Tablet FEED TUBE 8.6 mg BID ELIDIA Administration Radiology Results: ITS Impressions Abdomen Ultrasound 06/09/24 18:43 IMPRESSION: Fatty infiltration of an enlarged liver. Hemangioma within segment [address] 06/11/24 18:55 Impression: Stable CT appearance of the brain, without acute intracranial hemorrhage or suspicious mass effect. Chest X-Ray 06/12/24 08:49 IMPRESSION: 1. No acute cardiopulmonary disease. Brain MRI 06/12/24 13:33 IMPRESSION: 1. Old infarcts in the bilateral basal ganglia. 2. Extensive nonspecific cerebral white matter disease and disease of the deep sotelo nuclei and niurka, which likely represents chronic small vessel ischemic disease. Foot X-Ray 06/15/24 12:40 IMPRESSION: 1. Mild polyarticular osteoarthritis. 2. Moderate hallux valgus. Heel X-Ray 06/15/24 12:41 IMPRESSION: 1. No evidence of osteomyelitis. Labs Labs: Laboratory Results - last 24 hr 06/15/24 06/15/24 06/15/24 06:07 11:55 17:36 WBC 8.9 RBC 2.54 L Hgb 7.3 L Hct 24.9 L MCV 98.0 MCH 28.7 MCHC 29.3 L RDW 15.2 H Plt Count 354 MPV 10.3 Immature Gran % (Auto) 1.0 H Neut % (Auto) 74.2 H Lymph % (Auto) 14.4 L [place] % (Auto) 6.6 Eos % (Auto) 3.6 Baso % (Auto) 0.2 Lymph # (Auto) 1.27 [place] # (Auto) 0.6 Eos # (Auto) 0.3 Baso # (Auto) 0.0 Abs Immat Gran (auto) 0.09 H Absolute Neuts (auto) 6.6 Absolute Nucleated RBC 0.000 Nucleated RBC % 0.0 POC Capillary Glucose 138 H 89 06/15/24 06/15/24 06/16/24 20:54 23:54 05:48 WBC RBC Hgb Hct MCV MCH MCHC RDW Plt Count MPV Immature Gran % (Auto) Neut % (Auto) Lymph % (Auto) [place] % (Auto) Eos % (Auto) Baso % (Auto) Lymph # (Auto) [place] # (Auto) Eos # (Auto) Baso # (Auto) Abs Immat Gran (auto) Absolute Neuts (auto) Absolute Nucleated RBC Nucleated RBC % POC Capillary Glucose 117 H 141 H 166 H 06/16/24 06:42 WBC 9.3 RBC 2.75 L Hgb 8.1 L Hct 26.8 L MCV 97.5 MCH 29.5 MCHC 30.2 L RDW 15.1 H Plt Count 406 H MPV 10.7 H Immature Gran % (Auto) 1.1 H Neut % (Auto) 77.5 H Lymph % (Auto) 11.7 L [place] % (Auto) 5.7 Eos % (Auto) 3.8 Baso % (Auto) 0.2 Lymph # (Auto) 1.09 [place] # (Auto) 0.5 Eos # (Auto) 0.4 H Baso # (Auto) 0.0 Abs Immat Gran (auto) 0.10 H Absolute Neuts (auto) 7.2 H Absolute Nucleated RBC 0.000 Nucleated RBC % 0.0 POC Capillary Glucose Quality VTE Prophylaxis VTE prophylaxis: pharmacologic ordered Hospitalist MIPS Advance Care Plan I have confirmed that the patient's Advanced Care Plan is present, code status is documented, or surrogate decision maker is listed in patient medical record.: Yes Medication Reconciliation I have utilized all available resources to obtain, update and review the patients current medications (includes all prescriptions, OTC, herbals, cannabis, and nutritional supplements).: Yes
[2024-06-16 08:04] LABS: Alanine Aminotransferase 60 U/L (6-50); Albumin Level 2.5 g/dL (3.5-5.1); Alkaline Phosphatase 104 U/L (38-126); Anion Gap 6 mmol/L (4-12); Aspartate Amino Transferase 63 U/L (17-59); Bilirubin,Total 0.5 mg/dL (0.2-1.3); Blood Urea Nitrogen 61 mg/dL (9-20); Calcium 8.6 mg/dL (8.4-10.2); Carbon Dioxide 27 mmol/L (22-30); Chloride 110 mmol/L (98-107); Estimated CRCL calculation 28 ml/min; Estimated Glomerular Filt Rate 35; Glucose 170 mg/dL (65-110); Magnesium 1.9 mg/dL (1.6-2.3); Potassium 4.3 mmol/L (3.4-5.0); Sodium 143 mmol/L (137-145)
[2024-06-16 08:20] VITALS: PULSE 80
[2024-06-16] MEDS: FERROUS SULFATE LIQUID 325 MG/7.4 ML ELIXIR FEED TUBE (08:20)
[2024-06-16] MEDS: HEPARIN SODIUM 5,000 UNITS/ML VIAL 5000 UNITS SUB-Q ×2 (08:20→20:43)
[2024-06-16] MEDS: carvediloL 25 MG TABLET FEED TUBE ×2 (08:20→20:39)
[2024-06-16] MEDS: FLUTICASONE PROPIONATE 0.05% NA SPR 16 GM BTL (*BKC) 1 SPRAY NASAL (08:20)
[2024-06-16] MEDS: FAMOTIDINE 20 MG TABLET FEED TUBE ×2 (08:20→17:55)
[2024-06-16] MEDS: MULTIVITAMINS THERAPEUTIC TAB (*BKC) 1 TABLET FEED TUBE (08:20)
[2024-06-16] MEDS: ASPIRIN 81 MG CHEWABLE TABLET PO (08:20)
[2024-06-16] MEDS: LORATADINE 10 MG TABLET FEED TUBE (08:20)
[2024-06-16] MEDS: SENNOSIDES 8.6 MG TABLET FEED TUBE ×2 (08:20→17:55)
[2024-06-16] MEDS: amLODIPine BESYLATE 10 MG TABLET FEED TUBE (08:20)
[2024-06-16] MEDS: FOLIC ACID 1 MG TABLET FEED TUBE (08:20)
[2024-06-16] MEDS: AMOXICILLIN/CLAVULANATE K SUSP 400-57 MG/5 ML 5 ML UD 500 MG PO ×2 (09:36→20:43)
[2024-06-16 09:54] LABS: Erythrocyte Sedimentation Rate > 140 mm/hr (0-20)
[2024-06-16 13:12] LABS: Glucose Point of Care 190 mg/dl (65-105)
[2024-06-16 13:44] VITALS: BP 144/64; PULSE 88; RESP 18; TEMP 36.2; O2SAT 98
[2024-06-16 17:23] LABS: Glucose Point of Care 173 mg/dl (65-105)
[2024-06-16] MEDS: INSULIN ASPART (*BKC) 100 UNITS/ML SUB-Q (17:55)
--- NOTE | 2024-06-16 18:00 | PC.NURSE ---
pt taken down for CT
--- NOTE | 2024-06-16 18:26 | PC.NURSE ---
pt returned to room from CT
[2024-06-16 20:39] VITALS: PULSE 81
[2024-06-16] MEDS: ATORVASTATIN 40 MG TABLET FEED TUBE (20:39)
[2024-06-16 20:42] VITALS: BP 159/70; PULSE 81; RESP 22; TEMP 36.8; O2SAT 100
[2024-06-16] MEDS: INSULIN GLARGINE (*BKC) 100 UNITS/ML 25 UNITS SUB-Q (20:56)
[2024-06-17] MEDS: guaiFENesin/DEXTROMETHORPHAN 10 ML UDC FEED TUBE ×6 (00:04→20:47)
[2024-06-17 00:21] LABS: Glucose Point of Care 176 mg/dl (65-105)
[2024-06-17 04:50] VITALS: BP 154/69; PULSE 84; RESP 20; TEMP 36.7; O2SAT 100
[2024-06-17] MEDS: hydrALAZINE HCL 50 MG TABLET FEED TUBE ×3 (05:24→21:02)
[2024-06-17 05:42] LABS: Glucose Point of Care 175 mg/dl (65-105)
[2024-06-17 06:10] LABS: Basophils Percent Auto 0.4 % (0.2-1.2); Eosinophils Absolute Auto 0.3 K/mm3 (0-0.3); Eosinophils Percent Auto 3.6 % (0-4.4); Hematocrit 27.4 % (42.0-52.0); Immature Granulocyte Absolute 0.09 K/mm3 (0.00-0.031); Immature Granulocyte Percent A 1.2 % (0-0.5); Lymphocytes Absolute Auto 1.15 K/mm3 (0.9-3.2); Lymphocytes Percent Auto 15.2 % (18.3-44.2); Mean Corpuscular HGB Conc 29.2 g/dl (32-36); Mean Corpuscular Hemoglobin 28.9 pg (26-34); Mean Corpuscular Volume 98.9 fl (80-100); Mean Platelet Volume 10.8 fl (7.4-10.4); Monocytes Absolute Auto 0.4 K/mm3 (0.1-0.6); Monocytes Percent Auto 5.1 % (2.6-8.5); Neutrophils Absolute Auto 5.7 K/mm3 (1.3-6.7); Neutrophils Percent Auto 74.5 % (45.5-73.1); Platelet Count Result 410 k/mm3 (150-375); Red Blood Count 2.77 M/mm3 (4.6-6.20); Red Cell Distribution Width 15.2 % (11.5-14.5); White Blood Count 7.6 K/mm3 (4.5-10.0)
[2024-06-17 06:23] LABS: Alanine Aminotransferase 54 U/L (6-50); Albumin Level 2.9 g/dL (3.5-5.1); Alkaline Phosphatase 103 U/L (38-126); Anion Gap 8 mmol/L (4-12); Aspartate Amino Transferase 46 U/L (17-59); Bilirubin,Total 0.5 mg/dL (0.2-1.3); Blood Urea Nitrogen 64 mg/dL (9-20); Carbon Dioxide 26 mmol/L (22-30); Chloride 108 mmol/L (98-107); Estimated CRCL calculation 27 ml/min; Estimated Glomerular Filt Rate 34; Glucose 156 mg/dL (65-110); Magnesium 2.1 mg/dL (1.6-2.3); Potassium 4.1 mmol/L (3.4-5.0); Sodium 142 mmol/L (137-145)
[2024-06-17 08:00] VITALS: O2SAT 100
[2024-06-17 08:33] VITALS: PULSE 80
[2024-06-17] MEDS: amLODIPine BESYLATE 10 MG TABLET FEED TUBE (08:33)
[2024-06-17] MEDS: ASPIRIN 81 MG CHEWABLE TABLET PO (08:33)
[2024-06-17] MEDS: carvediloL 25 MG TABLET FEED TUBE ×2 (08:33→20:44)
[2024-06-17] MEDS: HEPARIN SODIUM 5,000 UNITS/ML VIAL 5000 UNITS SUB-Q ×2 (08:35→20:47)
[2024-06-17] MEDS: LORATADINE 10 MG TABLET FEED TUBE (08:35)
[2024-06-17] MEDS: FOLIC ACID 1 MG TABLET FEED TUBE (08:35)
[2024-06-17] MEDS: FERROUS SULFATE LIQUID 325 MG/7.4 ML ELIXIR FEED TUBE (08:35)
[2024-06-17] MEDS: SENNOSIDES 8.6 MG TABLET FEED TUBE ×2 (08:35→16:36)
[2024-06-17] MEDS: FAMOTIDINE 20 MG TABLET FEED TUBE ×2 (08:35→16:36)
[2024-06-17] MEDS: MULTIVITAMINS THERAPEUTIC TAB (*BKC) 1 TABLET FEED TUBE (08:35)
[2024-06-17] MEDS: FLUTICASONE PROPIONATE 0.05% NA SPR 16 GM BTL (*BKC) 1 SPRAY NASAL (08:45)
[2024-06-17] MEDS: AMOXICILLIN/CLAVULANATE K SUSP 400-57 MG/5 ML 5 ML UD 500 MG PO ×2 (08:49→20:43)
--- NOTE | 2024-06-17 10:57 | P.PNIM_ITS ---
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 neurology consulted, likely metabolic encephalopathy On exam: Pt arouses to verbal and tactile stimulation, but does not remain awake or attempt to verbalize. No concern for seizure activity during admission PLAN * Delirium precautions * Treatment of UTI, hypernatremia, JOSHUA as noted * MBS ordered to assess swallowing 06/17/24: * Pt is overall improving. * MBS today to check swallowing function to evaluate for safety of including oral feeds along with TFs. * No new suggestions from Neuro. (2) Acute on chronic kidney failure: Code(s): N17.9 - Acute kidney failure, unspecified; N18.9 - Chronic kidney disease, unspecified Status: Acute Assessment and Plan: Baseline creatinine 2.5-3.2. Initially started D5 1/2 NS and supplemental TF, switched to LR. Creatinine improved * Continue LR through today * avoid nephrotoxic medications * BMP in AM * Continue water flushes 06/17/24: * Renal function continues to improve. Cr at 2.3 today. * Continue free water flushes per FT. * LR discontinued. (3) Dehydration: Code(s): E86.0 - Dehydration Status: Acute Assessment and Plan: See JOSHUA (4) Hypernatremia: Code(s): E87.0 - Hyperosmolality and hypernatremia Status: Resolved Assessment and Plan: slowly improving * Check urine osmolality and serum osmolality, but actually suspect that hypernatremia is due to dehydration. * IVF decreased and free water flushes increased. Continue fluids * 155-->153-->149>147 * Continue Free water flushes per tube. Stop LR 06/17/24: * Resolved with sodium today of 142. (5) Elevated LFTs: Code(s): R79.89 - Other specified abnormal findings of blood chemistry Status: Chronic Assessment and Plan: * Etiology is unknown. * US shows fatty infiltration of an enlarged liver. There is also a hemangioma within segment 6. * Transaminases have been historically elevated in the past. (6) Insulin dependent diabetes mellitus: Status: Acute Assessment and Plan: Home meds: Lantus 25 hs, Lispro 15 TID with meals. Not eating well during admission Tube feeds scheduled from 3pm to 11am (off between 11am and 3pm during the day) * SSI q.6 * Lantus increased to 28<32units QHS. Reduced to 25unit * Add lispro 3 units BID with breakfast and dinner * Continue to trend Glucose and adjust as needed. 06/17/24: * Fasting glucose is acceptable this AM at 156. (7) Hypertension: Code(s): I10 - Essential (primary) hypertension Status: Acute Assessment and Plan: BP ranging 130'ss-180's/60s-80's during admission * Continue current regimen and monitor. 06/17/24: * Continue current regimen and medications. (8) Chronic anemia: Code(s): D64.9 - Anemia, unspecified Status: Acute Assessment and Plan: stable. Chronic in nature however it appears to be worsening and trending down. Etiology CKD vs. GI Bleed vs. Dilutional. S/P 1 unit of PRBC's 06/13 for Hgb 6.5, improved to 7.4 after transfusion * Stool for occult blood ordered. * Transfuse for Hgb < 7.0 * Monitor and trend Labs. (9) UTI (urinary tract infection): Code(s): N39.0 - Urinary tract infection, site not specified Status: Acute Assessment and Plan: Initially on empiric Rocephin pending urine cultures. Culture grew pansensitive enterococcus * Continue Augmentin through 06/20/24 21:00 (10) Wounds, multiple: Code(s): T07.XXXA - Unspecified multiple injuries, initial encounter Status: Acute Assessment and Plan: Multiple wounds in the setting of poor mobility. Bilateral heels, feet, left hip. CRP normal, ESR >140 --X-ray bilateral heels and feet no evidence of osteomyelitis --Continue local wound care (11) Tachypnea: Code(s): R06.82 - Tachypnea, not elsewhere classified Status: Acute Assessment and Plan: Increased work of breathing. Previously had loculated effusions --CT Chest/Abd/Pelvis without contrast 06/17/24: * CT shows Cystitis with fecal impaction, small bilateral pleural effusions and pericardial effusions. * Colace enema ordered and lactulose per FT. (12) Abdominal distension: Code(s): R14.0 - Abdominal distension (gaseous) Status: Acute Assessment and Plan: Moderate abdominal distention, nontender. Having normal BM's per nursing --Check CT abd/pelvis with Chest CT 06/17/24: * CT shows Cystitis with fecal impaction, small bilateral pleural effusions and pericardial effusions. * Colace enema ordered and lactulose per FT Plan Time Spent With Patient Time with patient: 25 - 35 minutes Subjective Date/time seen: 06/17/24 0840 Interval history: Pt examined this morning at the bedside. He is resting easily and quietly. He arouses to verbal and tactile stim and answers simple questions appropriately. No new complaints or any s/s of distress or acute illness. Pt is to have a MBS today to evaluate safety of oral nutrition in addition to his TF. He remains on Augmentin for his UTI until 06/22/24. Review of Systems Review of Systems: ROS unobtainable: Yes unobtainable due to mental status (Pt does not answer all questions.) Exam Narrative: General: Chronically ill-appearing gentleman lying in bed at this time without distress. HEENT: Pupils are reactive. Sclera anicteric. Dry mucous membranes. Lips are margie pped and cracked. Neck: Supple. Respiratory: Respirations mildly labored, lungs are coarse upper airway Cardiovascular: Regular rate and rhythm with S1-S2. Gastrointestinal: Abdomen is soft, nontender, mildly distended with positive bowel sounds. G-tube site is clean, dry, and intact. No guarding or rebound tenderness. Skin: Warm and dry. Evidence of prior skin grafts. There are stage 1 wounds to the Bilateral heels. Waffle boots are in place. Blister to right foot black and dark discoloration laterally to left foot. Left hip wound open, not infected appearing, shallow with some granulation tissue Extremities: No cyanosis, clubbing, or edema. Radial and pedal pulses intact. Contracted Neurological: Pt arouses to verbal and tactile stim and denies any acute pain or complaints. Psychiatric: unable to assess. Objective Data Vital Signs Vital Signs: Vital Signs - 24 hr 06/16/24 13:44 06/16/24 20:39 06/16/24 20:39 Temperature 97.2 F L Pulse Rate 88 81 Respiratory Rate 18 Blood Pressure 144/64 H Pulse Oximetry 98 Oxygen Delivery Room Air 06/16/24 20:42 06/17/24 04:50 06/17/24 08:00 Temperature 98.2 F 98.0 F Pulse Rate 81 84 Respiratory Rate 22 H 20 Blood Pressure 159/70 H 154/69 H Pulse Oximetry 100 100 100 Oxygen Delivery Room Air 06/17/24 08:33 Temperature Pulse Rate 80 Respiratory Rate Blood Pressure Pulse Oximetry Oxygen Delivery Intake/Output Intake/Output: Intake & Output 06/14/24 06/15/24 06/16/24 06/17/24 23:59 23:59 23:59 23:59 Intake Total 1835 2750 1050 0 Output Total 1100 1550 1025 450 Balance 735 1200 25 -450 Meds/Results Medications: Active Medications Generic Name Dose Route Start Last Admin Trade Name Freq PRN Reason Stop Dose Admin Acetaminophen 650 mg 06/09/24 16:57 Acetaminophen 325 Mg Tablet FEED TUBE Q4H PRN Mild Pain (1-3) or Fever Albuterol/Ipratropium 3 ml 06/09/24 20:41 Ipratropium 0.5 Mg/Albuterol Sulfate 2.5 Mg Ampul.Neb 3 Ml INHALATION Q6H PRN Shortness Of Breath Amlodipine Besylate 10 mg 06/12/24 09:00 06/17/24 08:33 Amlodipine Besylate 10 Mg Tablet FEED TUBE 10 mg DAILY ELIDIA Administration Amoxicillin/Clavulanate Potassium 500 mg 06/14/24 21:00 06/17/24 08:49 Amoxicillin/Clavulanate K Susp 400-57 Mg/5 Ml 5 Ml Ud PO 06/20/24 21:01 500 mg Q12HR ELIDIA Administration Artificial Tears 1 drop 06/09/24 20:46 Artificial Tears Ophth Soln 15 Ml Bottle EACH EYE BID PRN Dry Eyes Aspirin 81 mg 06/10/24 09:00 06/17/24 08:33 Aspirin 81 Mg Chewable Tablet PO 81 mg DAILY ELIDIA Administration Atorvastatin Calcium 40 mg 06/11/24 21:00 06/16/24 20:39 Atorvastatin 40 Mg Tablet FEED TUBE 40 mg HS ELIDIA Administration Carvedilol 25 mg 06/11/24 21:00 06/17/24 08:33 Carvedilol 25 Mg Tablet FEED TUBE 25 mg Q12HR ELIDIA Administration Dextrose 12.5 gm 06/09/24 20:38 Dextrose 50% 25 Gm/50 Ml Syringe IV PUSH PRN PRN Hypoglycemia Protocol Famotidine 20 mg 06/11/24 17:00 06/17/24 08:35 Famotidine 20 Mg Tablet FEED TUBE 20 mg BID ELIDIA Administration Ferrous Sulfate 325 mg 06/10/24 09:00 06/17/24 08:35 Ferrous Sulfate Liquid 325 Mg/7.4 Ml Elixir FEED TUBE 325 mg DAILY ELIDIA Administration Fluticasone Propionate 1 spray 06/10/24 09:00 06/17/24 08:45 Fluticasone Propionate 0.05% Na Spr 16 Gm Btl (*Bkc) NASAL 1 spray DAILY ELIDIA Administration Folic Acid 1 mg 06/12/24 09:00 06/17/24 08:35 Folic Acid 1 Mg Tablet FEED TUBE 1 mg DAILY ELIDIA Administration Glucagon 1 mg 06/09/24 20:38 Glucagon For Inj 1 Mg Vial IM PRN PRN Hypoglycemia Protocol Glucose 15 gm 06/09/24 20:38 Glucose Oral Gel 15 Gm Of Glucse In 37.5 Gm Tube PO PRN PRN Hypoglycemia Protocol Guaifenesin/Dextromethorphan 10 ml 06/12/24 13:00 06/17/24 08:35 Guaifenesin/Dextromethorphan 10 Ml Udc FEED TUBE 10 ml Q4H LEIDIA Administration Heparin Sodium (Porcine) 5,000 units 06/09/24 21:00 06/17/24 08:35 Heparin Sodium 5,000 Units/Ml Vial SUB-Q 5,000 units Q12HR ELIDIA Administration Hydralazine HCl 50 mg 06/11/24 22:00 06/17/24 05:24 Hydralazine Hcl 50 Mg Tablet FEED TUBE 50 mg Q8HR ELIDIA Administration Dextrose 1,000 mls @ 100 mls/hr 06/09/24 20:38 Dextrose 5% 1,000 Ml IVPB PRN PRN Hypoglycemia Protocol Insulin Aspart 4 - 8 units 06/10/24 18:00 06/17/24 05:25 Insulin Aspart (*Bkc) 100 Units/Ml SUB-Q Not Given Q6HR ELIDIA Protocol Insulin Aspart 3 units 06/16/24 17:00 06/17/24 08:31 Insulin Aspart (*Bkc) 100 Units/Ml SUB-Q Not Given BIDWM [facility] Insulin Glargine 25 units 06/15/24 21:00 06/16/24 20:56 Insulin Glargine (*Bkc) 100 Units/Ml SUB-Q 25 units HS ELIDIA Administration Loratadine 10 mg 06/12/24 09:00 06/17/24 08:35 Loratadine 10 Mg Tablet FEED TUBE 10 mg DAILY ELIDIA Administration Mirtazapine 7.5 mg 06/09/24 21:00 06/11/24 20:01 Mirtazapine 7.5 Mg Tablet PO 7.5 mg HS ELIDIA Administration Multivitamins Therapeutic 1 tablet 06/12/24 09:00 06/17/24 08:35 Multivitamins Therapeutic Tab (*Bkc) FEED TUBE 1 tablet DAILY ELIDIA Administration Ondansetron HCl 4 mg 06/09/24 16:57 Ondansetron Inj 4 Mg/2 Ml Vial IV PUSH Q4H PRN Nausea Senna 8.6 mg 06/11/24 17:00 06/17/24 08:35 Sennosides 8.6 Mg Tablet FEED TUBE 8.6 mg BID ELIDIA Administration Radiology Results: ITS Impressions Abdomen Ultrasound 06/09/24 18:43 IMPRESSION: Fatty infiltration of an enlarged liver. Hemangioma within segment [address] 06/11/24 18:55 Impression: Stable CT appearance of the brain, without acute intracranial hemorrhage or suspicious mass effect. Chest X-Ray 06/12/24 08:49 IMPRESSION: 1. No acute cardiopulmonary disease. Brain MRI 06/12/24 13:33 IMPRESSION: 1. Old infarcts in the bilateral basal ganglia. 2. Extensive nonspecific cerebral white matter disease and disease of the deep sotelo nuclei and niurka, which likely represents chronic small vessel ischemic disease. Foot X-Ray 06/15/24 12:40 IMPRESSION: 1. Mild polyarticular osteoarthritis. 2. Moderate hallux valgus. Heel X-Ray 06/15/24 12:41 IMPRESSION: 1. No evidence of osteomyelitis. Chest/Abdomen/Pelvis CT 06/16/24 19:20 IMPRESSION: Small bilateral pericardial effusions. Small bilateral pleural effusions. Fecal impaction with findings concerning for early/mild stercoral colitis. Cystitis. Moderate body wall edema. Labs Labs: Laboratory Results - last 24 hr 06/16/24 06/16/2406/17/25 12:08 17:09 00:07 WBC RBC Hgb Hct MCV MCH MCHC RDW Plt Count MPV Immature Gran % (Auto) Neut % (Auto) Lymph % (Auto) [place] % (Auto) Eos % (Auto) Baso % (Auto) Lymph # (Auto) [place] # (Auto) Eos # (Auto) Baso # (Auto) Abs Immat Gran (auto) Absolute Neuts (auto) Absolute Nucleated RBC Nucleated RBC % Sodium Potassium Chloride Carbon Dioxide Anion Gap BUN Creatinine Estim Creat Clear Calc Estimated GFR Glucose POC Capillary Glucose 190 H 173 H 176 H Calcium Magnesium Total Bilirubin AST ALT Alkaline Phosphatase Total Protein Albumin 06/17/24 06/17/24 04:54 05:34 WBC 7.6 RBC 2.77 L Hgb 8.0 L Hct 27.4 L MCV 98.9 MCH 28.9 MCHC 29.2 L RDW 15.2 H Plt Count 410 H MPV 10.8 H Immature Gran % (Auto) 1.2 H Neut % (Auto) 74.5 H Lymph % (Auto) 15.2 L [place] % (Auto) 5.1 Eos % (Auto) 3.6 Baso % (Auto) 0.4 Lymph # (Auto) 1.15 [place] # (Auto) 0.4 Eos # (Auto) 0.3 Baso # (Auto) 0.0 Abs Immat Gran (auto) 0.09 H Absolute Neuts (auto) 5.7 Absolute Nucleated RBC 0.000 Nucleated RBC % 0.0 Sodium 142 Potassium 4.1 Chloride 108 H Carbon Dioxide 26 Anion Gap 8 BUN 64 H Creatinine 2.36 H Estim Creat Clear Calc 27 Estimated GFR 34 L Glucose 156 H POC Capillary Glucose 175 H Calcium 9.0 Magnesium 2.1 Total Bilirubin 0.5 AST 46 ALT 54 H Alkaline Phosphatase 103 Total Protein 6.0 L Albumin 2.9 L Quality VTE Prophylaxis VTE prophylaxis: pharmacologic ordered
--- NOTE | 2024-06-17 11:14 | PCSTNOTE ---
PROMOTIONAL ADVERTISING ASSISTANT attempted MBSS on 06/17/2024 at 11:00; transporters unable to arouse patient to be placed in chair. PROMOTIONAL ADVERTISING ASSISTANT went into room to observe patient's status. Patient unable or refused to open eyes or demonstrate any responsiveness indicating a swallow study to be inappropriate at this time. Hospitalist notified; she would like for more attempts to be made upon increased alertness.
[2024-06-17] MEDS: LACTULOSE 20 GM/30 ML UDC FEED TUBE (11:59)
[2024-06-17] MEDS: DOCUSATE SODIUM 400 MG/400 ML ENEMA RECTAL (12:23)
[2024-06-17 12:34] LABS: Glucose Point of Care 150 mg/dl (65-105)
[2024-06-17 14:05] VITALS: BP 144/66; PULSE 78; RESP 16; TEMP 36.3; O2SAT 100
--- NOTE | 2024-06-17 15:02 | PCSTNOTE ---
Please refer to the Modified Barium Swallow Evaluation in the EMR. The pt was seen for a Modified Barium Swallow. He was seated for a lateral view. The pt was lethargic but opened his eyes with verbal cueing. He presented with controlled amounts of thin liquids and pudding. Upon presentation of the thin liquids, anterior leakage was exhibited. Pt also exhibited uncontrolled bolus with premature spill into the pharynx. With the pudding trial, pt held contents in mouth for a prolonged period requiring max verbal cues to swallow. An empty spoon was also re placed in his mouth in order to stimulate the oral stage and a/p lingual movement (which eventually assisted in oral initiation). During the pharyngeal stage with the thin liquid trials, contents spilled into the pharynx to the level of and filling & pooling in the pyriform sinuses for at times up to 10 seconds. On the third trial, contents spilled from the pyriform sinuses into the laryngeal vestibule and open airway. Pt responded with a subtle and very weak cough thus not clearing any aspirate. With the pudding trial, contents again filled the pyriform sinuses; just as pt began to trigger a swallow (which was delayed) contents began to spill into the laryngeal vestibule. Trace (silent) aspiration occurred after the swallow. Pt made no attempts to clear (trace) pudding from the laryngeal vestibule. Impression: Severe Dysphagia Recommendation: NPO; pt is not a candidate for dysphagia therapy.
[2024-06-17 18:29] LABS: Glucose Point of Care 130 mg/dl (65-105)
[2024-06-17] MEDS: ATORVASTATIN 40 MG TABLET FEED TUBE (20:43)
[2024-06-17 20:44] VITALS: PULSE 82
[2024-06-17] MEDS: INSULIN GLARGINE (*BKC) 100 UNITS/ML 25 UNITS SUB-Q (20:47)
[2024-06-17 21:10] LABS: Glucose Point of Care 137 mg/dl (65-105)
[2024-06-17 21:19] VITALS: BP 139/60; PULSE 85; RESP 20; TEMP 36.5; O2SAT 99
[2024-06-18] VITALS (7 sets, daily range): BP systolic 143–165; BP diastolic 58–87; PULSE 88–92; RESP 16–20; TEMP 36.5–36.6; O2SAT 98–100
[2024-06-18 00:18] LABS: Glucose Point of Care 142 mg/dl (65-105)
[2024-06-18] MEDS: guaiFENesin/DEXTROMETHORPHAN 10 ML UDC FEED TUBE ×6 (00:37→20:26)
[2024-06-18 05:42] LABS: Glucose Point of Care 130 mg/dl (65-105)
[2024-06-18] MEDS: hydrALAZINE HCL 50 MG TABLET FEED TUBE ×3 (05:46→20:27)
[2024-06-18 06:14] LABS: Basophils Percent Auto 0.3 % (0.2-1.2); Eosinophils Absolute Auto 0.4 K/mm3 (0-0.3); Eosinophils Percent Auto 4.6 % (0-4.4); Hemoglobin 7.9 g/dL (14.0-18.0); Immature Granulocyte Percent A 1.3 % (0-0.5); Lymphocytes Absolute Auto 1.11 K/mm3 (0.9-3.2); Lymphocytes Percent Auto 14.7 % (18.3-44.2); Mean Corpuscular HGB Conc 30.4 g/dl (32-36); Mean Corpuscular Hemoglobin 29.3 pg (26-34); Mean Corpuscular Volume 96.3 fl (80-100); Mean Platelet Volume 10.3 fl (7.4-10.4); Monocytes Absolute Auto 0.6 K/mm3 (0.1-0.6); Monocytes Percent Auto 7.9 % (2.6-8.5); Neutrophils Absolute Auto 5.4 K/mm3 (1.3-6.7); Neutrophils Percent Auto 71.2 % (45.5-73.1); Platelet Count Result 464 k/mm3 (150-375); Red Cell Distribution Width 15.4 % (11.5-14.5); White Blood Count 7.6 K/mm3 (4.5-10.0)
[2024-06-18 06:36] LABS: Alanine Aminotransferase 51 U/L (6-50); Albumin Level 2.8 g/dL (3.5-5.1); Alkaline Phosphatase 106 U/L (38-126); Anion Gap 7 mmol/L (4-12); Aspartate Amino Transferase 47 U/L (17-59); Bilirubin,Total 0.4 mg/dL (0.2-1.3); Blood Urea Nitrogen 61 mg/dL (9-20); Carbon Dioxide 29 mmol/L (22-30); Chloride 105 mmol/L (98-107); Estimated CRCL calculation 26 ml/min; Estimated Glomerular Filt Rate 31; Glucose 107 mg/dL (65-110); Potassium 4.2 mmol/L (3.4-5.0); Sodium 141 mmol/L (137-145)
--- NOTE | 2024-06-18 07:25 | P.PNIM_ITS ---
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 neurology consulted, likely metabolic encephalopathy PLAN * Delirium precautions * Treatment of UTI, hypernatremia, JOSHUA as noted mental status changes likely due to failure to thrive and metabolic encephalopathic (2) Abdominal distension: Code(s): R14.0 - Abdominal distension (gaseous) Status: Acute Assessment and Plan: * CT shows Cystitis with fecal impaction, small bilateral pleural effusions and pericardial effusions. * aggressive bowel protocol * KUB pending (3) Acute on chronic kidney failure: Code(s): N17.9 - Acute kidney failure, unspecified; N18.9 - Chronic kidney disease, unspecified Status: Acute Assessment and Plan: Baseline creatinine 2.5-3.2. Initially started D5 1/2 NS and supplemental TF, switched to LR. Creatinine improved * avoid nephrotoxic medications * Renal function continues to improve. Cr at 2.3 today. * Continue free water flushes per FT. * LR discontinued. (4) Dysphasia: Code(s): R47.02 - Dysphasia Status: Acute Assessment and Plan: patient had swallow exam on 06/17/2024 with severe dysphasia not a candidate for continued speech therapy at this time patient strict NPO meds and nutrition through PEG (5) Dehydration: Code(s): E86.0 - Dehydration Status: Acute Assessment and Plan: See JOSHUA improving (6) Hypernatremia: Code(s): E87.0 - Hyperosmolality and hypernatremia Status: Resolved Assessment and Plan: resolved * Check urine osmolality and serum osmolality, but actually suspect that hypernatremia is due to dehydration. * free water flushes * Continue Free water flushes per tube. (7) Elevated LFTs: Code(s): R79.89 - Other specified abnormal findings of blood chemistry Status: Chronic Assessment and Plan: * Etiology is unknown. * US shows fatty infiltration of an enlarged liver. There is also a hemangioma within segment 6. * Transaminases have been historically elevated in the past. (8) Insulin dependent diabetes mellitus: Status: Acute Assessment and Plan: Home meds: Lantus 25 hs, Lispro 15 TID with meals. Not eating well during admission Tube feeds scheduled from 3pm to 11am (off between 11am and 3pm during the day) * SSI q.6 * Continue to trend Glucose and adjust as needed. patient hypoglycemic will decrease Lantus (9) Hypertension: Code(s): I10 - Essential (primary) hypertension Status: Acute Assessment and Plan: BP ranging 130'ss-180's/60s-80's during admission * Continue current regimen and monitor. 06/17/24: * Continue current regimen and medications. (10) Chronic anemia: Code(s): D64.9 - Anemia, unspecified Status: Acute Assessment and Plan: stable. Chronic in nature however it appears to be worsening and trending down. Etiology CKD vs. GI Bleed vs. Dilutional. S/P 1 unit of PRBC's 06/13 for Hgb 6.5, improved to 7.4 after transfusion * Stool for occult blood ordered. * Transfuse for Hgb < 7.0 * Monitor and trend Labs. (11) UTI (urinary tract infection): Code(s): N39.0 - Urinary tract infection, site not specified Status: Acute Assessment and Plan: Initially on empiric Rocephin pending urine cultures. Culture grew pansen sitive enterococcus * Continue Augmentin through 06/20/24 21:00 (12) Wounds, multiple: Code(s): T07.XXXA - Unspecified multiple injuries, initial encounter Status: Acute Assessment and Plan: Multiple wounds in the setting of poor mobility. Bilateral heels, feet, left hip. CRP normal, ESR >140 --X-ray bilateral heels and feet no evidence of osteomyelitis --Continue local wound care (13) Tachypnea: Code(s): R06.82 - Tachypnea, not elsewhere classified Status: Acute Assessment and Plan: Increased work of breathing. Previously had loculated effusions --CT Chest/Abd/Pelvis without contrast 06/17/24: * CT shows Cystitis with fecal impaction, small bilateral pleural effusions and pericardial effusions. * Colace enema and lactulose on 06/17. Plan Time Spent With Patient Time with patient: Greater than 35 minutes Subjective Date/time seen: 06/18/24 07:25 Interval history: Pt examined this morning at the bedside. He is resting easily and quietly. He arouses to verbal and tactile stim and answers simple questions appropriately. He remains on Augmentin for his UTI until 06/22/24. patient was going to be able to DC today however he was hypoglycemic with tube feeds running. Review of Systems Review of Systems: ROS unobtainable: Yes unobtainable due to mental status Exam Narrative: General: Chronically ill-appearing gentleman lying in bed at this time without distress. HEENT: Pupils are reactive. Sclera anicteric. Dry mucous membranes. Lips are chapped and cracked. Neck: Supple. Respiratory: Respirations Unlabored, clear, apneic periods Cardiovascular: Regular rate and rhythm with S1-S2. Gastrointestinal: Abdomen is soft, nontender, mildly distended with positive bowel sounds. G-tube site is clean, dry, and intact. No guarding or rebound tenderness. Skin: Warm and dry. Evidence of prior skin grafts. There are stage 1 wounds to the Bilateral heels. Waffle boots are in place. Blister to right foot black and dark discoloration laterally to left foot. Left hip wound open, not infected appearing, shallow with some granulation tissue Extremities: No cyanosis, clubbing, or edema. Radial and pedal pulses intact. Contracted Neurological: Pt arouses to verbal and tactile stim Psychiatric: unable to assess. Objective Data Vital Signs Vital Signs: Vital Signs - 24 hr 06/17/24 08:00 06/17/24 08:33 06/17/24 14:05 Temperature 97.4 F L Pulse Rate 80 78 Respiratory Rate 16 Blood Pressure 144/66 H Pulse Oximetry 100 100 Oxygen Delivery Room Air 06/17/24 20:43 06/17/24 20:44 06/17/24 21:19 Temperature 97.7 F Pulse Rate 82 85 Respiratory Rate 20 Blood Pressure 139/60 Pulse Oximetry 99 Oxygen Delivery Room Air 06/18/24 05:13 Temperature 97.9 F Pulse Rate 88 Respiratory Rate 20 Blood Pressure 144/66 H Pulse Oximetry 100 Oxygen Delivery Intake/Output Intake/Output: Intake & Output 06/15/24 06/16/24 06/17/24 06/18/24 23:59 23:59 23:59 23:59 Intake Total 2750 1050 0 0 Output Total 1550 1025 1050 450 Balance 1200 25 -1050 -450 Meds/Results Medications: Active Medications Generic Name Dose Route Start Last Admin Trade Name Freq PRN Reason Stop Dose Admin Acetaminophen 650 mg 06/09/24 16:57 Acetaminophen 325 Mg Tablet FEED TUBE Q4H PRN Mild Pain (1-3) or Fever Albuterol/Ipratropium 3 ml 06/09/24 20:41 Ipratropium 0.5 Mg/Albuterol Sulfate 2.5 Mg Ampul.Neb 3 Ml INHALATION Q6H PRN Shortness Of Breath Amlodipine Besylate 10 mg 06/12/24 09:00 06/17/24 08:33 Amlodipine Besylate 10 Mg Tablet FEED TUBE 10 mg DAILY ELIDIA Administration Amoxicillin/Clavulanate Potassium 500 mg 06/14/24 21:00 06/17/24 20:43 Amoxicillin/Clavulanate K Susp 400-57 Mg/5 Ml 5 Ml Ud PO 06/20/24 21:01 500 mg Q12HR ELIDIA Administration Artificial Tears 1 drop 06/09/24 20:46 Artificial Tears Ophth Soln 15 Ml Bottle EACH EYE BID PRN Dry Eyes Aspirin 81 mg 06/10/24 09:00 06/17/24 08:33 Aspirin 81 Mg Chewable Tablet PO 81 mg DAILY ELIDIA Administration Atorvastatin Calcium 40 mg 06/11/24 21:00 06/17/24 20:43 Atorvastatin 40 Mg Tablet FEED TUBE 40 mg HS ELIDIA Administration Carvedilol 25 mg 06/11/24 21:00 06/17/24 20:44 Carvedilol 25 Mg Tablet FEED TUBE 25 mg Q12HR ELIDIA Administration Dextrose 12.5 gm 06/09/24 20:38 Dextrose 50% 25 Gm/50 Ml Syringe IV PUSH PRN PRN Hypoglycemia Protocol Famotidine 20 mg 06/11/24 17:00 06/17/24 16:36 Famotidine 20 Mg Tablet FEED TUBE 20 mg BID ELIDIA Administration Ferrous Sulfate 325 mg 06/10/24 09:00 06/17/24 08:35 Ferrous Sulfate Liquid 325 Mg/7.4 Ml Elixir FEED TUBE 325 mg DAILY ELIDIA Administration Fluticasone Propionate 1 spray 06/10/24 09:00 06/17/24 08:45 Fluticasone Propionate 0.05% Na Spr 16 Gm Btl (*Bkc) NASAL 1 spray DAILY ELIDIA Administration Folic Acid 1 mg 06/12/24 09:00 06/17/24 08:35 Folic Acid 1 Mg Tablet FEED TUBE 1 mg DAILY ELIDIA Administration Glucagon 1 mg 06/09/24 20:38 Glucagon For Inj 1 Mg Vial IM PRN PRN Hypoglycemia Protocol Glucose 15 gm 06/09/24 20:38 Glucose Oral Gel 15 Gm Of Glucse In 37.5 Gm Tube PO PRN PRN Hypoglycemia Protocol Guaifenesin/Dextromethorphan 10 ml 06/12/24 13:00 06/18/24 05:46 Guaifenesin/Dextromethorphan 10 Ml Udc FEED TUBE 10 ml Q4H ELIDIA Administration Heparin Sodium (Porcine) 5,000 units 06/09/24 21:00 06/17/24 20:47 Heparin Sodium 5,000 Units/Ml Vial SUB-Q 5,000 units Q12HR ELIDIA Administration Hydralazine HCl 50 mg 06/11/24 22:00 06/18/24 05:46 Hydralazine Hcl 50 Mg Tablet FEED TUBE 50 mg Q8HR ELIDIA Administration Dextrose 1,000 mls @ 100 mls/hr 06/09/24 20:38 Dextrose 5% 1,000 Ml IVPB PRN PRN Hypoglycemia Protocol Insulin Aspart 4 - 8 units 06/10/24 18:00 06/18/24 05:46 Insulin Aspart (*Bkc) 100 Units/Ml SUB-Q Not Given Q6HR [facility] Protocol Insulin Aspart 3 units 06/16/24 17:00 06/17/24 16:17 Insulin Aspart (*Bkc) 100 Units/Ml SUB-Q Not Given BIDWM [facility] Insulin Glargine 25 units 06/15/24 21:00 06/17/24 20:47 Insulin Glargine (*Bkc) 100 Units/Ml SUB-Q 25 units HS ELIDIA Administration Loratadine 10 mg 06/12/24 09:00 06/17/24 08:35 Loratadine 10 Mg Tablet FEED TUBE 10 mg DAILY ELIDIA Administration Mirtazapine 7.5 mg 06/09/24 21:00 06/11/24 20:01 Mirtazapine 7.5 Mg Tablet PO 7.5 mg HS ELIDIA Administration Multivitamins Therapeutic 1 tablet 06/12/24 09:00 06/17/24 08:35 Multivitamins Therapeutic Tab (*Bkc) FEED TUBE 1 tablet DAILY ELIDIA Administration Ondansetron HCl 4 mg 06/09/24 16:57 Ondansetron Inj 4 Mg/2 Ml Vial IV PUSH Q4H PRN Nausea Senna 8.6 mg 06/11/24 17:00 06/17/24 16:36 Sennosides 8.6 Mg Tablet FEED TUBE 8.6 mg BID ELIDIA Administration Radiology Results: ITS Impressions Abdomen Ultrasound 06/09/24 18:43 IMPRESSION: Fatty infiltration of an enlarged liver. Hemangioma within segment [address] 06/11/24 18:55 Impression: Stable CT appearance of the brain, without acute intracranial hemorrhage or suspicious mass effect. Chest X-Ray 06/12/24 08:49 IMPRESSION: 1. No acute cardiopulmonary disease. Brain MRI 06/12/24 13:33 IMPRESSION: 1. Old infarcts in the bilateral basal ganglia. 2. Extensive nonspecific cerebral white matter disease and disease of the deep sotelo nuclei and niurka, which likely represents chronic small vessel ischemic disease. Foot X-Ray 06/15/24 12:40 IMPRESSION: 1. Mild polyarticular osteoarthritis. 2. Moderate hallux valgus. Heel X-Ray 06/15/24 12:41 IMPRESSION: 1. No evidence of osteomyelitis. Chest/Abdomen/Pelvis CT 06/16/24 19:20 IMPRESSION: Small bilateral pericardial effusions. Small bilateral pleural effusions. Fecal impaction with findings concerning for early/mild stercoral colitis. Cystitis. Moderate body wall edema. Modified Barium Swallow 06/17/24 13:52 IMPRESSION: Oropharyngeal dysphagia with laryngeal penetration and aspiration. Please correlate with speech pathologist findings and specific feeding recommendations. Labs Labs: Laboratory Results - last 24 hr 06/17/24 06/17/24 06/17/24 12:24 18:25 20:40 WBC RBC Hgb Hct MCV MCH MCHC RDW Plt Count MPV Immature Gran % (Auto) Neut % (Auto) Lymph % (Auto) Rolette % (Auto) Eos % (Auto) Baso % (Auto) Lymph # (Auto) Rolette # (Auto) Eos # (Auto) Baso # (Auto) Abs Immat Gran (auto) Absolute Neuts (auto) Absolute Nucleated RBC Nucleated RBC % Sodium Potassium Chloride Carbon Dioxide Anion Gap BUN Creatinine Estim Creat Clear Calc Estimated GFR Glucose POC Capillary Glucose 150 H 130 H 137 H Calcium Magnesium Total Bilirubin AST ALT Alkaline Phosphatase Total Protein Albumin 06/18/24 06/18/24 06/18/24 00:14 05:17 06:03 WBC 7.6 RBC 2.70 L Hgb 7.9 L Hct 26.0 L MCV 96.3 MCH 29.3 MCHC 30.4 L RDW 15.4 H Plt Count 464 H MPV 10.3 Immature Gran % (Auto) 1.3 H Neut % (Auto) 71.2 Lymph % (Auto) 14.7 L Rolette % (Auto) 7.9 Eos % (Auto) 4.6 H Baso % (Auto) 0.3 Lymph # (Auto) 1.11 Rolette # (Auto) 0.6 Eos # (Auto) 0.4 H Baso # (Auto) 0.0 Abs Immat Gran (auto) 0.10 H Absolute Neuts (auto) 5.4 Absolute Nucleated RBC 0.000 Nucleated RBC % 0.0 Sodium 141 Potassium 4.2 Chloride 105 Carbon Dioxide 29 Anion Gap 7 BUN 61 H Creatinine 2.50 H Estim Creat Clear Calc 26 Estimated GFR 31 L Glucose 107 POC Capillary Glucose 142 H 130 H Calcium 9.0 Magnesium 2.0 Total Bilirubin 0.4 AST 47 ALT 51 H Alkaline Phosphatase 106 Total Protein 6.0 L Albumin 2.8 L Quality VTE Prophylaxis VTE prophylaxis: pharmacologic ordered
[2024-06-18] MEDS: polyethylene glycoL 3350 17 GM POWD.PACK FEED TUBE (09:14)
[2024-06-18] MEDS: MULTIVITAMINS THERAPEUTIC TAB (*BKC) 1 TABLET FEED TUBE (09:14)
[2024-06-18] MEDS: FERROUS SULFATE LIQUID 325 MG/7.4 ML ELIXIR FEED TUBE (09:14)
[2024-06-18] MEDS: amLODIPine BESYLATE 10 MG TABLET FEED TUBE (09:15)
[2024-06-18] MEDS: ASPIRIN 81 MG CHEWABLE TABLET PO (09:15)
[2024-06-18] MEDS: carvediloL 25 MG TABLET FEED TUBE ×2 (09:15→20:27)
[2024-06-18] MEDS: LORATADINE 10 MG TABLET FEED TUBE (09:15)
[2024-06-18] MEDS: HEPARIN SODIUM 5,000 UNITS/ML VIAL 5000 UNITS SUB-Q ×2 (09:16→20:27)
[2024-06-18] MEDS: FLUTICASONE PROPIONATE 0.05% NA SPR 16 GM BTL (*BKC) 1 SPRAY NASAL (09:16)
[2024-06-18] MEDS: FOLIC ACID 1 MG TABLET FEED TUBE (09:16)
[2024-06-18] MEDS: FAMOTIDINE 20 MG TABLET FEED TUBE ×2 (09:16→17:17)
[2024-06-18] MEDS: SENNOSIDES 8.6 MG TABLET FEED TUBE ×2 (09:16→17:17)
[2024-06-18] MEDS: AMOXICILLIN/CLAVULANATE K SUSP 400-57 MG/5 ML 5 ML UD 500 MG PO ×2 (09:17→20:27)
[2024-06-18] MEDS: INSULIN ASPART (*BKC) 100 UNITS/ML SUB-Q (09:18)
--- NOTE | 2024-06-18 10:41 | PCNFU ---
Nutrition Follow-Up Complete: Inability to meet nutrition needs PO related to loss of appetite as evidenced by need for full tube feedings Goal:Meet estimated protein energy needs Pt current nutrition is NPO, Glucerna 1.2 @ 75ml/hr over 20hr with 150ml flush q 6 hrs. This provides: 1800kcals, 90g protein, 1807ml free water per day. Nutrition recommendation: continue with current plan of care Last recorded weight is 76.9 kg. Bowel Motility: +BM 06/18 Labs Reviewed: Hgb:7.9, HCT:26, Alb:2.8, GFR:31, BUN:61, Cr:2.5, Glu:156 Meds Noted: heparin, folic acid, MVI, insulin Skin: DTPT to ischium Additional Notes: Pt failed MBS, remains NPO. Tube feeding continues - Glucerna 1.2 @ 75ml/hr over 20hrs with 150ml flush q 6 hrs. Pt tolerating well. Tube feeding meeting needs. Agree with orders. Monitoring tube feeding tolerance, labs, weights, output, wounds, plan of care Follow up Tuesdays and Fridays
[2024-06-18 12:32] LABS: Glucose Point of Care 94 mg/dl (65-105)
[2024-06-18 15:52] LABS: Basophils Percent Auto 0.3 % (0.2-1.2); Eosinophils Absolute Auto 0.3 K/mm3 (0-0.3); Eosinophils Percent Auto 4.6 % (0-4.4); Hematocrit 23.3 % (42.0-52.0); Hemoglobin 7.1 g/dL (14.0-18.0); Immature Granulocyte Percent A 1.4 % (0-0.5); Lymphocytes Absolute Auto 1.21 K/mm3 (0.9-3.2); Lymphocytes Percent Auto 16.8 % (18.3-44.2); Mean Corpuscular HGB Conc 30.5 g/dl (32-36); Mean Corpuscular Hemoglobin 28.6 pg (26-34); Mean Platelet Volume 9.9 fl (7.4-10.4); Monocytes Absolute Auto 0.6 K/mm3 (0.1-0.6); Monocytes Percent Auto 8.6 % (2.6-8.5); Neutrophils Absolute Auto 4.9 K/mm3 (1.3-6.7); Neutrophils Percent Auto 68.3 % (45.5-73.1); Platelet Count Result 425 k/mm3 (150-375); Red Blood Count 2.48 M/mm3 (4.6-6.20); Red Cell Distribution Width 15.3 % (11.5-14.5); White Blood Count 7.2 K/mm3 (4.5-10.0)
[2024-06-18 15:59] LABS: Alanine Aminotransferase 45 U/L (6-50); Albumin Level 2.6 g/dL (3.5-5.1); Alkaline Phosphatase 94 U/L (38-126); Anion Gap 5 mmol/L (4-12); Aspartate Amino Transferase 36 U/L (17-59); Bilirubin,Total 0.4 mg/dL (0.2-1.3); Blood Urea Nitrogen 58 mg/dL (9-20); Calcium 8.6 mg/dL (8.4-10.2); Carbon Dioxide 29 mmol/L (22-30); Chloride 106 mmol/L (98-107); Estimated CRCL calculation 25 ml/min; Estimated Glomerular Filt Rate 30; Glucose 53 mg/dL (65-110); Potassium 4.2 mmol/L (3.4-5.0); Sodium 140 mmol/L (137-145)
[2024-06-18 16:06] LABS: Glucose Point of Care 51 mg/dl (65-105)
[2024-06-18] MEDS: DEXTROSE 50% 25 GM/50 ML SYRINGE IV PUSH (16:16)
[2024-06-18 16:59] LABS: Glucose Point of Care 82 mg/dl (65-105)
[2024-06-18 18:05] LABS: Glucose Point of Care 78 mg/dl (65-105)
[2024-06-18] MEDS: ATORVASTATIN 40 MG TABLET FEED TUBE (20:27)
[2024-06-19 00:55] LABS: Glucose Point of Care 109 mg/dl (65-105)
[2024-06-19] MEDS: guaiFENesin/DEXTROMETHORPHAN 10 ML UDC FEED TUBE ×5 (01:00→18:27)
[2024-06-19] MEDS: hydrALAZINE HCL 50 MG TABLET FEED TUBE ×2 (04:54→13:15)
[2024-06-19 05:05] VITALS: BP 160/69; PULSE 94; RESP 20; TEMP 36.6; O2SAT 97
[2024-06-19 05:42] LABS: Glucose Point of Care 163 mg/dl (65-105)
[2024-06-19 08:53] LABS: Glucose Point of Care 239 mg/dl (65-105)
[2024-06-19 09:36] VITALS: BP 174/71; PULSE 94
[2024-06-19] MEDS: ASPIRIN 81 MG CHEWABLE TABLET PO (09:36)
[2024-06-19] MEDS: carvediloL 25 MG TABLET FEED TUBE (09:36)
[2024-06-19] MEDS: FOLIC ACID 1 MG TABLET FEED TUBE (09:36)
[2024-06-19] MEDS: amLODIPine BESYLATE 10 MG TABLET FEED TUBE (09:36)
[2024-06-19] MEDS: FAMOTIDINE 20 MG TABLET FEED TUBE ×2 (09:37→18:27)
[2024-06-19] MEDS: FLUTICASONE PROPIONATE 0.05% NA SPR 16 GM BTL (*BKC) 1 SPRAY NASAL (09:37)
[2024-06-19] MEDS: SENNOSIDES 8.6 MG TABLET FEED TUBE ×2 (09:37→18:27)
[2024-06-19] MEDS: AMOXICILLIN/CLAVULANATE K SUSP 400-57 MG/5 ML 5 ML UD 500 MG PO (09:37)
[2024-06-19] MEDS: MULTIVITAMINS THERAPEUTIC TAB (*BKC) 1 TABLET FEED TUBE (09:37)
[2024-06-19] MEDS: FERROUS SULFATE LIQUID 325 MG/7.4 ML ELIXIR FEED TUBE (09:37)
[2024-06-19] MEDS: LORATADINE 10 MG TABLET FEED TUBE (09:37)
[2024-06-19] MEDS: HEPARIN SODIUM 5,000 UNITS/ML VIAL 5000 UNITS SUB-Q (09:37)
[2024-06-19] MEDS: INSULIN ASPART (*BKC) 100 UNITS/ML SUB-Q ×4 (09:38→18:28)
[2024-06-19] MEDS: polyethylene glycoL 3350 17 GM POWD.PACK FEED TUBE (09:38)
[2024-06-19 12:29] LABS: Glucose Point of Care 285 mg/dl (65-105)
[2024-06-19 15:33] LABS: SARS-CoV-2 RNA PCR Negative (Negative)
--- NOTE | 2024-06-19 16:44 | P.DS_ITS ---
DS: Admitting Diagnosis Discharge Date 06/19/24 Admitting Diagnosis Altered Mental Status DS: Discharge Diagnosis Discharge Diagnosis (1) Altered mental status: Code(s): R41.82 - Altered mental status, unspecified Status: Acute Assessment and Plan: Acute on Chronic. (2) Abdominal distension: Code(s): R14.0 - Abdominal distension (gaseous) Status: Acute Assessment and Plan: Acute. (3) Acute on chronic kidney failure: Code(s): N17.9 - Acute kidney failure, unspecified; N18.9 - Chronic kidney disease, unspecified Status: Acute Assessment and Plan: JOSHUA on CKD. (4) Dysphasia: Code(s): R47.02 - Dysphasia Status: Acute Assessment and Plan: Chronic. (5) Dehydration: Code(s): E86.0 - Dehydration Status: Acute Assessment and Plan: Acute. (6) Hypernatremia: Code(s): E87.0 - Hyperosmolality and hypernatremia Status: Resolved Assessment and Plan: Acute. (7) Elevated LFTs: Code(s): R79.89 - Other specified abnormal findings of blood chemistry Status: Chronic Assessment and Plan: * Chronic. (8) Insulin dependent diabetes mellitus: Status: Acute Assessment and Plan: Chronic. (9) Hypertension: Code(s): I10 - Essential (primary) hypertension Status: Acute Assessment and Plan: Chronic (10) Chronic anemia: Code(s): D64.9 - Anemia, unspecified Status: Acute Assessment and Plan: Chronic. (11) UTI (urinary tract infection): Code(s): N39.0 - Urinary tract infection, site not specified Status: Acute Assessment and Plan: Acute. (12) Wounds, multiple: Code(s): T07.XXXA - Unspecified multiple injuries, initial encounter Status: Acute Assessment and Plan: Chronic. (13) Tachypnea: Code(s): R06.82 - Tachypnea, not elsewhere classified Status: Acute Assessment and Plan: Acute on Chronic Plan Discharge to SNF. DS: Summary Hospital Course Reason for hospitalization: Altered Mental Status. Hospital Course: Patient was brought in to the emergency room from the halfway facility that he resides with reports of altered mental status. Patient was dehydrated with metabolic derangement, with his symptoms suspected to be likely metabolic. He had an MRI brain that showed chronic changes and old infarcts with nothing acute. He was seen by the neurologist during his hospitalization was a suspected that patient's symptoms were likely metabolic in nature and no neurological interventions were recommended. Patient was also monitored for apnea overnight and no severe apnea was noted. As mentioned he was dehydrated with hypernatremia which was treated with IV fluids hydration in addition to free water hydration through his PEG tube. He was treated with IV antibiotics for his UTI with treatment completed prior to his discharge. Patient has multiple wounds including bilateral hips, feet, left hip, and was seen by the Wound nurse who assisted with wound care. Patient has chronic elevated LFT's, that was also noted on this admission. He was given 1 unit of packed red blood cells for anemia during this hospitalization with Hgb 6.5, and his hemoglobin stabilized >[address] abdomen pelvis done showed fecal impaction and the patient was placed on a bowel protocol and had regular BM's spread to his discharge. His insulin regimen was adjusted for better control, with all his other chronic conditions remaining stable inpatient. He was discharged to his SNF in a stable condition, with no acute distress noted or reported prior to discharge. Status at Discharge Functional status at discharge: bed bound Overall status at discharge: patient is progressing back to baseline Time Spent with Patient Time attestation: Total time spent providing and/or coordinating discharge services: Time spent: Greater than 30 minutes Exam Narrative: General: Chronically ill-appearing gentleman, on bedrest with no acute distress. HEENT: Pupils are reactive. Sclera anicteric. Dry mucous membranes. Lips are chapped and cracked. Neck: Supple. Respiratory: Respirations Unlabored, clear, slight congestion. Cardiovascular: Regular rate and rhythm with S1-S2. Gastrointestinal: Abdomen is soft, nontender, nondistended, +ve bowel sounds. G-tube site is clean, dry, and intact. Skin: Warm and dry. Evidence of prior skin grafts. There are stage 1 wounds to the Bilateral heels. Waffle boots are in place. Blister to right foot black and dark discoloration laterally to left foot. Left hip wound open, not infected appearing, shallow with some granulation tissue Extremities: No cyanosis, clubbing, or edema. Radial and pedal pulses intact. Contracted Neurological: Pt arouses to verbal and tactile stim. Psychiatric: Calm. DS: Data Data Completed and Pending Labs on day of discharge: Labs from last 24 hours 06/19/24 06/19/24 06/19/24 14:38 12:18 08:49 POC Capillary Glucose 285 H 239 H SARS-CoV-2 RNA (RT-PCR) Negative 06/19/24 06/19/24 06/18/24 05:38 00:14 18:03 POC Capillary Glucose 163 H 109 H 78 SARS-CoV-2 RNA (RT-PCR) 06/18/24 16:51 POC Capillary Glucose 82 SARS-CoV-2 RNA (RT-PCR) Discharge Plan Discharge Attending physician on discharge: Srinivasan Wilson Consulting providers: Aubree Nuñez; Lulu Austin; Cecille Catherine; Edyta Dorsey; Jocelyn Trinidad; Makenzie Brown; Vic Hopper; Marcelino Wiley V.; Edinson Gorman Discharging Clinician: Cordelia Meng Anticipated Discharge Date/Time: 06/19/24 16:58 Patient Disposition: SNF Activity: as tolerated Diet: tube feeding Patient Language: Bulgarian Stand Alone Forms: General Discharge Information Follow-up/Referrals: Duncan,MD Zane [Primary Care Provider] - 1 Week Discharge Medications: New polyethylene glycol 3350 [Miralax] 17 gram Powder In Packet 17 g feeding tube QAM Qty: 14 0RF amoxicillin-pot clavulanate 400-57 mg/5 mL Suspension For Reconstitution 5 ml PO Q12HR Qty: 15 0RF insulin aspart U-100 [Novolog U-100 Insulin aspart] 100 unit/mL Solution 4 - 8 unit subcut Q6HR Qty: 1 0RF Protocol: Insulin Corrective High-Dose Condition: glucose < 70 mg/dl Dose/Route: Follow hypoglycemia order Condition: glucose 70-200 mg/dl Dose/Route: No additional insulin Condition: glucose 201-250 mg/dl Dose/Route: 4 units sub-Q Condition: glucose 251-300 mg/dl Dose/Route: 5 units sub-Q Condition: glucose 301-350 mg/dl Dose/Route: 6 units sub-Q Condition: glucose 351-400 mg/dl Dose/Route: 8 units sub-Q Condition: glucose > 400 mg/dl Dose/Route: Call Continued atorvastatin 40 mg tablet 40 mg PO HS hydralazine 10 mg tablet 50 mg PO TID carvedilol 25 mg tablet 25 mg PO BID famotidine 20 mg tablet 20 mg PO BID amlodipine 10 mg tablet 10 mg PO DAILY mirtazapine 15 mg tablet 7.5 mg PO HS multivitamin Tablet 1 tablet PO DAILY cyanocobalamin (vitamin B-12) 100 mcg Tablet 100 mcg PO DAILY artificial tears solution Drops 1 drp OPHTHALMIC (EYE) BID PRN (Reason: Dry Eyes) acetaminophen 650 mg Tablet 650 mg PO Q6H PRN (Reason: Pain, Mild) fluticasone propionate 50 mcg/actuation Robert,Suspension 1 spray INTRANASAL DAILY Rx Instructions: administer into each nostril ferrous sulfate 324 mg (65 mg iron) Tablet,Delayed Release (Dr/Ec) 324 mg PO DAILY Rx Instructions: Monday, Mon, Monday aspirin 81 mg Capsule 81 mg PO DAILY sennosides [senna] 8.6 mg Tablet 8.6 mg PO BID cetirizine [Zyrtec] 10 mg Tablet 10 mg PO DAILY folic acid 1 mg Tablet 1 mg PO DAILY ipratropium-albuterol 0.5 mg-3 mg(2.5 mg base)/3 mL Solution For Nebulization 3 ml INHALATION Q6H PRN (Reason: SOB) Glucagon Emergency Kit (human) 1 mg recon soln 1 mg IM PRN Rx Instructions: for hypoglycemia Changed insulin glargine [Lantus U-100 Insulin] 100 unit/mL Solution 22 unit SUBCUT HS Qty: 10 0RF Discontinued insulin lispro 100 unit/mL Insulin Pen 15 unit SUBCUT .with meals Date of admission: 06/10/24 08:07 Primary Care Provider: Zane Valle Admitting Provider: Bobo Christianson Attending physician on admission: Cordelia eMng Condition: Stable Quality If No VTE Prophylaxis Answer both mechanical and pharmacologic: Reason no mechanical VTE proph: low risk/not indicated Reason no pharmacologic proph: low risk/not indicated Hospitalist MIPS Heart Failure (Exclusion) Patient has history of Heart Transplant or Left Ventricular Assistive Device?: No IF YES, STOP HERE Heart Failure (Qualifier) Patient has current or prior documentation of LVEF less than or equal to 40%, or mod/servere depressed LVSF?: No IF NO, STOP HERE
[2024-06-19 16:58] LABS: Glucose Point of Care 235 mg/dl (65-105)
== END 2024-06-19 18:55 | DRG 682 ==
LOC: ANHED 14:54 → ANH2MED 17:51
PROVIDERS: Nurse Practitioner Acute Care; Nurse Practitioner Adult Health; Nurse Practitioner Gerontology; Physician Assistant; Admitting Provider Internal Medicine; Emergency Provider Emergency Medicine; PCP Internal Medicine; Visit Provider Nurse Practitioner Adult Health
DX: N17.9 Acute kidney failure, unspecified (principal); G93.41 Metabolic encephalopathy; E87.0 Hyperosmolality and hypernatremia; N39.0 Urinary tract infection, site not specified; J90 Pleural effusion, not elsewhere classified; E46 Unspecified protein-calorie malnutrition; L97.429 Non-pressure chronic ulcer of left heel and midfoot with unspecified severity; L97.419 Non-pressure chronic ulcer of right heel and midfoot with unspecified severity; E10.65 Type 1 diabetes mellitus with hyperglycemia; E86.0 Dehydration; E10.22 Type 1 diabetes mellitus with diabetic chronic kidney disease; R47.02 Dysphasia; N18.9 Chronic kidney disease, unspecified; G40.909 Epilepsy, unspecified, not intractable, without status epilepticus; F01.50 Vascular dementia, unspecified severity, without behavioral disturbance, psychotic disturbance, mood disturbance, and anxiety; D63.1 Anemia in chronic kidney disease; D50.9 Iron deficiency anemia, unspecified; I10 Essential (primary) hypertension; D18.09 Hemangioma of other sites; R62.7 Adult failure to thrive; I69.398 Other sequelae of cerebral infarction; I25.2 Old myocardial infarction; Z93.1 Gastrostomy status; Z79.82 Long term (current) use of aspirin; Z79.4 Long term (current) use of insulin; Z68.25 Body mass index [BMI] 25.0-25.9, adult; B95.2 Enterococcus as the cause of diseases classified elsewhere
CPT/HCPCS: 36415; 36430; 70450; 70551; 71045; 71250; 73620; 73650; 74018; 74176; 76705; 80048; 80053; 80074; 81001; 82140; 82274; 82550; 82948; 83605; 83735; 83930; 83935; 85025; 85027; 85055; 85652; 86140; 86850; 86900; 86901; 86923; 87040; 87086; 87181; 87635; 87636; 92610; 92611; 94762; 96361; 96365; 99212; 99285; A9270; G0378; G0463; J0696; J1644; J1815; J7030; J7120; P9016

== ENCOUNTER 2024-06-21 23:55 | Emergency (ER) | payer MEDICARE, MEDICAID, SELFPAY ==
[2024-06-22] VITALS (11 sets, daily range): BP systolic 146–169; BP diastolic 63–80; PULSE 83–88; RESP 10–21; TEMP 37.3; O2SAT 97–100
[2024-06-22 00:09] LABS: Glucose Point of Care 367 mg/dl (65-105)
--- OUTSIDE RECORDS SUMMARY | 2024-06-22 00:10 | XMS_ITS | Continuity of Care Document ---
Author Organization [facility], [facility] Address [address] [place] [phone] Phone Care Team Providers Care Assistant Nurse Manager Name Role Phone Fabiano CHEN, Isidro Unavailable Unavailable Allergies, Adverse Reactions, Alerts Substance Reaction Status Criticality No Known allergies Procedures Procedure Date EYE EXAM, NEW PATIENT MEDICAL Scan Image/ OCT, Retina Advance Directives Directive Yes / No Effective Date File Name No Information Encounters Encounter Description Practice Location Reason(s) For Visit Diagnoses Date Provider Providers Copied on Encounter [facility], [facility], [address] [place] [address], [id number], tel:[phone] [facility] 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 [address] [place] [address], [id number] , [place]. [phone] Referring Provider: Isidro Tyler, [address] [place] [address], [id number] . tel:[phone] Family History Family Member Type Diagnosis Age At Onset Problem (finding) No Family history of As thma Problem (finding) No Family history of He art Disease Problem (finding) No Family history of Ca taracts Problem (finding) No Family history of Gl au[place] Problem (finding) No Family history of HB P Grandmother Problem (finding) Diabetes mellitus Problem (finding) No Family history of Ar thritis Problem (finding) No Family history of Re spiratory Disease Problem (finding) No Family history of St roke Problem (finding) No Family history of St rabismus Problem (finding) No Family hist ory of Macular Degeneration Aunt Problem (finding) Diabetes mellitus Problem (finding) No Family history of Re tinal Disorders Mother Problem (finding) diabetes melli tus in first degree relative Payers Payer name Insurance type Covered green party ID Alejandro buchanan(s) Rea CI 0000 Social History Type Description Quantity Date Captured Comments Alcohol Use Details Unknown Caffeine Use Details Unknown Tobacco Use Status No Information Smoking Status No Information Sex Male Chief Complaint And Reason For Visit From encounter dated '05/13/2011 09:00'. 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 (chief complaint) Reason For Referral Reason For Referral No Information History Of Present Illness Encounter Date Complaint History Of Prese nt Illness No Information Functional Status Date Functional Assessmen t No Information Instructions Date Instruction Additional Infor mariama - Return in 2 months with [facility] for T & D OCT OD Related to Other and combined forms of senile cataract Exudative senile mac ular degeneration of retina OD Nonexudative senile macular degeneration of retina Os Other and combined forms of senile cataract OU - Patient has a little Macular Degen in the Right eye will watch does not need treatment at this time. We will watch. Also has some cataracts in each eye but do not need treatment at this time. Related to Other and combined forms of senile cataract Assessments Type Assessment Date No Information Patient Care Teams Name Effective Dates (start - stop) Status Members No Information
--- NOTE | 2024-06-22 00:29 | ED_ITS ---
HPI - General Adult General Chief complaint: Recheck/Abnormal Lab/Rx Stated complaint: hyperglycemia Time Seen by Provider: 06/21/24 23:56 History of Present Illness HPI narrative: Patient 68-year-old gentleman who presents emergency department with chief complaint of hyperglycemia. Patient has history of diabetes and the facility has adjusted his tube feeds the patient was reading high this evening they gave him a dose of insulin per his sliding scale and called EMS. Upon arrival to the emergency department the patient's initial blood sugar was 367 the patient is at his baseline neurological status without complaint Related Data Home Medications ?Medication ?Instructions ?Recorded ?Confirmed ?Last Taken ?Type acetaminophen 650 mg tablet 650 mg PO Q6H PRN Pain, Mild 04/25/24 06/09/24 Unknown History amlodipine 10 mg tablet 10 mg PO DAILY 04/25/24 06/09/24 Unknown History artificial tears solution eye drops 1 drp ophthalmic (eye) BID PRN Dry 04/25/24 06/09/24 Unknown History Eyes aspirin 81 mg capsule 81 mg PO DAILY 04/25/24 06/09/24 Unknown History atorvastatin 40 mg tablet 40 mg PO HS 04/25/24 06/09/24 Unknown History carvedilol 25 mg tablet 25 mg PO BID 04/25/24 06/09/24 Unknown History cetirizine 10 mg tablet (Zyrtec) 10 mg PO DAILY 04/25/24 06/09/24 Unknown History cyanocobalamin (vitamin B-12) 100 100 mcg PO DAILY 04/25/24 06/09/24 Unknown History mcg tablet famotidine 20 mg tablet 20 mg PO BID 04/25/24 06/09/24 Unknown History ferrous sulfate 324 mg (65 mg 324 mg PO DAILY 04/25/24 06/09/24 Unknown History iron) tablet,delayed release fluticasone propionate 50 1 spray intranasal DAILY 04/25/24 06/09/24 Unknown History mcg/actuation nasal spray,suspension folic acid 1 mg tablet 1 mg PO DAILY 04/25/24 06/09/24 Unknown History hydralazine 10 mg tablet 50 mg PO TID 04/25/24 06/09/24 Unknown History ipratropium 0.5 mg-albuterol 3 mg 3 ml inhalation Q6H PRN SOB 04/25/24 06/09/24 Unknown History (2.5 mg base)/3 mL nebulization soln mirtazapine 15 mg tablet 7.5 mg PO HS 04/25/24 06/09/24 Unknown History multivitamin 1 tablet PO DAILY 04/25/24 06/09/24 Unknown History sennosides 8.6 mg tablet (senna) 8.6 mg PO BID 04/25/24 06/09/24 Unknown History glucagon 1 mg solution for 1 mg IM PRN 06/09/24 06/09/24 Unknown History injection (Glucagon Emergency Kit) Allergies Allergy/AdvReac Type Severity Reaction Status Date / Time No Known Allergies Allergy Verified 10/15/23 11:22 Review of Systems Review of Systems: A 10 system review of systems was completed on the patient and is negative except for what is stated in the HPI. Nursing and ancillary documentation was reviewed. 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 Code status: Full code. 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 HEAD: Normocephalic, atraumatic. EYES: PERRLA and EOMI. ENT: Nares clear, no rhinorrhea or epistaxis. Mucous membranes moist. NECK: Supple. CHEST: Clear to auscultation. No respiratory distress. HEART: Regular rate and rhythm. No murmur heard. Normal peripheral pulses. ABDOMEN: Soft, nontender, nondistended, normal active bowel sounds. EXTREMITIES: Normal range of motion. No edema. SKIN: Warm, dry, no rash. NEURO: No focal deficits. Alert and oriented x1. PSYCH: Normal mood and affect. Course Vital Signs Vital signs: Vital Signs Temperature 37.3 C 06/22/24 00:01 Pulse Rate 85 06/22/24 00:01 Respiratory Rate 11 L 06/22/24 00:01 Blood Pressure 151/63 H 06/22/24 00:01 Pulse Oximetry 100 06/22/24 00:01 Oxygen Delivery Room Air 06/22/24 00:01 Temperature 37.3 C 06/22/24 00:01 Pulse Rate 86 06/22/24 06:01 Respiratory Rate 12 06/22/24 06:01 Blood Pressure 163/66 H 06/22/24 06:01 Pulse Oximetry 97 06/22/24 06:01 Oxygen Delivery Room Air 06/22/24 00:01 Medical Decision Making MDM Narrative Medical decision making narrative: Patient is a known diabetic has a sliding scale at the facility vitals are otherwise stable in the patient is at his baseline status. The patient was given an additional dose of subcu insulin based off was sliding scale and the blood sugar has continued to come down. The patient be discharged back to the nursing facility Vital Signs Vital Signs: Vital Signs Temperature 37.3 C 06/22/24 00:01 Pulse Rate 85 06/22/24 00:01 Respiratory Rate 11 L 06/22/24 00:01 Blood Pressure 151/63 H 06/22/24 00:01 Pulse Oximetry 100 06/22/24 00:01 Oxygen Delivery Room Air 06/22/24 00:01 Temperature 37.3 C 06/22/24 00:01 Pulse Rate 86 06/22/24 06:01 Respiratory Rate 12 06/22/24 06:01 Blood Pressure 163/66 H 06/22/24 06:01 Pulse Oximetry 97 06/22/24 06:01 Oxygen Delivery Room Air 06/22/24 00:01 Lab Data Labs: Lab Results 06/21/24 06/22/24 06/22/24 Range/Units 23:59 00:33 01:42 POC Capillary Glucose 367 H 377 H 346 H (65-105) mg/dl 06/22/24 06/22/24 06/22/24 Range/Units 03:14 04:14 05:42 POC Capillary Glucose 305 H 286 H 256 H (65-105) mg/dl Discharge Plan Discharge Clinical Impression: Hyperglycemia Patient Disposition: [facility] Living Condition: Stable Instructions: Antibiotic Form, Diabetic Hyperglycemia (ED) Additional Instructions: Please follow-up with your primary provider. Please continue your diabetic management Patient Language: Lithuanian Prescriptions: No Action atorvastatin 40 mg tablet 40 mg PO HS hydralazine 10 mg tablet 50 mg PO TID carvedilol 25 mg tablet 25 mg PO BID famotidine 20 mg tablet 20 mg PO BID amlodipine 10 mg tablet 10 mg PO DAILY mirtazapine 15 mg tablet 7.5 mg PO HS multivitamin Tablet 1 tablet PO DAILY cyanocobalamin (vitamin B-12) 100 mcg Tablet 100 mcg PO DAILY artificial tears solution Drops 1 drp OPHTHALMIC (EYE) BID PRN (Reason: Dry Eyes) acetaminophen 650 mg Tablet 650 mg PO Q6H PRN (Reason: Pain, Mild) fluticasone propionate 50 mcg/actuation [place],Suspension 1 spray INTRANASAL DAILY Rx Instructions: administer into each nostril ferrous sulfate 324 mg (65 mg iron) Tablet,Delayed Release (Dr/Ec) 324 mg PO DAILY Rx Instructions: Monday, Mon, Monday aspirin 81 mg Capsule 81 mg PO DAILY sennosides [senna] 8.6 mg Tablet 8.6 mg PO BID cetirizine [Zyrtec] 10 mg Tablet 10 mg PO DAILY folic acid 1 mg Tablet 1 mg PO DAILY ipratropium-albuterol 0.5 mg-3 mg(2.5 mg base)/3 mL Solution For Nebulization 3 ml INHALATION Q6H PRN (Reason: SOB) Glucagon Emergency Kit (human) 1 mg recon soln 1 mg IM PRN Rx Instructions: for hypoglycemia polyethylene glycol 3350 [Miralax] 17 gram Powder In Packet 17 g feeding tube QAM Qty: 14 0RF amoxicillin-pot clavulanate 400-57 mg/5 mL Suspension For Reconstitution 5 ml PO Q12HR Qty: 15 0RF insulin aspart U-100 [Novolog U-100 Insulin aspart] 100 unit/mL Solution 4 - 8 unit subcut Q6HR Qty: 1 0RF Protocol: Insulin Corrective High-Dose Condition: glucose < 70 mg/dl Dose/Route: Follow hypoglycemia order Condition: glucose 70-200 mg/dl Dose/Route: No additional insulin Condition: glucose 201-250 mg/dl Dose/Route: 4 units sub-Q Condition: glucose 251-300 mg/dl Dose/Route: 5 units sub-Q Condition: glucose 301-350 mg/dl Dose/Route: 6 units sub-Q Condition: glucose 351-400 mg/dl Dose/Route: 8 units sub-Q Condition: glucose > 400 mg/dl Dose/Route: Call insulin glargine [Lantus U-100 Insulin] 100 unit/mL Solution 22 unit SUBCUT HS Qty: 10 0RF Follow-up/Referrals: Duncan,MD Zane [Primary Care Provider] - Time of Disposition: 06:16
[2024-06-22 00:34] LABS: Glucose Point of Care 377 mg/dl (65-105)
[2024-06-22 01:45] LABS: Glucose Point of Care 346 mg/dl (65-105)
[2024-06-22] MEDS: INSULIN ASPART (*BKC) 100 UNITS/ML SUB-Q (01:56)
[2024-06-22 03:17] LABS: Glucose Point of Care 305 mg/dl (65-105)
[2024-06-22 04:17] LABS: Glucose Point of Care 286 mg/dl (65-105)
[2024-06-22 05:45] LABS: Glucose Point of Care 256 mg/dl (65-105)
== END 2024-06-22 10:09 ==
PROVIDERS: Emergency Provider Emergency Medicine; PCP Internal Medicine
DX: E10.65 Type 1 diabetes mellitus with hyperglycemia (principal); F01.50 Vascular dementia, unspecified severity, without behavioral disturbance, psychotic disturbance, mood disturbance, and anxiety; E10.22 Type 1 diabetes mellitus with diabetic chronic kidney disease; I12.9 Hypertensive chronic kidney disease with stage 1 through stage 4 chronic kidney disease, or unspecified chronic kidney disease; N18.9 Chronic kidney disease, unspecified; I25.2 Old myocardial infarction; G40.909 Epilepsy, unspecified, not intractable, without status epilepticus; Z93.1 Gastrostomy status; Z86.2 Personal history of diseases of the blood and blood-forming organs and certain disorders involving the immune mechanism; Z79.899 Other long term (current) drug therapy; Z79.82 Long term (current) use of aspirin; Z79.4 Long term (current) use of insulin
CPT/HCPCS: 82948; 99282; J1815

== ENCOUNTER 2024-07-12 12:07 | Emergency (ER) | payer MEDICARE, MEDICAID, SELFPAY ==
[2024-07-12 12:17] VITALS: BP 122/64; PULSE 59; RESP 21
--- OUTSIDE RECORDS SUMMARY | 2024-07-12 12:17 | XMS_ITS | Continuity of Care Document ---
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 Operator Name Role Phone Fabiano CHEN, Isidro Unavailable Unavailable Allergies, Adverse Reactions, Alerts Substance Reaction Status Criticality No Known allergies Procedures Procedure Date EYE EXAM, NEW PATIENT MEDICAL Scan Image/ OCT, Retina Advance Directives Directive Yes / No Effective Date File Name No Information Encounters Encounter Description Practice Location Reason(s) For Visit Diagnoses Date Provider Providers Copied on Encounter [facility], [facility], [address] [place] [address], [id number], tel:[phone] [facility] 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 [address] [place] [address], [id number] , [place]. [phone] Referring Provider: Isidro Tyler, [address] [place] [address], [id number] . tel:[phone] Family History Family Member Type Diagnosis Age [...] relative Payers Payer name Insurance type Covered constitution party ID Alejandro buchanan(s) Rea CI 0000 Social History Type Description Quantity Date Captured Comments Alcohol Use Details Unknown Caffeine Use Details Unknown Tobacco Use Status No Information Smoking Status No Information Sex Male Chief Complaint And Reason For Visit From encounter dated '05/13/2011 09:00'. 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
--- NOTE | 2024-07-12 12:20 | ECG_ITS ---
Test Date: 2024-07-12 12:20:37 Measurements Intervals Bromide Rate: 15 P: 0 AL: 0 QRS: 10 QRSD: 116 T: 134 QT: 569 QTc: 287 Interpretive Statements ASYTOLE WITH A ONE VENTRICULAR COMPLEX BASELINE ARTIFACT- AVR, AVL, AVF, V1-V6 ABNORMAL ECG Compared to ECG 04/24/2024 22:29:24 Sinus rhythm no longer present Electronically Signed On 07-12-2024 19:43:58 GEAR MACHINE OPERATOR by Pilo Bernal D.O.
[2024-07-12 12:25] VITALS: BP 157/48; PULSE 61; RESP 13
[2024-07-12 12:34] VITALS: BP 83/53; PULSE 61
[2024-07-12] MEDS: EPINEPHrine INJ 1 MG in DEXTROSE 5% IN WATER 250 ML 15.06 MG IV CONT (12:34)
[2024-07-12 12:35] VITALS: BP 83/53; PULSE 110; RESP 27; O2SAT 87
[2024-07-12 12:43] VITALS: PULSE 0
--- NOTE | 2024-07-12 12:46 | ED_ITS ---
HPI - General Adult General Chief complaint: Cardiac Arrest/CPR Stated complaint: cardiac arrest History of Present Illness HPI narrative: 68-year-old male presented to the emergency department in cardiac arrest. Patient does have history of chronic kidney disease, CHF, diabetes. Cardiac arrest that was found down at 11:30 a.m. and EMS was called Patient had multiple rounds of epi and had an igel in place. Related Data Home Medications ?Medication ?Instructions ?Recorded ?Confirmed ?Last Taken ?Type acetaminophen 650 mg tablet 650 mg PO Q6H PRN Pain, Mild 04/25/24 06/09/24 Unknown History amlodipine 10 mg tablet 10 mg PO DAILY 04/25/24 06/09/24 Unknown History artificial tears solution eye drops 1 drp ophthalmic (eye) BID PRN Dry 04/25/24 06/09/24 Unknown History Eyes aspirin 81 mg capsule 81 mg PO DAILY 04/25/24 06/09/24 Unknown History atorvastatin 40 mg tablet 40 mg PO HS 04/25/24 06/09/24 Unknown History carvedilol 25 mg tablet 25 mg PO BID 04/25/24 06/09/24 Unknown History cetirizine 10 mg tablet (Zyrtec) 10 mg PO DAILY 04/25/24 06/09/24 Unknown History cyanocobalamin (vitamin B-12) 100 100 mcg PO DAILY 04/25/24 06/09/24 Unknown History mcg tablet famotidine 20 mg tablet 20 mg PO BID 04/25/24 06/09/24 Unknown History ferrous sulfate 324 mg (65 mg 324 mg PO DAILY 04/25/24 06/09/24 Unknown History iron) tablet,delayed release fluticasone propionate 50 1 spray intranasal DAILY 04/25/24 06/09/24 Unknown History mcg/actuation nasal spray,suspension folic acid 1 mg tablet 1 mg PO DAILY 04/25/24 06/09/24 Unknown History hydralazine 10 mg tablet 50 mg PO TID 04/25/24 06/09/24 Unknown History ipratropium 0.5 mg-albuterol 3 mg 3 ml inhalation Q6H PRN SOB 04/25/24 06/09/24 Unknown History (2.5 mg base)/3 mL nebulization soln mirtazapine 15 mg tablet 7.5 mg PO HS 04/25/24 06/09/24 Unknown History multivitamin 1 tablet PO DAILY 04/25/24 06/09/24 Unknown History sennosides 8.6 mg tablet (senna) 8.6 mg PO BID 04/25/24 06/09/24 Unknown History glucagon 1 mg solution for 1 mg IM PRN 06/09/24 06/09/24 Unknown History injection (Glucagon Emergency Kit) Allergies Allergy/AdvReac Type Severity Reaction Status Date / Time No Known Allergies Allergy Verified 10/15/23 11:22 Review of Systems Review of Systems: ROS unobtainable: Yes unobtainable due to medical condition [facility] Past Medical History Medical History Vascular dementia Encephalopathy chronic Hypertension Dementia Anorexia Multiple fractures of ribs, right side, initial encounter for closed fracture Chronic kidney disease, unspecified Subsequent ST elevation (STEMI) myocardial infarction of unspecified site history of Epilepsy, unspecified, not intractable, without status epilepticus Type 1 diabetes mellitus without complications Anemia, unspecified 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 Code status: Full code. 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 EYES: Fixed and dilated NOSE: Normal no drainage THROAT: Pharynx clear, no exudate. NECK: Supple. No adenopathy, no masses. RESPIRATORY: Intubated CARDIOVASCULAR: Arrived in PEA ABDOMINAL: Nondistended MUSCULOSKELETAL: Moves all extremities. Strength/ROM intact, No edema, No calf tenderness. NEURO: Unresponsive Course Vital Signs Vital signs: Vital Signs Pulse Rate 59 L 07/12/24 12:17 Respiratory Rate 21 H 07/12/24 12:17 Blood Pressure 122/64 07/12/24 12:17 Pulse Rate 0 L 07/12/24 12:43 Respiratory Rate 27 H 07/12/24 12:35 Blood Pressure 83/53 L 07/12/24 12:35 Pulse Oximetry 87 L 07/12/24 12:35 Procedures Central Line Placement Right Femoral: Central Line Date: 07/12/24 Performed Emergently - Given emergent patient condition, temporal constraints may have precluded informed consent.: Yes Patient Placed on Monitor/Pulse Ox: Yes Emergently Placed, Full Sterile: prep not done Technique: US-Guided Ultrasound Used for Placement: Yes Central Line Lumen Inserted: triple Post Procedure: sutured in place, good blood return and all ports aspirated, flushed, capped Patient Tolerated Procedure: well and no complications Complications: none Intubation Intubation #1: Intubation Date: 07/12/24 Laryngoscope: fiber optic video scope Tube Size (cm): 7.5 Method of Intubation: orotracheal Number of Attempts: 1 Tube Secured Depth (cm): 23 Tube Placement Confirmation: visualized tube passing through cords, equal breath sounds bilaterally, no breath sounds over epigastrium and confirmation by capnometry Intubation Complications: none Medical Decision Making MDM Narrative Medical decision making narrative: 68-year-old male present to the emergency department and for rest. Multiple rounds epinephrine and bicarb were given. Patient was intubated and patient did receive a central line in the right groin. We did get [place] multiple times but ultimately the patient continued to lose his pulse. Patient was no longer responding to the epinephrine and code had been ongoing for greater than an hour and 15 minutes. Time of was declared at 12:43 p.m.. Patient's family was updated on the results of the code and the passing the patient. I did discuss the case with the patient's primary care physician and they are willing to sign the certificate. Differential Diagnosis Differential Diagnosis: Respiratory arrest, cardiac arrest Vital Signs Vital Signs: Vital Signs Pulse Rate 59 L 07/12/24 12:17 Respiratory Rate 21 H 07/12/24 12:17 Blood Pressure 122/64 07/12/24 12:17 Pulse Rate 0 L 07/12/24 12:43 Respiratory Rate 27 H 07/12/24 12:35 Blood Pressure 83/53 L 07/12/24 12:35 Pulse Oximetry 87 L 07/12/24 12:35 Critical Care Time Critical Care Time Critical Care Time: Yes Total Critical Care Time: 80 Discharge Plan Discharge Clinical Impression: Cardiac arrest Patient Disposition: Condition: Patient Language: Polish Prescriptions: No Action atorvastatin 40 mg tablet 40 mg PO HS hydralazine 10 mg tablet 50 mg PO TID carvedilol 25 mg tablet 25 mg PO BID famotidine 20 mg tablet 20 mg PO BID amlodipine 10 mg tablet 10 mg PO DAILY mirtazapine 15 mg tablet 7.5 mg PO HS multivitamin Tablet 1 tablet PO DAILY cyanocobalamin (vitamin B-12) 100 mcg Tablet 100 mcg PO DAILY artificial tears solution Drops 1 drp OPHTHALMIC (EYE) BID PRN (Reason: Dry Eyes) acetaminophen 650 mg Tablet 650 mg PO Q6H PRN (Reason: Pain, Mild) fluticasone propionate 50 mcg/actuation [place],Suspension 1 spray INTRANASAL DAILY Rx Instructions: administer into each nostril ferrous sulfate 324 mg (65 mg iron) Tablet,Delayed Release (Dr/Ec) 324 mg PO DAILY Rx Instructions: Monday, Mon, Monday aspirin 81 mg Capsule 81 mg PO DAILY sennosides [senna] 8.6 mg Tablet 8.6 mg PO BID cetirizine [Zyrtec] 10 mg Tablet 10 mg PO DAILY folic acid 1 mg Tablet 1 mg PO DAILY ipratropium-albuterol 0.5 mg-3 mg(2.5 mg base)/3 mL Solution For Nebulization 3 ml INHALATION Q6H PRN (Reason: SOB) Glucagon Emergency Kit (human) 1 mg recon soln 1 mg IM PRN Rx Instructions: for hypoglycemia polyethylene glycol 3350 [Miralax] 17 gram Powder In Packet 17 g feeding tube QAM Qty: 14 0RF amoxicillin-pot clavulanate 400-57 mg/5 mL Suspension For Reconstitution 5 ml PO Q12HR Qty: 15 0RF insulin aspart U-100 [Novolog U-100 Insulin aspart] 100 unit/mL Solution 4 - 8 unit subcut Q6HR Qty: 1 0RF Protocol: Insulin Corrective High-Dose Condition: glucose < 70 mg/dl Dose/Route: Follow hypoglycemia order Condition: glucose 70-200 mg/dl Dose/Route: No additional insulin Condition: glucose 201-250 mg/dl Dose/Route: 4 units sub-Q Condition: glucose 251-300 mg/dl Dose/Route: 5 units sub-Q Condition: glucose 301-350 mg/dl Dose/Route: 6 units sub-Q Condition: glucose 351-400 mg/dl Dose/Route: 8 units sub-Q Condition: glucose > 400 mg/dl Dose/Route: Call insulin glargine [Lantus U-100 Insulin] 100 unit/mL Solution 22 unit SUBCUT HS Qty: 10 0RF Follow-up/Referrals: Duncan,MD Zane [Primary Care Provider] -
== END 2024-07-12 16:08 | disposition expired ==
PROVIDERS: Emergency Provider Emergency Medicine; PCP Internal Medicine
DX: I46.9 Cardiac arrest, cause unspecified (principal); E10.22 Type 1 diabetes mellitus with diabetic chronic kidney disease; I13.0 Hypertensive heart and chronic kidney disease with heart failure and stage 1 through stage 4 chronic kidney disease, or unspecified chronic kidney disease; N18.9 Chronic kidney disease, unspecified; I50.9 Heart failure, unspecified; F01.50 Vascular dementia, unspecified severity, without behavioral disturbance, psychotic disturbance, mood disturbance, and anxiety; I25.2 Old myocardial infarction; G40.909 Epilepsy, unspecified, not intractable, without status epilepticus; G93.40 Encephalopathy, unspecified; Z86.2 Personal history of diseases of the blood and blood-forming organs and certain disorders involving the immune mechanism; Z79.82 Long term (current) use of aspirin; Z79.4 Long term (current) use of insulin; Z79.899 Other long term (current) drug therapy
CPT/HCPCS: 31500; 36556; 92950; 93005; 96374; 96375; 99285; C1751; J0171; J7060